=== PATIENT | male | born 1945 | race Caucasian/White ===

== ENCOUNTER 2016-12-30 19:11 | Emergency (ER) | payer MEDICARE, OTHER ==
[~2016-12-30] VITALS: Ht 175.3 cm; Wt 99.8 kg
[~2016-12-30 19:11] MED LIST: ACIT25CA2 PO; ALFU10TA10 PO; ATOR20TA PO; BUPR-96 PO; ENOX80DI SQ; ESOM40CA PO; LEVO100T PO; RANI150T12 PO; WARF5TAB77 PO
--- NOTE | 2016-12-30 19:20 | NUR ---
PATIENT TO ED DT LEFT SIDE OF BODY PAIN- PRESSURE LIKE, "FEELS LIKE THE PE I HAD BEFORE" PT IS AAO4. APPEARS IN NO APPARENT DISTRESS. RESPIRATION EVEN AND UNLABORED. SKIN IS WARM TO TOUCH AND NON DIAPHORETIC. VSS. GOWNED AND CONNECTED PT TO TELE MONITOR
[2016-12-30 19:43] LABS: BASOPHILS % (AUTO) 0.7 % (0.0-2.0); EOSINOPHILS # (AUTO) 0.1 /CMM (0.0-0.7); EOSINOPHILS % (AUTO) 1.2 % (0.0-6.0); HEMATOCRIT 45 % (39-51); HEMOGLOBIN 15.1 g/dL (13.5-17.5); LYMPHOCYTES # (AUTO) 1.2 /CMM (0.8-4.8); LYMPHOCYTES % (AUTO) 18.6 % (20.0-44.0); MEAN CORPUSCULAR HEMOGLOBIN 31 PG (26.0-33.0); MEAN CORPUSCULAR HGB CONC 34 g/dl (31.0-36.0); MEAN CORPUSCULAR VOLUME 91 fL (80-96); MONOCYTES # (AUTO) 0.4 /CMM (0.1-1.30); MONOCYTES % (AUTO) 6.4 % (2.0-12.0); NEUTROPHILS # (AUTO) 4.7 /CMM (1.8-8.9); NEUTROPHILS % (AUTO) 73.1 % (43.0-81.0); PLATELET COUNT (AUTO) 147 /CMM (150-450); RED BLOOD CELL COUNT(AUTO) 4.94 MIL/uL (4.5-6.0); WHITE BLOOD COUNT (AUTO) 6.4 K/uL (4.3-11.0)
[2016-12-30 19:55] LABS: CALCIUM, SERUM 8.2 mg/dL (8.5-10.1); POTASSIUM 3.9 mmol/L (3.5-5.1)
[2016-12-30 20:02] LABS: TROPONIN I 0.026 ng/mL (0.00-0.056)
[2016-12-30 20:50] LABS: D-DIMER 0.74 mg/L(FEU (0.17-0.50); INR 0.93 (0.87-1.13); PROTHROMBIN TIME 9.7 SECS (9.5-12.7)
[2016-12-30] MEDS ORDERED: IV NS 0.9% 250 ML IV ONE ×2 (21:00→21:04)
[2016-12-30] MEDS ORDERED: IOHEXOL-350 100 ML VIAL IV ONE (21:03)
[2016-12-30] MEDS ORDERED: CT SWABBABLE VALVE TRANS SET 1 EA INFUS.SET MC ONE (21:03)
--- NOTE | 2016-12-30 21:05 | NUR ---
PT WAS TAKE TO CT ANGIO
--- NOTE | 2016-12-30 21:55 | NUR ---
CALLED [facility] EXPEDITE CTPA READ.
[2016-12-30 22:21] VITALS: BP 130/80
== END 2016-12-30 22:22 | disposition home or self-care (01) ==
LOC: ER 19:14
DX: R07.89 Other chest pain (principal); E07.9 Disorder of thyroid, unspecified; E78.00 Pure hypercholesterolemia, unspecified; I51.7 Cardiomegaly; R06.02 Shortness of breath; R79.1 Abnormal coagulation profile; Z88.2 Allergy status to sulfonamides; Z79.01 Long term (current) use of anticoagulants; Z86.711 Personal history of pulmonary embolism; Z87.891 Personal history of nicotine dependence
CPT/HCPCS: 36415; 71010-TC; 80048-TC; 83880; 84484-TC; 85025-TC; 85378-TC; 85730-TC; A4606; J7050; Q9967; Z7610

== ENCOUNTER 2019-06-28 02:51 | Inpatient (IN) | payer MEDICARE, OTHER ==
[2019-06-28] VITALS (34 sets, daily range): BP systolic 81–217; BP diastolic 33–157
[~2019-06-28] VITALS: Ht 175.3 cm; Wt 85.3 kg
[~2019-06-28 02:51] MED LIST changes: +RANI-655 PO; -RANI150T12 PO; +WARF5TAB PO; -WARF5TAB77 PO
--- NOTE | 2019-06-28 02:55 | NUR ---
PT BIBRA C/O SOB X 1 DAY. SATTING 80-85% ON RA. SHALLOW RESPIRATIONS NOTED. RT AT BEDSIDE. PALCED ON 4 L O2 VIA N/C. PT AAOX3, CONNECTED TO THE PACKAGING INSPECTOR AND POX.
--- NOTE | 2019-06-28 02:58 | NUR ---
BLOOD COLLECTED AND SENT TO LAB
--- NOTE | 2019-06-28 03:10 | NUR ---
RT AT BEDSIDE
--- NOTE | 2019-06-28 03:10 | NUR ---
RT NOTE Late Entry: Pt rec'd on nasal cannula @ 4lpm. Pt showed tachypnea and accessory muscle usage. Pt placed on bipap per MD orders. Abg to be taken in 30 minutes. Alarms are set audible. Ambu bag bedside. Bipap plugged into red outlet. will continue to monitor. Addendum: 06/28/19 at 0559 by HILARIO GUTIERREZ RT Amended: Links added.
[2019-06-28 03:27] LABS: BASOPHILS % (AUTO) 0.6 % (0.0-2.0); EOSINOPHILS % (AUTO) 0.3 % (0.0-6.0); HEMATOCRIT 43 % (39-51); HEMOGLOBIN 14.2 g/dL (13.5-17.5); LYMPHOCYTES # (AUTO) 0.3 /CMM (0.8-4.8); LYMPHOCYTES % (AUTO) 6.3 % (20.0-44.0); MEAN CORPUSCULAR HGB CONC 33 g/dl (31.0-36.0); MEAN CORPUSCULAR VOLUME 93 fL (80-96); MONOCYTES # (AUTO) 0.3 /CMM (0.1-1.30); MONOCYTES % (AUTO) 4.8 % (2.0-12.0); NEUTROPHILS # (AUTO) 4.7 /CMM (1.8-8.9); PLATELET COUNT (AUTO) 187 /CMM (150-450); RED BLOOD CELL COUNT(AUTO) 4.56 MIL/uL (4.5-6.0); WHITE BLOOD COUNT (AUTO) 5.4 K/uL (4.3-11.0)
--- NOTE | 2019-06-28 03:31 | NUR ---
AVILA SWAB SENT
--- NOTE | 2019-06-28 03:31 | NUR ---
RSV SWAB SENT
[2019-06-28 03:37] LABS: CALCIUM, SERUM 8.3 mg/dL (8.5-10.1); CARBON DIOXIDE 27 mmol/L (21-32); CHLORIDE 97 mmol/L (98-107); CREATININE 1.5 mg/dL (0.6-1.3); GLUCOSE 110 mg/dL (74-106); POTASSIUM 3.8 mmol/L (3.5-5.1); SODIUM SERUM 136 mmol/L (136-145); UREA NITROGEN, BLOOD 19 mg/dL (7-18)
--- NOTE | 2019-06-28 03:44 | NUR ---
RT AT BEDSIDE FOR ABG
[2019-06-28 03:49] LABS: ABG BASE EXCESS -0.5 mmol/L; ABG OXYGEN SATURATION 98.9 % (92.0-98.5); ABG PCO2 28.1 mmHg (35.0-45.0); ABG PH 7.499 (7.350-7.450); AaDO2 424.9 mmHg; COHb 0.4 % (0.5-1.5); MetHb 0.3 % (0.0-1.5); O2Hb 98.2 % (94.0-97.0)
[2019-06-28 03:51] LABS: ALANINE AMINOTRANSFERASE 59 U/L (12-78); ALBUMIN 2.5 g/dL (3.4-5.0); ALKALINE PHOSPHATASE 61 U/L (46-116); ASPARTATE AMINOTRANSFERASE 128 U/L (15-37); B-TYPE NATRIURETIC PEPTIDE 387 PG/ML (0-125); BILIRUBIN,DIRECT 0.1 mg/dL (0.0-0.2); BILIRUBIN,TOTAL 0.5 mg/dL (0.2-1.0); TOTAL PROTEIN, SERUM 6.7 g/dL (6.4-8.2)
--- NOTE | 2019-06-28 03:52 | NUR ---
RT NOTE Late Entry: Abg taken and results given to MD. Bipap changes per MD orders. Addendum: 06/28/19 at 0600 by HILARIO GUTIERREZ RT Amended: Links added.
--- NOTE | 2019-06-28 04:29 | NUR ---
Pt resting comfortably. Given call light. AAOX4. Asked the patient for the meds he takes at home. PT could not recall.
--- NOTE | 2019-06-28 05:18 | NUR ---
DR. ARTIS ON THE PHONE WITH LAUREN JONES NP
--- NOTE | 2019-06-28 05:22 | NUR ---
PER NURSING SUP, NO BED AVAILABLE UNTIL AFTER SHIFT CHANGE
[2019-06-28] MEDS ORDERED: VANCOMYCIN 1 GM in IV D5W 250 ML IV ONE (05:30)
[2019-06-28] MEDS ORDERED: IV NS 0.9% 1,000 ML BAG IV ONE (05:30)
[2019-06-28] MEDS ORDERED: PIPERACILLIN /TAZOBACTAM 3.375 G in IV D5W 50 ML IV ONE (05:30)
[2019-06-28] MEDS ORDERED: PIPERACILLIN /TAZOBACTAM 3.375 G VIAL IV ONE (05:36)
--- NOTE | 2019-06-28 05:40 | NUR ---
PT RESTING. FLUIDS INITIATED AND STARTED ON ZOSYN.
[2019-06-28] MEDS ORDERED: ONDANSETRON HCL/PF 4 MG/2 ML VIAL IVP PRN (06:00)
[2019-06-28] MEDS ORDERED: MAG HYDROX/AL HYDROX/SIMETH 30 ML UDC PO PRN (06:00)
[2019-06-28] MEDS ORDERED: HYDROCODONE/APAP 5/325MG 1 EACH TABLET PO PRN (06:00)
[2019-06-28] MEDS ORDERED: MAGNESIUM HYDROXIDE 30 ML UDC PO PRN (06:00)
[2019-06-28] MEDS ORDERED: ACETAMINOPHEN 325 MG TABLET PO PRN (06:00)
[2019-06-28] MEDS ORDERED: VANCOMYCIN 1 GM VIAL ONE (06:04)
--- NOTE | 2019-06-28 07:16 | NUR ---
US AT BEDSIDE.
[2019-06-28] MEDS ORDERED: ACET-868 PO (08:03)
[2019-06-28] MEDS ORDERED: FAMO10TA41 PO (08:03)
[2019-06-28] MEDS ORDERED: BENZ200C53 PO (08:03)
[2019-06-28] MEDS ORDERED: LEVO100T PO (08:03)
[2019-06-28] MEDS ORDERED: LEVO750T46 PO (08:03)
--- NOTE | 2019-06-28 08:07 | NUR ---
report given to sweta landon at icu. awaiting transfer.
[2019-06-28 08:31] LABS: C-REACTIVE PROTEIN 24.4 mg/dL (0.0-0.9)
--- NOTE | 2019-06-28 09:24 | NUR ---
received pt from ER, s/p acute respiratory failure, r/o covid 19, a/o x4, follows commands, SR, on 10L simple mask, sat well, NPO, urinates in urinal, v/s stable, no pain, seen by Dr Noe.
[2019-06-28 10:23] LABS: ABG BASE EXCESS -4.5 mmol/L; ABG OXYGEN SATURATION 92.9 % (92.0-98.5); ABG PCO2 28.3 mmHg (35.0-45.0); ABG PH 7.431 (7.350-7.450); ABG PO2 63.9 mmHg (75.0-100.0); AaDO2 332.8 mmHg; COHb 0.5 % (0.5-1.5); MetHb 0.1 % (0.0-1.5); O2Hb 92.3 % (94.0-97.0); SITE, ABG Left Radial; VENT MODE, BG S/M 11 LPM
[2019-06-28] MEDS ORDERED: FEE PK DOSING 1 MIN EA MC ONE (10:52)
[2019-06-28] MEDS: ENOXAPARIN SODIUM 40 MG/0.4 ML DISP.SYRIN SQ SCH (11:00)
[2019-06-28] MEDS: IV NS 0.9% 1,000 ML IV PRN (11:01)
--- NOTE | 2019-06-28 12:15 | NUR ---
pt is successfully intubated for controlled intubation per Dr Noe.
[2019-06-28] MEDS ORDERED: PROPOFOL 10MG/ML 50ML 50 ML IV PRN ×2 (12:30→13:00)
[2019-06-28] MEDS: PIPERACILLIN /TAZOBACTAM 3.375 G in IV D5W 50 ML IV SCH ×2 (12:46→17:12)
[2019-06-28] MEDS: HYDROXYCHLOROQUINE 200 MG TABLET PO SCH ×2 (12:49→17:12)
[2019-06-28] MEDS ORDERED: IV NS 0.9% 500 ML IV ONE (13:00)
[2019-06-28] MEDS ORDERED: PROPOFOL 100 ML IV PRN ×2 (13:30→14:00)
[2019-06-28] MEDS: PROPOFOL 100 ML IV PRN ×4 (14:07→23:36)
[2019-06-28 15:39] LABS: ABG BASE EXCESS -2.4 mmol/L; ABG OXYGEN SATURATION 96.7 % (92.0-98.5); ABG PCO2 37.7 mmHg (35.0-45.0); ABG PH 7.387 (7.350-7.450); ABG PO2 95.1 mmHg (75.0-100.0); AaDO2 580.2 mmHg; COHb 0.2 % (0.5-1.5); MetHb 0.4 % (0.0-1.5); O2Hb 96.1 % (94.0-97.0); PEEP,BG 0 cm H2O; SITE, ABG Right Radial; VT, ABG 550 mL
[2019-06-28 15:46] LABS: APPEARANCE,URINE HAZY (CLEAR); COLOR,URINE YELLOW (YELLOW); PROTEIN,URINE 30 mg/dl (NEGATIVE)
[2019-06-28 15:47] LABS: BILIRUBIN,URINE NEGATIVE (NEGATIVE); BLOOD, URINE LARGE Ery/uL (NEGATIVE); KETONES,URINE NEGATIVE (NEGATIVE); LEUKOCYTE ESTERASE ,URINE NEGATIVE (NEGATIVE); NITRITE, URINE NEGATIVE (NEGATIVE); UGLUCOSE NEGATIVE (NEGATIVE); UROBILINOGEN,URINE 0.2 EU/dL (0.2)
[2019-06-28 15:50] LABS: BACTERIA,URINE Few /HPF (None Seen); MUCUS,URINE Rare /LPF (None Seen); RBC,URINE 51-80 /HPF (0-2); SQUAMOUS EPITHELIAL CELL,UR Few /HPF (None Seen); WBC,URINE 0-2 /HPF (0-3)
--- NOTE | 2019-06-28 16:41 | NUR ---
pt is resting in the bed, sedated on Diprivan at 45mcg, SB, intubated, lungs congested, no edema, NPO, OG clamped, f/c good output, v/s stable, no pain, pt cleaned, changed and repositioned q2hrs, still awaiting for PICC line nurse.
[2019-06-28] MEDS ORDERED: NOREPINEPHRINE 32 MG in IV NS 0.9% 218 ML IV PRN (18:00)
[2019-06-28] MEDS ORDERED: PROPOFOL 200 MG/20 ML VIAL IV ONE (18:09)
[2019-06-28] MEDS ORDERED: SUCCINYLCHOLINE CHLORIDE 20 MG/ML VIAL IV ONE (18:09)
--- NOTE | 2019-06-28 19:00 | NUR ---
RECEIVED PATIENT ORALLY INTUBATED TO THE VENTILATOR ON AC MODE, ON 100 % FIO2, SATURATING 92-94 %.SEDATED ON PROPOFOL DRIP @ 45 MCG/KG/MIN. ON CONTACT /DROPLET ISOLATION r/o COVID-19(result pending).BREATHING NON LABORED AT THIS TIME.
--- NOTE | 2019-06-28 20:35 | NUR ---
NOTED TO BE SUDDENLY TACHYPNEIC RR=36-38 AND LABORED BREATHING,SATURATING 90-91 % ONLY ON FIO2 OF 100 %. PROPOFOL DRIP INCREASED.
--- NOTE | 2019-06-28 21:30 | NUR ---
BREATHING LESS LABORED,RR=24, PROPOFOL DRIP @ 60 MCG/KG/MIN.WILL CLOSELY MONITOR BP.WILL TITRATE DOWN IF BREATHING REMAINS NON LABORED.
[2019-06-29] VITALS (85 sets, daily range): BP systolic 45–208; BP diastolic 22–121
--- NOTE | 2019-06-29 | NUR ---
CALM,BREATHING NON LABORED ,SATURATING 95-98%,.WILL KEEP PROPOFOL DRIP @ 55 MCG/KG/MIN. BP STABLE.
[2019-06-29] MEDS: PIPERACILLIN /TAZOBACTAM 3.375 G in IV D5W 50 ML IV SCH ×5 (00:08→23:20)
[2019-06-29] MEDS: VANCOMYCIN 1 GM in IV D5W 250ml IV SCH ×2 (00:44→18:21)
[2019-06-29] MEDS: IV NS 0.9% 1,000 ML IV PRN ×2 (02:18→17:58)
[2019-06-29] MEDS: PROPOFOL 100 ML IV PRN ×10 (02:30→23:47)
--- NOTE | 2019-06-29 04:00 | NUR ---
STABLE,NOT IN ANY RESPIRATORY DISTRESS,BREATHING ,REGULAR AND NON LABORED WITH PROPOFOL DRIP STILL @ 55 MCG/KG/MIN. AM BATH DONE.
[2019-06-29 04:55] LABS: BASOPHILS % (AUTO) 0.2 % (0.0-2.0); HEMATOCRIT 35 % (39-51); HEMOGLOBIN 11.3 g/dL (13.5-17.5); LYMPHOCYTES # (AUTO) 0.2 /CMM (0.8-4.8); MEAN CORPUSCULAR HGB CONC 32 g/dl (31.0-36.0); MEAN CORPUSCULAR VOLUME 89 fL (80-96); MONOCYTES # (AUTO) 0.9 /CMM (0.1-1.30); NEUTROPHILS # (AUTO) 17.6 /CMM (1.8-8.9); NEUTROPHILS % (AUTO) 93.8 % (43.0-81.0); PLATELET COUNT (AUTO) 121 /CMM (150-450); RED BLOOD CELL COUNT(AUTO) 3.94 MIL/uL (4.5-6.0); WHITE BLOOD COUNT (AUTO) 18.8 K/uL (4.3-11.0)
[2019-06-29 05:09] LABS: ALANINE AMINOTRANSFERASE 23 U/L (12-78); ALKALINE PHOSPHATASE 84 U/L (46-116); ASPARTATE AMINOTRANSFERASE 61 U/L (15-37); CARBON DIOXIDE 23 mmol/L (21-32); CHLORIDE 108 mmol/L (98-107); CREATININE 3.6 mg/dL (0.6-1.3); GLUCOSE 76 mg/dL (74-106); MAGNESIUM 2.2 mg/dL (1.8-2.4); PHOSPHORUS 5.6 mg/dL (2.5-4.9); POTASSIUM 4.2 mmol/L (3.5-5.1); SODIUM SERUM 141 mmol/L (136-145); TOTAL PROTEIN, SERUM 5.4 g/dL (6.4-8.2); UREA NITROGEN, BLOOD 53 mg/dL (7-18)
[2019-06-29 05:13] LABS: CALCIUM, SERUM 7.8 mg/dL (8.5-10.1)
[2019-06-29 05:20] LABS: CHOLESTEROL 55 mg/dL (<200); HDL CHOLESTEROL 10 mg/dL (40-60); LDL 19 mg/dL (0-99); TRIGLYCERIDES 139 mg/dL (30-150)
[2019-06-29 05:24] LABS: ALBUMIN 1.1 g/dL (3.4-5.0)
--- NOTE | 2019-06-29 07:00 | NUR ---
REMAINS STABLE.REPORT GIVEN TO SUAD HOWELL
--- NOTE | 2019-06-29 08:00 | NUR ---
RT PATIENT REC'D ORALLY INTUBATED ON [facility] VENT WITH ORDERED SETTINGS. VENT ALARMS CHECKED + AUDIBLE. ETT SECURE AND PATENT. AMBU BAG AT [facility]. PATIENT SEDATED AND APPEARS IN NO DISTRESS AT THIS TIME. CONT CURRENT PLAN OF RESP CARE. Addendum: 06/29/19 at 1449 by MYRNA WREN RT Amended: Links added.
[2019-06-29] MEDS: HYDROXYCHLOROQUINE 200 MG TABLET PO SCH ×2 (08:05→17:34)
[2019-06-29] MEDS: ENOXAPARIN SODIUM 40 MG/0.4 ML DISP.SYRIN SQ SCH (08:07)
--- NOTE | 2019-06-29 08:57 | NUR ---
received pt from nightman, sedated on Diprivan at 50mcg, SB, on the vent, high peep, BL PNA, some non pitting edema BLLE, NPO, f/c good output, started on levo at 0.1 mcg, restraints on, v/s stable, no pain, pt turned and repositioned.
[2019-06-29 10:17] LABS: ABG BASE EXCESS -4.6 mmol/L; ABG PCO2 29.6 mmHg (35.0-45.0); ABG PH 7.417 (7.350-7.450); ABG PO2 66.9 mmHg (75.0-100.0); AaDO2 472.4 mmHg; COHb 0.4 % (0.5-1.5); MetHb 0.4 % (0.0-1.5); O2Hb 92.3 % (94.0-97.0); SITE, ABG Left Brachial
--- NOTE | 2019-06-29 11:30 | NUR ---
RT PEEP INCREASED TO 12 AND FIO2 TITRATED TO 80% Addendum: 06/29/19 at 1449 by MYRNA WREN RT Amended: Links added.
[2019-06-29] MEDS: AZITHROMYCIN 500 MG in IV D5W 250 ML IV SCH (12:27)
[2019-06-29] MEDS: ACETAMINOPHEN 650 MG/20.3 ML UDC NG PRN (13:12)
[2019-06-29 13:57] LABS: ABG BASE EXCESS -6.1 mmol/L; ABG OXYGEN SATURATION 98.5 % (92.0-98.5); ABG PH 7.371 (7.350-7.450); ABG PO2 188.9 mmHg (75.0-100.0); AaDO2 347.9 mmHg; COHb 0.2 % (0.5-1.5); MetHb 0.6 % (0.0-1.5); O2Hb 97.7 % (94.0-97.0); SITE, ABG Right Radial
--- NOTE | 2019-06-29 16:54 | NUR ---
pt is resting in the bed, sedated on Diprivan at 75mcg, SR, SB, intubated high peep, sat 100%, receiving levo at 0.04 mcg, f/c good output, v/s stable, no pain, pt cleaned, changed and repositioned q2hrs.
--- NOTE | 2019-06-29 19:45 | NUR ---
FAMILY CALLED LEONARDO SKELTON [phone], GAVE UPDATE ON THIS PT.
--- NOTE | 2019-06-29 20:10 | NUR ---
ICU/DYNAMITE RECLAIMER REPORT RECEIVED FROM THE TO DAY NURSE. SEE FLOWSHEET FOR ASSESSMENT, NO SKIN ISSUES TO BE ADDRESSED. PT IS ON SEDATION AT THIS TIME DUE TO INTUBATION. PT IS ORALLY INTUBATED WITH SATURATION AT 89-90%. WILL MONITOR THIS PT. PT TURNED AND REPOSITIONED FOR COMFORT AND CARE. PT IS ON LEVO FOR LOW BP.
[2019-06-29] MEDS: LORAZEPAM INJ 2 MG/ML VIAL IVP PRN (20:16)
[2019-06-29 20:52] LABS: ABG BASE EXCESS -4.1 mmol/L; ABG OXYGEN SATURATION 81.3 % (92.0-98.5); ABG PCO2 40.4 mmHg (35.0-45.0); ABG PH 7.341 (7.350-7.450); ABG PO2 48.5 mmHg (75.0-100.0); AaDO2 479.5 mmHg; COHb 0.5 % (0.5-1.5); MetHb 0.2 % (0.0-1.5); O2Hb 80.7 % (94.0-97.0); SITE, ABG Left Radial
[2019-06-29] MEDS ORDERED: VECURONIUM 50 MG in IV NS 0.9% 50 ML IV PRN (21:30)
--- NOTE | 2019-06-29 21:30 | NUR ---
ICU/FISH NET STRINGER PT'S SATURATION IS 70'S, RT AT BEDSIDE. ABG WAS DONE. DR PALACIOS CALLED OBTAINED ORDERS. RT GOT ORDERS INCREASED SETTINGS TO A/C 28, TV550, FIO2 100, PEEP 14 ORDERS OBTAINED IF STILL BREATHING OVER VENT GIVE ATIVAN 1MG PRN, IF STILL BREATHING OVER VENT START ON PARALYTIC CHARGE NURSE TOOK THIS ORDER. .
--- NOTE | 2019-06-29 22:30 | NUR ---
ICU/FAMILY PROGRAM SPECIALIST PT IS TOLERATING CURRENT VENT SETTINGS AT THIS TIME, FAMILY IS AWARE.
[2019-06-30] VITALS (95 sets, daily range): BP systolic 57–212; BP diastolic 32–130
[2019-06-30] MEDS: PROPOFOL 100 ML IV PRN ×13 (01:30→22:36)
[2019-06-30] MEDS: PIPERACILLIN /TAZOBACTAM 3.375 G in IV D5W 50 ML IV SCH ×4 (05:16→23:28)
[2019-06-30 06:02] LABS: BASOPHILS % (AUTO) 0.2 % (0.0-2.0); HEMATOCRIT 38 % (39-51); HEMOGLOBIN 13.1 g/dL (13.5-17.5); LYMPHOCYTES # (AUTO) 0.3 /CMM (0.8-4.8); LYMPHOCYTES % (AUTO) 3.1 % (20.0-44.0); MEAN CORPUSCULAR HGB CONC 35 g/dl (31.0-36.0); MEAN CORPUSCULAR VOLUME 94 fL (80-96); MONOCYTES # (AUTO) 0.3 /CMM (0.1-1.30); NEUTROPHILS # (AUTO) 10.3 /CMM (1.8-8.9); NEUTROPHILS % (AUTO) 92.7 % (43.0-81.0); PLATELET COUNT (AUTO) 184 /CMM (150-450); RED BLOOD CELL COUNT(AUTO) 3.99 MIL/uL (4.5-6.0); WHITE BLOOD COUNT (AUTO) 11.1 K/uL (4.3-11.0)
[2019-06-30 06:10] LABS: CALCIUM, SERUM 7.8 mg/dL (8.5-10.1); MAGNESIUM 2.2 mg/dL (1.8-2.4); PHOSPHORUS 2.2 mg/dL (2.5-4.9); POTASSIUM 3.1 mmol/L (3.5-5.1)
--- NOTE | 2019-06-30 07:14 | NUR ---
CORRECTIONAL CAPTAIN NOTES RECEIVED PATIENT SEDATED , NOT IN ACUTE DISTRESS , RESPIRATIONS DEEP UNLABORED WITH SPO2 OF 100% VIA MECHANICAL VENT SETTINGS ORDERED , ETT 11/[address] , SR 75 ON BEDSIDE MONITOR , FC DRAINING VIA GRAVITY , OGT IN PLACE CLAMPED , IV OF R AC 20 AND R HAND # 22 PATENT AND INTACT SL , R UA PICC LINE WITH NS @ 75ML/HR INFUSING WELL , ALL NEEDS ATTENDED , ISOLATION PRECAUTION OBSERVED , WILL CONTINUE TO MONITOR
[2019-06-30 07:28] LABS: ABG BASE EXCESS -6.5 mmol/L; ABG OXYGEN SATURATION 98.5 % (92.0-98.5); ABG PCO2 20.2 mmHg (35.0-45.0); ABG PH 7.484 (7.350-7.450); ABG PO2 210.8 mmHg (75.0-100.0); COHb 0.3 % (0.5-1.5); MetHb 0.2 % (0.0-1.5); SITE, ABG Right Brachial
[2019-06-30] MEDS: LORAZEPAM INJ 2 MG/ML VIAL IVP PRN (08:13)
[2019-06-30] MEDS: HYDROXYCHLOROQUINE 200 MG TABLET PO SCH ×2 (08:13→17:16)
[2019-06-30] MEDS: ENOXAPARIN SODIUM 40 MG/0.4 ML DISP.SYRIN SQ SCH (08:13)
--- NOTE | 2019-06-30 08:35 | NUR ---
GLASS CUTTER HELPER NOTES VENT CHANGED BY PARKER MONROE , ORDERS CARRIED OUT , ABG IN 2 HOURS ,
[2019-06-30] MEDS: IV NS 0.9% 1,000 ML IV PRN (09:00)
[2019-06-30] MEDS ORDERED: POTASSIUM CHLORIDE 20 MEQ POWDER PACKET GT SCH (09:00)
--- NOTE | 2019-06-30 09:00 | NUR ---
MECHANICAL SERVICE SPECIALIST NOTES UNABLE TO DO SEDATION VACATION DUE TO VENT SETTINGS , DR PALACIOS AWARE .
[2019-06-30] MEDS: AZITHROMYCIN 500 MG in IV D5W 250 ML IV SCH (10:15)
[2019-06-30 10:45] LABS: ABG BASE EXCESS -4.9 mmol/L; ABG OXYGEN SATURATION 98.8 % (92.0-98.5); ABG PCO2 30.1 mmHg (35.0-45.0); ABG PH 7.407 (7.350-7.450); AaDO2 198.7 mmHg; COHb 0.1 % (0.5-1.5); MetHb 0.4 % (0.0-1.5); O2Hb 98.3 % (94.0-97.0); PEEP,BG 14 cm H2O; SITE, ABG Left Radial; VT, ABG 500 mL
--- NOTE | 2019-06-30 10:49 | NUR ---
VACUUM BOTTLE ASSEMBLER NOTES VENT CHANGES CARRIED OUT , AC 28 , TV 500 FIO2 50% AND PEEP OF 10 , WILL CONTINUE TO MONITOR .
[2019-06-30 12:10] LABS: CALCIUM, SERUM 7.9 mg/dL (8.5-10.1); POTASSIUM 4.7 mmol/L (3.5-5.1)
[2019-06-30] MEDS: VANCOMYCIN 1 GM in IV D5W 250ml IV SCH (12:51)
[2019-06-30] MEDS ORDERED: methylPREDNISolone SOD SUCC 40 MG/ML VIAL IV ONE (13:00)
[2019-06-30] MEDS ORDERED: diphenhydrAMINE HCL 50 MG/ML VIAL IV ONE (13:00)
[2019-06-30] MEDS ORDERED: ACETAMINOPHEN 650 MG/20.3 ML UDC GT ONE (13:00)
[2019-06-30] MEDS ORDERED: TOCILIZUMAB 400 MG in IV NS 0.9% 80 ML IV ONE (14:00)
[2019-06-30 18:03] LABS: MAGNESIUM 2.1 mg/dL (1.8-2.4); PHOSPHORUS 2.3 mg/dL (2.5-4.9)
[2019-06-30] MEDS ORDERED: NOREPINEPHRINE 8 MG in IV D5W 500 ML IV PRN (18:30)
--- NOTE | 2019-06-30 19:30 | NUR ---
BUNCHER OPERATOR NOTES PATIENT STABLE SEDATED , NOT IN ACUTE DISTRESS , RESPIRATIONS DEEP UNLABORED WITH SPO2 OF 100% VIA MECHANICAL VENT SETTINGS ORDERED , ETT 11/[address] , SR 70 ON BEDSIDE MONITOR , FC DRAINING VIA GRAVITY , OGT IN PLACE CLAMPED , IV OF R AC 20 AND R HAND # 22 PATENT AND INTACT SL , R UA PICC LINE WITH NS @ 75ML/HR INFUSING WELL , LEVOPHED ORDERED , ALL NEEDS ATTENDED , ISOLATION PRECAUTION OBSERVED , REPORT GIVEN TO BUCK FOR CONTINUITY OF CARE
[2019-06-30] MEDS: NOREPINEPHRINE 8 MG in IV NS 0.9% 242 ML IV PRN (19:34)
--- NOTE | 2019-06-30 19:45 | NUR ---
ICU/PLATFORM MATERIAL HANDLER MANAGER REPORT RECEIVED FROM THE TO DAY NURSE. SEE FLOWSHEET FOR ASSESSMENT, SKIN ISSUES WAS ADDRESSED. PT IS ON SEDATION AT THIS TIME DUE TO INTUBATION. PT IS ORALLY INTUBATED WITH SATURATION AT 99%. WILL MONITOR THIS PT. PT TURNED AND REPOSITIONED FOR COMFORT AND CARE. PT IS ON LEVO FOR LOW BP.
--- NOTE | 2019-06-30 20:20 | NUR ---
RT NOTE PT RECEIVED TRACHED ON MECHANICAL VENTILATION INTUBATED WITH 8.0 ET TUBE @ 25 CM MID LIP LINE. SX DONE, SMALL THICK CLEAR SECRETIONS NOTED. ALARMS ON AND AUDIBLE. VENT PLUGGED TO RED OUTLET. NO DISTRESS NOTED AT THIS TIME. WILL MONITOR T/O SHIFT. Addendum: 06/30/19 at 2020 by ALTHEA REYNA RT Amended: Links added.
[2019-07-01] VITALS (95 sets, daily range): BP systolic 65–189; BP diastolic 36–114
[2019-07-01] MEDS: PROPOFOL 100 ML IV PRN ×8 (00:16→23:18)
[2019-07-01 05:01] LABS: BASOPHILS % (AUTO) 0.2 % (0.0-2.0); HEMATOCRIT 39 % (39-51); LYMPHOCYTES # (AUTO) 0.3 /CMM (0.8-4.8); MEAN CORPUSCULAR HGB CONC 34 g/dl (31.0-36.0); MEAN CORPUSCULAR VOLUME 92 fL (80-96); MONOCYTES # (AUTO) 0.2 /CMM (0.1-1.30); NEUTROPHILS # (AUTO) 8.3 /CMM (1.8-8.9); NEUTROPHILS % (AUTO) 94.8 % (43.0-81.0); PLATELET COUNT (AUTO) 140 /CMM (150-450); WHITE BLOOD COUNT (AUTO) 8.8 K/uL (4.3-11.0)
[2019-07-01] MEDS: VANCOMYCIN 1 GM in IV D5W 250ml IV SCH (05:14)
[2019-07-01 05:20] LABS: ALBUMIN 1.5 g/dL (3.4-5.0); BILIRUBIN,TOTAL 0.5 mg/dL (0.2-1.0); CALCIUM, SERUM 7.7 mg/dL (8.5-10.1); MAGNESIUM 2.3 mg/dL (1.8-2.4); PHOSPHORUS 2.9 mg/dL (2.5-4.9); POTASSIUM 3.3 mmol/L (3.5-5.1)
--- NOTE | 2019-07-01 06:00 | NUR ---
RT NOTE END OF SHIFT: SX DONE, ET TUBE SECURED AND PATENT. HME CHANGED. ET TUBE MOVED TO MID LIP LINE. NO DISTRESS NOTED. ALARMS ON AND AUDIBLE. Addendum: 07/01/19 at 0601 by ALTHEA REYNA RT Amended: Links added.
[2019-07-01] MEDS: IV NS 0.9% 1,000 ML IV PRN ×2 (06:03→19:10)
[2019-07-01] MEDS: PIPERACILLIN /TAZOBACTAM 3.375 G in IV D5W 50 ML IV SCH ×4 (06:19→23:26)
--- NOTE | 2019-07-01 06:30 | NUR ---
ICU/PROFESSIONAL POKER PLAYER LAB CALLED SAID PT IS COVID-19 POSITIVE
--- NOTE | 2019-07-01 06:45 | NUR ---
ICU/MACHINE HOSTLER FAMILY ASKED TO BE CALLED WHEN PT HAS A POSITIVE COVID-19 TEST. MANI WAS CALLED TO BE NOTIFIED.
--- NOTE | 2019-07-01 07:15 | NUR ---
SUCTION DRUM DRIER OPERATOR NOTES RECEIVED PATIENT SEDATED , NOT IN ACUTE DISTRESS , RESPIRATIONS DEEP UNLABORED WITH SPO2 OF 100% VIA MECHANICAL VENT SETTINGS ORDERED , ETT 11/[address] , SB 40 ON BEDSIDE MONITOR , FC DRAINING VIA GRAVITY , OGT IN PLACE CLAMPED , IV OF R AC 20 AND R HAND # 22 PATENT AND INTACT SL , R UA PICC LINE WITH NS @ 75ML/HR , LEVOPHED @ 0.02MCG/MIN , INFUSING WELL , ALL NEEDS ATTENDED , ISOLATION PRECAUTION OBSERVED , WILL CONTINUE TO MONITOR
[2019-07-01] MEDS: HYDROXYCHLOROQUINE 200 MG TABLET PO SCH (08:31)
[2019-07-01] MEDS: ENOXAPARIN SODIUM 40 MG/0.4 ML DISP.SYRIN SQ SCH (08:32)
--- NOTE | 2019-07-01 09:00 | NUR ---
SIGN HANGER NOTES SEEN AND EVALUATED BY DR PALACIOS , DISCUSSED PT IS OFF SEDATION , NOT WAKING UP AT THIS TIME , ON LEVOPHED @ 0.01MCK/KG/MIN , HYPOTHERMIC 95.5 , SLUGGISH PUPILS PERRLA 5MM . TOLERATING CURRENT VENT SETTINGS , PT IS POSITIVE FOR COVID 19
[2019-07-01] MEDS: POTASSIUM CL. PREMIX PERIPHER. 50 ML IV SCH ×3 (09:18→11:07)
--- NOTE | 2019-07-01 09:18 | NUR ---
INTERNAL SECURITY MANAGER NOTES NORA HELD FOR SEDATION VACATION , WILL CONTINUE TO MONITOR
--- NOTE | 2019-07-01 11:32 | NUR ---
FOREST NURSERY WORKER NOTES NOTIFIED DR LYNN REGARDING HR OF SB 35-40 ,S , OFF DIPRIVAN , LEVOPHED @0.01MCG/KG/MIN BP WNL , HYPOTHERMIC @95.5 , PUPILS 5MM SLUGGISH MD CRIS AWARE , PLAQUENIL AND NIYAH DC , PER MD ORDER T4 AND CORTISOL LEVEL ,
[2019-07-01 12:39] LABS: ABG BASE EXCESS -6.3 mmol/L; ABG OXYGEN SATURATION 97.4 % (92.0-98.5); ABG PCO2 25.6 mmHg (35.0-45.0); ABG PH 7.427 (7.350-7.450); ABG PO2 109.3 mmHg (75.0-100.0); AaDO2 218.4 mmHg; MetHb 0.3 % (0.0-1.5); O2Hb 97.1 % (94.0-97.0); PEEP,BG 10 cm H2O; SITE, ABG Left Brachial; VT, ABG 500 mL
--- NOTE | 2019-07-01 13:00 | NUR ---
ICE CREAM DISPENSER NOTES ABG RELAYED TO DR PALACIOS , ORDERED TO CHANGE VENT SETTINGS TO AC 28 , TV 550 FIO2 50% PEEP OF 5 , ORDER CARRIED OUT
--- NOTE | 2019-07-01 15:00 | NUR ---
UNIT COORDINATOR NOTES UPDATED DR PALACIOS REGARDING NEURO STATUS OF THE PT , STILL NOT WAKING UP , PUPILS SLUGGISH PERRLA 5MM , OFF SEDATION SINCE 917 , RESPONSIVE TO DEEP PAIN STIMULI NOTED WITH SQUIRMING , AWARE . MD UPDATED THE FAMILY , PER MD IF PT STILL NOT WAKING UP WILL DO CT OF THE HEAD BY TOMORROW .
[2019-07-01] MEDS: RITONAVIR 100 MG CAPSULE PO SCH (16:47)
[2019-07-01] MEDS: DARUNAVIR ETHANOLATE 800 MG TABLET PO SCH (16:47)
[2019-07-01] MEDS: DOXYCYCLINE 100 MG in IV D5W 100 ML IV SCH (17:43)
--- NOTE | 2019-07-01 18:36 | NUR ---
CHAR HOUSE SUPERVISOR NOTES PT STARTED TO WAKE UP , OPENS EYES , TRACKS , NOTED WITH MILD AGITATION , ABLE TO FOLLOW COMMANDS, WILL RE START DIPRIVAN ORDERED
--- NOTE | 2019-07-01 19:00 | NUR ---
PRODUCT INTRODUCTION MANAGER NOTE BP 84/59, LEVOPHED DRIP STARTED @ 0.1MCG/KG/MIN. WILL MONITOR CLOSELY
--- NOTE | 2019-07-01 19:30 | NUR ---
BRAND RECORDER INITIAL SHIFT NOTES RECEIVED PATIENT IN BED, SEDATED , NOT IN ACUTE DISTRESS, BREATHING EVEN AND NONLABORED WITH SPO2 OF 100% VIA MECHANICAL VENT SETTINGS ORDERED , ETT 8/25CM AT LIP LINE, IN PLACE , SB 44 ON BEDSIDE MONITOR , FC DRAINING VIA GRAVITY, OGT IN PLACE, PATENT AND INTACT, CLAMPED , IV OF R AC 20 AND R HAND # 22 PATENT AND INTACT SL , R UA PICC LINE WITH NS @ 75ML/HR , LEVOPHED DRIP @ 0.1MCG/MIN , INFUSING WELL , ALL NEEDS ATTENDED , ISOLATION PRECAUTION OBSERVED , WILL CONTINUE TO MONITOR
[2019-07-01] MEDS ORDERED: DOXYCYCLINE 100 MG in IV NS 0.9% 100 ML IV SCH (21:00)
--- NOTE | 2019-07-01 22:00 | NUR ---
SECRETARY BOOK KEEPER NOTES RECEIVED CALL FROM PATIENT'S FAMILY MEMBERS ( AND SON) , UPDATED REGARDING CURRENT CONDITION
[2019-07-01] MEDS: NOREPINEPHRINE 8 MG in IV NS 0.9% 242 ML IV PRN (23:40)
[2019-07-02] VITALS (80 sets, daily range): BP systolic 84–185; BP diastolic 54–111
[2019-07-02] MEDS: VANCOMYCIN 1 GM in IV D5W 250ml IV SCH ×2 (01:13→19:25)
--- NOTE | 2019-07-02 04:00 | NUR ---
MOTORCYCLE RACER NOTES FULL BED BATH RENDERED,TOLERATED WELL, WILL MONITOR CLOSELY
[2019-07-02 05:13] LABS: BASOPHILS % (AUTO) 0.2 % (0.0-2.0); EOSINOPHILS % (AUTO) 0.2 % (0.0-6.0); HEMATOCRIT 37 % (39-51); HEMOGLOBIN 12.3 g/dL (13.5-17.5); LYMPHOCYTES # (AUTO) 0.5 /CMM (0.8-4.8); LYMPHOCYTES % (AUTO) 3.6 % (20.0-44.0); MEAN CORPUSCULAR HGB CONC 34 g/dl (31.0-36.0); MEAN CORPUSCULAR VOLUME 92 fL (80-96); MONOCYTES # (AUTO) 0.4 /CMM (0.1-1.30); MONOCYTES % (AUTO) 3.1 % (2.0-12.0); NEUTROPHILS # (AUTO) 12.3 /CMM (1.8-8.9); NEUTROPHILS % (AUTO) 92.9 % (43.0-81.0); PLATELET COUNT (AUTO) 201 /CMM (150-450); WHITE BLOOD COUNT (AUTO) 13.2 K/uL (4.3-11.0)
[2019-07-02 05:31] LABS: CALCIUM, SERUM 7.7 mg/dL (8.5-10.1); CREATININE 1.1 mg/dL (0.6-1.3); POTASSIUM 3.9 mmol/L (3.5-5.1)
[2019-07-02] MEDS: PIPERACILLIN /TAZOBACTAM 3.375 G in IV D5W 50 ML IV SCH ×3 (05:40→17:56)
[2019-07-02] MEDS: PROPOFOL 100 ML IV PRN ×2 (05:41→23:27)
[2019-07-02] MEDS: DOXYCYCLINE 100 MG in IV D5W 100 ML IV SCH ×2 (06:26→18:16)
--- NOTE | 2019-07-02 07:30 | NUR ---
RN NOTES RECEIVED PATIENT SEDATED WITH DIPRIVAN AT 25MC. NOT ON RESPIRATORY DISTRESS. BREATHING UNLABORED. SATING 100%. SINUS ROEL ON THE MONITOR WITH HR ON THE 50S. NO INDICATION OF PAIN NOTED AT THIS TIME. OGT IN PLACE. CLAMPED. HOB ELEVVATED. MORAN CATHETER IN PLACE AND DRAINING WITH CLEAR YELLOW URINE. BILATERAL SOFT RESTRAINTS ON. WILL INITIATE SEDATION VACATION. CALL LIGHT NOTED TO BE WITHIN REACH. WILL CONTINUE TO MONITOR PATIENT ACCORDINGLY
[2019-07-02] MEDS: RITONAVIR 100 MG CAPSULE PO SCH (08:39)
[2019-07-02] MEDS: DARUNAVIR ETHANOLATE 800 MG TABLET PO SCH (08:39)
--- NOTE | 2019-07-02 09:00 | NUR ---
RN NOTES PATIENT OFF SEDATION. DUE MEDS GIVEN. PATIENT ASSESS AT BEDSIDE. AWAKE ALERT AND ORIENTEDX1-2. ABLE TO ANSWER SIMPLE QUESTION. ABLE TO FOLLOW COMMANDS AT THIS POINT.
--- NOTE | 2019-07-02 09:09 | NUR ---
WOUND CARE CONSULT: RECEIVED CONSULT FOR SACRAL REDNESS. REVIEWED PHOTO AND NURSING DOCUMENTATION. PHOTO SHOWS RED AREAS ON BUTTOCK. PT ON FIRST STEP LOW AIRLOSS MATTRESS. DISCUSSED SKIN PROTECTION WITH NURSING STAFF. WILL SEE PRN. NAVARRO IN AGREEMENT WITH PLAN OF CARE.
--- NOTE | 2019-07-02 09:21 | NUR ---
RT NOTE PT RECEIVED ON MECHANICAL VENTILATION INTUBATED WITH ET TUBE. ALARMS ON AND AUDIBLE. VENT PLUGGED TO RED OUTLET. NO DISTRESS NOTED AT THIS TIME. WILL MONITOR T/O SHIFT. Addendum: 07/02/19 at 0922 by BEVERLEY GABRIEL RT Amended: Links added.
[2019-07-02 10:54] LABS: ABG OXYGEN SATURATION 96.1 % (92.0-98.5); ABG PCO2 28.4 mmHg (35.0-45.0); ABG PH 7.458 (7.350-7.450); ABG PO2 84.7 mmHg (75.0-100.0); AaDO2 239.9 mmHg; COHb 0.3 % (0.5-1.5); MetHb 0.3 % (0.0-1.5); O2Hb 95.5 % (94.0-97.0); SITE, ABG Right Radial
[2019-07-02] MEDS: methylPREDNISolone SOD SUCC 40 MG/ML VIAL IV SCH (11:30)
[2019-07-02] MEDS: IV NS 0.9% 1,000 ML IV PRN (12:35)
--- NOTE | 2019-07-02 19:00 | NUR ---
RN NOTES ENDORSED PATIENT FOR CONTINUITY OD CARE. NOT ON ANY FORM OF DISTRESS. TOLERATING CURRENT VENT SETTINGS. SATING FINE. NO INDICATION OF PAIN. PATIENT WITH ONGOING IVF OF NS AT 100CC//HR. HOB ELEVATED. SAFETY MEASURES IN PLACE. CALL LIGHT WITHIN REACH
--- NOTE | 2019-07-02 21:45 | NUR ---
ANTI TANK MISSILEMAN NOTES SPOKE TO PATIENT'S MANI FOR UPDATE REGARDING CURRENT PLAN OF CARE. FAMILY MEMBERS APPRECIATIVE FOR CARE PROVIDED. PER 'S REQUEST, GIVE ATIVAN PATIENT HAS A "HISTORY OF BEING A VERY ANXIOUS PERSON." PATIENT ASSESSED, NOTED WITH SLIGHT AGITATION, BUT ALERT AND ORIENTED, SLIGHTLY TACHYPNEIC. ATIVAN 1MG VIA IV ADMINISTERED ORDERED
[2019-07-02] MEDS: LORAZEPAM INJ 2 MG/ML VIAL IVP PRN (21:55)
--- NOTE | 2019-07-02 23:00 | NUR ---
COMMERCIAL LINES ACCOUNT EXECUTIVE NOTES DESPITE ADMINISTRATION OF ATIVAN AND STARTING DIPRIVAN DRIP, PATIENT REMAINS AGITATED, BECOMING TACHYPNEIC, NOT GETTING HIS VOLUMES ON SIMV MODE. MOON RT AT BEDSIDE TO EVALUATE AND PLACE PATIENT BACK ON AC MODE, RATE 28, TV 500, FIO2 50%, PEEP +5. CHARGE NURSE MARK NOTIFIED
--- NOTE | 2019-07-02 23:24 | NUR ---
PT IN NOTABLE RESP DISTRESS, APPEARS TO NOT TOLERATE WEANING SETTINGS AND FURTHER. RN AWARE, PT RE-SEDATED. PLACED PT ON PREVIOUS SETTINGS. DISTRESS NO LONGER NOTED, PT TOLERATING WELL. WILL CONTINUE TO MONITOR. Addendum: 07/02/19 at 0009 by MOON STALEY RT Amended: Links added.
[2019-07-03] VITALS (51 sets, daily range): BP systolic 99–162; BP diastolic 70–97
[2019-07-03] MEDS: PIPERACILLIN /TAZOBACTAM 3.375 G in IV D5W 50 ML IV SCH ×5 (00:19→23:40)
--- NOTE | 2019-07-03 04:00 | NUR ---
GRAIN MILL WORKER NOTES BED BATH RENDERED, TOLERATED WELL. WILL MONITOR CLOSELY
[2019-07-03 04:28] LABS: BASOPHILS # (AUTO) 0.1 /CMM (0.0-0.2); BASOPHILS % (AUTO) 0.7 % (0.0-2.0); HEMATOCRIT 36 % (39-51); HEMOGLOBIN 12.1 g/dL (13.5-17.5); LYMPHOCYTES # (AUTO) 0.3 /CMM (0.8-4.8); LYMPHOCYTES % (AUTO) 2.9 % (20.0-44.0); MEAN CORPUSCULAR HGB CONC 34 g/dl (31.0-36.0); MEAN CORPUSCULAR VOLUME 94 fL (80-96); MONOCYTES # (AUTO) 0.2 /CMM (0.1-1.30); NEUTROPHILS # (AUTO) 8.1 /CMM (1.8-8.9); NEUTROPHILS % (AUTO) 94.4 % (43.0-81.0); PLATELET COUNT (AUTO) 136 /CMM (150-450); RED BLOOD CELL COUNT(AUTO) 3.83 MIL/uL (4.5-6.0); WHITE BLOOD COUNT (AUTO) 8.6 K/uL (4.3-11.0)
[2019-07-03 04:46] LABS: CALCIUM, SERUM 7.6 mg/dL (8.5-10.1); CREATININE 1.1 mg/dL (0.6-1.3); POTASSIUM 4.1 mmol/L (3.5-5.1)
[2019-07-03] MEDS: IV NS 0.9% 1,000 ML IV PRN (05:21)
[2019-07-03] MEDS: DOXYCYCLINE 100 MG in IV D5W 100 ML IV SCH ×2 (06:22→18:43)
--- NOTE | 2019-07-03 06:30 | NUR ---
MANAGER FORMS CLOSING NOTES PATIENT RESTING IN BED, APPEARS COMFORTABLE, NO ACUTE DISTRESS NOTED AT THIS TIME, REMAINS ORALLY INTUBATED ON MECHANICAL VENTILATION, SEDATED ON DIPRIVAN DRIP @ 10MCG/KG/MIN. WILL ENDORSE THE PATIENT TO THE AM SHIFT NURSE FOR CONTINUITY OF CARE
--- NOTE | 2019-07-03 08:00 | NUR ---
ICU/RN INITIAL NOTES,AM RECEIVED BEDSIDE REPORT FROM NIGHT NURSE. PT INTUBATED AND SEDATED ETT 8.0, 25 CM AT THE LIP. STILL ABLE TO OPEN EYES AND FOLLOW SIMPLE COMMANDS. PT ON VENT SETTINGS ORDERED BY MD, NO ACUTE DISTRESS NOTED. PT SINUS ROEL ON TELE. MORAN CATH IN PLACE DRAINING URINE, HEMATURIA NOTED. RIGHT UPPER ARM PICC LINE PATENT AND INTACT, NO S/S OF INFILTRATION NOTED. IVF INFUSING ORDERED. ALL NEEDS WILL BE ATTENDED TO, SAFETY MEASURES TAKEN, BED IN LOW POSITION, SIDE RAILS UP, CALL LIGHT WITHIN REACH. POSITIVE COVID, ISOLATION PRECAUTIONS TAKEN.
[2019-07-03 08:37] LABS: ABG OXYGEN SATURATION 97.6 % (92.0-98.5); ABG PCO2 30.4 mmHg (35.0-45.0); ABG PO2 107.3 mmHg (75.0-100.0); COHb 0.5 % (0.5-1.5); MetHb 0.3 % (0.0-1.5); O2Hb 96.8 % (94.0-97.0); SITE, ABG Right Radial; VENT MODE, BG AC 28 500 50% +5
[2019-07-03] MEDS: methylPREDNISolone SOD SUCC 40 MG/ML VIAL IV SCH (08:50)
[2019-07-03] MEDS: DARUNAVIR ETHANOLATE 800 MG TABLET PO SCH (08:50)
[2019-07-03] MEDS: RITONAVIR 100 MG CAPSULE PO SCH (08:50)
--- NOTE | 2019-07-03 09:00 | NUR ---
ICU/RN: SEDATION VACATION PT ON 10MCG/KG/MIN. ABLE TO OPEN EYES AND FOLLOW COMMANDS WITH NO TITRATION. PT CALM//COOPERATIVE. WILL CONTINUE SEDATION AT SAME RATE OF 10MCG/KG/MIN
[2019-07-03] MEDS: PROPOFOL 100 ML IV PRN ×2 (09:06→18:43)
[2019-07-03] MEDS: IV D5/0.45 NACL 1,000 ML IV PRN (09:45)
[2019-07-03] MEDS: VANCOMYCIN 1 GM in IV D5W 250ml IV SCH ×2 (11:41→16:42)
--- NOTE | 2019-07-03 19:06 | NUR ---
ICU/RN: ENDING NOTES,AM REPORT WILL BE ENDORSED TO NIGHT NURSE FOR MEG. PT ON VENT SETTINGS ORDERED, NO DISTRESS. DIP INFUSING ORDERED. ALL NEEDS ATTENDED TO, SAFETY MEASURES TAKEN, BED IN LOW POSITION, SIDE RAILS UP, CALL LIGHT WITHIN REACH. BILATERAL SOFT WRIST RESTRAINTS IN PLACE, ASSESSED PER PROTOCOL.
--- NOTE | 2019-07-03 19:30 | NUR ---
GARDEN CONSULTANT INITIAL SHIFT NOTES RECEIVED PATIENT IN BED, EYES CLOSED, SEDATED ON DIPRIVAN DRIP. PT ORALLY INTUBATED ON MECHANICAL VENTILATION, SETTINGS PRESCRIBED, TOLERATING WELL. NO RESPIRATORY DISTRESS. BEDSIDE TELEMETRY MONITORING SHOWS SINUS BRADYCARDIA WITH OCCASIONAL PVCs, HR 45BPM AT THIS TIME. STEFFANY PICC PATENT AND INTACT, RUNNING D5 1/2 NS @ 50ML/HR. MORAN CATHETER PATENT AND INTACT, DRAINING TEA COLORED/GREENISH/PINK TINGED URINE WITH SEDIMENTS VIA GRAVITY. BILATERAL SOFT WRIST RESTRAINTS IN PLACE DUE TO PATIENT BEING A HIGH RISK FOR SELF EXTUBATION. ISOLATION PRECAUTIONS OBSERVED, WILL CONTINUE TO CLOSELY MONITOR
--- NOTE | 2019-07-03 22:00 | NUR ---
SUPPLY AND DISTRIBUTION MANAGER NOTES RECEIVED CALL FROM PATIENT'S FAMILY MEMBERS, UPDATED REGARDING CURRENT CONDITION
[2019-07-04] VITALS (44 sets, daily range): BP systolic 97–156; BP diastolic 56–93
[2019-07-04] MEDS: PROPOFOL 100 ML IV PRN (03:02)
--- NOTE | 2019-07-04 04:00 | NUR ---
SENIOR CONTROLS ANALYST NOTES BED BATH RENDERED, TOLERATED WELL, NO BM. WILL MONITOR CLOSELY
[2019-07-04] MEDS: VANCOMYCIN 1 GM in IV D5W 250ml IV SCH ×2 (04:28→18:00)
[2019-07-04 04:49] LABS: BASOPHILS % (AUTO) 0.1 % (0.0-2.0); HEMATOCRIT 37 % (39-51); HEMOGLOBIN 12.5 g/dL (13.5-17.5); LYMPHOCYTES # (AUTO) 0.4 /CMM (0.8-4.8); LYMPHOCYTES % (AUTO) 4.1 % (20.0-44.0); MEAN CORPUSCULAR HGB CONC 34 g/dl (31.0-36.0); MEAN CORPUSCULAR VOLUME 94 fL (80-96); MONOCYTES # (AUTO) 0.3 /CMM (0.1-1.30); MONOCYTES % (AUTO) 3.4 % (2.0-12.0); NEUTROPHILS % (AUTO) 92.4 % (43.0-81.0); PLATELET COUNT (AUTO) 116 /CMM (150-450); RED BLOOD CELL COUNT(AUTO) 3.93 MIL/uL (4.5-6.0); WHITE BLOOD COUNT (AUTO) 9.8 K/uL (4.3-11.0)
[2019-07-04 05:15] LABS: CREATININE 1.1 mg/dL (0.6-1.3); POTASSIUM 4.1 mmol/L (3.5-5.1)
[2019-07-04 05:19] LABS: CALCIUM, SERUM 7.8 mg/dL (8.5-10.1)
[2019-07-04] MEDS: PIPERACILLIN /TAZOBACTAM 3.375 G in IV D5W 50 ML IV SCH ×3 (06:26→17:20)
--- NOTE | 2019-07-04 06:49 | NUR ---
RT PT RECEIVED INTUBATED ON [facility] VENT WITH NOTED SETTING. ETT PATENT AND SECURE. PT TOLERATING SETTING WELL. NO SOB OR DISTRESS NOTED ON SHIFT. VENT TO RED OUTLET. ALARMS SET AND AUDIBLE. CONTINUE CURRENT CARE PLAN AND MONITOR FOR ANY CHANGES. Addendum: 07/04/19 at 0650 by WILLAM ESPINOSA RT Amended: Links added.
[2019-07-04] MEDS: DOXYCYCLINE 100 MG in IV D5W 100 ML IV SCH ×2 (07:00→19:26)
[2019-07-04] MEDS: DARUNAVIR ETHANOLATE 800 MG TABLET PO SCH (08:34)
[2019-07-04] MEDS: RITONAVIR 100 MG CAPSULE PO SCH (08:35)
--- NOTE | 2019-07-04 09:00 | NUR ---
OG TUBE OCCLUDED, UNABLE TO GIVEN AM MEDS. DR. PALACIOS NOTIFIED. PER DR. PALACIOS PATIENT MIGHT BE EXTUBATED, IF PATIENT DOES NOT GET EXTUBATED PUT A NEW OG TUBE DOWN, IF PT DOES GET EXTUBATED CHECK BEDSIDE SWALLOW EVAL TO SEE IF PT CAN TAKE THE MEDS ORALLY.
--- NOTE | 2019-07-04 09:40 | NUR ---
VENT CHANGES BELOW MADE FOR WEANING TRIAL PER DR. PALACIOS: SIMV 4 PS 15 FIO2 50% PEEP +5 Addendum: 07/04/19 at 0942 by SINA TRINH RT Amended: Links added.
--- NOTE | 2019-07-04 10:24 | NUR ---
PROPOFOL STOPPED AT 0837 FOR WEANING TRIAL. WEANING TRIAL STARTED AT 0940. PT FOLLOWING COMMANDS, RESTRAINTS LEFT ON DURING WEANING TRIAL
[2019-07-04 11:30] LABS: ABG BASE EXCESS -2.5 mmol/L; ABG PCO2 30.9 mmHg (35.0-45.0); ABG PH 7.442 (7.350-7.450); ABG PO2 75.8 mmHg (75.0-100.0); AaDO2 245.9 mmHg; COHb 0.3 % (0.5-1.5); MetHb 0.4 % (0.0-1.5); O2Hb 93.3 % (94.0-97.0); PEEP,BG 5 cm H2O; SITE, ABG Right Radial; VT, ABG 500 mL
--- NOTE | 2019-07-04 11:49 | NUR ---
EXTUBATED ORDER AND PLACED INTO NASAL CANNULA @ 3 LPM O2 FLOW. SPO2 99% HR 54 - 56 BPM RR 20 - 25 BPM Addendum: 07/04/19 at 1207 by SINA TRINH RT Amended: Links added.
[2019-07-04] MEDS: IV D5/0.45 NACL 1,000 ML IV PRN (16:13)
--- NOTE | 2019-07-04 17:31 | NUR ---
VANCO TROUGH RESULTS = 12. PER PHARMACY OK TO GIVE 1700 DOSE.
--- NOTE | 2019-07-04 18:52 | NUR ---
END OF SHIFT NOTE: PT GOT EXTUBATED TODAY AT 1149, OG TUBE CAME OUT. PT PLACED ON 3LNC. PT IS ALERT OX4, VERY COOPERATIVE AND GRATEFUL FOR BEING ABLE TO GET OFF THE VENT. VOICE IS STRONG WITH OCCASIONAL WET COUGH. PT WAS ABLE TO TALK TO HIS , SON AND DAUGHTER ON THE PHONE BRIEFLY WITHOUT DIFFICULTY. SWALLOW EVAL ORDERED THROUGH SPEECH THERAPY. PER LAB TB QUANT TEST WAS SENT YESTERDAY TO SEND OUT LAB, PENDING RESULTS. RESTRAINTS AND PROPOFOL WERE DC'D.
--- NOTE | 2019-07-04 19:45 | NUR ---
ICU/FURNACE UTILITY OPERATOR REPORT RECEIVED FROM THE TO DAY NURSE. SEE FLOWSHEET FOR ASSESSMENT, SKIN ISSUES ARE ADDRESSED ALONG WITH INTERVENTIONS. PT IS ALERT. PT IS ON 3 LITERS N/C WITH SATURATION AT 89-90% WITH NON PRODUCTIVE COUGH. PT TURNED AND REPOSITIONED FOR COMFORT AND CARE. .
--- NOTE | 2019-07-04 22:15 | NUR ---
ICU/TAPPER SUPERVISOR PT'S MANI CALLED, GAVE UPDATE ON THIS PT.
--- NOTE | 2019-07-04 23:20 | NUR ---
ICU/MACHINERY MOVER OXYGENATION IS 88% WITH N/C AT 3 LITERS NOW PT IS CURRENTLY ON 6 LITERS VIA N/C. WILL MONITOR FOR ANY DESATURATION.
[2019-07-05] VITALS (25 sets, daily range): BP systolic 99–157; BP diastolic 51–87
[2019-07-05] MEDS: PIPERACILLIN /TAZOBACTAM 3.375 G in IV D5W 50 ML IV SCH ×5 (00:47→23:28)
--- NOTE | 2019-07-05 02:08 | NUR ---
ICU/SINKER PULLER PT'S A MOUTH BREATHER WITH A LARGE DISTENDED ABDOMEN, SATS WERE 89-90. PT STARTED TO FALL ASLEEP, SAT'S FELL INTO THE 82%. RT PLACED A SIMPLE MASK TO ALLOW PT TO SLEEP AND ALSO GET OXYGENATION. PT HAS A PRODUCTIVE COUGH, AFTER COUGH SAT'S COME UP TO 93-94%.WILL MONITOR THIS PT AND HIS SATURATION.
--- NOTE | 2019-07-05 02:30 | NUR ---
RT NOTE PLACED PT ON SIMPLE MASK 6LPM DUE TO DESATURATION. PT SPO2 @ 94%. NO DISTRESS NOTED. WILL MONITOR.
[2019-07-05] MEDS: VANCOMYCIN 1 GM in IV D5W 250ml IV SCH ×2 (04:17→17:22)
[2019-07-05 04:38] LABS: CALCIUM, SERUM 7.5 mg/dL (8.5-10.1); CREATININE 1.2 mg/dL (0.6-1.3); POTASSIUM 3.8 mmol/L (3.5-5.1)
[2019-07-05] MEDS: DOXYCYCLINE 100 MG in IV D5W 100 ML IV SCH ×2 (05:25→19:15)
[2019-07-05] MEDS ORDERED: LIDOCAINE 1%-EPI 1:100,000 20 ML VIAL TP ONE (07:00)
[2019-07-05] MEDS: RITONAVIR 100 MG CAPSULE PO SCH (08:18)
[2019-07-05] MEDS: DARUNAVIR ETHANOLATE 800 MG TABLET PO SCH (08:18)
[2019-07-05 08:57] LABS: ABG BASE EXCESS -2.6 mmol/L; ABG OXYGEN SATURATION 79.1 % (92.0-98.5); ABG PCO2 34.6 mmHg (35.0-45.0); ABG PH 7.409 (7.350-7.450); ABG PO2 45.1 mmHg (75.0-100.0); AaDO2 236.4 mmHg; COHb 0.6 % (0.5-1.5); MetHb 0.3 % (0.0-1.5); O2Hb 78.4 % (94.0-97.0); VENT MODE, BG simple mask
--- NOTE | 2019-07-05 09:06 | NUR ---
placed into NonRebreather due to 79% SpO2 Addendum: 07/05/19 at 0906 by SINA TRINH RT Amended: Links added.
[2019-07-05] MEDS: IV D5/0.45 NACL 1,000 ML IV PRN (17:33)
--- NOTE | 2019-07-05 19:30 | NUR ---
END OF SHIFT NOTE: PT PUT ON NRB MASK THIS AM FOR LOW SATS. PT TOLERATED NRB THE REST OF THE SHIFT WITHOUT DIFFICULTY. PT HAD 2 LARGE SOFT BMS THIS SHIFT. PT PASSED BEDSIDE SWALLOW EVAL WITHOUT DIFFICULTY. PILLS WERE CRUSHED AND GIVEN WITH APPLESAUCE. PT STATES HE HAS TROUBLE SWALLOW LARGE PILLS. SPEECH THERAPY DID NOT ASSESS PATIENT BECAUSE PT IS ON NRB. PT CHECKED ON HOURLY AND PRN BY NURSING STAFF.
--- NOTE | 2019-07-05 19:45 | NUR ---
ICU/FEATHER BONER REPORT RECEIVED FROM THE TO DAY NURSE. SEE FLOWSHEET FOR ASSESSMENT, SKIN ISSUES ARE ADDRESSED ALONG WITH INTERVENTIONS. PT IS ALERT WITH PERIODS OF FORGETFULNESS. PT IS ON 15 LITERS NONREBREATHER MASK WITH SATURATION AT MID 90'S AND A ROBUST NON PRODUCTIVE COUGH. PT TURNED AND REPOSITIONED FOR COMFORT AND CARE. .
--- NOTE | 2019-07-05 22:30 | NUR ---
MANI [phone] CALLED SPENT ABOUT 20-25 MINUTES GOING OVER IN DEPTH PT'S PROGRESS. ALSO AFTER CONVERSATION TRANSFERRED CALL INTO ROOM WHERE PT'S AND SON BOTH WERE ABLE TO TALK TO THE PT FOR ABOUT 5-7 MINUTES.
[2019-07-06] VITALS (27 sets, daily range): BP systolic 59–193; BP diastolic 30–157
[2019-07-06] MEDS: VANCOMYCIN 1 GM in IV D5W 250ml IV SCH (04:26)
[2019-07-06 04:35] LABS: BASOPHILS % (AUTO) 0.2 % (0.0-2.0); EOSINOPHILS % (AUTO) 0.6 % (0.0-6.0); HEMATOCRIT 41 % (39-51); HEMOGLOBIN 13.6 g/dL (13.5-17.5); LYMPHOCYTES # (AUTO) 0.5 /CMM (0.8-4.8); LYMPHOCYTES % (AUTO) 4.2 % (20.0-44.0); MEAN CORPUSCULAR HGB CONC 33 g/dl (31.0-36.0); MEAN CORPUSCULAR VOLUME 94 fL (80-96); MONOCYTES # (AUTO) 0.3 /CMM (0.1-1.30); MONOCYTES % (AUTO) 2.9 % (2.0-12.0); NEUTROPHILS % (AUTO) 92.1 % (43.0-81.0); PLATELET COUNT (AUTO) 88 /CMM (150-450); RED BLOOD CELL COUNT(AUTO) 4.38 MIL/uL (4.5-6.0); WHITE BLOOD COUNT (AUTO) 11.9 K/uL (4.3-11.0)
[2019-07-06 04:39] LABS: CALCIUM, SERUM 7.8 mg/dL (8.5-10.1); CREATININE 1.1 mg/dL (0.6-1.3); POTASSIUM 3.8 mmol/L (3.5-5.1)
[2019-07-06 05:07] LABS: LYMPHOCYTES % (MANUAL) 2 % (16-48); MONOCYTES % (MANUAL) 3 % (0-11.0); NEUTROPHILS % (MANUAL) 95 (42-76)
[2019-07-06] MEDS: DOXYCYCLINE 100 MG in IV D5W 100 ML IV SCH ×2 (05:40→17:00)
[2019-07-06] MEDS: PIPERACILLIN /TAZOBACTAM 3.375 G in IV D5W 50 ML IV SCH ×4 (06:15→23:51)
[2019-07-06] MEDS: RITONAVIR 100 MG CAPSULE PO SCH (08:45)
[2019-07-06] MEDS: DARUNAVIR ETHANOLATE 800 MG TABLET PO SCH (08:45)
--- NOTE | 2019-07-06 09:00 | NUR ---
RN NOTES NURSING SWALLOW TREAT INITIATED, PATIENT ABLE TO SWALLOW EFFECTIVELY BUT TURNS CYANOTIC AND WITH PERIODS OF DESATURATION WHEN MASK IS PULLED OUT ON A PERIOD OF TIME.
[2019-07-06 09:44] LABS: ABG BASE EXCESS -0.3 mmol/L; ABG OXYGEN SATURATION 92.8 % (92.0-98.5); ABG PCO2 32.8 mmHg (35.0-45.0); ABG PH 7.459 (7.350-7.450); AaDO2 612.2 mmHg; COHb 0.3 % (0.5-1.5); MetHb 0.3 % (0.0-1.5); O2Hb 92.2 % (94.0-97.0); SITE, ABG Left Radial; VENT MODE, BG nrb
[2019-07-06] MEDS: ENOXAPARIN SODIUM 40 MG/0.4 ML DISP.SYRIN SQ SCH (10:05)
--- NOTE | 2019-07-06 16:00 | NUR ---
RN NOTES PATIENT SEEN SITTING ON THE SIDE OF THE BED. ASSISTED TO GO BACK TO A SAFER POSITION. MORAN DRAINAGE NOTED TO BE BLOODY, PATENT UPON FLUSHING. PATIENT REORIENTED, CLEANED AND MADE COMFORTABLE AND WARMTH, BED ALARM ON. WILL CONTINUE TO MONITOR PATIENT ACCORDINGLY
[2019-07-06] MEDS: LORAZEPAM INJ 2 MG/ML VIAL IVP PRN ×2 (17:28→22:30)
--- NOTE | 2019-07-06 19:00 | NUR ---
RN NOTES RN NOTES PATIENT NOTED WITH DESATURATION. 88 % AT THIS TIME. ADDITIONAL OXYGEN VIA [employer] CANNULA PLACED IN. DR. PALACIOS INFORMED WITH ORDER FOR ABG IF PATIENT STILL CONTINUES TO DESATURATE, OKAY WITH THE INTERVENTION AT THIS TIME-WILL ENDORSE TO INCOMING SHIFT. NO INDICATION OF PAIN AT THIS TIME. WITH RR ON THE 30S. PATIENT ON HIGH FOWLERS POSITION. SAFETY MEASURES IN PLACE. CALL LIGHT WITHIN REACH
--- NOTE | 2019-07-06 19:40 | NUR ---
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 SEE FLOWSHEET FOR ASSESSMENT, SKIN ISSUES ARE ADDRESSED ALONG WITH INTERVENTIONS. PT IS ALERT WITH FORGETFULNESS AND LETHARGIC. PT IS ON 15 LITERS NONREBREATHER MASK WITH SATURATION AT LOW 90'S AND A ROBUST NON PRODUCTIVE COUGH. PT TURNED AND REPOSITIONED FOR COMFORT AND CARE. .
--- NOTE | 2019-07-06 22:00 | NUR ---
icu/credit controller PT AGITATED NOTIFIED CHARGE WHO GAVE ATIVAN PRN, WILL MONITOR THIS PT.
[2019-07-06 23:14] LABS: ABG BASE EXCESS 0.8 mmol/L; ABG OXYGEN SATURATION 81.2 % (92.0-98.5); ABG PCO2 34.1 mmHg (35.0-45.0); ABG PH 7.466 (7.350-7.450); ABG PO2 44.8 mmHg (75.0-100.0); AaDO2 634.1 mmHg; COHb 0.7 % (0.5-1.5); MetHb 0.2 % (0.0-1.5); O2Hb 80.5 % (94.0-97.0); SITE, ABG Right Radial; VENT MODE, BG NRB 100%
--- NOTE | 2019-07-06 23:30 | NUR ---
ICU/COUNTERPERSON PT'S SAT'S CAME DOWN ABG ORDERED AND CHARGE NURSE AWARE OF VALUES, CALL PLACED TO CHRISTELLE GARCIA.
[2019-07-07] VITALS (43 sets, daily range): BP systolic 62–199; BP diastolic 33–130
--- NOTE | 2019-07-07 00:20 | NUR ---
ICU/NUMERICAL ANALYSIS GROUP MANAGER LESLEE GARCIA SAID TO MONITOR PT IF HE NEEDS HIGH FLOW THEN [PLACE PT ON THIS. PT IS NOT IN DISTRESS ST THIS TIME.WILL MONITOR THIS PT.
[2019-07-07] MEDS: IV D5/0.45 NACL 1,000 ML IV PRN ×2 (00:31→23:23)
--- NOTE | 2019-07-07 02:45 | NUR ---
ICU/TOWER OPERATOR ABG DONE ON PT, PT LOOKED UNCOMFORTABLE, CHARGE NURSE AWARE.
--- NOTE | 2019-07-07 03:15 | NUR ---
ICU/MEMORIAL ADVISER ABG DONE LOOKS BETTER THAN BEFORE, GAVE RESULTS TO JOSE. NO NEW ORDERS. PT APPEARS TO BE IMPROVED. WILL MONITOR THIS PT.
[2019-07-07 03:35] LABS: ABG BASE EXCESS -0.2 mmol/L; ABG OXYGEN SATURATION 91.5 % (92.0-98.5); ABG PCO2 31.6 mmHg (35.0-45.0); ABG PH 7.474 (7.350-7.450); ABG PO2 62.1 mmHg (75.0-100.0); AaDO2 619.3 mmHg; COHb 0.4 % (0.5-1.5); MetHb 0.3 % (0.0-1.5); O2Hb 90.9 % (94.0-97.0); SITE, ABG Right Radial; VENT MODE, BG NRB 100%
[2019-07-07] MEDS ORDERED: IV NS 0.9% 500 ML IV ONE (04:00)
--- NOTE | 2019-07-07 04:30 | NUR ---
ICU/HEAVY MOBILE EQUIPMENT OPERATOR UNABLE TO GET AM LABS, WILL COME BACK LATER FOR AM LABS
--- NOTE | 2019-07-07 04:43 | NUR ---
RT NOTE. STAT ABG TAKEN AND ANALYZED @2245 DUE TO DESATURATION, NO DISTRESS. SHOWN TO RN, MAINTAIN CURRENT ORDER PER MD. WILL MONITOR CLOSELY. STAT ABG TAKEN AND ANALYZED @0318 DUE TO DESATURATION, NO DISTRESS. SHOWN TO RN. NO CHANGE IN CURRENT ORDER PER MD.
[2019-07-07] MEDS: DOXYCYCLINE 100 MG in IV D5W 100 ML IV SCH (05:12)
[2019-07-07] MEDS: PIPERACILLIN /TAZOBACTAM 3.375 G in IV D5W 50 ML IV SCH ×4 (05:59→23:22)
--- NOTE | 2019-07-07 06:50 | NUR ---
ICU/BODY MAN SPOKE TO MANI ABOUT PT'S CONDITION, SHE WOULD LIKE TO TALK WITH DR PALACIOS. WILL PASS THIS ALONG TO DAY SHIFT NURSE.
--- NOTE | 2019-07-07 07:30 | NUR ---
RN NOTES RECEIVED PATIENT, PATIENT APPEARS TO BE SLEEPING AT THIS TIME, TACHYPNEIC WITH RR ON THE 30S-40S. STILL ON NONREBREATHER WITH ADDITIONAL OXYGEN VIA NASAL CANNULA. SATURATION ON THE MONITOR ON THE HIGH 80S. SINUS RHYTHM ON THE MONITOR WITH HR ON THE 80. PATIENT UNABLE TO BE AROUSE WITH NOISE, PATIENT APPEARS TO BE MORE REACTIVE YESTERDAY COMPARED TODAY. WILL CONTINUE TO MONITOR PATIENT .
[2019-07-07] MEDS: DARUNAVIR ETHANOLATE 800 MG TABLET PO SCH (08:41)
[2019-07-07] MEDS: RITONAVIR 100 MG CAPSULE PO SCH (08:41)
[2019-07-07] MEDS: ENOXAPARIN SODIUM 40 MG/0.4 ML DISP.SYRIN SQ SCH (08:42)
--- NOTE | 2019-07-07 08:45 | NUR ---
RN NOTES PATIENT RESPONSIVE TO VOICE, ABLE TO FOLLOW COMMAND. WITH CONFUSION. WITH NONPRODUCTIVE COUGH. TEMPERATURE AT 99.6 AT THIS TIME. PATIENT WAS ABLE TO SWALLOW PILL EFFECTIVELY. CHANGE SITE FOR PULSE OXIMETER. SAFETY MEASURES ENSURED INN PLACE. WILL CONTINUE TO MONITOR PATIENT ACCORDINGLY. ADDENDUM: Felicitas JONES NP AT THE UNIT. UPDATED AND FILLED IN WITH REGARDS TO THE PATIENT. WITH INSTRUCTION TO UPDATE HIM IF RESULTS FOR LABORATORY RESULTS COMES IN
--- NOTE | 2019-07-07 09:28 | NUR ---
RN NOTES SPOKE TO LYNDA ARAUZ (CHARGE NURSE) WHO SPOKE AND UPDATED DR. PALACIOS ABOUT PATIENT BEING TACHYPNEIC AND WITH SATURATION ON THE MID 80'S. PER DR. PHILIP ARAUZ'S INSTRUCTION WERE: NO NEED TO DO ABG AT THIS TIME AND TO INTUBATE THE PATIENT IF SATURATION GOES LOW 80. WILL CONITUNE TO MONITOR PATIENT ACCORDINGLY
[2019-07-07 10:52] LABS: CALCIUM, SERUM 8.2 mg/dL (8.5-10.1); CREATININE 1.2 mg/dL (0.6-1.3); POTASSIUM 3.9 mmol/L (3.5-5.1)
[2019-07-07 11:20] LABS: BASOPHILS % (AUTO) 0.1 % (0.0-2.0); EOSINOPHILS % (AUTO) 0.7 % (0.0-6.0); HEMATOCRIT 41 % (39-51); HEMOGLOBIN 13.7 g/dL (13.5-17.5); LYMPHOCYTES # (AUTO) 0.6 /CMM (0.8-4.8); LYMPHOCYTES % (AUTO) 4.2 % (20.0-44.0); MEAN CORPUSCULAR HGB CONC 34 g/dl (31.0-36.0); MEAN CORPUSCULAR VOLUME 95 fL (80-96); MONOCYTES # (AUTO) 0.4 /CMM (0.1-1.30); MONOCYTES % (AUTO) 2.8 % (2.0-12.0); NEUTROPHILS # (AUTO) 12.4 /CMM (1.8-8.9); NEUTROPHILS % (AUTO) 92.2 % (43.0-81.0); PLATELET COUNT (AUTO) 66 /CMM (150-450); RED BLOOD CELL COUNT(AUTO) 4.31 MIL/uL (4.5-6.0); WHITE BLOOD COUNT (AUTO) 13.5 K/uL (4.3-11.0)
[2019-07-07 12:09] LABS: LYMPHOCYTES % (MANUAL) 2 % (16-48); MONOCYTES % (MANUAL) 3 % (0-11.0); NEUTROPHILS % (MANUAL) 95 (42-76)
--- NOTE | 2019-07-07 12:30 | NUR ---
RN NOTES CALLED AND SPOKE TO Felicitas JONES NP. INFORMED ABOUT DR. PALACIOS INSTRUCTION REGARDING ABG AND THE RESULTS OF MORNING LABS. NO NEW ORDERS AT THIS TIME. ALSO MENTION ABOUT DESIRES OF TALKING TO HIM. PHONE DETAILS RELAYED
[2019-07-07 13:35] LABS: ABG BASE EXCESS -1.2 mmol/L; ABG OXYGEN SATURATION 88.2 % (92.0-98.5); ABG PCO2 31.5 mmHg (35.0-45.0); ABG PH 7.457 (7.350-7.450); ABG PO2 54.6 mmHg (75.0-100.0); AaDO2 626.9 mmHg; COHb 0.7 % (0.5-1.5); MetHb 0.2 % (0.0-1.5); O2Hb 87.4 % (94.0-97.0); SITE, ABG Right Radial; VENT MODE, BG NB 100%
--- NOTE | 2019-07-07 14:00 | NUR ---
RN NOTES 1315: DR. BOO AT THE UNIT FOR ROUNDS. UPDATE AND MADE AWARE OF THE PATIENT'S CONDITION NO NEW ORDER OBTAIN. ALSO WITH INSTRUCTIONS TO INTUBATE THE PATIENT IF SATURATION GOES LOW 80 DESPITE HIM BEING AWARE THAT THE PATIENT HAS BEEN TACHYPNEIC (RR GOES 40 TO 50S.) THEN WITH ORDERS FOR STAT ABG TO DECIDE IF THE PATIENT WILL NEE REINTUBATION OF NOT 1329: ABG DONE. DR BOO WITH ORDER FOR INTUBATION. THEODORE (ACTUARIAL ASSISTANT WAS INFORMED BY THE CHARGED NURSE. Felicitas JONES WAS ALSO INFORMED BY ME.
--- NOTE | 2019-07-07 15:00 | NUR ---
RN NOTES PATIENT INTUBATED BY DR. MATTHEWS WITH 8.O ETTAT 25CM ON THE LIP. PROPOFOL STARTED. WILL CONTINUE TO MONITOR PATIENT ACCORDINGLY
[2019-07-07] MEDS: PROPOFOL 100 ML IV PRN ×3 (15:51→23:25)
[2019-07-07 16:54] LABS: PLATELET COUNT (AUTO) 69 /CMM (150-450)
[2019-07-07] MEDS: NOREPINEPHRINE 8 MG in IV NS 0.9% 242 ML IV PRN (17:05)
[2019-07-07 17:38] LABS: D-DIMER > 35.20 mg/L(FEU (0.17-0.50)
[2019-07-07 17:38] LABS: ABG BASE EXCESS -4.7 mmol/L; ABG OXYGEN SATURATION 96.5 % (92.0-98.5); ABG PCO2 46.4 mmHg (35.0-45.0); ABG PH 7.292 (7.350-7.450); ABG PO2 104.9 mmHg (75.0-100.0); AaDO2 561.7 mmHg; COHb 0.4 % (0.5-1.5); MetHb 0.3 % (0.0-1.5); O2Hb 95.8 % (94.0-97.0); SITE, ABG Right Radial; VENT MODE, BG AC 24 500 100% +10
[2019-07-07] MEDS ORDERED: ETOMIDATE 2 MG/ML VIAL IV ONE (17:45)
[2019-07-07] MEDS ORDERED: SUCCINYLCHOLINE CHLORIDE 20 MG/ML VIAL IV ONE (17:45)
--- NOTE | 2019-07-07 18:00 | NUR ---
RN NOTES RELAYED ABG RESULT TO DR. BOO WITH ORDERS FOR TO INCREASE TO 26, FI02 TO 90% FROM 100, INCREASE PEEP TO 12 FROM 10. CHEST XRAY IN 2 HOURS AND ABG IN AM. ORDERS READ JUN. NOTED AND CARRIED OUT
--- NOTE | 2019-07-07 19:15 | NUR ---
RN NOTES ENDORSED FOR CONINUITY OF CARE. PATIENT ORALLY INTUBATED, ON VENT. TOLERATING WELL. WITH ONGOING DIPRIVAN AT 40MCG AND LEVEPHED AT 0.1. ALL SAFETY MEASURES IN PLACE. CALL LIGHT WITHIN REACH
--- NOTE | 2019-07-07 19:48 | NUR ---
APPLE PICKING SUPERVISOR. INITIAL ASSESSMENT. RECEIVED THE PT REST ON THE BED, ORALLY INTUBATED. SEDATED WITH DIPRIVAN. ETT #8.LIP 25,AC 24,TV 500,FIO2 90%PEEP 12.SAT 98%.HUNTER GUIDE SHOWING NSR. IV RT UPPERARM PICC LINE IVF D51/2NS 50ML/H,LEVOPHED 0.2 MCG/KG/MIN,DIPRIVAN 40MCG/KG/MIN. HOB ELEVATED. OGT LOW INTERMITTENT SUCTION. HOB ELEVATED. WILL CONTINUE TO MONITOR VITALS.
[2019-07-08] VITALS (86 sets, daily range): BP systolic 62–204; BP diastolic 35–121
--- NOTE | 2019-07-08 00:38 | NUR ---
travel registered nurse icu. urine out put hematuria.
--- NOTE | 2019-07-08 00:40 | NUR ---
high school agriculture teacher. pt was agitated. jerry soft wrist restraint initiated
[2019-07-08] MEDS: NOREPINEPHRINE 8 MG in IV NS 0.9% 242 ML IV PRN ×3 (01:33→19:14)
--- NOTE | 2019-07-08 04:16 | NUR ---
RESERVATIONS MANAGER. AM CARE, ORAL CARE,,BED BATH GIVEN. REMAINING SAME VENT SETTING ON. SAT 99%. TIRE RETREADER SHOWING NSR. IV RT UPPER ARM PICC LINE IVF D5 1/2NS 50ML/H,LEVOPHED 0.1MCG/KG/MIN,DIPRIVAN 35MCG/KG/MIN, FC PATENT. HEMATURIA PRESENT. OGT LOW INTERMITTENT SUCTION. HOB ELEVATED. RAIMUNDO SOFT WRIST RESTRAINT CHECKED AND RELEASED. NO INJURY OR REDNESS NOTED. WILL CONTINUE TO MONITOR VITALS.
[2019-07-08 04:34] LABS: BASOPHILS # (AUTO) 0.1 /CMM (0.0-0.2); BASOPHILS % (AUTO) 0.3 % (0.0-2.0); EOSINOPHILS % (AUTO) 1.2 % (0.0-6.0); HEMATOCRIT 41 % (39-51); HEMOGLOBIN 13.3 g/dL (13.5-17.5); LYMPHOCYTES # (AUTO) 0.9 /CMM (0.8-4.8); LYMPHOCYTES % (AUTO) 5.2 % (20.0-44.0); MEAN CORPUSCULAR HGB CONC 32 g/dl (31.0-36.0); MEAN CORPUSCULAR VOLUME 94 fL (80-96); MONOCYTES # (AUTO) 0.4 /CMM (0.1-1.30); MONOCYTES % (AUTO) 2.3 % (2.0-12.0); NEUTROPHILS # (AUTO) 16.6 /CMM (1.8-8.9); PLATELET COUNT (AUTO) 86 /CMM (150-450); RED BLOOD CELL COUNT(AUTO) 4.41 MIL/uL (4.5-6.0); WHITE BLOOD COUNT (AUTO) 18.2 K/uL (4.3-11.0)
[2019-07-08 04:48] LABS: CARBON DIOXIDE 26 mmol/L (21-32); CHLORIDE 107 mmol/L (98-107); CREATININE 1.8 mg/dL (0.6-1.3); GLUCOSE 145 mg/dL (74-106); POTASSIUM 3.7 mmol/L (3.5-5.1); SODIUM SERUM 142 mmol/L (136-145); UREA NITROGEN, BLOOD 28 mg/dL (7-18)
[2019-07-08] MEDS ORDERED: NOREPINEPHRINE 4 MG/4 ML AMPUL IV ONE (05:59)
[2019-07-08] MEDS: PIPERACILLIN /TAZOBACTAM 3.375 G in IV D5W 50 ML IV SCH (06:34)
[2019-07-08] MEDS: PROPOFOL 100 ML IV PRN ×4 (08:37→19:17)
[2019-07-08 08:41] LABS: ABG BASE EXCESS -3.2 mmol/L; ABG OXYGEN SATURATION 98.8 % (92.0-98.5); ABG PCO2 39.1 mmHg (35.0-45.0); ABG PH 7.364 (7.350-7.450); ABG PO2 252.3 mmHg (75.0-100.0); AaDO2 349.3 mmHg; COHb 0.3 % (0.5-1.5); MetHb 0.4 % (0.0-1.5); O2Hb 98.1 % (94.0-97.0); SITE, ABG Right Radial; VENT MODE, BG AC26 500 +12 90%
[2019-07-08] MEDS: DARUNAVIR ETHANOLATE 800 MG TABLET PO SCH (08:53)
[2019-07-08] MEDS: RITONAVIR 100 MG CAPSULE PO SCH (08:53)
[2019-07-08] MEDS: ENOXAPARIN SODIUM 40 MG/0.4 ML DISP.SYRIN SQ SCH (08:55)
[2019-07-08 13:09] LABS: BILIRUBIN,URINE MODERATE (NEGATIVE); BLOOD, URINE LARGE Ery/uL (NEGATIVE); KETONES,URINE NEGATIVE (NEGATIVE); LEUKOCYTE ESTERASE ,URINE NEGATIVE (NEGATIVE); NITRITE, URINE POSITIVE (NEGATIVE); PROTEIN,URINE 100 mg/dl (NEGATIVE); UGLUCOSE NEGATIVE (NEGATIVE); UROBILINOGEN,URINE 0.2 EU/dL (0.2)
[2019-07-08 13:13] LABS: APPEARANCE,URINE CLOUDY (CLEAR)
[2019-07-08] MEDS: MEROPENEM 1 G in IV NS 0.9% 100 ML IV SCH (13:15)
[2019-07-08 13:18] LABS: COLOR,URINE RED (YELLOW)
[2019-07-08 13:20] LABS: BACTERIA,URINE Few /HPF (None Seen); MUCUS,URINE Few /LPF (None Seen); RBC,URINE TOO NUMEROUS TO COUN /HPF (0-2); SQUAMOUS EPITHELIAL CELL,UR 0-2 /HPF (None Seen); URINE AMORPHOUS URATE Moderate /HPF (None Seen); WBC,URINE 0-2 /HPF (0-3)
--- NOTE | 2019-07-08 19:30 | NUR ---
BILLIARD PLAYER RCD PT W/DX SEPSIS, RESP FAIL;. SB/NSR ON MONITOR. TITRATED LEVOPHED OFF AT THIS TIME. PT IS INTUBATED 8 @ 25 W/VENT SETTINGS AC 26 500 60% +12; PT REQUIRED EXTENSIVE ORAL CARE; NOTED WITH LARGE AMOUNT OF SPUTUM IN MOUTH; RENDERED ORAL CARE; PT WITH BLOODY SECRETIONS AND LARGE AMOUNTS OF BLOOD IN URINE. PER REPORT PT SHOULD BE ON OG LIS.
--- NOTE | 2019-07-08 19:33 | NUR ---
END OF SHIFT NOTE: PT HAD AN UNEVENTFUL SHIFT. BLOOD CULTURE AND URINE CULTURES SENT TO LAB PER MD ORDERS. CURRENT VENT SETTINGS ARE AC26, TV500, P12 60%. UOP FOR SHIFT IS 825ML. LEVOPHED INFUSING AT 0.08 MCG/KG/MIN, PROPOFOL INFUSING AT 40MCG/KG/MIN, IV FLUIDS D5 1/2 NS INFUSING PER MD ORDERS AT 50ML/HR. OG TUBE TO LIS, NO OUTPUT THIS SHIFT. NO BM THIS SHIFT. PT CHECKED ON HOURLY AND PRN BY NURSING STAFF.
[2019-07-08] MEDS: IV D5/0.45 NACL 1,000 ML IV PRN (21:55)
[2019-07-09] VITALS (92 sets, daily range): BP systolic 70–181; BP diastolic 41–108
--- NOTE | 2019-07-09 | NUR ---
BUTTER LIQUEFIER PT REMAINS W/BL SOFT WRIST RESTRAINTS DESPITE BEING SEDATED ON PROPFOL AT 40 MCG/KG/MIN PT HAS INTERMITTENT EPISODES OF WAKING UP. CONTINUE TO MONITOR.
[2019-07-09] MEDS: MEROPENEM 1 G in IV NS 0.9% 100 ML IV SCH ×2 (00:30→13:05)
[2019-07-09] MEDS: PROPOFOL 100 ML IV PRN ×6 (00:30→22:44)
[2019-07-09 05:11] LABS: CALCIUM, SERUM 7.8 mg/dL (8.5-10.1); POTASSIUM 3.6 mmol/L (3.5-5.1)
[2019-07-09 05:25] LABS: T4 (THYROXINE) 4.1 ug/dL (4.7-13.3); THYROID STIMULATING HORMONE 10.967 uIU/mL (0.358-3.74)
--- NOTE | 2019-07-09 06:43 | NUR ---
BAR STEWARD PT W/LABILE BP READINGS UNABLE TO TITRATE LEVOPHED OFF. REMAINS AT 0.09 MCG/KG/MIN.
[2019-07-09 08:29] LABS: BASOPHILS # (AUTO) 0.1 /CMM (0.0-0.2); BASOPHILS % (AUTO) 0.4 % (0.0-2.0); EOSINOPHILS % (AUTO) 2.1 % (0.0-6.0); HEMATOCRIT 37 % (39-51); HEMOGLOBIN 11.9 g/dL (13.5-17.5); LYMPHOCYTES # (AUTO) 0.5 /CMM (0.8-4.8); LYMPHOCYTES % (AUTO) 4.2 % (20.0-44.0); MEAN CORPUSCULAR HGB CONC 33 g/dl (31.0-36.0); MEAN CORPUSCULAR VOLUME 93 fL (80-96); MONOCYTES # (AUTO) 0.3 /CMM (0.1-1.30); MONOCYTES % (AUTO) 2.8 % (2.0-12.0); NEUTROPHILS # (AUTO) 10.6 /CMM (1.8-8.9); NEUTROPHILS % (AUTO) 90.5 % (43.0-81.0); PLATELET COUNT (AUTO) 71 /CMM (150-450); RED BLOOD CELL COUNT(AUTO) 3.93 MIL/uL (4.5-6.0); WHITE BLOOD COUNT (AUTO) 11.7 K/uL (4.3-11.0)
[2019-07-09] MEDS: ENOXAPARIN SODIUM 40 MG/0.4 ML DISP.SYRIN SQ SCH (08:30)
[2019-07-09] MEDS: RITONAVIR 100 MG CAPSULE PO SCH (08:55)
[2019-07-09] MEDS: DARUNAVIR ETHANOLATE 800 MG TABLET PO SCH (08:56)
[2019-07-09] MEDS: NOREPINEPHRINE 8 MG in IV NS 0.9% 242 ML IV PRN (09:21)
--- NOTE | 2019-07-09 12:30 | NUR ---
Sedation Vacation Notes Patient awakens, makes eye contact, tracks and follows command.
[2019-07-09 16:15] LABS: ABG BASE EXCESS 1.1 mmol/L; ABG PCO2 38.9 mmHg (35.0-45.0); ABG PH 7.432 (7.350-7.450); ABG PO2 133.9 mmHg (75.0-100.0); AaDO2 251.1 mmHg; O2Hb 97.5 % (94.0-97.0); SITE, ABG Right Radial
[2019-07-09 16:16] LABS: COHb 0.2 % (0.5-1.5); MetHb 0.3 % (0.0-1.5); PEEP,BG 12 cm H2O; VENT MODE, BG AC 60%; VT, ABG 500 mL
[2019-07-09] MEDS: IV D5/0.45 NACL 1,000 ML IV PRN (18:48)
--- NOTE | 2019-07-09 19:25 | NUR ---
BLACK TOP SPREADER MACHINE OPERATOR Closing Patient remains sedated, see sedation vacation notes. Attached to tech vent via ETT, redish/pinkish drainage noted (250mL) , FiO2 @50%, PEEP 10, SPO >94%, no distress noted. Tele monitor attached. OGT connected to LIS (50mL this shift), red/bloody drainage, cont per Rob Mahmood. Stopped after social media campaign manager this am to allow for absorption. FC draining dark urine to gravity. Restrained. NPO maintained. STEFFANY PICC d51/2 NS @50mL/hr, levo 0.06mcg/kg/min, dip@40mcg/kg/min. Held Lovenox this am per Ela PROPELLER INSPECTOR order. H&H redraw pending. Dr. Noe spoke to Bebe.
[2019-07-09 21:33] LABS: HEMOGLOBIN 11.1 g/dL (13.5-17.5)
[2019-07-10] VITALS (85 sets, daily range): BP systolic 75–157; BP diastolic 40–100
[2019-07-10] MEDS: MEROPENEM 1 G in IV NS 0.9% 100 ML IV SCH ×2 (01:02→12:05)
[2019-07-10] MEDS: PROPOFOL 100 ML IV PRN ×5 (01:25→22:04)
[2019-07-10 04:19] LABS: BASOPHILS % (AUTO) 0.6 % (0.0-2.0); HEMATOCRIT 33 % (39-51); HEMOGLOBIN 11.1 g/dL (13.5-17.5); LYMPHOCYTES # (AUTO) 0.5 /CMM (0.8-4.8); LYMPHOCYTES % (AUTO) 6.7 % (20.0-44.0); MEAN CORPUSCULAR HGB CONC 33 g/dl (31.0-36.0); MEAN CORPUSCULAR VOLUME 93 fL (80-96); MONOCYTES # (AUTO) 0.3 /CMM (0.1-1.30); MONOCYTES % (AUTO) 3.4 % (2.0-12.0); NEUTROPHILS # (AUTO) 6.7 /CMM (1.8-8.9); NEUTROPHILS % (AUTO) 86.3 % (43.0-81.0); PLATELET COUNT (AUTO) 70 /CMM (150-450); RED BLOOD CELL COUNT(AUTO) 3.56 MIL/uL (4.5-6.0); WHITE BLOOD COUNT (AUTO) 7.8 K/uL (4.3-11.0)
[2019-07-10 04:34] LABS: CALCIUM, SERUM 7.7 mg/dL (8.5-10.1); CREATININE 0.9 mg/dL (0.6-1.3); POTASSIUM 3.5 mmol/L (3.5-5.1)
[2019-07-10] MEDS: NOREPINEPHRINE 8 MG in IV NS 0.9% 242 ML IV PRN (06:15)
[2019-07-10 07:33] LABS: BAND % (MANUAL) 1 % (0.0-5.0); EOSINOPHILS % (MANUAL) 2 % (0-4); LYMPHOCYTES % (MANUAL) 2 % (16-48); MONOCYTES % (MANUAL) 5 % (0-11.0); NEUTROPHILS % (MANUAL) 90 (42-76)
[2019-07-10] MEDS: DARUNAVIR ETHANOLATE 800 MG TABLET PO SCH (07:52)
[2019-07-10] MEDS: RITONAVIR 100 MG CAPSULE PO SCH (07:52)
--- NOTE | 2019-07-10 08:00 | NUR ---
floriculturist received pt in bed sedated on propofol on vent settings noticed lines secured iv access geno patent rosario draining blood tinged w/ cloths urine, ng tube dc on low in suction as pt has no output from ng tube, provided sedation vacation pt woke up followed commands started to have difficulty breathing w/ vent rr increased to 30s tidal volume dropped sat low 90s resumed propofol as ordered, safety measures taken will continue to monitor.
[2019-07-10] MEDS ORDERED: POTASSIUM CHLORIDE 20 MEQ POWDER PACKET NG SCH (09:30)
[2019-07-10 09:46] LABS: ABG OXYGEN SATURATION 96.9 % (92.0-98.5); ABG PCO2 41.2 mmHg (35.0-45.0); ABG PH 7.412 (7.350-7.450); ABG PO2 100.9 mmHg (75.0-100.0); AaDO2 209.3 mmHg; COHb 0.3 % (0.5-1.5); MetHb 0.2 % (0.0-1.5); O2Hb 96.4 % (94.0-97.0); SITE, ABG Right Radial; VENT MODE, BG ac 26 500 +10 50%
[2019-07-10] MEDS ORDERED: POTASSIUM CHLORIDE 20 MEQ POWDER PACKET ONE (12:03)
[2019-07-10] MEDS: HYDROCORTISONE SOD SUCCINATE 100 MG/2 ML VIAL IV SCH ×3 (12:05→16:03)
[2019-07-10] MEDS: ACETAMINOPHEN 650 MG/20.3 ML UDC NG PRN (16:03)
[2019-07-10] MEDS: IV D5/0.45 NACL 1,000 ML IV PRN (17:35)
--- NOTE | 2019-07-10 18:44 | NUR ---
curriculum advisory teacher pt remain sedated no change in pt condition provided bed bath pt developed low grade fever provided cool bath and tylenol as ordered, all pt needs meet vs stable most of the shift pt on pressor for sbp maintenance, safety measures taken, report given to pm nurse for continuity of care.
--- NOTE | 2019-07-10 19:45 | NUR ---
ICU/PETROLEUM BLENDING PLANT OPERATOR REPORT RECEIVED FROM THE TO DAY NURSE. SEE FLOWSHEET FOR ASSESSMENT, SKIN ISSUES WAS ADDRESSED. PT IS ON SEDATION AT THIS TIME DUE TO INTUBATION. PT IS ORALLY INTUBATED WITH SATURATION AT 97%. WILL MONITOR THIS PT AND HIS SATURATION. PT TURNED AND REPOSITIONED FOR COMFORT AND CARE. PT IS ON LEVO FOR LOW BP, WILL CONTINUE TO MONITOR THIS PT ALONG WITH BP.
--- NOTE | 2019-07-10 21:30 | NUR ---
ICU/FORGING ROLL OPERATOR-FAMILY CALLED; MANI [phone], GAVE UPDATE ON THIS PT.
--- NOTE | 2019-07-10 23:30 | NUR ---
ICU/APPOINTMENT COORDINATOR PT WAS GIVEN PM CARE, ALONG WITH ORAL CARE. PT TOLERATED THIS WELL, HOWEVER SATURATION IS 89-90'S. PT WAS TURNED AND REPOSTIONED FOR COMFORT AND CARE. WILL CONTINUE TO MONITOR THIS PT.
[2019-07-11] VITALS (94 sets, daily range): BP systolic 86–154; BP diastolic 39–113
[2019-07-11] MEDS: MEROPENEM 1 G in IV NS 0.9% 100 ML IV SCH ×2 (01:01→13:16)
--- NOTE | 2019-07-11 01:40 | NUR ---
ICU/KNOT PICKER CLOTH PT'S PULSE OX WAS REPLACED, DUE TO IT BEING LOSE ON FINGER. SATURATION IS NOW 98%. NO ACUTE DISTRESS SEEN AT THIS TIME. CALL LIGHT WITHIN REACH. WILL CONTINUE TO MONITOR THIS PT.
[2019-07-11] MEDS: PROPOFOL 100 ML IV PRN ×5 (02:47→23:00)
--- NOTE | 2019-07-11 03:45 | NUR ---
ICU/LANGUAGE INSTRUCTOR PT WAS GIVEN AM CARE, ALONG WITH ORAL CARE. PT TOLERATED THIS WELL, HOWEVER SATURATION IS 89-90'S. PT WAS TURNED AND REPOSITIONED FOR COMFORT AND CARE. WILL CONTINUE TO MONITOR THIS PT.
[2019-07-11 04:45] LABS: BASOPHILS % (AUTO) 0.3 % (0.0-2.0); EOSINOPHILS % (AUTO) 0.2 % (0.0-6.0); HEMATOCRIT 33 % (39-51); HEMOGLOBIN 11.1 g/dL (13.5-17.5); LYMPHOCYTES # (AUTO) 0.3 /CMM (0.8-4.8); LYMPHOCYTES % (AUTO) 2.7 % (20.0-44.0); MEAN CORPUSCULAR HGB CONC 33 g/dl (31.0-36.0); MEAN CORPUSCULAR VOLUME 93 fL (80-96); MONOCYTES # (AUTO) 0.3 /CMM (0.1-1.30); MONOCYTES % (AUTO) 2.3 % (2.0-12.0); NEUTROPHILS # (AUTO) 10.4 /CMM (1.8-8.9); NEUTROPHILS % (AUTO) 94.5 % (43.0-81.0); PLATELET COUNT (AUTO) 76 /CMM (150-450); RED BLOOD CELL COUNT(AUTO) 3.58 MIL/uL (4.5-6.0)
[2019-07-11 05:00] LABS: CALCIUM, SERUM 7.9 mg/dL (8.5-10.1); CREATININE 0.8 mg/dL (0.6-1.3); POTASSIUM 3.9 mmol/L (3.5-5.1)
[2019-07-11 05:27] LABS: LYMPHOCYTES % (MANUAL) 1 % (16-48); MONOCYTES % (MANUAL) 1 % (0-11.0); NEUTROPHILS % (MANUAL) 98 (42-76)
--- NOTE | 2019-07-11 05:30 | NUR ---
ICU/TEACHER VOCAL AM LABS WERE DRAWN, AWAIT FOR ANY ABNORMAL RESULTS
[2019-07-11 06:34] LABS: C-REACTIVE PROTEIN 3.1 mg/dL (0.0-0.9)
[2019-07-11] MEDS: DARUNAVIR ETHANOLATE 800 MG TABLET PO SCH (08:09)
[2019-07-11] MEDS: RITONAVIR 100 MG CAPSULE PO SCH (08:09)
[2019-07-11] MEDS: HYDROCORTISONE SOD SUCCINATE 100 MG/2 ML VIAL IV SCH ×3 (08:09→18:27)
[2019-07-11 09:44] LABS: ABG BASE EXCESS 1.4 mmol/L; ABG OXYGEN SATURATION 92.5 % (92.0-98.5); ABG PCO2 36.3 mmHg (35.0-45.0); ABG PH 7.458 (7.350-7.450); ABG PO2 65.3 mmHg (75.0-100.0); AaDO2 214.3 mmHg; COHb 0.4 % (0.5-1.5); MetHb 0.3 % (0.0-1.5); O2Hb 91.9 % (94.0-97.0); PEEP,BG 8 cm H2O; SITE, ABG Left Brachial; VT, ABG 500 mL
--- NOTE | 2019-07-11 11:43 | NUR ---
Sedation Vacation Notes Diprovan 30mcg/kg/min infusion titrated per protocol for daily sedation vacation. Patient awakens, opens eyes, moves extremities, follows command to squeeze fingers and makes eye contact. Nods head yes and no appropriately to questions.
[2019-07-11] MEDS: IV D5/0.45 NACL 1,000 ML IV PRN (13:17)
--- NOTE | 2019-07-11 14:14 | NUR ---
physician communication w/ Dr. Doan: - Aware Lovenox is DC'd - no dose to be given today - CXR to confirm placement of OGT after advancement rec in CXR this am - Received order for OK for feedings via NGT per RD rec after CXR result - Aware no BM in 4 days, no new orders
[2019-07-11] MEDS: OSMOLITE 1.2 CAL 1,000 ML LIQUID GT PRN (15:30)
--- NOTE | 2019-07-11 17:37 | NUR ---
LOAN SERVICING SPECIALIST - closing Patient is sedated at this time. See sedation vacation notes. Attached to [facility] vent via ETT, minimal bloody secretions (5mL). FiO2 increased to 50%, PEEP 10. Tele monitor attached, SB w/ BBB HR 50s. Rectal probe in place. OG tube in place verified by CXR, 55@lip, Osmolite @10mL/hr running, no s/s aspiration. Copeland catheter draining dark urine. STEFFANY PICC line c/d/i, infusing D5 1/2 NS @50mL/hr, Levo titrated as able (see flowsheet), Diprovan @30mcg/kg/min. Skin intact. DVT pumps on. See physician communication about Lovenox. Received call from pharmacy, endorse f/u w/ for home cholesterol med continuation.
[2019-07-11] MEDS: NOREPINEPHRINE 8 MG in IV NS 0.9% 242 ML IV PRN (23:59)
[2019-07-12] VITALS (78 sets, daily range): BP systolic 85–133; BP diastolic 44–95
[2019-07-12] MEDS: MEROPENEM 1 G in IV NS 0.9% 100 ML IV SCH ×2 (01:13→12:12)
[2019-07-12] MEDS: PROPOFOL 100 ML IV PRN ×5 (03:04→21:23)
[2019-07-12 04:15] LABS: BASOPHILS % (AUTO) 0.1 % (0.0-2.0); HEMATOCRIT 32 % (39-51); HEMOGLOBIN 10.7 g/dL (13.5-17.5); LYMPHOCYTES # (AUTO) 0.4 /CMM (0.8-4.8); LYMPHOCYTES % (AUTO) 3.7 % (20.0-44.0); MEAN CORPUSCULAR HGB CONC 33 g/dl (31.0-36.0); MEAN CORPUSCULAR VOLUME 94 fL (80-96); MONOCYTES # (AUTO) 0.4 /CMM (0.1-1.30); MONOCYTES % (AUTO) 3.4 % (2.0-12.0); NEUTROPHILS # (AUTO) 10.4 /CMM (1.8-8.9); NEUTROPHILS % (AUTO) 92.8 % (43.0-81.0); PLATELET COUNT (AUTO) 95 /CMM (150-450); RED BLOOD CELL COUNT(AUTO) 3.46 MIL/uL (4.5-6.0); WHITE BLOOD COUNT (AUTO) 11.2 K/uL (4.3-11.0)
[2019-07-12 04:42] LABS: CALCIUM, SERUM 7.8 mg/dL (8.5-10.1); CREATININE 0.9 mg/dL (0.6-1.3); POTASSIUM 4.2 mmol/L (3.5-5.1)
--- NOTE | 2019-07-12 04:59 | NUR ---
RT NOTE Pt rec'd orally intubated via ETT sz 8.0 ETT secured @ 27cm at the lipline. Pt on [facility] vent on AC mode settings as charted. Pt sx'd for thick mod amt of bloody secretions. Alarms are set and audible. Vent plugged into red outlet. Ambu bag bedside. Will continue to monitor closely. Addendum: 07/12/19 at 0519 by HILARIO GUTIERREZ RT Amended: Links added.
[2019-07-12 05:11] LABS: LYMPHOCYTES % (MANUAL) 3 % (16-48); MONOCYTES % (MANUAL) 2 % (0-11.0); NEUTROPHILS % (MANUAL) 95 (42-76)
[2019-07-12 06:36] LABS: ABG BASE EXCESS 5.6 mmol/L; ABG OXYGEN SATURATION 97.3 % (92.0-98.5); ABG PCO2 35.3 mmHg (35.0-45.0); ABG PH 7.525 (7.350-7.450); AaDO2 203.8 mmHg; COHb 0.3 % (0.5-1.5); MetHb 0.2 % (0.0-1.5); O2Hb 96.8 % (94.0-97.0); SITE, ABG Left Brachial
--- NOTE | 2019-07-12 07:01 | NUR ---
CU RN Closing Patient remains sedated. Attached to tech vent via ETT, redish/pinkish drainage noted (250mL) , FiO2 @50%, PEEP 10, SPO >94%, no distress noted. Tele monitor attached. OGT connected to feeding @ 10ml/hr tolerated well, . FC draining dark urine with blood clot sediment to gravity. Restrained. STEFFANY PICC d51/2 NS @50mL/hr, levo 0.01mcg/kg/min, dip@30mcg/kg/min. Droplet isolation maintained and observed d/t COVID 19 (+) safety measure maintained bed on lowest position and locked side rails up, all needs attended will endorse to AM shift RN
[2019-07-12] MEDS: HYDROCORTISONE SOD SUCCINATE 100 MG/2 ML VIAL IV SCH ×3 (08:47→17:04)
[2019-07-12] MEDS: IV D5/0.45 NACL 1,000 ML IV PRN (08:48)
[2019-07-12] MEDS ORDERED: ENOXAPARIN SODIUM 40 MG/0.4 ML DISP.SYRIN SQ SCH ×2 (09:00→16:00)
--- NOTE | 2019-07-12 14:20 | NUR ---
RN NOTE 0715: Received patient with ETT to vent, no respiratory distress noted at this time, FIO2 50%, PEEP +10. On sedation of Diprivan @ 30mcg. Covid isolation prec maintained and observed. OGT intact, feeding tolerated. Kept HOB elevated. SB 50's, lowest 48. Copeland cath intact, noted with dark katrina colored urine drained to BSD. STEFFANY PICC intact, Dip @ 30mcg, just rendered sedation vacation, able to wake up at 15, placed back to 30 to sedate for comfort, noted with mild agitation. Levo @ 0.01, will titrate as ordered. IVF infusing as ordered. 0900: S/E by Dr. Noe, aware that patient is able to follow simple commands when off sedation. verbalized he will order fo weaning tomorrow. 1100: Dr Noe, ordered to place patient on PEEP 8, espino RT aware. Spoke with via phone, updated re: patient's condition. 1420: No any significant changes noted at this time. Kept clean, warm and dry. Needs attended.
--- NOTE | 2019-07-12 15:53 | NUR ---
RT NOTE Pt rec'd orally intubated via ETT sz 8.0 ETT secured @ 27cm at the lipline. Pt on mech vent on AC mode settings as charted. Pt sx'd for thick mod amt of bloody secretions. Alarms are set and audible. Vent plugged into red outlet. Ambu bag bedside. Will continue to monitor closely.
[2019-07-13] VITALS (29 sets, daily range): BP systolic 87–160; BP diastolic 36–90
[2019-07-13] MEDS: PROPOFOL 100 ML IV PRN ×6 (01:14→22:10)
[2019-07-13] MEDS: MEROPENEM 1 G in IV NS 0.9% 100 ML IV SCH (01:56)
[2019-07-13 04:58] LABS: BASOPHILS % (AUTO) 0.2 % (0.0-2.0); EOSINOPHILS % (AUTO) 0.1 % (0.0-6.0); HEMATOCRIT 32 % (39-51); HEMOGLOBIN 10.4 g/dL (13.5-17.5); LYMPHOCYTES # (AUTO) 0.4 /CMM (0.8-4.8); LYMPHOCYTES % (AUTO) 4.5 % (20.0-44.0); MEAN CORPUSCULAR HGB CONC 33 g/dl (31.0-36.0); MEAN CORPUSCULAR VOLUME 94 fL (80-96); MONOCYTES # (AUTO) 0.4 /CMM (0.1-1.30); MONOCYTES % (AUTO) 4.9 % (2.0-12.0); NEUTROPHILS # (AUTO) 7.3 /CMM (1.8-8.9); NEUTROPHILS % (AUTO) 90.3 % (43.0-81.0); PLATELET COUNT (AUTO) 92 /CMM (150-450); RED BLOOD CELL COUNT(AUTO) 3.35 MIL/uL (4.5-6.0); WHITE BLOOD COUNT (AUTO) 8.1 K/uL (4.3-11.0)
[2019-07-13] MEDS: OSMOLITE 1.2 CAL 1,000 ML LIQUID GT PRN (05:00)
[2019-07-13 05:15] LABS: CALCIUM, SERUM 7.9 mg/dL (8.5-10.1); CREATININE 0.9 mg/dL (0.6-1.3)
[2019-07-13 05:26] LABS: LYMPHOCYTES % (MANUAL) 3 % (16-48); MONOCYTES % (MANUAL) 3 % (0-11.0); NEUTROPHILS % (MANUAL) 94 (42-76)
--- NOTE | 2019-07-13 06:28 | NUR ---
RT NOTE Pt rec'd orally intubated via ETT sz 8.0 ETT secured @ 25cm at the lipline. Pt on [facility] vent on AC mode settings as charted. Pt sx'd for thick mod amt of bloody secretions. Alarms are set and audible. Vent plugged into red outlet. Ambu bag bedside. Will continue to monitor closely. Addendum: 07/13/19 at 0628 by HILARIO GUTIERREZ RT Amended: Links added.
[2019-07-13] MEDS: IV D5/0.45 NACL 1,000 ML IV PRN (06:56)
[2019-07-13 08:12] LABS: ABG BASE EXCESS 2.9 mmol/L; ABG OXYGEN SATURATION 86.8 % (92.0-98.5); ABG PCO2 41.3 mmHg (35.0-45.0); ABG PH 7.439 (7.350-7.450); ABG PO2 53.6 mmHg (75.0-100.0); AaDO2 256.4 mmHg; COHb 0.5 % (0.5-1.5); MetHb 0.6 % (0.0-1.5); O2Hb 85.8 % (94.0-97.0); PEEP,BG 5 cm H2O; SITE, ABG Left Brachial; VENT MODE, BG SIMV PS 15
[2019-07-13] MEDS: HYDROCORTISONE SOD SUCCINATE 100 MG/2 ML VIAL IV SCH ×3 (08:17→17:05)
--- NOTE | 2019-07-13 08:30 | NUR ---
BRAKE TESTER NOTE PLACED PT ON SEDATION VACATION. PT AGITATED AND RESTLESS. PLACED BACK ON AC MODE PER DR PALACIOS. INITIATED SEDATION. ISOLATION PRECAUTIONS MAINTAINED. WILL MONITOR.
--- NOTE | 2019-07-13 19:45 | NUR ---
ICU/BOTANICAL TECHNICAL OFFICER REPORT RECEIVED FROM THE TO DAY NURSE. SEE FLOWSHEET FOR ASSESSMENT, SKIN ISSUES WAS ADDRESSED. PT IS ON SEDATION AT THIS TIME DUE TO INTUBATION. PT IS ORALLY INTUBATED WITH SATURATION AT 99-100%. WILL MONITOR THIS PT AND HIS SATURATION. PT TURNED AND REPOSITIONED FOR COMFORT AND CARE. NO ACUTE DISTRESS SEEN AT THIS TIME
--- NOTE | 2019-07-13 20:04 | NUR ---
RT NOTE PT RECEIVED INTUBATED WITH @ 8.0 ET TUBE WITH 25 CM. AMBU BAG @ HOB. SX DONE, ET TUBE SECURED AND PATENT. ALARMS ON AND AUDIBLE. VENT PLUGGED TO RED OUTLET. NO DISTRESS NOTED. WILL MONITOR T/O SHIFT. Addendum: 07/13/19 at 2005 by BESS GARZA RT Amended: Links added.
--- NOTE | 2019-07-13 21:20 | NUR ---
ICU/ROLLER-FAMILY CALLED; MANI [phone], GAVE UPDATE ON THIS PT ANSWERED QUESTIONS
--- NOTE | 2019-07-13 23:20 | NUR ---
ICU/GRADUATE INTERNSHIP PT WAS GIVEN PM CARE, ALONG WITH ORAL CARE. PT TOLERATED THIS WELL, WITH SATURATION IS 99-100. PT WAS TURNED AND REPOSITIONED FOR COMFORT AND CARE. WILL CONTINUE TO MONITOR THIS PT.
[2019-07-14] VITALS (53 sets, daily range): BP systolic 73–163; BP diastolic 30–90
--- NOTE | 2019-07-14 01:45 | NUR ---
ICU/CHILD LIFE THERAPIST NO ACUTE DISTRESS SEEN AT THIS TIME. PT APPEARS TO BE TOLERATING CURRENT VENT SETTINGS WITH SATURATION AT 100%WILL CONTINUE TO MONITOR THIS PT.
[2019-07-14] MEDS: IV D5/0.45 NACL 1,000 ML IV PRN ×2 (02:26→18:48)
[2019-07-14] MEDS: PROPOFOL 100 ML IV PRN ×4 (02:49→22:41)
--- NOTE | 2019-07-14 02:55 | NUR ---
ICU/HIGH SCHOOL MUSIC TEACHER PT WAS GIVEN AM CARE, ALONG WITH ORAL CARE. PT TOLERATED THIS WELL, WITH SATURATION IS 99-100. PT WAS TURNED AND REPOSITIONED FOR COMFORT AND CARE. WILL CONTINUE TO MONITOR THIS PT.
--- NOTE | 2019-07-14 05:20 | NUR ---
ICU/PREVENTIVE MAINTENANCE ENGINEER AM LABS WERE DONE
[2019-07-14 05:23] LABS: BASOPHILS % (AUTO) 0.3 % (0.0-2.0); EOSINOPHILS % (AUTO) 0.1 % (0.0-6.0); HEMATOCRIT 32 % (39-51); HEMOGLOBIN 10.6 g/dL (13.5-17.5); LYMPHOCYTES # (AUTO) 0.4 /CMM (0.8-4.8); LYMPHOCYTES % (AUTO) 5.5 % (20.0-44.0); MEAN CORPUSCULAR HGB CONC 34 g/dl (31.0-36.0); MEAN CORPUSCULAR VOLUME 94 fL (80-96); MONOCYTES # (AUTO) 0.4 /CMM (0.1-1.30); MONOCYTES % (AUTO) 5.6 % (2.0-12.0); NEUTROPHILS # (AUTO) 6.5 /CMM (1.8-8.9); NEUTROPHILS % (AUTO) 88.5 % (43.0-81.0); RED BLOOD CELL COUNT(AUTO) 3.37 MIL/uL (4.5-6.0); WHITE BLOOD COUNT (AUTO) 7.3 K/uL (4.3-11.0)
[2019-07-14 05:48] LABS: PLATELET COUNT (AUTO) 78 /CMM (150-450)
[2019-07-14 05:49] LABS: CREATININE 0.8 mg/dL (0.6-1.3)
--- NOTE | 2019-07-14 08:00 | NUR ---
agricultural education teacher received pt in bed intubated on propofol drip, pt has folly cath patent draining urine, iv access geno patent infusing fluids and meds, pt has og tube patent infusing feeding w/ 5cc residual, turned and reposition pt, provided sedation vacation pt woke up follows commands became restless breathing agains the vent and trying to escape from restrains reaching for tubes, resumed propofol as ordered, released restraints checked for circulation and skin breakdown non noted, provided PROM, all pt needs meet will continue to monitor. safety measures taken
[2019-07-14] MEDS: HYDROCORTISONE SOD SUCCINATE 100 MG/2 ML VIAL IV SCH ×3 (08:04→17:28)
[2019-07-14 08:36] LABS: ABG BASE EXCESS 1.3 mmol/L; ABG PCO2 37.8 mmHg (35.0-45.0); ABG PH 7.443 (7.350-7.450); ABG PO2 79.8 mmHg (75.0-100.0); AaDO2 234.2 mmHg; COHb 0.1 % (0.5-1.5); MetHb 0.3 % (0.0-1.5); O2Hb 94.6 % (94.0-97.0); PEEP,BG 8 cm H2O; SITE, ABG Right Brachial; VT, ABG 500 mL
[2019-07-14] MEDS ORDERED: ATROPINE SULFATE 1 MG/10 ML DISP.SYRIN IV ONE ×2 (14:00)
--- NOTE | 2019-07-14 15:08 | NUR ---
RT NOTE: PATIENT RECEIVED ORALLY INTUBATED WITH 8.0 ETT SECURED AT 25 CM MID LIP LINE ON MECHANICAL VENT. ALARMS VERIFIED AND AUDIBLE. VENT PLUGGED INTO RED OUTLET. AMBU BAG AT [facility].
--- NOTE | 2019-07-14 19:10 | NUR ---
RN NOTE Received patient with ETT to vent, no respiratory distress noted at this time, FIO2 50%, PEEP +10. On sedation of Diprivan @ 25mcg. Covid isolation prec maintained and observed. OGT intact, feeding tolerated. Kept HOB elevated. SB 60's. Copeland cath intact, noted with dark katrina colored urine drained to BSD. STEFFANY PICC intact,IVF infusing as ordered. Droplet Isolation for Covid 19 (+) maintained and observed safety measure observed bed on lowest position on bilateral wrist restraints hand circulation checked, will cont to monitor the patient
--- NOTE | 2019-07-14 22:17 | NUR ---
HAND ETCHER NOTES GIVE REPORT TO DELL HOWELL FOR MEG
--- NOTE | 2019-07-14 22:20 | NUR ---
Received patient orally intubated to the ventilator on AC mode,mildly sedated on Propofol drip,easily responsive/awakens spontaneously, grimacing ,restless,trying to get off restraints. Maintained on bilateral soft wrist restraints. Not in any distress, breathing non labored, saturating 95-97%.With on going tube feeding via OGT ,tolerating well,aspiration Precaution observed.
--- NOTE | 2019-07-14 23:00 | NUR ---
Noticed urine output to be dark reddish.
[2019-07-15] VITALS (78 sets, daily range): BP systolic 75–181; BP diastolic 44–109
--- NOTE | 2019-07-15 | NUR ---
Stable,noted heart rate go down in the 60's when quiet and calm. Still on mild sedation ,remains easily arousable, still with periods of restlessness.not in any distress.Nopted urine to be clearing back to tea colored.
[2019-07-15] MEDS: PROPOFOL 100 ML IV PRN ×4 (02:49→21:55)
[2019-07-15] MEDS: OSMOLITE 1.2 CAL 1,000 ML LIQUID GT PRN (03:38)
--- NOTE | 2019-07-15 04:00 | NUR ---
Am bath done,tolerated turning .no episode of respiratory distress.Now calmer with Propofol at 25 mcg/kg/min
[2019-07-15 05:07] LABS: BASOPHILS % (AUTO) 0.4 % (0.0-2.0); EOSINOPHILS % (AUTO) 0.6 % (0.0-6.0); HEMATOCRIT 32 % (39-51); HEMOGLOBIN 10.8 g/dL (13.5-17.5); LYMPHOCYTES # (AUTO) 0.5 /CMM (0.8-4.8); LYMPHOCYTES % (AUTO) 6.8 % (20.0-44.0); MEAN CORPUSCULAR HGB CONC 34 g/dl (31.0-36.0); MEAN CORPUSCULAR VOLUME 94 fL (80-96); MONOCYTES # (AUTO) 0.4 /CMM (0.1-1.30); MONOCYTES % (AUTO) 6.1 % (2.0-12.0); NEUTROPHILS % (AUTO) 86.1 % (43.0-81.0); PLATELET COUNT (AUTO) 95 /CMM (150-450); RED BLOOD CELL COUNT(AUTO) 3.44 MIL/uL (4.5-6.0)
[2019-07-15 05:08] LABS: CALCIUM, SERUM 7.9 mg/dL (8.5-10.1); CREATININE 0.7 mg/dL (0.6-1.3)
[2019-07-15 05:36] LABS: LYMPHOCYTES % (MANUAL) 3 % (16-48); MONOCYTES % (MANUAL) 8 % (0-11.0); NEUTROPHILS % (MANUAL) 89 (42-76)
--- NOTE | 2019-07-15 05:46 | NUR ---
PATIENT RECEIVED WITH ETT 8.0 @ 25 cm AT THE LIP WITH SETTINGS OF AC 20, 500 VT, 50%, +8. SUCTIONED WITH LAVAGE FOR MINIMAL, THICK, WHITE SECRETIONS. AMBU BAG AT BEDSIDE. VENT ALARM AUDIBLE AND VISIBLE. VENT PLUGGED INTO RED OUTLET. HME CHANGED. Addendum: 07/15/19 at 0547 by CLIFFORD FRAUSTO RT Amended: Links added.
--- NOTE | 2019-07-15 06:00 | NUR ---
Calm and quiet ,but still occasionally wakes up and gets agitated,fighting off the restraints bur otherwise stable all night ,no SOB.
[2019-07-15 09:05] LABS: ABG BASE EXCESS 2.6 mmol/L; ABG OXYGEN SATURATION 95.7 % (92.0-98.5); ABG PCO2 37.7 mmHg (35.0-45.0); ABG PH 7.462 (7.350-7.450); ABG PO2 84.2 mmHg (75.0-100.0); AaDO2 229.9 mmHg; COHb 0.3 % (0.5-1.5); MetHb 0.5 % (0.0-1.5); O2Hb 94.9 % (94.0-97.0); PEEP,BG 8 cm H2O; SITE, ABG Right Radial; VT, ABG 500 mL
[2019-07-15] MEDS: HYDROCORTISONE SOD SUCCINATE 100 MG/2 ML VIAL IV SCH ×3 (09:13→18:13)
--- NOTE | 2019-07-15 09:45 | NUR ---
Sedation Vacation Notes Diprovan 25mcg/kg/min titrated down per protocol. Patient awakens, makes eye contact, disoriented, agitated, kicking, does not squeeze fingers upon request.
[2019-07-15] MEDS: NOREPINEPHRINE 8 MG in IV NS 0.9% 242 ML IV PRN (12:53)
[2019-07-15] MEDS: IV D5/0.45 NACL 1,000 ML IV PRN (14:21)
--- NOTE | 2019-07-15 15:09 | NUR ---
RT NOTE: PATIENT RECEIVED ORALLY INTUBATED WITH 8.0 ETT SECURED AT 25 CM MID LIP LINE ON MECHANICAL VENT. ALARMS VERIFIED AND AUDIBLE. VENT PLUGGED INTO RED OUTLET. AMBU BAG AT [facility].
--- NOTE | 2019-07-15 17:40 | NUR ---
LICENSED OCCUPATIONAL THERAPY ASSISTANT - closing Patient is sedated at this time. See sedation vacation notes. Attached to [facility] vent via ETT, SPO2 >94%. Tele monitor attached, SB w/ BBB HR 50s. Rectal probe in place. OG tube 55@lip, Osmolite @25mL/hr running, no s/s aspiration. Copeland catheter draining dark urine. STEFFANY PICC line c/d/i, infusing D5 1/2 NS @50mL/hr, Levo started again today, Diprovan @25mcg/kg/min. Restraints on for safety. Skin intact. DVT pumps on. No Lovenox for today d/t low platelet. Updated Bebe.
[2019-07-16] VITALS (91 sets, daily range): BP systolic 82–205; BP diastolic 49–145
[2019-07-16] MEDS: PROPOFOL 100 ML IV PRN ×4 (01:20→14:09)
[2019-07-16 04:42] LABS: BASOPHILS % (AUTO) 0.2 % (0.0-2.0); EOSINOPHILS % (AUTO) 0.5 % (0.0-6.0); HEMATOCRIT 34 % (39-51); HEMOGLOBIN 11.5 g/dL (13.5-17.5); LYMPHOCYTES # (AUTO) 0.5 /CMM (0.8-4.8); LYMPHOCYTES % (AUTO) 5.2 % (20.0-44.0); MEAN CORPUSCULAR HGB CONC 34 g/dl (31.0-36.0); MEAN CORPUSCULAR VOLUME 94 fL (80-96); MONOCYTES # (AUTO) 0.4 /CMM (0.1-1.30); MONOCYTES % (AUTO) 4.2 % (2.0-12.0); NEUTROPHILS # (AUTO) 8.5 /CMM (1.8-8.9); NEUTROPHILS % (AUTO) 89.9 % (43.0-81.0); PLATELET COUNT (AUTO) 111 /CMM (150-450); RED BLOOD CELL COUNT(AUTO) 3.62 MIL/uL (4.5-6.0); WHITE BLOOD COUNT (AUTO) 9.4 K/uL (4.3-11.0)
[2019-07-16 04:47] LABS: CREATININE 0.8 mg/dL (0.6-1.3); POTASSIUM 3.9 mmol/L (3.5-5.1)
--- NOTE | 2019-07-16 04:52 | NUR ---
TRUCK ASSEMBLER PT ON PROPOFOL WITH INTERMITTENT EPISODES OF WAKING UP PULLING HANDS UP DESPITE BEING RESTRAINED. PT ATTEMPTED TO KICK NURSING STAFF. PROPOFOL TITRATED PER PROTOCOL HOWEVER PT TENDS TO BECOME BRADYCARDIAC WITH INCREASE IN PROPOFOL. PT VERY RESISTANT TO ORAL CARE AND TURNING. PT PULLING ON MORAN CATHETER. CONTINUE TO MONITOR. PT WITH LABILE BP MULTIPLE ATTEMPTS TO WEAN LEVOPHED UNSUCCESSFUL CONTINUE LEVOHED AT 0.02 MCG.KG/MIN. CONTINUE TO MONITOR.
[2019-07-16 05:07] LABS: THYROID STIMULATING HORMONE 8.572 uIU/mL (0.358-3.74)
--- NOTE | 2019-07-16 05:54 | NUR ---
RT NOTE Patient received orally intubated on mechanical ventilation on noted vent settings. Alarms are set and audible.ETT tube patent and secured.No distress noted throughout the shift. Ambubag at [facility] , vent plugged into red outlet. Will continue to monitor patient. Addendum: 07/16/19 at 0555 by DIRK NJ RT Amended: Links added.
--- NOTE | 2019-07-16 08:00 | NUR ---
ICU/RN PT IS INTUBATE ON THE VENT AC MODE..SEDATED WITH DIPRIVAN.ON SMALL DOSE OF LEVOPHED.RIGHT UPPER ARM PICC LINE.OG TUBE INFUSING WITH FEEDING.NO RESIDUAL.F/C IN PLACE DRAINING WITH AMADA COLOR URINE.GENERELISED EDEMA PRESENT .AFEBRILE ,NO PAIN REPORTED AT THIS TIME.
--- NOTE | 2019-07-16 08:30 | NUR ---
ICU/RN SEDATION VACATION PROVIDED.PT IS AWAKE,ALERT,VERY AGGRESSIVE AND COMBATIVE.CONTINUE MONITORING.
[2019-07-16] MEDS: HYDROCORTISONE SOD SUCCINATE 100 MG/2 ML VIAL IV SCH ×3 (08:33→16:52)
[2019-07-16 08:36] LABS: ABG OXYGEN SATURATION 96.6 % (92.0-98.5); ABG PCO2 39.7 mmHg (35.0-45.0); ABG PH 7.452 (7.350-7.450); ABG PO2 95.1 mmHg (75.0-100.0); AaDO2 216.7 mmHg; COHb 0.3 % (0.5-1.5); MetHb 0.5 % (0.0-1.5); O2Hb 95.8 % (94.0-97.0); SITE, ABG Right Radial; VENT MODE, BG AC 20 500 50% +8
[2019-07-16] MEDS: PROSOURCE / PROSTAT (PYXIS) 30 ML UDC GT SCH ×3 (14:09→21:00)
[2019-07-16] MEDS: OSMOLITE 1.2 CAL 1,000 ML LIQUID GT PRN (14:09)
[2019-07-16] MEDS: NOREPINEPHRINE 8 MG in IV NS 0.9% 242 ML IV PRN (14:11)
[2019-07-16] MEDS: IV D5/0.45 NACL 1,000 ML IV PRN (14:24)
--- NOTE | 2019-07-16 15:25 | NUR ---
RT PT SELF EXTUBATEDPLACED ON NBR SP02 100%
--- NOTE | 2019-07-16 15:45 | NUR ---
ICU/RN PT SELF EXTUBATED.AWAKE ,ALERT.PLACED ON NRB 15 L,SAT O2-100%.DIPRIVAN OFF.BP STABLE.LEVOPHED OFF.PM CARE PROVIDED.PT IS AGITATED AND COMBATIVE.BILATERAL SOFT WRIST RESTRAINS IS ON.F/C IN PLACE WITH TEA COLOR URINE .GENERALIZED EDEMA PRESENT.PT HAS COUGH.REPOSITION FOR COMFORT.
--- NOTE | 2019-07-16 18:07 | NUR ---
ICU/RN PT IS AWAKE,ALERT.ON HIGH FLOW O2. AT 60L,FIO2-100%.SAT O2-100%.V/S STABLE,AFEBRILE.LEVOPHED OFF.NO PAIN REPORTED AT THIS TIME.NPO. CONTINUE MONITORING.
--- NOTE | 2019-07-16 19:00 | NUR ---
REcieved patient awake,alert,restless,uncooperative.On High Flow O2 100 % O2, breathing regular ,non labored, not in any acute respiratory distress. + cough. PICC line via STEFFANY to CVP monitory.Comfort care done,will closely monitor respiratory status.
--- NOTE | 2019-07-16 21:30 | NUR ---
called to check on patient and update on patient's condition. Updated on his present status( still restless,awake,alert, and breathing ok so far). was upset (did not know that the patient self extubated in the afternoon),worried if the patient will be ok. Wants to speak to MD.Contacted [employer] aviation safety technician, Polly Rogel AUDIT DIRECTOR aviation safety technician ,made her aware of the situation, gave gher the number of patient's so she can call .
--- NOTE | 2019-07-16 22:00 | NUR ---
Polly Rogel RN came to see and check on the patient.
[2019-07-17] VITALS (57 sets, daily range): BP systolic 64–150; BP diastolic 30–108
--- NOTE | 2019-07-17 | NUR ---
Stable, awakens on and off and gets restless.Seems more appropriate conversing ,still with slight confusion.Tolerating Hi Flow O2 but easily desaturates when O2 is off .
--- NOTE | 2019-07-17 04:00 | NUR ---
AM bath done,tolerated turning well ,breathing regular and non labored. Looks comfortable, tolerating Hi Flow.
[2019-07-17 04:38] LABS: BASOPHILS % (AUTO) 0.5 % (0.0-2.0); HEMATOCRIT 33 % (39-51); HEMOGLOBIN 11.4 g/dL (13.5-17.5); LYMPHOCYTES # (AUTO) 0.6 /CMM (0.8-4.8); LYMPHOCYTES % (AUTO) 6.9 % (20.0-44.0); MEAN CORPUSCULAR HGB CONC 34 g/dl (31.0-36.0); MEAN CORPUSCULAR VOLUME 95 fL (80-96); MONOCYTES # (AUTO) 0.3 /CMM (0.1-1.30); MONOCYTES % (AUTO) 3.6 % (2.0-12.0); NEUTROPHILS # (AUTO) 7.1 /CMM (1.8-8.9); PLATELET COUNT (AUTO) 84 /CMM (150-450); RED BLOOD CELL COUNT(AUTO) 3.49 MIL/uL (4.5-6.0); WHITE BLOOD COUNT (AUTO) 8.2 K/uL (4.3-11.0)
[2019-07-17 04:45] LABS: CALCIUM, SERUM 7.8 mg/dL (8.5-10.1); CREATININE 0.8 mg/dL (0.6-1.3); POTASSIUM 3.6 mmol/L (3.5-5.1)
--- NOTE | 2019-07-17 06:00 | NUR ---
O2 down to 45 LITERS,same FIO2 100 %.
[2019-07-17 06:37] LABS: EOSINOPHILS % (MANUAL) 2 % (0-4); LYMPHOCYTES % (MANUAL) 5 % (16-48); MONOCYTES % (MANUAL) 3 % (0-11.0); NEUTROPHILS % (MANUAL) 90 (42-76)
[2019-07-17] MEDS: IV D5/0.45 NACL 1,000 ML IV PRN (06:39)
--- NOTE | 2019-07-17 07:00 | NUR ---
Remains stable,not in any distress.Report given to Pedro HOWELL.
--- NOTE | 2019-07-17 08:00 | NUR ---
NAVAL INSPECTOR Notes Received patient from night filler. On assessment patient appears to have some SOB. Brown sediment possible blood in Copealnd catheter. Patient is alert to self, not to event, nor place, not time. Patient is on high flow oxygen 100% with 02 sat of 93%. Sinus rhythm 90s to sinus tach 100s with BBB, per night filler 700 out from Copeland. Patient has CVP monitoring in place, reading was 8. MD to be notified on rounding. Patient has upper and lower extremity edema 4+. Bed in lowest position, patient oriented to how to use call light, call switch within reach, all client needs tended to. Toileting offered. Will continue to monitor.
[2019-07-17] MEDS: HYDROCORTISONE SOD SUCCINATE 100 MG/2 ML VIAL IV SCH ×3 (08:35→17:00)
[2019-07-17] MEDS: PROSOURCE / PROSTAT (PYXIS) 30 ML UDC GT SCH ×4 (08:35→21:03)
[2019-07-17 09:31] LABS: ABG BASE EXCESS 2.3 mmol/L; ABG OXYGEN SATURATION 98.6 % (92.0-98.5); ABG PCO2 27.6 mmHg (35.0-45.0); ABG PH 7.556 (7.350-7.450); ABG PO2 189.6 mmHg (75.0-100.0); AaDO2 495.8 mmHg; COHb 0.4 % (0.5-1.5); MetHb 0.3 % (0.0-1.5); O2Hb 97.9 % (94.0-97.0); SITE, ABG Right Radial
--- NOTE | 2019-07-17 18:54 | NUR ---
IT INTERN Notes Provider Kael Almeida notified of blood tinged urine. Patient pulling on F/C. At this time no new interventions received. Will endorse to ebd teacher. .
--- NOTE | 2019-07-17 19:00 | NUR ---
GOLF CLUB REPAIRER Notes Patient is in bed, no new updates on care. Stable with O2 sat of 93 on 90% high flow nasal canula. No signs of acute distress. Will endorse care to mammographer.
--- NOTE | 2019-07-17 19:30 | NUR ---
MARTIAL ARTS INSTRUCTOR NOTES RECEIVED PATIENT IN BED AWAKE IN STABLE CONDITION. BERTHING NORMAL NO SOB NOTED CONTINUES ON HIGH FLOW O2 SATURATING 96%. NO S/S OF DISTRESS NOTED. STEFFANY PICC LINE PATENT INTACT FLUSHING WELL. MORAN CATH INTACT NAHID COLOR URINE RUNNING WITH GRAVITY. ABD SOFT AND NON DISTENDED. SAFETY MEASURES IN PLACE, BED IN LOW AND LOCKED POSITION. CALL LIGHT WITHIN REACH. WILL CONT TO MONITOR. Addendum: 07/18/19 at 0100 by HANSA CATHERINE RN DIGITAL WATCH ASSEMBLER NOTES
[2019-07-17] MEDS: OSMOLITE 1.2 CAL 1,000 ML LIQUID GT PRN ×2 (21:17→22:28)
--- NOTE | 2019-07-17 22:28 | NUR ---
LABORATORY EQUIPMENT INSTALLER NOTE NO NG/OG TUBE FEEDING. PATIENT PULLED HIS NG/OG TUBE OUT. WILL FOLLOW UP WITH MD IN THE MORNING
[2019-07-18] VITALS (40 sets, daily range): BP systolic 70–163; BP diastolic 39–108
[2019-07-18] MEDS: IV D5/0.45 NACL 1,000 ML IV PRN (00:49)
--- NOTE | 2019-07-18 03:00 | NUR ---
PATIENT DESATURATING RT AT BED SITE. WILL CONT TO MONITOR.
--- NOTE | 2019-07-18 04:20 | NUR ---
PATIENT IS DESATURATING CALLED RT/MELINA. WILL CONT TO MONITOR.
[2019-07-18 05:00] LABS: BASOPHILS % (AUTO) 0.1 % (0.0-2.0); EOSINOPHILS % (AUTO) 0.1 % (0.0-6.0); HEMATOCRIT 32 % (39-51); HEMOGLOBIN 10.8 g/dL (13.5-17.5); LYMPHOCYTES # (AUTO) 0.4 /CMM (0.8-4.8); LYMPHOCYTES % (AUTO) 4.4 % (20.0-44.0); MEAN CORPUSCULAR HGB CONC 34 g/dl (31.0-36.0); MEAN CORPUSCULAR VOLUME 95 fL (80-96); MONOCYTES # (AUTO) 0.5 /CMM (0.1-1.30); MONOCYTES % (AUTO) 4.8 % (2.0-12.0); NEUTROPHILS # (AUTO) 9.1 /CMM (1.8-8.9); NEUTROPHILS % (AUTO) 90.6 % (43.0-81.0); PLATELET COUNT (AUTO) 97 /CMM (150-450); RED BLOOD CELL COUNT(AUTO) 3.35 MIL/uL (4.5-6.0)
[2019-07-18 05:06] LABS: CALCIUM, SERUM 7.9 mg/dL (8.5-10.1); CREATININE 0.9 mg/dL (0.6-1.3); PHOSPHORUS 2.7 mg/dL (2.5-4.9); POTASSIUM 3.9 mmol/L (3.5-5.1)
--- NOTE | 2019-07-18 05:23 | NUR ---
PATIENT IS DESATURATING STAT ABG'S ORDERED. WILL CONT TO MONITOR. Addendum: 07/18/19 at 0702 by HANSA CATHERINE RN RT TRYING TO DRAW ABG PATIENT IS AGITATED. RESTLESS UNABLE TO DRAW. WILL CONT TO MONITOR.
[2019-07-18 05:55] LABS: BAND % (MANUAL) 2 % (0.0-5.0); LYMPHOCYTES % (MANUAL) 3 % (16-48); MONOCYTES % (MANUAL) 1 % (0-11.0); NEUTROPHILS % (MANUAL) 94 (42-76)
[2019-07-18] MEDS: LORAZEPAM INJ 2 MG/ML VIAL IVP PRN (06:37)
--- NOTE | 2019-07-18 07:18 | NUR ---
ACCOUNT MANAGER EDUCATION NOTE PATIENT RESTED WELL DURING NIGHT. BREATHING NORMAL NO SOB NOTED. NO S/S OF DISTRESS NOTED. KEPT CLEAN DRY AND COMFORTABLE. STEFFANY PICC LINE INTACT FLUIDS RUNNING WELL. ALL NEEDS ATTENDED. SAFETY MEASURES IN PLACE, CALL LIGHT WITHIN REACH. PATIENT ENDORSE TO AM NURSE.
--- NOTE | 2019-07-18 07:30 | NUR ---
RN OPENING NOTES RECEIVED PATIENT RESTING IN BED COMFORTABLY, NO SIGNS OF DISTRESS AT THIS TIME. PT IS ON HIGHFLOW OXYGEN VIA NC, SATING AROUND 78%, RT NOTIFIED, ABG PENDING. TELE MONITOR SHOWING SR [facility] CATH IS PATENT AND INTACT, HEMATURIA IS PRESENT, MD ARE AWARE. EDEMA PRESENT ON BUE AND BLE. PICC ON STEFFANY INTACT, INFUSING D5 1/2 NS AT 50 ML/HR. BILATERAL SOFT WRIST RESTRAINTS ARE INTACT. SAFETY MEASURES HAVE BEEN IMPLEMENTED, CALL LIGHT IS WITHIN REACH, BED IS IN LOWEST AND LOCKED POSITION, SIDE RAILS UP X2, WILL CONTINUE TO MONITOR FOR ANY CHANGES.
[2019-07-18] MEDS: HYDROCORTISONE SOD SUCCINATE 100 MG/2 ML VIAL IV SCH ×3 (08:30→17:10)
[2019-07-18] MEDS: PROSOURCE / PROSTAT (PYXIS) 30 ML UDC GT SCH ×3 (08:30→17:10)
--- NOTE | 2019-07-18 10:00 | NUR ---
RN NOTES PATIENT CONTINUES TO DESAT REGARDLESS OF OXYGEN THERAPY. PT HAS BEEN REINTUBATED, TOLERATED PROCEDURE WELL. PT IS NOW ON DIPRIVAN DRIP FOR SEDATION, RUNNING AT 25 MCG/MIN, WILL CONTINUE TO MONITOR FOR ANY CHANGES
[2019-07-18] MEDS: PROPOFOL 10MG/ML 50ML 50 ML IV PRN ×4 (10:27→18:53)
[2019-07-18 11:12] LABS: ABG BASE EXCESS 4.2 mmol/L; ABG OXYGEN SATURATION 80.9 % (92.0-98.5); ABG PCO2 38.2 mmHg (35.0-45.0); ABG PH 7.481 (7.350-7.450); ABG PO2 43.1 mmHg (75.0-100.0); AaDO2 631.7 mmHg; COHb 0.7 % (0.5-1.5); MetHb 0.3 % (0.0-1.5); O2Hb 80.1 % (94.0-97.0); SITE, ABG Left Brachial
[2019-07-18 11:40] LABS: ABG BASE EXCESS 2.3 mmol/L; ABG OXYGEN SATURATION 94.1 % (92.0-98.5); ABG PCO2 45.1 mmHg (35.0-45.0); ABG PH 7.402 (7.350-7.450); ABG PO2 76.5 mmHg (75.0-100.0); AaDO2 591.4 mmHg; COHb 0.3 % (0.5-1.5); MetHb 0.3 % (0.0-1.5); O2Hb 93.5 % (94.0-97.0); PEEP,BG 12 cm H2O; SITE, ABG Left Brachial; VT, ABG 500 mL
[2019-07-18] MEDS: ACETAMINOPHEN 650 MG/20.3 ML UDC NG PRN (12:36)
[2019-07-18] MEDS ORDERED: ROCURONIUM BROMIDE 50 MG/5 ML IV ONE (12:56)
--- NOTE | 2019-07-18 14:45 | NUR ---
RN NOTES PATIENT IS TOLERATING PRONE POSITION WELL. HE IS SATING AT 99% ON 8L VIA SIMPLE FACE MASK. VITAL SIGNS ARE STABLE, WILL CONTINUE TO MONITOR FOR ANY CHANGES.
[2019-07-18] MEDS ORDERED: PROPOFOL 200 MG/20 ML VIAL IV ONE (15:15)
[2019-07-18] MEDS ORDERED: EPHEDRINE SULFATE IV 50MG VIAL IV ONE (15:15)
[2019-07-18] MEDS ORDERED: LIDOCAINE 100MG/5ML DISP SYR IV ONE (15:15)
[2019-07-18] MEDS ORDERED: FEE PK DOSING 1 MIN EA MC ONE (16:41)
[2019-07-18] MEDS: VANCOMYCIN 1 GM in IV D5W 250 ML IV SCH (17:10)
[2019-07-18] MEDS: MEROPENEM 1 G in IV NS 0.9% 100 ML IV SCH ×2 (18:29→21:20)
--- NOTE | 2019-07-18 19:05 | NUR ---
DIRECTOR DIGITAL NOTE RECEIVED PATIENT IN BED, RESTING, SEDATED. ON VENT. BREATHING EVEN AND NON LABORED. ON DIPRIVAN @ 10 MCG/KG/MIN. ON NGT FEEDING RUNNING AT 25 MLS/HR. ON MORAN CATH, URINE IS NAHID AND RED IN COLOR. PICC LINE ON STEFFANY, PATENT. IN NO APPARENT DISTRESS AT THIS TIME. WILL CONTINUE TO MONITOR.
--- NOTE | 2019-07-18 19:17 | NUR ---
RN CLOSING NOTES PATIENT IS RESTING IN BED COMFORTABLY AT THIS TIME. HE IS ON 8L VIA SIMPLE FACE MASK, TOLERATING WELL. PT DENIES ANY PAIN OR SOB AT THIS TIME. CONTACT AND DROPLET ISO IMPLEMENTED AND ENFORCED. SAFETY MEASURES HAVE BEEN IMPLEMENTED, CALL LIGHT IS WITHIN REACH, BED IS IN LOWEST AND LOCKED POSITION, SIDE RAILS UP X2, PT HAS BEEN ENDORSED TO NIGHTSHIFT RN FOR MEG.
--- NOTE | 2019-07-18 19:25 | NUR ---
RN NOTES ENDORSED TO NIGHT RN ABOUT FLUCTUATING BP
[2019-07-18] MEDS: NOREPINEPHRINE 8 MG in IV NS 0.9% 242 ML IV PRN (19:42)
[2019-07-19] VITALS (49 sets, daily range): BP systolic 80–169; BP diastolic 43–105
[2019-07-19] MEDS: PROPOFOL 10MG/ML 50ML 50 ML IV PRN ×7 (00:48→21:47)
--- NOTE | 2019-07-19 01:33 | NUR ---
RT NOTE Pt rec'd orally intubated via ETT sz 8.0 secured @ 23cm at the lipline. Pt on [facility] vent on AC mode on noted settings as charted. Sx'd for thick mod amt of bloody secretions. Alarms are set and audible. Vent plugged into red outlet. Will Continue to monitor closely. Addendum: 07/19/19 at 0138 by HILARIO GUTIERREZ RT Amended: Links added.
--- NOTE | 2019-07-19 02:00 | NUR ---
HOOK TENDER NOTES PATIENT TOLERATED BED BATH WELL. NO BM NOTED AT THIS TIME. IN NO APPARENT DISTRESS. WILL CONTINUE TO MONITOR.
--- NOTE | 2019-07-19 04:00 | NUR ---
MEDICARE INTERVIEWER NOTE URINE SAMPLE COLLECTED AND SENT TO LAB. WILL CONTINUE TO MONITOR.
[2019-07-19] MEDS: MEROPENEM 1 G in IV NS 0.9% 100 ML IV SCH ×3 (04:25→21:06)
[2019-07-19] MEDS ORDERED: NOREPINEPHRINE 4 MG/4 ML AMPUL IV ONE (05:00)
[2019-07-19 05:27] LABS: BASOPHILS % (AUTO) 0.2 % (0.0-2.0); HEMATOCRIT 31 % (39-51); HEMOGLOBIN 10.3 g/dL (13.5-17.5); LYMPHOCYTES # (AUTO) 0.6 /CMM (0.8-4.8); LYMPHOCYTES % (AUTO) 4.1 % (20.0-44.0); MEAN CORPUSCULAR HGB CONC 33 g/dl (31.0-36.0); MEAN CORPUSCULAR VOLUME 95 fL (80-96); MONOCYTES # (AUTO) 0.7 /CMM (0.1-1.30); MONOCYTES % (AUTO) 4.7 % (2.0-12.0); NEUTROPHILS # (AUTO) 14.2 /CMM (1.8-8.9); PLATELET COUNT (AUTO) 120 /CMM (150-450); RED BLOOD CELL COUNT(AUTO) 3.29 MIL/uL (4.5-6.0); WHITE BLOOD COUNT (AUTO) 15.6 K/uL (4.3-11.0)
[2019-07-19 05:34] LABS: APPEARANCE,URINE CLOUDY (CLEAR); BILIRUBIN,URINE SMALL (NEGATIVE); BLOOD, URINE LARGE Ery/uL (NEGATIVE); COLOR,URINE DARK YELLO (YELLOW); KETONES,URINE NEGATIVE (NEGATIVE); LEUKOCYTE ESTERASE ,URINE NEGATIVE (NEGATIVE); NITRITE, URINE NEGATIVE (NEGATIVE); PROTEIN,URINE 100 mg/dl (NEGATIVE); UGLUCOSE NEGATIVE (NEGATIVE)
[2019-07-19 05:37] LABS: CALCIUM, SERUM 8.2 mg/dL (8.5-10.1); CREATININE 0.9 mg/dL (0.6-1.3); POTASSIUM 3.8 mmol/L (3.5-5.1)
[2019-07-19 05:47] LABS: BACTERIA,URINE Few /HPF (None Seen); RBC,URINE TOO NUMEROUS TO COUN /HPF (0-2); SQUAMOUS EPITHELIAL CELL,UR Rare /HPF (None Seen)
[2019-07-19] MEDS: VANCOMYCIN 1 GM in IV D5W 250 ML IV SCH ×2 (05:47→17:36)
[2019-07-19 05:50] LABS: MAGNESIUM 2.3 mg/dL (1.8-2.4)
[2019-07-19] MEDS: NOREPINEPHRINE 8 MG in IV NS 0.9% 242 ML IV PRN (05:57)
[2019-07-19 06:12] LABS: C-REACTIVE PROTEIN 28.1 mg/dL (0.0-0.9)
--- NOTE | 2019-07-19 07:11 | NUR ---
BUS TRANSPORTATION MANAGER CLOSING NOTE PATIENT REMAINED STABLE THROUGHOUT THE NIGHT. REMAINED SEDATED. LEVOPHED AND PROPOFOL DRIPS ADJUSTED PER PROTOCOL. ALL DUE MEDS GIVEN AND TOLERATED WELL. PATIENT KEPT CLEAN, DRY, AND COMFORTABLE. WILL ENDORSE TO AM SHIFT RN FOR CONTINUATION OF CARE.
--- NOTE | 2019-07-19 07:15 | NUR ---
RN OPENING NOTE: PATIENT RECEIVED IN BED AND ASLEEP. ON MECHANICAL VENTILATION AND TOLERATING SETTINGS WELL. WITH NGT IN PLACE. ISOLATION PRECAUTIONS IN PLACE FOR COVID. NO SOB AND NOT IN RESPIRATORY DISTRESS. TELE MONITORING SHOWING SINUS RHYTHM. IV SITES CLEAN, DRY, PATENT AND INTACT. INFUSION OF PROPOFOL, LEVOPHED AND IV HYDRATION BEING TOLERATED WELL AT CURRENT PRESCRIBED SETTINGS. NO PAIN NOTED ON PATIENT. MORAN CATHETER DRAINING TEA COLORED URINE. CALL LIGHT IN REACH. BED LOCKED, LOW AND AT SEMI-BRYAN'S POSITION. SAFETY ENSURED AND OBSERVED. SIDE RAILS UP X3. WILL CONTINUE TO MONITOR.
[2019-07-19 08:12] LABS: ABG BASE EXCESS 3.3 mmol/L; ABG OXYGEN SATURATION 99.4 % (92.0-98.5); ABG PCO2 48.6 mmHg (35.0-45.0); ABG PH 7.392 (7.350-7.450); ABG PO2 314.4 mmHg (75.0-100.0); COHb 0.3 % (0.5-1.5); MetHb 0.1 % (0.0-1.5); PEEP,BG 12 cm H2O; SITE, ABG Right Radial; VT, ABG 500 mL
[2019-07-19] MEDS ORDERED: BUMETANIDE INJ 8 MG in IV NS 0.9% 48 ML IV ONE (08:30)
[2019-07-19] MEDS ORDERED: POTASSIUM CHLORIDE 20 MEQ POWDER PACKET GT SCH (08:30)
--- NOTE | 2019-07-19 08:47 | NUR ---
VENT CHANGES BELOW MADE PER DR. PALACIOS: FIO2 60% PEEP +10 Addendum: 07/19/19 at 0848 by SINA TRINH RT Amended: Links added.
[2019-07-19] MEDS ORDERED: methylPREDNISolone SOD SUCC 40 MG/ML VIAL IV SCH (09:00)
[2019-07-19] MEDS: HYDROCORTISONE SOD SUCCINATE 100 MG/2 ML VIAL IV SCH ×3 (09:31→17:36)
[2019-07-19] MEDS: PROSOURCE / PROSTAT (PYXIS) 30 ML UDC GT SCH ×4 (09:31→21:52)
--- NOTE | 2019-07-19 19:05 | NUR ---
NEUROPSYCHOLOGY SERVICE DIRECTOR NOTE RECEIVED PATIENT IN BED, RESTING, SEDATED. ON VENT. BREATHING EVEN AND NON LABORED. ON DIPRIVAN @ 20 MCG/KG/MIN. ON NGT FEEDING RUNNING AT 25 MLS/HR. ON MORAN CATH, URINE IS NAHID AND RED IN COLOR. PICC LINE ON STEFFANY, PATENT. IN NO APPARENT DISTRESS AT THIS TIME. WILL CONTINUE TO MONITOR.
--- NOTE | 2019-07-19 21:31 | NUR ---
RN CLOSING NOTE: PATIENT STILL SEDATED AND IN BED. VERIFIED WITH DR. PALACIOS EARLIER ON SHIFT TO [place]EGO SEDATION VACATION TODAY PATIENT HAD MULTIPLE EPISODES OF PULLING OF LINES FROM PREVIOUS SHIFTS. ACKNOWLEDGED AND OK TO SKIP SEDATION VACATION. ON MECHANICAL VENTILATION AND TOLERATING SETTINGS WELL. WITH NGT IN PLACE. ISOLATION PRECAUTIONS IN PLACE FOR COVID. NO SOB AND NOT IN RESPIRATORY DISTRESS. TELE MONITORING SHOWING SINUS RHYTHM. IV SITES CLEAN, DRY, PATENT AND INTACT. INFUSION OF PROPOFOL, LEVOPHED AND IV HYDRATION BEING TOLERATED WELL AT CURRENT PRESCRIBED SETTINGS. NO PAIN NOTED ON PATIENT. MORAN CATHETER DRAINING TEA COLORED URINE. UPDATED PATIENT'S ON CONDITION AND FOLLOWED UP WITH DR. KISER WITH THEIR REQUEST TO START PATIENT WITH REMDAZIVIR. ACKNOWLEDGED INFORMATION AND INFORMED THAT MEDICATION IS NOT CURRENLTY AVAILABLE IN THE [place] ARE[place] BUT THEY ARE ACTIVELY LOOKING FOR SUPPLIES. WILL ENDORSE TO NIGHT NURSE TO INFORM FAMILY TO WHEN THEY CALL BACK. CALL LIGHT IN REACH. BED LOCKED, LOW AND AT SEMI-BRYAN'S POSITION. SAFETY ENSURED AND OBSERVED. SIDE RAILS UP X3. ENDORSED TO ONCOMING SHIFT FOR MEG.
[2019-07-20] VITALS (58 sets, daily range): BP systolic 73–149; BP diastolic 43–96
[2019-07-20] MEDS: PROPOFOL 10MG/ML 50ML 50 ML IV PRN ×9 (01:23→23:41)
[2019-07-20] MEDS: NOREPINEPHRINE 8 MG in IV NS 0.9% 242 ML IV PRN (02:05)
--- NOTE | 2019-07-20 04:00 | NUR ---
INDUSTRIAL SAFETY ENGINEER NOTE PATIENT TOLERATED BED BATH WELL. NO BM NOTED AT THIS TIME. WILL CONTINUE TO MONITOR.
[2019-07-20] MEDS: MEROPENEM 1 G in IV NS 0.9% 100 ML IV SCH ×3 (04:17→22:20)
[2019-07-20 05:06] LABS: BASOPHILS % (AUTO) 0.4 % (0.0-2.0); EOSINOPHILS % (AUTO) 0.2 % (0.0-6.0); HEMATOCRIT 29 % (39-51); HEMOGLOBIN 9.8 g/dL (13.5-17.5); LYMPHOCYTES # (AUTO) 0.4 /CMM (0.8-4.8); MEAN CORPUSCULAR HGB CONC 34 g/dl (31.0-36.0); MEAN CORPUSCULAR VOLUME 95 fL (80-96); MONOCYTES # (AUTO) 0.5 /CMM (0.1-1.30); MONOCYTES % (AUTO) 4.3 % (2.0-12.0); NEUTROPHILS # (AUTO) 9.9 /CMM (1.8-8.9); NEUTROPHILS % (AUTO) 91.1 % (43.0-81.0); PLATELET COUNT (AUTO) 106 /CMM (150-450); RED BLOOD CELL COUNT(AUTO) 2.99 MIL/uL (4.5-6.0); WHITE BLOOD COUNT (AUTO) 10.9 K/uL (4.3-11.0)
[2019-07-20] MEDS: VANCOMYCIN 1 GM in IV D5W 250 ML IV SCH ×2 (05:16→17:38)
[2019-07-20 05:36] LABS: CALCIUM, SERUM 7.4 mg/dL (8.5-10.1); CREATININE 0.8 mg/dL (0.6-1.3); PHOSPHORUS 2.5 mg/dL (2.5-4.9); POTASSIUM 4.1 mmol/L (3.5-5.1)
--- NOTE | 2019-07-20 07:36 | NUR ---
RN OPENING NOTES RECEIVED PATIENT RESTING IN BED COMFORTABLY, NO S/SX OF DISTRESS AT THIS TIME. HE IS SEDATED ON 20 MCG/MIN OF DIPRIVAN, ON MECH VENT, TOLERATING SETTINGS WELL. NO RESP DISTRESS PRESENT. PT IS ON LEVO DRIP AT 0.05 MCG/MIN, BP WNL. TELE MONITOR SHOWING SR WITH BBB. MORAN CATH IS PATENT AND INTACT, STEFFANY PICC IS PATENT AND INTACT. SAFETY MEASURES HAVE BEEN IMPLEMENTED, BED IS IN LOWEST AND LOCKED POSITION, SIDE RIALS UP X2, CALL LIGHT IS WITHIN REACH, WILL CONTINUE TO MONITOR FOR ANY CHANGES.
--- NOTE | 2019-07-20 07:45 | NUR ---
APPRENTICE PAINTER NECKTIES CLOSING NOTE PATIENT REMAINED STABLE THROUGHOUT THE NIGHT. REMAINED SEDATED. LEVOPHED AND PROPOFOL DRIPS ADJUSTED PER PROTOCOL. ALL DUE MEDS GIVEN AND TOLERATED WELL. PATIENT KEPT CLEAN, DRY, AND COMFORTABLE. ENDORSED TO AM SHIFT RN FOR CONTINUATION OF CARE.
[2019-07-20] MEDS: PROSOURCE / PROSTAT (PYXIS) 30 ML UDC GT SCH ×4 (08:12→22:20)
[2019-07-20] MEDS: HYDROCORTISONE SOD SUCCINATE 100 MG/2 ML VIAL IV SCH ×2 (08:14→17:38)
[2019-07-20 08:42] LABS: ABG OXYGEN SATURATION 96.5 % (92.0-98.5); ABG PH 7.472 (7.350-7.450); ABG PO2 93.3 mmHg (75.0-100.0); AaDO2 291.6 mmHg; COHb 0.3 % (0.5-1.5); MetHb 0.3 % (0.0-1.5); O2Hb 95.9 % (94.0-97.0); SITE, ABG Right Radial; VENT MODE, BG AC 20 500 +10 60%
--- NOTE | 2019-07-20 10:00 | NUR ---
RN NOTES SPOKE WITH PT (MANI) REGARDING POSSIBLE COVID TREATMENT. SHE WANTS HIM TO BE ON REMDESIVIR. SHE ALSO STATES THAT SHE HAS ACCESS TO THE MEDICATION IF NEEDED. RELAYED INFO TO BRITNEY VIDES ID, SHE IS TO CALL FAMILY WHEN SPOKEN WITH DR. NIKO KISER, WILL CONTINUE TO MONITOR
[2019-07-20 14:05] LABS: ALBUMIN 1.8 g/dL (3.4-5.0); BILIRUBIN,DIRECT 0.4 mg/dL (0.0-0.2); BILIRUBIN,TOTAL 0.8 mg/dL (0.2-1.0)
[2019-07-20] MEDS ORDERED: diphenhydrAMINE HCL ELIX 25 MG/10 ML UDC PO ONE (15:00)
[2019-07-20] MEDS ORDERED: ACETAMINOPHEN 650 MG/20.3 ML UDC PO ONE (15:00)
[2019-07-20] MEDS ORDERED: TOCILIZUMAB 400 MG in IV NS 0.9% 80 ML IV ONE (16:00)
--- NOTE | 2019-07-20 17:33 | NUR ---
PT PLACED BACK ON PEEP [address] PALACIOS NOTIFIED STAFF OF INCORRECT ORDER. Addendum: 07/20/19 at 1736 by EMORY PAT RT Amended: Links added.
--- NOTE | 2019-07-20 17:39 | NUR ---
RN NOTES ADMINISTERED MORNING DOSE OF VANCO PRIOR TO TROUGH DRAW. PER PHARMACY, OK TO ADMIN AFTERNOON AND EVENING DOSE OF VANCOMYCIN IV, WILL CONTINUE TO MONITOR FOR ANY CHANGES.
--- NOTE | 2019-07-20 19:23 | NUR ---
RN CLOSING NOTES PATIENT IS RESTING IN BED COMFORTABLY, ON MECH VENT, TOLERATING WELL. ON DIPRIVAN DRIP AT 40 MCG/MIN, TOLERATING WELL. HORACIO AT 0.05 MCG/MIN. PT NEEDS HAVE BEEN MET, NO ACUTE CHANGES OCCURRED. SAFETY MEASURES HAVE BEEN IMPLEMENTED, CALL LIGHT IS WITHIN REACH, BED IS IN LOWEST AND LOCKED POSITION, SIDE RAILS UP X3, PT HAS BEEN ENDORSED FOR MEG
[2019-07-21] VITALS (89 sets, daily range): BP systolic 59–239; BP diastolic 27–163
[2019-07-21] MEDS: PROPOFOL 10MG/ML 50ML 50 ML IV PRN ×4 (01:17→06:30)
[2019-07-21] MEDS: NOREPINEPHRINE 8 MG in IV NS 0.9% 242 ML IV PRN ×3 (01:20→09:33)
[2019-07-21] MEDS: OSMOLITE 1.2 CAL 1,000 ML LIQUID GT PRN (04:30)
[2019-07-21] MEDS ORDERED: NOREPINEPHRINE 8MG/250ML RTU 250 ML IV ONE (05:13)
[2019-07-21] MEDS: MEROPENEM 1 G in IV NS 0.9% 100 ML IV SCH ×3 (05:28→21:00)
[2019-07-21 06:34] LABS: CALCIUM, SERUM 7.9 mg/dL (8.5-10.1); CREATININE 0.9 mg/dL (0.6-1.3); POTASSIUM 3.6 mmol/L (3.5-5.1)
[2019-07-21] MEDS: VANCOMYCIN 1 GM in IV D5W 250 ML IV SCH ×2 (06:45→17:57)
--- NOTE | 2019-07-21 07:51 | NUR ---
ICU/RN INITIAL NOTES,AM RECEIVED REPORT FROM NIGHT NURSE. PT INTUBATED ETT8.0/23CM AT THE LIP, ON VENT SETTINGS ORDERED BY MD, NO ACUTE DISTRESS NOTED. PT SEDATED WITH DIPRIVAN, WILL DO SEDATION VACATION. SINUS ON TELE. MORAN CATH IN PLACE. LEFT NGT IN PLACE, TUBE FEEDING INFUSING, TOLERATING WELL, WILL CONTINUE TO MONITOR. RIGHT UPPER ARM PICC LINE PATENT AND INTACT, LOW DOSE LEVO FOR BP SUPPORT. ALL NEEDS WILL BE ATTENDED TO, SAFETY MEASURES TAKEN, BED IN LOW POSITION, SIDE RAILS UP, CALL LIGHT WITHIN REACH. BILATERAL SOFT WRIST RESTRAINTS, ASSESSED PER PROTOCOL.
[2019-07-21] MEDS: HYDROCORTISONE SOD SUCCINATE 100 MG/2 ML VIAL IV SCH ×2 (08:21→17:55)
[2019-07-21] MEDS: PROSOURCE / PROSTAT (PYXIS) 30 ML UDC GT SCH ×4 (08:21→20:43)
[2019-07-21] MEDS: ENOXAPARIN SODIUM 40 MG/0.4 ML DISP.SYRIN SQ SCH (08:22)
[2019-07-21 09:05] LABS: ABG BASE EXCESS 3.5 mmol/L; ABG OXYGEN SATURATION 98.2 % (92.0-98.5); ABG PCO2 43.3 mmHg (35.0-45.0); ABG PH 7.431 (7.350-7.450); ABG PO2 116.8 mmHg (75.0-100.0); AaDO2 263.4 mmHg; COHb 0.3 % (0.5-1.5); MetHb 0.3 % (0.0-1.5); O2Hb 97.6 % (94.0-97.0); PEEP,BG 10 cm H2O; SITE, ABG Left Brachial
[2019-07-21] MEDS: PROPOFOL 100 ML IV PRN ×3 (09:30→18:53)
--- NOTE | 2019-07-21 09:50 | NUR ---
ICU/RN: SEDATION VACATION DONE. PT OPENS EYES, FOLLOWS COMMANDS. SOME AGITATION NOTED, WILL TITRATE DIPRIVAN PER PROTOCOL.
--- NOTE | 2019-07-21 16:00 | NUR ---
ICU/RN: DISCUSSED WITH ID REGARDING FAMILY'S CONCERNS REGARDING CONVALESCENT PLASMA AND REMDESIVER TX. INFORMATION FOR PLASMA FAXED TO BLOOD BANK. WAITING ON MD'S OK FOR REMDESIVER TX. WILL FOLLOW UP. FAMILY NOTIFIED.
--- NOTE | 2019-07-21 19:30 | NUR ---
ICU/RN ENDING NOTES,AM REPORT ENDORSED TO NIGHT NURSE FOR MEG. PT INTUBATED AND SEDATED. ON VENT SETTINGS ORDERED BY MD, NO ACUTE DISTRESS NOTED. SINUS ON TELE. STEFFANY PICC PATENT AND INTACT, LOW DOSE LEVO FOR BP SUPPORT AND DIP FOR SEDATION. ALL NEEDS ATTENDED TO, SAFETY MEASURES TAKEN, BED IN LOW POSITION, SIDE RAILS UP, CALL LIGHT WITHIN REACH. BILATERAL SOFT WRIST RESTRAINTS ASSESSED PER PROTOCOL.
--- NOTE | 2019-07-21 20:00 | NUR ---
Received patient sedated on Diprivan gtt at 35 mcg and patient on full vent support.Vent settings well tolerated.No acute distress noted.Dx:SEPSIS,PNA,COVID 19 +VE.Afebrile.SR per monitor.With Levophed gtt infusing to STEFFANY PICC Line and will titrate accordingly to keep SBP >90.Tube feeding infusing via L NGT.Placement verified,patent and with small residual.FC to gravity drainage with hematuria.Patient turned and repositioned.Droplet/contact isolation precaution maintained.Safety measures observed with bed low,locked,side rails up and call light within easy reach.Continue monitoring.
--- NOTE | 2019-07-21 21:00 | NUR ---
BRUCE from [facility] called,She said she already forwarded request for Convalescent Plasma to [facility].And needs type and screen order for AM labs.Orders carried out.
[2019-07-22] VITALS (95 sets, daily range): BP systolic 82–131; BP diastolic 53–88
[2019-07-22] MEDS: PROPOFOL 100 ML IV PRN ×6 (01:14→20:36)
[2019-07-22] MEDS ORDERED: NOREPINEPHRINE 8MG/250ML RTU 250 ML IV ONE (03:55)
[2019-07-22] MEDS: MEROPENEM 1 G in IV NS 0.9% 100 ML IV SCH ×3 (04:01→20:06)
[2019-07-22] MEDS: NOREPINEPHRINE 8 MG in IV NS 0.9% 242 ML IV PRN (04:02)
[2019-07-22] MEDS: VANCOMYCIN 1 GM in IV D5W 250 ML IV SCH (05:01)
[2019-07-22 05:17] LABS: CALCIUM, SERUM 6.6 mg/dL (8.5-10.1); CREATININE 0.6 mg/dL (0.6-1.3); POTASSIUM 3.5 mmol/L (3.5-5.1)
--- NOTE | 2019-07-22 06:40 | NUR ---
Patient remains sedated.VSS.No acute distress noted.Tolerating NGT feeding well. No significant changes noted during the shift.Safety measures maintained.Turned and repositioned.Diprivan gtt and low dose of Levophed gtt infusing well.Site intact. Will endorse to day shift for continuity of care.
--- NOTE | 2019-07-22 07:10 | NUR ---
MOLD REPAIRER NOTES RECEIVED PATIENT SEDATED , RESPONSIVE TO PAIN STIMULI , NOT IN ACUTE DISTRESS , RESPIRATIONS EVEN AND UNLABORED , INTUBATED 11/[address] VIA MECHANICAL VENT SETTINGS ORDERED WITH SPO2 OF 99% , SR61 ON BEDSIDE MONITOR , RIGHT NARE NGT WITH OSMOLITE @25ML/HR TOLERATING WELL WITH NO RESIDUALS NOTED , FC DRAINING VIA GRAVITY , STEFFANY PICC LINE PATENT AND INTACT WITH NS @ TKO , LEVOPHED @ 0.02MCG/KG/MIN , DIPRIVAN @ 35MCG/KG/MIN INFUSING WELL , ALL NEEDS ATTENDED , ISOLATION PRECAUTION OBSERVED , WILL CONTINUE TO MONITOR
--- NOTE | 2019-07-22 08:02 | NUR ---
RT PATIENT REC'D ORALLY INTUBATED ON [facility] VENT WITH ORFERED SETTINGS. VENT ALARMS CHECKED + AUDIBLE. CUFF PRESSURE CHECKED MILITARY TECHNICIAN. ETT SECURE AND IN PROPER POSITION. AMBU BAG AT [facility]. Addendum: 07/22/19 at 1556 by MYRNA WREN RT Amended: Links added.
[2019-07-22] MEDS: PROSOURCE / PROSTAT (PYXIS) 30 ML UDC GT SCH ×4 (08:24→20:06)
[2019-07-22] MEDS: HYDROCORTISONE SOD SUCCINATE 100 MG/2 ML VIAL IV SCH ×2 (08:24→16:14)
--- NOTE | 2019-07-22 08:30 | NUR ---
PER MD CHAPA CANCELLED
--- NOTE | 2019-07-22 08:30 | NUR ---
PARTS SALES ADVISOR NOTES NORA HELD FOR SEDATION VACATION , WILL CONTINUE TO MONITOR
[2019-07-22] MEDS: ENOXAPARIN SODIUM 40 MG/0.4 ML DISP.SYRIN SQ SCH (08:53)
--- NOTE | 2019-07-22 09:00 | NUR ---
PATIENT PORTAL REPRESENTATIVE NOTES PT ABLE TO FOLLOW SIMPLE COMMANDS OFF SEDATION , OPENS EYES TRACTS , DIPRIVAN RESTARTED @ 5MCG/KG/MIN NOTED WITH MODERATE AGITATION , MILD DISTRESS RR OF 30-35CPM , BITTING ETT TUBE , STABLE AT THIS TIME , WILL CONTINUE TO MONITOR
--- NOTE | 2019-07-22 12:26 | NUR ---
RECEIVABLE CLERK NOTES SPOKE WITH PT SON AND , UPDATED REGARDING PT STATUS AND PLAN OF CARE ,
--- NOTE | 2019-07-22 18:59 | NUR ---
ESCALATION ENGINEER NOTES PATIENT STABLE , SEDATED , RESPONSIVE TO PAIN STIMULI , NOT IN ACUTE DISTRESS , RESPIRATIONS EVEN AND UNLABORED , INTUBATED 11/[address] VIA MECHANICAL VENT SETTINGS ORDERED WITH SPO2 OF 100% , SR WITH BBB 69 ON BEDSIDE MONITOR , RIGHT NARE NGT WITH OSMOLITE @25ML/HR TOLERATING WELL WITH NO RESIDUALS NOTED , FC DRAINING VIA GRAVITY , STEFFANY PICC LINE PATENT AND INTACT WITH NS @ TKO , LEVOPHED @ 0.02MCG/KG/MIN , DIPRIVAN @ 30MCG/KG/MIN INFUSING WELL , ALL NEEDS ATTENDED , ISOLATION PRECAUTION OBSERVED , REPORT GIVEN TO CARLY FOR CONTINUITY OF CARE
--- NOTE | 2019-07-22 19:30 | NUR ---
HYDRODYNAMICS TEACHER NOTES RECEIVED PATIENT IN BED, SEDATED ON DIPRIVAN, ORALLY INTUBATED ON MECHANICAL VENTILATION. BEDSIDE TELE MONITORING SHOWS SINUS RHYTHM. STEFFANY PICC PATENT AND INTACT, RUNNING LEVOPHED DRIP @ 0.02MCG/KG/MIN, AND PROPOFOL DRIP @ 30MCG/KG/MIN. LEFT NARE NGT PATENT AND INTACT, TOLERATING TUBE FEEDS WELL, MINIMAL GASTRIC RESIDUALS. ISOLATION PRECAUTIONS OBSERVED. MORAN PATENT AND INTACT, DRAINING TEA COLORED-PINK TINGED URINE VIA GRAVITY
[2019-07-23] VITALS (60 sets, daily range): BP systolic 79–158; BP diastolic 46–102
[2019-07-23] MEDS: PROPOFOL 100 ML IV PRN ×3 (01:09→22:40)
--- NOTE | 2019-07-23 04:00 | NUR ---
PROSPECT MANAGER NOTES BED BATH RENDERED, SACRAL RASH PHOTOGRAPHED AND DOCUMENTED PER PROTOCOL. WILL CONTINUE TO MONITOR
[2019-07-23 04:50] LABS: BASOPHILS % (AUTO) 0.5 % (0.0-2.0); EOSINOPHILS % (AUTO) 1.7 % (0.0-6.0); HEMATOCRIT 30 % (39-51); LYMPHOCYTES # (AUTO) 0.8 /CMM (0.8-4.8); LYMPHOCYTES % (AUTO) 13.9 % (20.0-44.0); MEAN CORPUSCULAR HGB CONC 34 g/dl (31.0-36.0); MEAN CORPUSCULAR VOLUME 95 fL (80-96); MONOCYTES # (AUTO) 0.3 /CMM (0.1-1.30); NEUTROPHILS # (AUTO) 4.3 /CMM (1.8-8.9); NEUTROPHILS % (AUTO) 77.9 % (43.0-81.0); PLATELET COUNT (AUTO) 124 /CMM (150-450); RED BLOOD CELL COUNT(AUTO) 3.17 MIL/uL (4.5-6.0); WHITE BLOOD COUNT (AUTO) 5.5 K/uL (4.3-11.0)
--- NOTE | 2019-07-23 04:58 | NUR ---
RT NOTES PT RECEIVED ORALLY INTUBATED ON [facility] VENT ON CHARTED SETTINGS. NO SIGNS OF RESP DISTRESS NOTED THROUGHOUT SHIFT. AIRWAY PATENT AND SECURED. DIRECTOR DIGITAL ADVERTISING DONE. PT SUCTIONED. HME CHANGED. ALARMS SET AND AUDIBLE. VENT PLUGGED INTO TO RED OUTLET. WILL CONT TO MONITOR. Addendum: 07/23/19 at 0530 by DAISY TEAGUE RT Amended: Links added.
[2019-07-23 05:06] LABS: CALCIUM, SERUM 7.9 mg/dL (8.5-10.1); CREATININE 0.6 mg/dL (0.6-1.3); POTASSIUM 3.9 mmol/L (3.5-5.1)
[2019-07-23] MEDS: MEROPENEM 1 G in IV NS 0.9% 100 ML IV SCH ×3 (05:31→20:36)
[2019-07-23 05:49] LABS: T4 (THYROXINE) 2.7 ug/dL (4.7-13.3); THYROID STIMULATING HORMONE 10.616 uIU/mL (0.358-3.74)
[2019-07-23 05:52] LABS: C-REACTIVE PROTEIN 2.2 mg/dL (0.0-0.9)
--- NOTE | 2019-07-23 07:00 | NUR ---
DISTRICT ADMINISTRATIVE ASSISTANT NOTES PATIENT RESTING IN BED, APPEARS COMFORTABLE, NO S/S OF DISTRESS NOTED. CONTINUES ON LEVOPHED DRIP @ 0.02MCG/KG/MIN, AND PROPOFOL DRIP @ 30MCG/KG/MIN. WILL ENDORSE THE PATIENT TO THE AM SHIFT NURSE FOR CONTINUITY OF CARE
--- NOTE | 2019-07-23 07:00 | NUR ---
KEEPER HELPER - OPENING PATIETN SEDATED AT THIS TIME, WITH DIPRIVAN 30MCG/KG/MIN. PATIENT ON BEDSITE MONITOR WITH VITALS STABLE AT THIS TIME , WITH CVP MONITORING PATIENT ON VENT SETTING WITH AC 20/ TV 500/ FI02 60 PEEP 10. NGT L PATENT AND INTACT , MORAN PATENT INTACT. STEFFANY PICC WITH LEVO @ 0.02 MCG/KG/MIN AND DRIPRIVAN @ 30/ MCG/KG/MIN SKIN IS INTACT. BED LOCKED LOWEST POSITION CALL LIGHT WITH IN REACH ALL SAFETY MEASURE IMPLEMENTED PER HOSPITAL POLICY.
--- NOTE | 2019-07-23 08:20 | NUR ---
RT PER DR PALACIOS NO ABG REQUIRED TODAY. ABG CANCELLED
[2019-07-23] MEDS: HYDROCORTISONE SOD SUCCINATE 100 MG/2 ML VIAL IV SCH ×2 (09:31→17:53)
[2019-07-23] MEDS: PROSOURCE / PROSTAT (PYXIS) 30 ML UDC GT SCH ×4 (09:31→20:36)
[2019-07-23] MEDS: ENOXAPARIN SODIUM 40 MG/0.4 ML DISP.SYRIN SQ SCH (09:33)
--- NOTE | 2019-07-23 15:00 | NUR ---
OCEAN FREIGHT FORWARDER -INSULIN PATIENT INSULIN AFTERNOON WAS NOT GIVEN PATIENT AT THIS TIME WAS BEING INTUBATED. AND BEFORE THEN WAS TRANSFER FROM [facility] [place] WAS NOT GIVEN
--- NOTE | 2019-07-23 16:00 | NUR ---
METAL EXPEDITER - OG PLACEMENT OG PLACED XRAY ORDERED .
--- NOTE | 2019-07-23 19:00 | NUR ---
MARKETING COMMUNICATIONS LEADER NOTES PATIENT ON LEVOPHED DRIP, RECEIVED AT 0.03MCG/KG/MIN, DESPITE PREVIOUS CHARTING OF 0.3MCG/KG/MIN
--- NOTE | 2019-07-23 19:30 | NUR ---
DRAFTER AUTOMOTIVE DESIGN LAYOUT NOTES RECEIVED PATIENT IN BED, SEDATED ON DIPRIVAN, ORALLY INTUBATED ON MECHANICAL VENTILATION. BEDSIDE TELE MONITORING SHOWS SINUS RHYTHM. STEFFANY PICC PATENT AND INTACT, RUNNING LEVOPHED DRIP @ 0.03MCG/KG/MIN, AND PROPOFOL DRIP @ 40MCG/KG/MIN. LEFT NARE NGT PATENT AND INTACT, TOLERATING TUBE FEEDS WELL, MINIMAL GASTRIC RESIDUALS. ISOLATION PRECAUTIONS OBSERVED. MORAN PATENT AND INTACT, DRAINING TEA COLORED-PINK TINGED URINE VIA GRAVITY
--- NOTE | 2019-07-23 19:33 | NUR ---
LOOP PULLER PATIENT STABLE AT THIS TIME. CHANGES TO VENT SETTINGS AC 20 / TV 500/ FI02 60/ PEEP OF 5. LEVO CHANGE TO 0.03 PROFO 40 MCG/ KG/ MIN . BED LOCKED LOWEST POSITION CALL LIGHTWITH IN REACH ALL SAFETY MEASURE IMPLEMENTED PER HOSPITAL POLICY.
[2019-07-24] VITALS (70 sets, daily range): BP systolic 74–144; BP diastolic 52–95
[2019-07-24] MEDS: PROPOFOL 100 ML IV PRN ×6 (02:15→19:39)
[2019-07-24] MEDS: NOREPINEPHRINE 8 MG in IV NS 0.9% 242 ML IV PRN (03:42)
--- NOTE | 2019-07-24 04:00 | NUR ---
LOCATION ANALYST NOTES BED BAT H RENDERED, TOLERATED WELL, WILL CONTINUE CLOSE MONITORING
[2019-07-24 05:05] LABS: BASOPHILS % (AUTO) 0.4 % (0.0-2.0); EOSINOPHILS % (AUTO) 2.3 % (0.0-6.0); HEMATOCRIT 32 % (39-51); HEMOGLOBIN 10.6 g/dL (13.5-17.5); LYMPHOCYTES # (AUTO) 0.7 /CMM (0.8-4.8); LYMPHOCYTES % (AUTO) 11.9 % (20.0-44.0); MEAN CORPUSCULAR HGB CONC 33 g/dl (31.0-36.0); MEAN CORPUSCULAR VOLUME 97 fL (80-96); MONOCYTES # (AUTO) 0.3 /CMM (0.1-1.30); MONOCYTES % (AUTO) 5.1 % (2.0-12.0); NEUTROPHILS # (AUTO) 4.5 /CMM (1.8-8.9); NEUTROPHILS % (AUTO) 80.3 % (43.0-81.0); PLATELET COUNT (AUTO) 147 /CMM (150-450); RED BLOOD CELL COUNT(AUTO) 3.29 MIL/uL (4.5-6.0); WHITE BLOOD COUNT (AUTO) 5.6 K/uL (4.3-11.0)
[2019-07-24 05:22] LABS: CALCIUM, SERUM 7.9 mg/dL (8.5-10.1); CREATININE 0.6 mg/dL (0.6-1.3); PHOSPHORUS 3.2 mg/dL (2.5-4.9); POTASSIUM 3.8 mmol/L (3.5-5.1)
[2019-07-24] MEDS: MEROPENEM 1 G in IV NS 0.9% 100 ML IV SCH (05:36)
--- NOTE | 2019-07-24 07:00 | NUR ---
DISTRICT MANAGER PRIMARY CARE SALES NOTES PATIENT RESTING IN BED, APPEARS COMFORTABLE, NO ACUTE CHANGES THROUGHOUT THE SHIFT. LEVOPHED DRIP @ 0.02 MCG/KG/MIN, DIPRIVAN @ 35MCG/KG/MIN
[2019-07-24] MEDS: PROSOURCE / PROSTAT (PYXIS) 30 ML UDC GT SCH ×4 (10:27→20:49)
[2019-07-24] MEDS: HYDROCORTISONE SOD SUCCINATE 100 MG/2 ML VIAL IV SCH ×2 (10:33→17:29)
[2019-07-24] MEDS: ENOXAPARIN SODIUM 40 MG/0.4 ML DISP.SYRIN SQ SCH (10:35)
--- NOTE | 2019-07-24 15:42 | NUR ---
RT NOTE: PATIENT RECEIVED ORALLY INTUBATED WITH 8.0 ETT SECURED AT 23 CM MID LIP LINE ON MECHANICAL VENT. ALARMS VERIFIED AND AUDIBLE. VENT PLUGGED INTO RED OUTLET. AMBU BAG AT [facility].
--- NOTE | 2019-07-24 15:57 | NUR ---
rn notes received patient in stable condition. breathing even and unlabored. vent setting well tolerated. on diprivan at 30mcg and levo at 0.02, tolerating well. vital signs wnl. no physical manifestation of pain or discomfort. kept clean and dry.
[2019-07-25] VITALS (68 sets, daily range): BP systolic 65–158; BP diastolic 38–107
[2019-07-25] MEDS: PROPOFOL 100 ML IV PRN ×6 (00:07→22:56)
[2019-07-25 04:45] LABS: BASOPHILS % (AUTO) 0.3 % (0.0-2.0); EOSINOPHILS % (AUTO) 1.9 % (0.0-6.0); HEMATOCRIT 30 % (39-51); HEMOGLOBIN 10.1 g/dL (13.5-17.5); LYMPHOCYTES # (AUTO) 0.8 /CMM (0.8-4.8); MEAN CORPUSCULAR HGB CONC 33 g/dl (31.0-36.0); MEAN CORPUSCULAR VOLUME 95 fL (80-96); MONOCYTES # (AUTO) 0.2 /CMM (0.1-1.30); MONOCYTES % (AUTO) 4.9 % (2.0-12.0); NEUTROPHILS # (AUTO) 3.7 /CMM (1.8-8.9); NEUTROPHILS % (AUTO) 76.9 % (43.0-81.0); PLATELET COUNT (AUTO) 128 /CMM (150-450); RED BLOOD CELL COUNT(AUTO) 3.16 MIL/uL (4.5-6.0); WHITE BLOOD COUNT (AUTO) 4.8 K/uL (4.3-11.0)
[2019-07-25 05:08] LABS: CALCIUM, SERUM 7.9 mg/dL (8.5-10.1); CARBON DIOXIDE 35 mmol/L (21-32); CHLORIDE 109 mmol/L (98-107); CREATININE 0.5 mg/dL (0.6-1.3); GLUCOSE 93 mg/dL (74-106); PHOSPHORUS 3.1 mg/dL (2.5-4.9); POTASSIUM 3.6 mmol/L (3.5-5.1); SODIUM SERUM 145 mmol/L (136-145); UREA NITROGEN, BLOOD 24 mg/dL (7-18)
--- NOTE | 2019-07-25 05:54 | NUR ---
RT NOTES PT ORALLY INTUBATED WITH 8.0 ETT PROPERLY SECURED AT 23 CM LIP JAMEL. VENT ALARMS ON AND WELL AUDIBLE AND PLUGGED INTO RED OUTLET. NO SOB OR DISTRESS NOTED. SX PRN LARGE THICK PALE YELLOW SECRETIONS.
--- NOTE | 2019-07-25 08:00 | NUR ---
ICU/RN INITIAL NOTES,AM RECEIVED REPORT FROM NIGHT NURSE. PT INTUBATED ETT8.0/23CM AT THE LIP, ON VENT SETTINGS ORDERED BY MD, NO ACUTE DISTRESS NOTED. PT SEDATED WITH DIPRIVAN, WILL DO SEDATION VACATION. SINUS ON TELE. MORAN CATH IN PLACE. LEFT NGT IN PLACE, TUBE FEEDING INFUSING, TOLERATING WELL, WILL CONTINUE TO MONITOR. RIGHT UPPER ARM PICC LINE PATENT AND INTACT ALL NEEDS WILL BE ATTENDED TO, SAFETY MEASURES TAKEN, BED IN LOW POSITION, SIDE RAILS UP, CALL LIGHT WITHIN REACH. BILATERAL SOFT WRIST RESTRAINTS, ASSESSED PER PROTOCOL.
[2019-07-25] MEDS: HYDROCORTISONE SOD SUCCINATE 100 MG/2 ML VIAL IV SCH ×2 (08:39→14:30)
[2019-07-25] MEDS: PROSOURCE / PROSTAT (PYXIS) 30 ML UDC GT SCH ×4 (08:40→21:37)
[2019-07-25] MEDS: LEVOTHYROXINE SODIUM 100 MCG TABLET PO SCH (08:40)
[2019-07-25] MEDS: ENOXAPARIN SODIUM 40 MG/0.4 ML DISP.SYRIN SQ SCH (08:41)
--- NOTE | 2019-07-25 10:30 | NUR ---
ICU/RN: PRIMARY NOTIFIED REGARDING CYANOTIC TOES WITH WEAK PULSES. RECEIVED ORDERS TO INFORM . CALLED AND UPDATED HIM REGARDING PT CONDITION. RECEIVED TLO ORDERS FOR ARTERIAL DOPPLER AND LOVENOX DOSE INCREASE. WILL FOLLOW THROUGH.
[2019-07-25] MEDS: NOREPINEPHRINE 8 MG in IV NS 0.9% 242 ML IV PRN ×2 (11:06→18:57)
[2019-07-25] MEDS ORDERED: ENOXAPARIN SODIUM 80 MG/0.8 ML DISP.SYRIN SQ ONE (13:00)
[2019-07-25] MEDS: OSMOLITE 1.2 CAL 1,000 ML LIQUID GT PRN (18:48)
--- NOTE | 2019-07-25 19:10 | NUR ---
ICU/RN: RECEIVED CALL FROM LAB FOR COVID NEGATIVE SWAB. FAMILY CALLED AND INFORMED. UPDATES GIVEN TO FAMILY.
--- NOTE | 2019-07-25 19:30 | NUR ---
RT NOTE PT RECEIVED ORALLY INTUBATED WITH ET TUBE 8.0 @ 23 LIP LINE. AMBU BAG/BACK UP TRACH @ BEDSIDE. SX DONE, ET TUBE SECURED AND PATENT. ALARMS ON AND AUDIBLE. VENT PLUGGED TO RED OUTLET. NO DISTRESS NOTED. WILL CONTINUE TO MONITOR T/O SHIFT. Addendum: 07/26/19 at 0333 by ALTHEA REYNA RT Amended: Links added.
--- NOTE | 2019-07-25 19:33 | NUR ---
ICU/RN ENDING NOTES,AM REPORT ENDORSED TO NIGHT NURSE FOR MEG. PT INTUBATED AND SEDATED ON VENT SETTINGS ORDERED BY MD, NO ACUTE DISTRESS NOTED. SINUS ON TELE. ALL NEEDS ATTENDED TO, SAFETY MEASURES TAKEN, BED IN LOW POSITION, SIDE RAILS UP, CALL LIGHT WITHIN REACH. BILATERAL SOFT RESTRAINTS IN PLACE, ASSESSED PER PROTOCOL.
[2019-07-25] MEDS ORDERED: ENOXAPARIN SODIUM 40 MG/0.4 ML DISP.SYRIN SQ SCH (21:00)
[2019-07-26] VITALS (96 sets, daily range): BP systolic 77–131; BP diastolic 54–89
[2019-07-26] MEDS: PROPOFOL 100 ML IV PRN ×7 (02:04→22:50)
[2019-07-26 04:31] LABS: BASOPHILS # (AUTO) 0.1 /CMM (0.0-0.2); BASOPHILS % (AUTO) 1.3 % (0.0-2.0); EOSINOPHILS % (AUTO) 3.2 % (0.0-6.0); HEMATOCRIT 33 % (39-51); HEMOGLOBIN 11.1 g/dL (13.5-17.5); LYMPHOCYTES # (AUTO) 1.3 /CMM (0.8-4.8); LYMPHOCYTES % (AUTO) 18.6 % (20.0-44.0); MEAN CORPUSCULAR HGB CONC 34 g/dl (31.0-36.0); MEAN CORPUSCULAR VOLUME 95 fL (80-96); MONOCYTES # (AUTO) 0.3 /CMM (0.1-1.30); MONOCYTES % (AUTO) 4.7 % (2.0-12.0); NEUTROPHILS # (AUTO) 5.2 /CMM (1.8-8.9); NEUTROPHILS % (AUTO) 72.2 % (43.0-81.0); PLATELET COUNT (AUTO) 187 /CMM (150-450); RED BLOOD CELL COUNT(AUTO) 3.49 MIL/uL (4.5-6.0); WHITE BLOOD COUNT (AUTO) 7.2 K/uL (4.3-11.0)
[2019-07-26 04:46] LABS: CREATININE 0.6 mg/dL (0.6-1.3); MAGNESIUM 2.1 mg/dL (1.8-2.4); PHOSPHORUS 3.7 mg/dL (2.5-4.9); POTASSIUM 3.6 mmol/L (3.5-5.1)
--- NOTE | 2019-07-26 08:00 | NUR ---
ICU/RN INITIAL NOTES,AM RECEIVED REPORT FROM NIGHT NURSE. PT INTUBATED ETT8.0/23CM AT THE LIP, ON VENT SETTINGS ORDERED BY MD, NO ACUTE DISTRESS NOTED. PT SEDATED WITH DIPRIVAN, WILL DO SEDATION VACATION. SINUS ON TELE. MOARN CATH IN PLACE, PINK TINGED URINE NOTED. RIGHT NGT IN PLACE, TUBE FEEDING INFUSING, TOLERATING WELL, WILL CONTINUE TO MONITOR. RIGHT UPPER ARM PICC LINE PATENT AND INTACT ALL NEEDS WILL BE ATTENDED TO, SAFETY MEASURES TAKEN, BED IN LOW POSITION, SIDE RAILS UP, CALL LIGHT WITHIN REACH. BILATERAL SOFT WRIST RESTRAINTS, ASSESSED PER PROTOCOL. AT BEDSIDE. ASSESSED CYANOTIC TOES. OK TO HOLD OFF ON DOPPLER NOW. WILL CONTINUE WITH FULL LOVENOX DOSE UNLESS OTHERWISE ORDERED OR CONTRAINDICATED.
[2019-07-26] MEDS: PROSOURCE / PROSTAT (PYXIS) 30 ML UDC GT SCH ×4 (08:44→21:40)
[2019-07-26] MEDS: HYDROCORTISONE SOD SUCCINATE 100 MG/2 ML VIAL IV SCH (08:44)
[2019-07-26] MEDS: LEVOTHYROXINE SODIUM 100 MCG TABLET PO SCH (08:44)
[2019-07-26 08:51] LABS: ABG BASE EXCESS 2.4 mmol/L; ABG OXYGEN SATURATION 99.3 % (92.0-98.5); ABG PCO2 30.5 mmHg (35.0-45.0); ABG PH 7.528 (7.350-7.450); ABG PO2 153.1 mmHg (75.0-100.0); COHb 0.2 % (0.5-1.5); MetHb 0.2 % (0.0-1.5); O2Hb 98.9 % (94.0-97.0); PEEP,BG 8 cm H2O; SITE, ABG Right Radial; VT, ABG 500 mL
[2019-07-26] MEDS: ENOXAPARIN SODIUM 120 MG/0.8 ML DISP.SYRIN SQ SCH ×2 (09:00→09:04)
--- NOTE | 2019-07-26 09:45 | NUR ---
ICU/RN: SEDATION VACATION DONE. PT OPENS EYES, FOLLOWS COMMANDS ON 35MCG/KG/MIN OF DIPRIVAN. RESUMED PER PROTOCOL. PT AGITATED, FIGHTING VENT.
--- NOTE | 2019-07-26 10:45 | NUR ---
ICU/RN: NOTIFIED OF HEMATURIA, HELD LOVENOX. WILL MONITOR.
[2019-07-26 13:33] LABS: APPEARANCE,URINE CLOUDY (CLEAR); BILIRUBIN,URINE NEGATIVE (NEGATIVE); BLOOD, URINE LARGE Ery/uL (NEGATIVE); COLOR,URINE RED (YELLOW); KETONES,URINE NEGATIVE (NEGATIVE); LEUKOCYTE ESTERASE ,URINE TRACE (NEGATIVE); NITRITE, URINE POSITIVE (NEGATIVE); PH,URINE 6.5 (5.0-8.0); PROTEIN,URINE >=300 mg/dl (NEGATIVE); UGLUCOSE NEGATIVE (NEGATIVE)
[2019-07-26 13:45] LABS: RBC,URINE TOO NUMEROUS TO COUN /HPF (0-2); SQUAMOUS EPITHELIAL CELL,UR Few /HPF (None Seen)
[2019-07-26 13:46] LABS: BACTERIA,URINE Few /HPF (None Seen)
[2019-07-26 16:22] LABS: WHITE BLOOD COUNT (AUTO) 5.4 K/uL (4.3-11.0)
[2019-07-26 16:27] LABS: HEMATOCRIT 31 % (39-51); MONOCYTES # (AUTO) 0.2 /CMM (0.1-1.30)
[2019-07-26 16:30] LABS: EOSINOPHILS % (AUTO) 1.7 % (0.0-6.0); HEMOGLOBIN 10.6 g/dL (13.5-17.5); LYMPHOCYTES # (AUTO) 0.5 /CMM (0.8-4.8); LYMPHOCYTES % (AUTO) 10.1 % (20.0-44.0); MEAN CORPUSCULAR HGB CONC 34 g/dl (31.0-36.0); MEAN CORPUSCULAR VOLUME 94 fL (80-96); MONOCYTES % (AUTO) 3.1 % (2.0-12.0); NEUTROPHILS # (AUTO) 4.6 /CMM (1.8-8.9); NEUTROPHILS % (AUTO) 85.1 % (43.0-81.0); PLATELET COUNT (AUTO) 151 /CMM (150-450); RED BLOOD CELL COUNT(AUTO) 3.28 MIL/uL (4.5-6.0)
[2019-07-26] MEDS: NOREPINEPHRINE 8 MG in IV NS 0.9% 242 ML IV PRN (16:30)
[2019-07-27] VITALS (89 sets, daily range): BP systolic 86–151; BP diastolic 25–90
[2019-07-27] MEDS: PROPOFOL 100 ML IV PRN ×6 (03:07→22:46)
[2019-07-27 04:24] LABS: BASOPHILS % (AUTO) 0.7 % (0.0-2.0); EOSINOPHILS % (AUTO) 3.2 % (0.0-6.0); HEMATOCRIT 33 % (39-51); HEMOGLOBIN 10.7 g/dL (13.5-17.5); LYMPHOCYTES # (AUTO) 1.2 /CMM (0.8-4.8); LYMPHOCYTES % (AUTO) 22.5 % (20.0-44.0); MEAN CORPUSCULAR HGB CONC 33 g/dl (31.0-36.0); MEAN CORPUSCULAR VOLUME 95 fL (80-96); MONOCYTES # (AUTO) 0.3 /CMM (0.1-1.30); MONOCYTES % (AUTO) 4.9 % (2.0-12.0); NEUTROPHILS # (AUTO) 3.8 /CMM (1.8-8.9); NEUTROPHILS % (AUTO) 68.7 % (43.0-81.0); PLATELET COUNT (AUTO) 176 /CMM (150-450); RED BLOOD CELL COUNT(AUTO) 3.43 MIL/uL (4.5-6.0); WHITE BLOOD COUNT (AUTO) 5.5 K/uL (4.3-11.0)
[2019-07-27 04:47] LABS: CALCIUM, SERUM 8.1 mg/dL (8.5-10.1); CREATININE 0.6 mg/dL (0.6-1.3); MAGNESIUM 2.1 mg/dL (1.8-2.4); PHOSPHORUS 3.4 mg/dL (2.5-4.9); POTASSIUM 3.5 mmol/L (3.5-5.1)
--- NOTE | 2019-07-27 07:44 | NUR ---
ICU/RN INITIAL NOTES,AM RECEIVED REPORT FROM NIGHT NURSE. PT INTUBATED ETT8.0/23CM AT THE LIP, ON VENT SETTINGS ORDERED BY MD, NO ACUTE DISTRESS NOTED. PT SEDATED WITH DIPRIVAN, WILL DO SEDATION VACATION. SINUS ON TELE, HR 62. MORAN CATH IN PLACE, PINK TINGED URINE NOTED. RIGHT NGT IN PLACE, TUBE FEEDING INFUSING, TOLERATING WELL, WILL CONTINUE TO MONITOR. RIGHT UPPER ARM PICC LINE PATENT AND INTACT ALL NEEDS WILL BE ATTENDED TO, SAFETY MEASURES TAKEN, BED IN LOW POSITION, SIDE RAILS UP, CALL LIGHT WITHIN REACH. BILATERAL SOFT WRIST RESTRAINTS, ASSESSED PER PROTOCOL. POSSIBLE TRACH PLACEMENT TUESDAY, WILL CONFIRM WITH PRIMARY MD.
[2019-07-27 08:04] LABS: ABG BASE EXCESS 7.7 mmol/L; ABG OXYGEN SATURATION 94.9 % (92.0-98.5); ABG PCO2 41.7 mmHg (35.0-45.0); ABG PH 7.498 (7.350-7.450); ABG PO2 76.7 mmHg (75.0-100.0); AaDO2 160.5 mmHg; COHb 0.1 % (0.5-1.5); O2Hb 94.8 % (94.0-97.0); PEEP,BG 8 cm H2O; SITE, ABG Left Radial; VT, ABG 500 mL
[2019-07-27] MEDS: PROSOURCE / PROSTAT (PYXIS) 30 ML UDC GT SCH ×4 (08:53→21:20)
[2019-07-27] MEDS: LEVOTHYROXINE SODIUM 100 MCG TABLET PO SCH (08:53)
[2019-07-27] MEDS: HYDROCORTISONE SOD SUCCINATE 100 MG/2 ML VIAL IV SCH (08:53)
--- NOTE | 2019-07-27 09:45 | NUR ---
SEDATION VACATION: Sedation vacation done. pt opens eyes, follows commands. will titrate per protocol for comfort
--- NOTE | 2019-07-27 12:20 | NUR ---
ICU/RN: CALLED MANI, PTS . UPDATES GIVEN. OBTAINED CONSENT FOR TRACH. TRACH WILL BE PLACED TUESDAY.
[2019-07-27] MEDS: OSMOLITE 1.2 CAL 1,000 ML LIQUID GT PRN (17:12)
[2019-07-27] MEDS: NOREPINEPHRINE 8 MG in IV NS 0.9% 242 ML IV PRN (18:38)
--- NOTE | 2019-07-27 18:46 | NUR ---
ICU/RN ENDING NOTES,AM REPORT WILL BE ENDORSED TO NIGHT NURSE FOR MEG. PT INTUBATED AND SEDATED ON VENT SETTINGS ORDERED BY MD, NO ACUTE DISTRESS NOTED. SINUS ON TELE. ALL NEEDS ATTENDED TO, SAFETY MEASURES TAKEN, BED IN LOW POSITION, SIDE RAILS UP, CALL LIGHT WITHIN REACH. PT ON LOW DOSE LEVOPHED FOR BP SUPPORT. BILATERAL SOFT RESTRAINTS IN PLACE, ASSESSED PER PROTOCOL. PLAN IS TO TRACH AND PEG PT TUESDAY, FAMILY AWARE
--- NOTE | 2019-07-27 20:00 | NUR ---
Received patient sedated on Diprivan gtt at 40 mcg and on full vent support.Vent settings well tolerated.SPO2 98%.SR per monitor.Levophed gtt infusing at low dose for BP support and will titrate accordingly.Both iv's infusing via STEFFANY PICC Line.Site intact.Tube feeding via R NGT infusing.Tube placement verified.Patent and no residual noted.HOB elevated.FC to gravity.Turned and repositioned to comfort.No distress noted.Continue monitoring.
[2019-07-27] MEDS ORDERED: IV NS 0.9% 500 ML BAG IV ONE (22:00)
[2019-07-28] VITALS (92 sets, daily range): BP systolic 71–139; BP diastolic 23–86
--- NOTE | 2019-07-28 | NUR ---
Patient remains sedated.AM hygienic measures done.Complete linens changed.Turned and repositioned.
[2019-07-28] MEDS: PROPOFOL 100 ML IV PRN ×6 (01:30→23:19)
--- NOTE | 2019-07-28 02:00 | NUR ---
CVP tubing changed and PICC LINE dressing changed under aseptic technique.Site without signs of infection noted.
[2019-07-28 04:13] LABS: EOSINOPHILS % (AUTO) 2.4 % (0.0-6.0); HEMATOCRIT 30 % (39-51); HEMOGLOBIN 10.1 g/dL (13.5-17.5); LYMPHOCYTES # (AUTO) 0.9 /CMM (0.8-4.8); LYMPHOCYTES % (AUTO) 27.2 % (20.0-44.0); MEAN CORPUSCULAR HGB CONC 33 g/dl (31.0-36.0); MEAN CORPUSCULAR VOLUME 95 fL (80-96); MONOCYTES # (AUTO) 0.2 /CMM (0.1-1.30); MONOCYTES % (AUTO) 5.2 % (2.0-12.0); NEUTROPHILS # (AUTO) 2.2 /CMM (1.8-8.9); NEUTROPHILS % (AUTO) 64.2 % (43.0-81.0); PLATELET COUNT (AUTO) 111 /CMM (150-450); RED BLOOD CELL COUNT(AUTO) 3.21 MIL/uL (4.5-6.0); WHITE BLOOD COUNT (AUTO) 3.4 K/uL (4.3-11.0)
--- NOTE | 2019-07-28 04:56 | NUR ---
RT NOTE Pt rec'd orally intubated via ETT sz #8.0 secured at 23cm at the lipline. Pt shows no signs of resp distress or sob. Pt sx'd for thick mod amt of bloody secretions. Alarms are set and audible. Vent plugged into red outlet. Ambu bag bedside. Will continue to monitor. Addendum: 07/28/19 at 0457 by HILARIO GUTIERREZ RT Amended: Links added.
--- NOTE | 2019-07-28 05:00 | NUR ---
Patient BP labile Levophed gtt titrated accordingly to keep SBP > 90.No acute distress noted.
[2019-07-28 05:01] LABS: CALCIUM, SERUM 7.9 mg/dL (8.5-10.1); CREATININE 0.7 mg/dL (0.6-1.3); MAGNESIUM 2.1 mg/dL (1.8-2.4); PHOSPHORUS 3.5 mg/dL (2.5-4.9); POTASSIUM 3.3 mmol/L (3.5-5.1)
[2019-07-28 05:40] LABS: C-REACTIVE PROTEIN 0.4 mg/dL (0.0-0.9)
--- NOTE | 2019-07-28 07:20 | NUR ---
Patient resting.VS stable.No significant changes noted during the shift.Endorsed to day shift for MEG.
--- NOTE | 2019-07-28 08:00 | NUR ---
ICU/RN INITIAL NOTES,AM RECEIVED REPORT FROM NIGHT NURSE. PT INTUBATED ETT8.0/23CM AT THE LIP, ON VENT SETTINGS ORDERED BY MD, NO ACUTE DISTRESS NOTED. PT SEDATED WITH DIPRIVAN. SINUS ON TELE, HR 68. MORAN CATH IN PLACE, HEMATURIA RESOLVED, YELLOW URINE NOTED. RIGHT NGT IN PLACE, TUBE FEEDING INFUSING, TOLERATING WELL, WILL CONTINUE TO MONITOR. RIGHT UPPER ARM PICC LINE PATENT AND INTACT, DIP AND LEVO INFUSING FOR BP SUPPORT. ALL NEEDS WILL BE ATTENDED TO, SAFETY MEASURES TAKEN, BED IN LOW POSITION, SIDE RAILS UP, CALL LIGHT WITHIN REACH. BILATERAL SOFT WRIST RESTRAINTS, ASSESSED PER PROTOCOL.
[2019-07-28 08:32] LABS: ABG BASE EXCESS 6.9 mmol/L; ABG OXYGEN SATURATION 97.4 % (92.0-98.5); ABG PCO2 37.7 mmHg (35.0-45.0); ABG PH 7.521 (7.350-7.450); ABG PO2 117.3 mmHg (75.0-100.0); AaDO2 124.5 mmHg; COHb 0.2 % (0.5-1.5); MetHb 0.4 % (0.0-1.5); O2Hb 96.8 % (94.0-97.0); PEEP,BG 8 cm H2O; SITE, ABG Right Radial; VT, ABG 500 mL
[2019-07-28 09:24] LABS: ABG BASE EXCESS 7.2 mmol/L; ABG OXYGEN SATURATION 95.9 % (92.0-98.5); ABG PH 7.459 (7.350-7.450); ABG PO2 85.7 mmHg (75.0-100.0); AaDO2 146.6 mmHg; COHb 0.3 % (0.5-1.5); MetHb 0.3 % (0.0-1.5); O2Hb 95.3 % (94.0-97.0); PEEP,BG 8 cm H2O; SITE, ABG Right Radial; VT, ABG 500 mL
[2019-07-28] MEDS ORDERED: POTASSIUM CHLORIDE 20 MEQ POWDER PACKET GT SCH (09:30)
--- NOTE | 2019-07-28 09:30 | NUR ---
SEDATION VACATION: PT OPENS EYES/TRACKS, REACTS TO PAIN, FOLLOWS SIMPLE COMMANDS. WILL RESUME SEDATION NEEDED PER PROTOCOL
[2019-07-28] MEDS: LEVOTHYROXINE SODIUM 100 MCG TABLET PO SCH (10:51)
[2019-07-28] MEDS: PROSOURCE / PROSTAT (PYXIS) 30 ML UDC GT SCH ×4 (10:51→20:44)
[2019-07-28] MEDS: HYDROCORTISONE SOD SUCCINATE 100 MG/2 ML VIAL IV SCH (10:52)
[2019-07-28] MEDS: ENOXAPARIN SODIUM 40 MG/0.4 ML DISP.SYRIN SQ SCH (11:23)
--- NOTE | 2019-07-28 11:40 | NUR ---
ICU/RN: RECEIVED CALL FROM LAB. SECOND NEGATIVE COVID RESULT REPORTED.
[2019-07-28] MEDS ORDERED: ENOXAPARIN SODIUM 40 MG/0.4 ML DISP.SYRIN SQ SCH (12:00)
[2019-07-28] MEDS: OSMOLITE 1.2 CAL 1,000 ML LIQUID GT PRN (18:10)
[2019-07-28] MEDS: NOREPINEPHRINE 8 MG in IV NS 0.9% 242 ML IV PRN (18:12)
--- NOTE | 2019-07-28 18:58 | NUR ---
ICU/RN ENDING NOTES,AM REPORT WILL BE ENDORSED TO NIGHT NURSE FOR MEG. ALL NEEDS ATTENDED TO. FAMILY ZOOMED, ALLOWED TO TALK TO PT. REPORTED TO FAMILY SECOND NEGATIVE COVID TEST. CONSENT FOR TRACH AND PEG IN CHART. SCHEDULED FOR TRACH AND PEG TUESDAY. PT ON VENT SETTINGS, NO DISTRESS, TOLERATING WELL. RESTARTED LEVO AT 1730, BP NOW STABLE. SAFETY MEASURES TAKEN, BED IN LOW POSITION, SIDE RAILS UP, CALL LIGHT WITHIN REACH. BILATERAL SOFT WRIST RESTRAINTS IN PLACE AND ASSESSED PER PROTOCOL.
--- NOTE | 2019-07-28 20:00 | NUR ---
Received patient sedated on Diprivan gtt.Orally intubated to mechanical vent.Tolerating vent settings well.No respiratory distress noted.SB 50 's and on low dose of Levophed gtt ,will titrate accordingly. Tube feeding in progress with HOB elevated.NGT placement verified patent and no residual noted. FC to gravity.Patient negative COVID 19 X2 off Droplet/Contact Isolation per protocol.[place] precaution implemented.Turned and repositioned offloading pressure points.Continue monitoring.
[2019-07-29] VITALS (93 sets, daily range): BP systolic 81–141; BP diastolic 37–90
--- NOTE | 2019-07-29 | NUR ---
Patient resting.VSS.Tolerating tube feeding well.AM care done.Turned and repositioned.
[2019-07-29] MEDS: PROPOFOL 100 ML IV PRN ×6 (03:16→21:29)
[2019-07-29 04:17] LABS: BASOPHILS # (AUTO) 0.1 /CMM (0.0-0.2); BASOPHILS % (AUTO) 1.1 % (0.0-2.0); EOSINOPHILS % (AUTO) 3.9 % (0.0-6.0); HEMATOCRIT 31 % (39-51); HEMOGLOBIN 10.2 g/dL (13.5-17.5); LYMPHOCYTES # (AUTO) 1.1 /CMM (0.8-4.8); LYMPHOCYTES % (AUTO) 24.6 % (20.0-44.0); MEAN CORPUSCULAR HGB CONC 33 g/dl (31.0-36.0); MEAN CORPUSCULAR VOLUME 95 fL (80-96); MONOCYTES # (AUTO) 0.2 /CMM (0.1-1.30); MONOCYTES % (AUTO) 4.6 % (2.0-12.0); NEUTROPHILS % (AUTO) 65.8 % (43.0-81.0); PLATELET COUNT (AUTO) 113 /CMM (150-450); RED BLOOD CELL COUNT(AUTO) 3.23 MIL/uL (4.5-6.0); WHITE BLOOD COUNT (AUTO) 4.5 K/uL (4.3-11.0)
[2019-07-29 04:58] LABS: CALCIUM, SERUM 7.8 mg/dL (8.5-10.1); CARBON DIOXIDE 34 mmol/L (21-32); CHLORIDE 107 mmol/L (98-107); CREATININE 0.7 mg/dL (0.6-1.3); GLUCOSE 110 mg/dL (74-106); MAGNESIUM 2.1 mg/dL (1.8-2.4); PHOSPHORUS 3.7 mg/dL (2.5-4.9); POTASSIUM 3.6 mmol/L (3.5-5.1); SODIUM SERUM 144 mmol/L (136-145); UREA NITROGEN, BLOOD 18 mg/dL (7-18)
--- NOTE | 2019-07-29 07:00 | NUR ---
No significant change noted during the shift.All needs met.Safety measures maintained. CHASE,from [facility] said there is one unit Convalescent Plasma available in [facility] for this patient.Will endorse to day shift to ask MD if this patient still needs it.
[2019-07-29] MEDS ORDERED: IV NS 0.9% 1,000 ML IV PRN (09:07)
--- NOTE | 2019-07-29 10:30 | NUR ---
PER DR. PALACIOS OK TO GIVE LOVENOX DOSE TODAY, HOLD DOSE TOMORROW FOR TRACH AND PEG PROCEDURES. CHANGE START OF IVF TO NS 50ML/HR STARTING AT MIDNIGHT TONIGHT. HOLD TF AT MIDNIGHT FOR PROCEDURES TOMORROW. PT'S MANI SPOKE TO AND AWARE.
[2019-07-29] MEDS: PROSOURCE / PROSTAT (PYXIS) 30 ML UDC GT SCH ×4 (10:33→20:17)
[2019-07-29] MEDS: HYDROCORTISONE SOD SUCCINATE 100 MG/2 ML VIAL IV SCH (10:34)
[2019-07-29] MEDS: LEVOTHYROXINE SODIUM 100 MCG TABLET PO SCH (10:34)
[2019-07-29] MEDS: ENOXAPARIN SODIUM 40 MG/0.4 ML DISP.SYRIN SQ SCH (10:35)
[2019-07-29 12:47] LABS: ABG BASE EXCESS 8.1 mmol/L; ABG OXYGEN SATURATION 92.8 % (92.0-98.5); ABG PO2 65.8 mmHg (75.0-100.0); AaDO2 171.1 mmHg; COHb 0.3 % (0.5-1.5); MetHb 0.1 % (0.0-1.5); O2Hb 92.4 % (94.0-97.0); SITE, ABG Right Radial; VENT MODE, BG AC 20 500 40% +5
--- NOTE | 2019-07-29 19:19 | NUR ---
END OF SHIFT NOTE: PT HAD AN UNEVENTFUL SHIFT. PT TO HAVE TRACH AND PEG PLACEMENT TOMORROW. CONSENTS ARE ON THE CHART. PT TO BE NPO AFTER MIDNIGHT AND IVF NS AT 50MLS/HR TO START AT MIDNIGHT. SEDATION VACATION DONE TODAY, PT WOKE UP AND GOT AGITATED, SEDATION RESUMED. PT CHECKED ON HOURLY AND PRN BY NURSING STAFF.
--- NOTE | 2019-07-29 19:30 | NUR ---
TELETYPE CLERK NOTES RECEIVED PATIENT FROM AM NURSE, RECEIVED PATIENT SEDATED ON DIPRIVAN. INTUBATED ON MECHANICAL VENT.VENT SETTING TOLERATING WELL ORDERED. TELE MONITOR READING SR. NO S/S OF RESPIRATORY DISTRESS NOTED. NGT FEEDING TOLERATING WELL NO RESIDUAL NOTED PLACEMENT VERIFIED. F/C INTACT DARNING WELL. SAFETY MEASURES IN PLACE, BED IN LOW AND LOCKED POSITION. CALL LIGHT WITHIN REACH. WILL CONT TO MONITOR.
[2019-07-30] VITALS (55 sets, daily range): BP systolic 79–154; BP diastolic 28–96
[2019-07-30] MEDS: IV NS 0.9% 1,000 ML IV PRN ×2 (00:13→15:14)
[2019-07-30] MEDS: PROPOFOL 100 ML IV PRN ×6 (01:13→22:01)
[2019-07-30 04:57] LABS: EOSINOPHILS % (AUTO) 4.1 % (0.0-6.0); HEMATOCRIT 26 % (39-51); HEMOGLOBIN 9.7 g/dL (13.5-17.5); LYMPHOCYTES # (AUTO) 0.9 /CMM (0.8-4.8); LYMPHOCYTES % (AUTO) 21.3 % (20.0-44.0); MEAN CORPUSCULAR HGB CONC 37 g/dl (31.0-36.0); MEAN CORPUSCULAR VOLUME 96 fL (80-96); MONOCYTES # (AUTO) 0.2 /CMM (0.1-1.30); MONOCYTES % (AUTO) 4.6 % (2.0-12.0); PLATELET COUNT (AUTO) 87 /CMM (150-450); RED BLOOD CELL COUNT(AUTO) 2.73 MIL/uL (4.5-6.0); WHITE BLOOD COUNT (AUTO) 4.3 K/uL (4.3-11.0)
[2019-07-30 05:22] LABS: CHOLESTEROL 260 mg/dL (<200); HDL CHOLESTEROL 33 mg/dL (40-60); LDL 194 mg/dL (0-99); T4 (THYROXINE) 4.9 ug/dL (4.7-13.3); TRIGLYCERIDES 2208 mg/dL (30-150)
[2019-07-30 05:54] LABS: ALANINE AMINOTRANSFERASE 34 U/L (12-78); ALBUMIN 1.9 g/dL (3.4-5.0); ALKALINE PHOSPHATASE 47 U/L (46-116); ASPARTATE AMINOTRANSFERASE 43 U/L (15-37); BILIRUBIN,TOTAL 0.6 mg/dL (0.2-1.0); CALCIUM, SERUM 7.2 mg/dL (8.5-10.1); CARBON DIOXIDE 33 mmol/L (21-32); CHLORIDE 100 mmol/L (98-107); CREATININE 0.6 mg/dL (0.6-1.3); GLUCOSE 150 mg/dL (74-106); MAGNESIUM 1.9 mg/dL (1.8-2.4); PHOSPHORUS 3.2 mg/dL (2.5-4.9); POTASSIUM 3.4 mmol/L (3.5-5.1); SODIUM SERUM 135 mmol/L (136-145); TOTAL PROTEIN, SERUM 4.3 g/dL (6.4-8.2); UREA NITROGEN, BLOOD 17 mg/dL (7-18)
[2019-07-30 06:04] LABS: NEUTROPHILS % (MANUAL) 72 (42-76)
[2019-07-30 06:05] LABS: LYMPHOCYTES % (MANUAL) 25 % (16-48); MONOCYTES % (MANUAL) 3 % (0-11.0)
[2019-07-30 06:07] LABS: THYROID STIMULATING HORMONE 28.548 uIU/mL (0.358-3.74)
--- NOTE | 2019-07-30 06:12 | NUR ---
RT NOTES END OF SHIFT> PT REMAINS STABLE WITH ETT PROPERLY SECURED ON VENT. VENT/ ALARMS WELL FUNCTIONING WITH VENT TO RED OUTLET. PRN SX FOR MOD PALE THICK SECRETIONS. NO CHANGES NOTED IN PT. STATUS. NO RESP DISTRESS NOTED ALL SHIFT>
[2019-07-30] MEDS: NOREPINEPHRINE 8 MG in IV NS 0.9% 242 ML IV PRN (06:48)
--- NOTE | 2019-07-30 07:00 | NUR ---
TECHNICAL BUYER PATIENT [facility] WITH PRESCRIBED SETTINGS. SATURATING AT >95 PERCENT. NO SIGNS OF ACUTE RESPIRATORY DISTRESS. PATIENT SEDATED WITH DIPRIVAN 45MCG/KG/MIN. ON BEDSIDE MONITOR 60'S SR. PSRASIS BUE/BLE , GENERALIZED EDEMA. PATIENT NPO AT THIS TIME DUE TO PLANNED SURGERY. STEFFANY MIDLINE WITH DRIPRIVAN , LEVO 0.03 MCG/HR NS @ 50 ML/HR. PATIENT HAS BILATERAL ARM RESTRAINTS NO SIGNS OF SKIN BREAKDOWN. MORAN WITH YELLOW/ CLEAR DRAINAGE. . BED LOCKED LOWEST POSITIO CALL LIGHT WITH IN REACH ALL SAFETY MEASURES IMPLEMENTED PER HOSPITAL POLICY
[2019-07-30] MEDS ORDERED: LIDOCAINE HCL/MPF 1% 30 ML VIAL IJ ONE (07:07)
[2019-07-30] MEDS ORDERED: ANESTHESIA TRAY IN PYXIS 1 EA TRAY MC ONE (07:07)
[2019-07-30] MEDS ORDERED: ROCURONIUM BROMIDE 50 MG/5 ML ONE (07:30)
[2019-07-30] MEDS ORDERED: FAMOTIDINE/PF INJ 20 MG/2 ML VIAL IV ONE (07:30)
[2019-07-30] MEDS ORDERED: POTASSIUM CHLORIDE 20 MEQ POWDER PACKET GT ONE (07:30)
--- NOTE | 2019-07-30 07:52 | NUR ---
ACADEMIC AFFAIRS VICE PRESIDENT NOTES PATIENT REMAINED STABLE THROUGH OUT THE SHIFT, NO S/S OF DISTRESS NOTED. REMAINED SEDATED, INTUBATED. NGT FEEDING WAS OFF AFTER MIDNIGHT ORDERED. STEFFANY MIDLINE INTACT PATENT FLUSHING WELL. F/C INTACT DARNING WELL. KEPT CLEAN AND COMFORTABLE. SAFETY MEASURES IN PLACE, CALL LIGHT WITHIN REACH. BED IN LOW AND LOCKED POSITION. ENDORSE PATIENT TO AM NURSE FOR MEG.
[2019-07-30] MEDS ORDERED: CELLULOSE,OXIDIZED 1 EA PACK MC ONE (08:26)
[2019-07-30] MEDS: PROSOURCE / PROSTAT (PYXIS) 30 ML UDC GT SCH ×4 (09:00→20:09)
--- NOTE | 2019-07-30 09:30 | NUR ---
SLIP COVER ESTIMATOR - [facility] PATIENT BACK FROM [facility] SURGERY - PATIENT STABLE AT THIS TIME.
[2019-07-30] MEDS: HYDROCORTISONE SOD SUCCINATE 100 MG/2 ML VIAL IV SCH (10:01)
[2019-07-30] MEDS: LEVOTHYROXINE SODIUM 112 MCG TABLET PO SCH (10:43)
[2019-07-30] MEDS ORDERED: CEFAZOLIN 1 GM ONE (13:12)
--- NOTE | 2019-07-30 15:02 | NUR ---
COMPOUNDING ASSISTANT - PEG PEG PLACEMENT- PATIENT STABLE AT THIS TIME. PER DR. EWING. NO MEDCATION/ WATER FOR 4 HRS. DO NOT CONTINUE FEEDING THEM THE AM 07/31/2019
--- NOTE | 2019-07-30 16:00 | NUR ---
INSURANCE CASE MANAGER - TRIGLYCERIDES - 238 PATIENT TRIGLYCERIDES OVER 1999, PULLED FROM IV MID LINE. LABORATORY NOTIFIED TO RE-DRAW TRIGLYCERIDES VIA PERIPHERAL . WILL FOLLOW 238 NEW PULL
--- NOTE | 2019-07-30 18:28 | NUR ---
CHEMOTHERAPIST - CLOSING NOTES PATIENT REMAINS STABLE AT THIS TIME. PLACED PEG FOR PATIENT AND TRACH IN THE AM. PATIENT SHOWS NO SINS OF BLEEDING AT BOTH SITES. STEFFANY DIPRIVAN @ 40 MCG/KG , LEVO 0.02 MCG/KG BED LOCKED LOWEST POSITION CALL LIGHT WITH IN REACH ALL SAFETY MEASURE IMPLEMENTED PER HOSPITAL POLICY . PATIENT TURN Q2H PER HOSPITAL POLICY.
--- NOTE | 2019-07-30 19:30 | NUR ---
CHAIN BUILDER NOTES RECEIVED PATIENT IN BED SEDATED ON DIPRIVAN. ON MECHANICAL VENT WITH PRESCRIBED VENT SETTING TOLERATING WELL. BED SIDE MONITOR READING SR IN 60'S -70'S. TRACH AND PEG PLACED THIS MORNING PATENT NO S/S OF BLEEDING NOTED. STEFFANY MIDLINE PATENT FLUSHED WELL. CONTINUES ON LEVO DRIP.F/C INTACT DRAINING WELL. SAFETY MEASURES IN PLACE, CALL LIGHT WITHIN REACH. WILL CONT TO MONITOR FOR MEG.
[2019-07-31] VITALS (70 sets, daily range): BP systolic 73–150; BP diastolic 26–97
[2019-07-31] MEDS: PROPOFOL 100 ML IV PRN ×4 (01:49→22:44)
[2019-07-31 04:47] LABS: BASOPHILS % (AUTO) 0.6 % (0.0-2.0); EOSINOPHILS % (AUTO) 3.8 % (0.0-6.0); HEMATOCRIT 29 % (39-51); HEMOGLOBIN 9.7 g/dL (13.5-17.5); LYMPHOCYTES % (AUTO) 12.7 % (20.0-44.0); MEAN CORPUSCULAR HGB CONC 33 g/dl (31.0-36.0); MEAN CORPUSCULAR VOLUME 96 fL (80-96); MONOCYTES # (AUTO) 0.2 /CMM (0.1-1.30); MONOCYTES % (AUTO) 3.2 % (2.0-12.0); NEUTROPHILS # (AUTO) 6.2 /CMM (1.8-8.9); NEUTROPHILS % (AUTO) 79.7 % (43.0-81.0); PLATELET COUNT (AUTO) 104 /CMM (150-450); RED BLOOD CELL COUNT(AUTO) 3.06 MIL/uL (4.5-6.0); WHITE BLOOD COUNT (AUTO) 7.7 K/uL (4.3-11.0)
[2019-07-31 04:58] LABS: CALCIUM, SERUM 7.5 mg/dL (8.5-10.1); CREATININE 0.6 mg/dL (0.6-1.3); MAGNESIUM 1.9 mg/dL (1.8-2.4); PHOSPHORUS 3.2 mg/dL (2.5-4.9); POTASSIUM 4.1 mmol/L (3.5-5.1)
--- NOTE | 2019-07-31 07:19 | NUR ---
ACOUSTIC WARFARE ANALYST NOTES PATIENT RESTED CONTINUES ON DIPRIVAN FOR SEDATION. NO S/S OF ACUTE DISTRESS NOTED. TRACH IN PLACE. GTF RESUMED ORDERED TOLERATING WELL. BED SIDE MONITOR READING SR IN 70'S. CONTINUES ON LEVO TOLERATING WELL NO CHANGES MADE DURING SHIFT. ALL DUE MEDICATIONS WERE GIVEN VIA GTF TOLERATED WELL. F/C INTACT DARNING WELL. STEFFANY MID LINE INTACT PATENT. KEPT CLEAN AND COMFORTABLE. ALL NEEDS ATTENDED. SAFETY MEASURES IN PLACE, BED IN LOW AND LOCKED POSITION. CALL LIGHT WITHIN REACH. ENDORSE PATIENT TO AM NURSE FOR MEG.
--- NOTE | 2019-07-31 07:53 | NUR ---
BIZTALK SOFTWARE DEVELOPER [facility] WITH PRESCRIBED SETTINGS. SATURATING AT >95 PERCENT.PATIENT IS TRACHED WITH SHILY 8 NO SIGNS OF ACUTE RESPIRATORY DISTRESS. PATIENT SEDATED WITH DIPRIVAN 40MCG/KG/MIN. ON BEDSIDE MONITOR 60'S SR. PSORIASIS BUE/BLE , GENERALIZED EDEMA. PATIENT FEEDING OSMOLITE 25 ML/HR WITH PEG MINIMAL RESIDUAL . STEFFANY MIDLINE WITH DIPRIVAN , LEVO 0.03 MCG/HR NS @ 50 ML/HR. CVP MONITOR ATTACHED. PATIENT HAS BILATERAL ARM RESTRAINTS NO SIGNS OF SKIN BREAKDOWN. MORAN WITH YELLOW/ CLEAR DRAINAGE. . BED LOCKED LOWEST POSITION CALL LIGHT WITH IN REACH ALL SAFETY MEASURES IMPLEMENTED PER HOSPITAL POLICY
[2019-07-31] MEDS: HYDROCORTISONE SOD SUCCINATE 100 MG/2 ML VIAL IV SCH (08:20)
[2019-07-31] MEDS: LEVOTHYROXINE SODIUM 112 MCG TABLET PO SCH (08:20)
[2019-07-31] MEDS: PROSOURCE / PROSTAT (PYXIS) 30 ML UDC GT SCH ×4 (08:20→21:45)
[2019-07-31] MEDS: IV NS 0.9% 1,000 ML IV PRN (08:27)
[2019-07-31] MEDS ORDERED: JEVITY 1.2 CAL 1,000 ML BOTTLE GT SCH (08:30)
[2019-07-31 08:33] LABS: ABG BASE EXCESS 4.2 mmol/L; ABG OXYGEN SATURATION 97.8 % (92.0-98.5); ABG PCO2 44.9 mmHg (35.0-45.0); ABG PH 7.429 (7.350-7.450); ABG PO2 141.6 mmHg (75.0-100.0); AaDO2 236.8 mmHg; COHb 0.3 % (0.5-1.5); MetHb 0.7 % (0.0-1.5); O2Hb 96.8 % (94.0-97.0); PEEP,BG 8 cm H2O; SITE, ABG Left Radial; VT, ABG 500 mL
[2019-07-31] MEDS ORDERED: ENOXAPARIN SODIUM 40 MG/0.4 ML DISP.SYRIN SQ SCH (09:00)
[2019-07-31 18:33] LABS: ABG BASE EXCESS 4.4 mmol/L; ABG OXYGEN SATURATION 89.5 % (92.0-98.5); ABG PCO2 48.1 mmHg (35.0-45.0); ABG PH 7.409 (7.350-7.450); ABG PO2 62.1 mmHg (75.0-100.0); AaDO2 602.8 mmHg; COHb 0.3 % (0.5-1.5); MetHb 0.7 % (0.0-1.5); O2Hb 88.6 % (94.0-97.0); SITE, ABG Right Brachial; VENT MODE, BG AC 20 500 100% +8
--- NOTE | 2019-07-31 19:15 | NUR ---
ICU OPENING RECEIVED PATIENT SEDATED ON VENT WITH TRACH WITH SHILEY #8. PATIENT BREATHING LABORED WITH RESPIRATIONS AT 38. PATIENT FIO2 IS AT 100% SATURATING AT 90%. SUCTIONED THE PATIENT, CHANGED SPO2 MONITOR. HR AT 99 SR WITH BBB AND PVC. PATIENT HAS STEFFANY PICC LINE WITH DIPRIVAN AT 20MCG/KG/MIN. AND NS AT 50CC/HR. FC IN PLACE AND DRAINING VIA GRAVITY WITH CLOUDY NAHID OUTPUT. WILL CONTINUE TO MONITOR PATIENT.
[2019-07-31] MEDS: LORAZEPAM INJ 2 MG/ML VIAL IV PRN (19:48)
--- NOTE | 2019-07-31 19:55 | NUR ---
RT INCREASE PEEP TO 10. WILL MONITOR.
--- NOTE | 2019-07-31 19:55 | NUR ---
RT NOTE Peep increased to 10 per md orders. will continue to monitor closely. Addendum: 07/31/19 at 2027 by HILARIO GUTIERREZ RT Amended: Links added.
--- NOTE | 2019-07-31 20:00 | NUR ---
PATIENT STARTED ON LEVO AT 0.1 PER PROTOCOL WILL INCREASE NEEDED TO KEEP WITHIN PARAMETERS. SBP CONTINUED TO DROP TO 80'S. INCREASED DIPRIVAN TO 30MCG PATIENT SEEMS RESTLESS SATURATING AT 88% WITH HEAVY LABORED BREATHING. RT SUCTIONED PATIENT. PATIENT CONTINUED TO SATURATED IN THE HIGH 80'S%
[2019-07-31] MEDS: NOREPINEPHRINE 8 MG in IV NS 0.9% 242 ML IV PRN (20:19)
--- NOTE | 2019-07-31 21:45 | NUR ---
PATIENT WAS REPOSITIONED TO OFF LOAD RIGHT SIDE. PATIENT SATURATION IMPROVING WILL CONTINUE TO MONITOR.
[2019-07-31] MEDS: MORPHINE SULFATE INJ 2 MG/ML DISP.SYRIN IM PRN (22:02)
[2019-07-31 22:06] LABS: ABG BASE EXCESS 4.6 mmol/L; ABG OXYGEN SATURATION 85.5 % (92.0-98.5); ABG PCO2 49.7 mmHg (35.0-45.0); ABG PH 7.402 (7.350-7.450); ABG PO2 54.5 mmHg (75.0-100.0); AaDO2 608.8 mmHg; COHb 0.3 % (0.5-1.5); MetHb 0.3 % (0.0-1.5); PEEP,BG 10 cm H2O; SITE, ABG Left Radial; VENT MODE, BG AC 20 500 100% +10
--- NOTE | 2019-07-31 22:08 | NUR ---
RT NOTE ABG taken and critical results given. RN aware. Will continue to monitor
--- NOTE | 2019-07-31 22:15 | NUR ---
ABG'S DONE AND MADE MD AWARE. PER CA RT RECOMMENDATIONS TO CHANGE VENT SETTINGS. PATIENT BEGAN SATURATING AT 96%. WILL HOLD OFF ON ANY VENT CHANGES PER RT. WILL CONTINUE TO MONITOR PATIENT.
[2019-08-01] VITALS (84 sets, daily range): BP systolic 17–202; BP diastolic 22–137
[2019-08-01] MEDS: PROPOFOL 100 ML IV PRN ×12 (00:43→23:14)
[2019-08-01 04:31] LABS: BASOPHILS # (AUTO) 0.1 /CMM (0.0-0.2); BASOPHILS % (AUTO) 0.4 % (0.0-2.0); HEMATOCRIT 29 % (39-51); HEMOGLOBIN 9.6 g/dL (13.5-17.5); LYMPHOCYTES # (AUTO) 0.9 /CMM (0.8-4.8); LYMPHOCYTES % (AUTO) 6.3 % (20.0-44.0); MEAN CORPUSCULAR HGB CONC 33 g/dl (31.0-36.0); MEAN CORPUSCULAR VOLUME 96 fL (80-96); MONOCYTES # (AUTO) 0.4 /CMM (0.1-1.30); MONOCYTES % (AUTO) 2.7 % (2.0-12.0); NEUTROPHILS # (AUTO) 12.6 /CMM (1.8-8.9); NEUTROPHILS % (AUTO) 87.6 % (43.0-81.0); PLATELET COUNT (AUTO) 107 /CMM (150-450); RED BLOOD CELL COUNT(AUTO) 3.01 MIL/uL (4.5-6.0); WHITE BLOOD COUNT (AUTO) 14.4 K/uL (4.3-11.0)
[2019-08-01 04:50] LABS: CALCIUM, SERUM 7.8 mg/dL (8.5-10.1); CREATININE 0.9 mg/dL (0.6-1.3); MAGNESIUM 1.8 mg/dL (1.8-2.4); PHOSPHORUS 3.2 mg/dL (2.5-4.9)
[2019-08-01] MEDS ORDERED: IV NS 0.9% 500 ML BAG IV ONE (05:00)
--- NOTE | 2019-08-01 05:22 | NUR ---
RT NOTE Pt rec'd trached on [facility] vent on AC mode settings as charted. Trach is patent and secured. Pt sx'd for thick mod amt of bloody secretions. Alarms are set and audible. Vent plugged into red outlet. Ambu bag bedside. Will continue to monitor. Addendum: 08/01/19 at 0635 by HILARIO GUTIERREZ RT Amended: Links added.
[2019-08-01] MEDS: NOREPINEPHRINE 8 MG in IV NS 0.9% 242 ML IV PRN ×3 (05:55→23:53)
[2019-08-01 06:09] LABS: ABG OXYGEN SATURATION 91.5 % (92.0-98.5); ABG PCO2 51.1 mmHg (35.0-45.0); ABG PH 7.371 (7.350-7.450); ABG PO2 66.9 mmHg (75.0-100.0); MetHb 0.2 % (0.0-1.5); O2Hb 91.3 % (94.0-97.0); PEEP,BG 10 cm H2O; SITE, ABG Left Radial; VENT MODE, BG AC 20 500 100% +10
--- NOTE | 2019-08-01 06:20 | NUR ---
RT NOTE ABG taken and results given to RN. Peep increased to 12 per md orders. Will continue to monitor. Addendum: 08/01/19 at 0637 by HILARIO GUTIERREZ RT Amended: Links added.
--- NOTE | 2019-08-01 06:31 | NUR ---
contacted vocational education professional Raymond VIDES and notified about mornings ABG's. RT's recommendation to increase Peep to 12. Jaime gave orders to change settings. Will monitor patient after vent settings. Addendum: 08/01/19 at 0635 by ARTURO ENGLAND RN time contacted [phone]
--- NOTE | 2019-08-01 07:10 | NUR ---
ICU CLOSING PATIENT IN BED CONTINUOS WITH LABORED BREATHING WITH RESPIRATIONS AT 38. BP IS MAINTAINED, SATURATION IS AT 93%. HR 79 AT BEDSIDE MONITOR SR. FC DRAINING VIA GRAVITY WITH DARK GREENISH CLOUDY OUTPUT. PATIENT ON LEVOPHED AT 0.08MCG/KG/MIN GTUBE FEEDING RUNNING AT 25CC.HR AND PROPOFOL AT 50MCG. ENDORSED PATIENT TO MORNING SHIFT NURSE.
--- NOTE | 2019-08-01 07:20 | NUR ---
RN INITIAL NOTES RECEIVED PT ON VENT, TRACH IN PLACE. HOB ELEVATED. STEFFANY PICC IN PLACE. ON DIPRIVAN AT 50MCG/KG/MIN AND LEVO AT 0.08MCG/KG/MIN. WILL TITRATE ACCORDINGLY. IVF INFUSING. FC IN PLACE. BLE ELEVATED. WILL CLOSELY MONITOR
[2019-08-01] MEDS: HYDROCORTISONE SOD SUCCINATE 100 MG/2 ML VIAL IV SCH ×4 (08:23→16:08)
[2019-08-01] MEDS: LEVOTHYROXINE SODIUM 112 MCG TABLET PO SCH (08:23)
[2019-08-01] MEDS: PROSOURCE / PROSTAT (PYXIS) 30 ML UDC GT SCH ×4 (08:23→22:03)
--- NOTE | 2019-08-01 10:30 | NUR ---
RN NOTES 0830 SEEN AND EXAMINED BY DR PALACIOS. AWARE OF LAB VALUES AND CXR RESULT. LABORED BREATHING NOTED, USING ABDOMINAL MUSCLE. MD ORDERED TO INCREASE DIPRIVAN AT 100MCG/KG/MIN. WILL CLOSELY MONITOR 1015 PT NOTED TACHYCARDIC, 140S. USES ABDOMINAL MUSCLE. DIPRIVAN TITRATED TO 100MCG/KG/MIN. VENT SETTINGS ADJUSTED. ABG IN 30MINS WILL CLOSELY MONITOR.
[2019-08-01 11:29] LABS: ABG BASE EXCESS 1.2 mmol/L; ABG OXYGEN SATURATION 98.2 % (92.0-98.5); ABG PCO2 57.9 mmHg (35.0-45.0); ABG PH 7.308 (7.350-7.450); ABG PO2 144.6 mmHg (75.0-100.0); AaDO2 510.5 mmHg; COHb 0.3 % (0.5-1.5); MetHb 0.5 % (0.0-1.5); O2Hb 97.4 % (94.0-97.0); PEEP,BG 12 cm H2O; SITE, ABG Right Radial; VT, ABG 500 mL
[2019-08-01] MEDS: ENOXAPARIN SODIUM 40 MG/0.4 ML DISP.SYRIN SQ SCH (11:39)
[2019-08-01] MEDS: JEVITY 1.2 CAL 1,000 ML BOTTLE GT SCH (13:59)
--- NOTE | 2019-08-01 18:23 | NUR ---
RN CLOSING NOTES PT KEPT COMFORTABLE. TRACH IN PLACE, ON VENT. HOB ELEVATED. RR 28, FI02 100%. PT SEDATED, DIPRIVAN AT 100MCG/KG/MIN. ON LEVO, TITRATED ACCORDINGLY. TOLERATING GTF WELL. NO RESIDUAL NOTED. FC IN PLACE. KEPT CLEAN AND DRY. REPOSITIONED Q2. WILL ENDORSE FOR CONTINUITY OF CARE.
--- NOTE | 2019-08-01 19:45 | NUR ---
ICU/COUNTER HELPER REPORT RECEIVED FROM THE TO DAY NURSE. SEE FLOWSHEET FOR ASSESSMENT, SKIN ISSUES ARE ADDRESSED ON FLOWSHEET ALONG WITH INTERVENTION TO EACH. PT IS ON SEDATION AT THIS TIME DUE TO AGITATION. PT IS WITH NEWER TRACH WITH SATURATION AT 99-100%. WILL MONITOR THIS PT AND HIS SATURATION. PT WAS TURNED AND REPOSITIONED FOR COMFORT AND CARE. NO ACUTE DISTRESS SEEN AT THIS TIME. PT IS CURRENTLY ON LEVO FOR BP, WILL MONITOR THIS.
--- NOTE | 2019-08-01 20:10 | NUR ---
ICU/GO CART MECHANIC PT'S BLOOD PRESSURE IS STABLE AND HIGH AT 139/94, WHILE ON LEVO. CHARGE NURSE MADE AWARE OF THIS AND WAS DECREASED ACCORDINGLY. WILL CONTINUE TO MONITOR THIS OT AND HIS BLOOD PRESSURE. LEVO NOW AT 0.08 FROM 0.1MCG
--- NOTE | 2019-08-01 21:10 | NUR ---
ICU/6TH GRADE TEACHER PT'S BLOOD PRESSURE IS STABLE AND HIGH AT 181/114, WHILE ON LEVO. CHARGE NURSE MADE AWARE OF THIS AND WAS DECREASED ACCORDINGLY. WILL CONTINUE TO MONITOR THIS PT AND HIS BLOOD PRESSURE. LEVO NOW AT 0.06 FROM 0.08MCG
--- NOTE | 2019-08-01 22:35 | NUR ---
ICU/LEADING FIREFIGHTER SEDATION DECREASED DOWN TO 95MCG FROM 100, PT IS CALM WITH STABLE VITAL SIGNS. WILL CONTINUE TO MONITOR THIS PT.
--- NOTE | 2019-08-01 22:50 | NUR ---
ICU/SUCTION WORKER PT WAS GIVEN PM CARE, ALONG WITH ORAL CARE. PT TOLERATED THIS WELL, REMAINS ON CURRENT VENT SETTING WITH SATURATION AT 100%. PT WAS TURNED AND REPOSITIONED FOR COMFORT AND CARE. WILL CONTINUE TO MONITOR THIS PT, NO ACUTE DISTRESS SEEN AT THIS TIME.
--- NOTE | 2019-08-01 23:15 | NUR ---
ICU/SMALL KICK PRESS OPERATOR SEDATION DECREASED DOWN TO 90MCG FROM 95MCG BY CHARGE NURSE, PT IS CALM WITH STABLE VITAL SIGNS. WILL CONTINUE TO MONITOR THIS PT.
[2019-08-02] VITALS (74 sets, daily range): BP systolic 77–189; BP diastolic 40–119
--- NOTE | 2019-08-02 00:20 | NUR ---
ICU/PLASTER MACHINE OPERATOR PT'S BLOOD PRESSURE IS UNSTABLE AND LOW AT 58/36, WHILE ON LEVO. CHARGE NURSE MADE AWARE OF THIS AND WAS INCREASED ACCORDINGLY. WILL CONTINUE TO MONITOR THIS PT AND HIS BLOOD PRESSURE. LEVO NOW AT 0.1 FROM 0.08MCG
[2019-08-02] MEDS: PROPOFOL 100 ML IV PRN ×14 (01:06→23:08)
--- NOTE | 2019-08-02 02:00 | NUR ---
ICU/PSYCHIATRIC AIDE PT'S BLOOD PRESSURE IS STABLE AND HIGH AT 130/88, WHILE ON LEVO. CHARGE NURSE MADE AWARE OF THIS AND WAS DECREASED ACCORDINGLY. WILL CONTINUE TO MONITOR THIS PT AND HIS BLOOD PRESSURE. LEVO NOW AT 0.08 FROM 0.1MCG
--- NOTE | 2019-08-02 03:35 | NUR ---
ICU/LOOM BLOWER PT WAS GIVEN AM CARE, ALONG WITH ORAL CARE. PT TOLERATED THIS WELL, REMAINS ON CURRENT VENT SETTING WITH SATURATION AT 100%. PT WAS TURNED AND REPOSITIONED FOR COMFORT AND CARE. WILL CONTINUE TO MONITOR THIS PT, NO ACUTE DISTRESS SEEN AT THIS TIME.
[2019-08-02 04:17] LABS: BASOPHILS % (AUTO) 0.3 % (0.0-2.0); EOSINOPHILS % (AUTO) 0.6 % (0.0-6.0); HEMATOCRIT 30 % (39-51); HEMOGLOBIN 9.9 g/dL (13.5-17.5); LYMPHOCYTES # (AUTO) 0.6 /CMM (0.8-4.8); LYMPHOCYTES % (AUTO) 5.2 % (20.0-44.0); MEAN CORPUSCULAR HGB CONC 33 g/dl (31.0-36.0); MEAN CORPUSCULAR VOLUME 96 fL (80-96); MONOCYTES # (AUTO) 0.3 /CMM (0.1-1.30); MONOCYTES % (AUTO) 2.6 % (2.0-12.0); NEUTROPHILS # (AUTO) 10.9 /CMM (1.8-8.9); NEUTROPHILS % (AUTO) 91.3 % (43.0-81.0); PLATELET COUNT (AUTO) 114 /CMM (150-450); RED BLOOD CELL COUNT(AUTO) 3.09 MIL/uL (4.5-6.0)
[2019-08-02 04:33] LABS: CALCIUM, SERUM 8.3 mg/dL (8.5-10.1); CREATININE 0.9 mg/dL (0.6-1.3); MAGNESIUM 1.9 mg/dL (1.8-2.4); PHOSPHORUS 3.3 mg/dL (2.5-4.9); POTASSIUM 3.9 mmol/L (3.5-5.1)
--- NOTE | 2019-08-02 05:48 | NUR ---
PATIENT RECEIVED WITH SHILEY 8 TRACH TUBE AND VENT SETTINGS OF AC 28, 550 VT, 70%, +12. SUCTIONED WITH LAVAGE FOR MINIMAL, THIN, CLEAR SECRETIONS. AMBU BAG AT BEDSIDE. VENT ALARM AUDIBLE AND VISIBLE. VENT PLUGGED INTO RED OUTLET. Addendum: 08/02/19 at 0550 by CLIFFORD FRAUSTO RT Amended: Links added.
--- NOTE | 2019-08-02 07:10 | NUR ---
RN INITIAL NOTES RECEIVED PT ON VENT, TRACH IN PLACE. HOB ELEVATED. STEFFANY PICC IN PLACE. ON DIPRIVAN AT 85MCG/KG/MIN AND LEVO AT 0.08MCG/KG/MIN. WILL TITRATE ACCORDINGLY. G-TUBE IN PLACE. TOLERATING FEEDING WELL. FC IN PLACE. BLE ELEVATED. WILL CLOSELY MONITOR
[2019-08-02 08:08] LABS: ABG BASE EXCESS 3.9 mmol/L; ABG OXYGEN SATURATION 98.5 % (92.0-98.5); ABG PCO2 46.8 mmHg (35.0-45.0); ABG PH 7.411 (7.350-7.450); ABG PO2 145.1 mmHg (75.0-100.0); AaDO2 303.7 mmHg; COHb 0.3 % (0.5-1.5); MetHb 0.1 % (0.0-1.5); O2Hb 98.1 % (94.0-97.0); PEEP,BG 12 cm H2O; SITE, ABG Left Radial; VENT MODE, BG AC 70%; VT, ABG 550 mL
[2019-08-02] MEDS: HYDROCORTISONE SOD SUCCINATE 100 MG/2 ML VIAL IV SCH ×3 (08:27→16:09)
[2019-08-02] MEDS: ENOXAPARIN SODIUM 40 MG/0.4 ML DISP.SYRIN SQ SCH (08:28)
[2019-08-02] MEDS: PROSOURCE / PROSTAT (PYXIS) 30 ML UDC GT SCH ×4 (08:28→20:00)
[2019-08-02] MEDS: LEVOTHYROXINE SODIUM 112 MCG TABLET PO SCH (08:28)
--- NOTE | 2019-08-02 09:00 | NUR ---
RN NOTES SEEN AND EXAMINED BY DR PALACIOS. PT STILL ON SEDATION, DIP AT 85MCG/KG/MIN. FI02 70%, PEEP+12. ON LEVO, KEPT SBP >90MMHG. BREATHING IMPROVED. WILL TITRATE FI02. WILL CLOSELY MONITOR
[2019-08-02] MEDS: DABIGATRAN ETEXILATE MESYLATE 150 MG CAPSULE PO SCH ×2 (11:07→16:10)
[2019-08-02] MEDS: JEVITY 1.2 CAL 1,000 ML BOTTLE GT SCH (11:07)
[2019-08-02] MEDS: NOREPINEPHRINE 8 MG in IV NS 0.9% 242 ML IV PRN (12:26)
--- NOTE | 2019-08-02 18:38 | NUR ---
RN CLOSING NOTES PT KEPT COMFORTABLE. TRACH IN PLACE, ON VENT. HOB ELEVATED. RR 28, FI02 50%. PT SEDATED, DIPRIVAN AT 85MCG/KG/MIN. ON LEVO, TITRATED ACCORDINGLY. TOLERATING GTF WELL. NO RESIDUAL NOTED. FC IN PLACE. KEPT CLEAN AND DRY. REPOSITIONED Q2. WILL ENDORSE FOR CONTINUITY OF CARE.
--- NOTE | 2019-08-02 19:05 | NUR ---
NET SOFTWARE ENGINEER NOTE RECEIVED PATIENT IN BED RESTING, HOB ELEVATED. SEDATED, ON DIPRIVAN @ 85 MCG/KG/MIN. VENT DEPENDANT, BREATHING EVEN AND NON LABORED. IN NO APPARENT DISTRESS AT THIS TIME. ON LEVOPHED @ O.O4 MCG/KG/MIN. SBP IS 104 AT THIS TIME. STEFFANY MIDLINE CLEAN AND PATENT. ON JEVITY @ 25 ML/HR. ON MORAN CATH, URINE IS CLEAR AND YELLOW IN COLOR. PATIENT ON BEAR HUGGER, TEMP WNL. BED IS LOWERED AND LOCKED FOR SAFETY. WILL CONTINUE TO MONITOR.
--- NOTE | 2019-08-02 19:51 | NUR ---
RT NOTE Pt rec'd trached on [facility] vent on AC mode settings as charted. Trach is patent and secured. Pt sx'd for thick mod amt of secretions. Alarms are set and audible. Vent plugged into red outlet. Ambu bag bedside. Will continue to monitor. Addendum: 08/02/19 at 1951 by BESS GARZA RT Amended: Links added.
--- NOTE | 2019-08-02 23:54 | NUR ---
PERSONNEL REPRESENTATIVE NOTE PATIENT IS STABLE AT THIS TIME. REPOSITIONED Q2H. NO BM NOTED AT THIS TIME.
[2019-08-03] VITALS (59 sets, daily range): BP systolic 100–155; BP diastolic 40–97
[2019-08-03] MEDS: PROPOFOL 100 ML IV PRN ×10 (01:40→23:00)
--- NOTE | 2019-08-03 03:30 | NUR ---
OTR FLATBED DRIVER NOTE PATIENT TOLERATED BED BATH WELL. NO BM NOTED AT THIS TIME. WILL CONTINUE TO MONITOR.
[2019-08-03 04:52] LABS: BASOPHILS % (AUTO) 0.3 % (0.0-2.0); HEMATOCRIT 26 % (39-51); HEMOGLOBIN 8.6 g/dL (13.5-17.5); LYMPHOCYTES # (AUTO) 0.7 /CMM (0.8-4.8); LYMPHOCYTES % (AUTO) 9.1 % (20.0-44.0); MEAN CORPUSCULAR HGB CONC 33 g/dl (31.0-36.0); MEAN CORPUSCULAR VOLUME 96 fL (80-96); MONOCYTES # (AUTO) 0.3 /CMM (0.1-1.30); MONOCYTES % (AUTO) 4.2 % (2.0-12.0); NEUTROPHILS # (AUTO) 6.2 /CMM (1.8-8.9); NEUTROPHILS % (AUTO) 85.4 % (43.0-81.0); PLATELET COUNT (AUTO) 105 /CMM (150-450); RED BLOOD CELL COUNT(AUTO) 2.68 MIL/uL (4.5-6.0); WHITE BLOOD COUNT (AUTO) 7.2 K/uL (4.3-11.0)
[2019-08-03 05:03] LABS: CREATININE 0.8 mg/dL (0.6-1.3); MAGNESIUM 1.8 mg/dL (1.8-2.4); PHOSPHORUS 3.2 mg/dL (2.5-4.9); POTASSIUM 3.8 mmol/L (3.5-5.1)
--- NOTE | 2019-08-03 07:15 | NUR ---
SALES REPRESENTATIVE PRINTING PAPER NOTE PATIENT REMAINED STABLE THROUGHOUT THE NIGHT. NO SIGNIFICANT CHANGED NOTED. DUE MED GIVEN ORDERED. DIPRIVAN AND LEVOPHED MEDICATIONS TITRATED PER PROTOCOL. PATIENT KEPT CLEAN, DRY, AND COMFORTABLE. ENDORSED TO FARIHA HOWELL FOR CONTINUATION OF CARE.
--- NOTE | 2019-08-03 07:53 | NUR ---
CELLOPHANE TESTER NOTES OPENING PATIENT IN BED ON DIPRIVAN 65 MCG, HR 65 SINUS RHYTHM. NO DISCOMFORT NOTED AT THIS TIME. RESIDUAL 50 ML FROM GTUBE SIDE. IV SITE PATENT AND FLUSHED WITH NORMAL SALINE WELL. PATIENT HAS GENERAL EDEMA ALL OVER HIS BODY. BED AT THE LOWEST POSITION LOCKED, CALL LIGHT WITHIN REACH. WILL CONTINUE TO FOLLOW UP WITH HIS CONDITION.
[2019-08-03] MEDS: LEVOTHYROXINE SODIUM 112 MCG TABLET PO SCH (08:16)
[2019-08-03] MEDS: HYDROCORTISONE SOD SUCCINATE 100 MG/2 ML VIAL IV SCH ×3 (08:16→21:07)
[2019-08-03] MEDS: PROSOURCE / PROSTAT (PYXIS) 30 ML UDC GT SCH ×4 (08:19→21:00)
[2019-08-03] MEDS: DABIGATRAN ETEXILATE MESYLATE 150 MG CAPSULE PO SCH ×2 (08:19→16:14)
[2019-08-03 11:05] LABS: ABG BASE EXCESS 3.5 mmol/L; ABG OXYGEN SATURATION 97.7 % (92.0-98.5); ABG PCO2 40.8 mmHg (35.0-45.0); ABG PO2 107.1 mmHg (75.0-100.0); AaDO2 203.5 mmHg; COHb 0.3 % (0.5-1.5); MetHb 0.1 % (0.0-1.5); O2Hb 97.3 % (94.0-97.0); SITE, ABG Right Radial; VENT MODE, BG AC 28 550 50% +10
--- NOTE | 2019-08-03 13:00 | NUR ---
CULVERT INSTALLER NOTES NOTED 200 ML RESIDUAL FROM GTUBE SIDE. STOPPED THE FEEDING. WILL CONTINUE TO MONITOR.
[2019-08-03] MEDS: NOREPINEPHRINE 8 MG in IV NS 0.9% 242 ML IV PRN (13:57)
--- NOTE | 2019-08-03 15:20 | NUR ---
INSURANCE RISK SURVEYOR NOTES PATIENT STILL HAS RESIDUAL FROM GT SIDE, NO BOWEL MOVEMENT. CONTACTED DR GARCIA TO OBTAIN MEDICATIONS ORDER. PER DR GARCIA REGLAN 10 MG IV Q6 HR AND MIRALAX POWDER 17GR DAILY.
[2019-08-03] MEDS ORDERED: POLYETHYLENE GLYCOL 3350 17 GM POWD.PACK PO PRN (15:30)
[2019-08-03] MEDS: METOCLOPRAMIDE HCL 10 MG/2 ML VIAL IV SCH ×2 (16:11→21:06)
--- NOTE | 2019-08-03 16:11 | NUR ---
ADMINISTRATIVE SUPPORT ASSOCIATE NOTES PROSOURCE NOT GIVEN DUE TO RESIDUAL AT GT SIDE.
--- NOTE | 2019-08-03 19:05 | NUR ---
FINGER BUFFS ASSEMBLER NOTE RECEIVED PATIENT IN BED RESTING, HOB ELEVATED. SEDATED, ON DIPRIVAN @ 60 MCG/KG/MIN. VENT DEPENDANT, BREATHING EVEN AND NON LABORED. IN NO APPARENT DISTRESS AT THIS TIME. ON LEVOPHED @ O.O2 MCG/KG/MIN. SBP IS 124 AT THIS TIME. STEFFANY PICC CLEAN AND PATENT. ON MORAN CATH, URINE IS CLEAR AND YELLOW IN COLOR WITH MINIMAL SEDIMENTS. TEMP IS WNL. BED IS LOWERED AND LOCKED FOR SAFETY. WILL CONTINUE TO MONITOR
[2019-08-04] VITALS (52 sets, daily range): BP systolic 82–178; BP diastolic 48–114
--- NOTE | 2019-08-04 02:30 | NUR ---
ORDER FILLER NOTE PATIENT TOLERATED BED BATH WELL AT THIS TIME. NO BM NOTED AT THIS TIME. WILL CONTINUE TO MONITOR.
[2019-08-04] MEDS: PROPOFOL 100 ML IV PRN ×6 (03:04→21:23)
[2019-08-04] MEDS: METOCLOPRAMIDE HCL 10 MG/2 ML VIAL IV SCH ×4 (03:16→21:44)
[2019-08-04 04:43] LABS: BASOPHILS % (AUTO) 0.9 % (0.0-2.0); EOSINOPHILS % (AUTO) 0.5 % (0.0-6.0); HEMATOCRIT 28 % (39-51); HEMOGLOBIN 9.7 g/dL (13.5-17.5); LYMPHOCYTES # (AUTO) 0.6 /CMM (0.8-4.8); LYMPHOCYTES % (AUTO) 11.4 % (20.0-44.0); MEAN CORPUSCULAR HGB CONC 35 g/dl (31.0-36.0); MEAN CORPUSCULAR VOLUME 96 fL (80-96); MONOCYTES # (AUTO) 0.2 /CMM (0.1-1.30); MONOCYTES % (AUTO) 4.7 % (2.0-12.0); NEUTROPHILS # (AUTO) 4.1 /CMM (1.8-8.9); NEUTROPHILS % (AUTO) 82.5 % (43.0-81.0); PLATELET COUNT (AUTO) 87 /CMM (150-450); RED BLOOD CELL COUNT(AUTO) 2.89 MIL/uL (4.5-6.0)
[2019-08-04 05:00] LABS: CALCIUM, SERUM 7.3 mg/dL (8.5-10.1); CREATININE 0.7 mg/dL (0.6-1.3); MAGNESIUM 1.9 mg/dL (1.8-2.4); PHOSPHORUS 2.7 mg/dL (2.5-4.9); POTASSIUM 3.6 mmol/L (3.5-5.1)
[2019-08-04 05:42] LABS: LYMPHOCYTES % (MANUAL) 9 % (16-48); MONOCYTES % (MANUAL) 4 % (0-11.0); NEUTROPHILS % (MANUAL) 87 (42-76)
[2019-08-04 05:50] LABS: C-REACTIVE PROTEIN 1.3 mg/dL (0.0-0.9)
--- NOTE | 2019-08-04 07:17 | NUR ---
MANAGER FLIGHT OPERATIONS NOTE PATIENT REMAINED STABLE THROUGHOUT THE NIGHT. DIPRIVAN AND LEVOPHED TITRATED ORDERED AND TOLERATED WELL. CLAMPED PATIENT'S GTF DUE TO 250 ML RESIDUAL. PATIENT STILL NO BM AT THIS TIME. PATIENT KEPT CLEAN, DRY, AND COMFORTABLE. WILL ENDORSE TO AM SHIFT RN FARIHA FOR CONTINUATION OF CARE.
--- NOTE | 2019-08-04 07:59 | NUR ---
RT Pt received trached on mechanical ventilation with noted settings. Pt does not follow commands. Vent alarms are set and audible with BVM by bedside. SETUP TECHNICIAN cuff pressure noted. Vent is plugged into red outlet. No SOB or respiratory distress noted. Addendum: 08/04/19 at 0846 by PATTI GALICIA RT Amended: Links added.
--- NOTE | 2019-08-04 08:05 | NUR ---
ALLERGY SPECIALIST NOTES SEDATION VACATION PERFORMED AND PROPOFOL GRADUALLY DECREASED AND STOPPED. PATIENT WAS ABLE TO OPEN EYES BUT NOT ABLE TO FOLLOW THE COMMENDS. PROPOFOL GRADUALLY INCREASED TO 50 MCG.
[2019-08-04] MEDS: LEVOTHYROXINE SODIUM 112 MCG TABLET PO SCH (08:14)
[2019-08-04] MEDS: HYDROCORTISONE SOD SUCCINATE 100 MG/2 ML VIAL IV SCH ×2 (08:16→17:12)
[2019-08-04] MEDS: PROSOURCE / PROSTAT (PYXIS) 30 ML UDC GT SCH ×4 (08:16→21:44)
[2019-08-04] MEDS: DABIGATRAN ETEXILATE MESYLATE 150 MG CAPSULE PO SCH ×2 (08:16→17:16)
--- NOTE | 2019-08-04 08:31 | NUR ---
SHUTTLE FILLER NOTES OPENING PATIENT IN BED ON DIPRIVAN 65 MCG, HR 40 SINUS RHYTHM. NO DISCOMFORT NOTED AT THIS TIME. NO RESIDUAL FROM GTUBE SIDE. IV SITE PATENT AND FLUSHED WITH NORMAL SALINE WELL. PATIENT HAS GENERAL EDEMA ALL OVER HIS BODY. BED AT THE LOWEST POSITION LOCKED, CALL LIGHT WITHIN REACH. WILL CONTINUE TO FOLLOW UP WITH HIS CONDITION.
[2019-08-04] MEDS: JEVITY 1.2 CAL 1,000 ML BOTTLE GT SCH (09:27)
--- NOTE | 2019-08-04 19:39 | NUR ---
COMMERCIAL COORDINATOR NOTES PATIENT IN BED SEDATED. NO DISCOMFORT NOTED AT THIS TIME. REPORT GIVEN TO CREMATORY OPERATOR NURSE.
[2019-08-04] MEDS ORDERED: NOREPINEPHRINE 4 MG/4 ML AMPUL IV ONE (22:17)
[2019-08-04] MEDS: NOREPINEPHRINE 8 MG in IV NS 0.9% 242 ML IV PRN (23:57)
[2019-08-05] VITALS (87 sets, daily range): BP systolic 91–149; BP diastolic 43–91
[2019-08-05] MEDS: PROPOFOL 100 ML IV PRN ×4 (04:03→22:22)
[2019-08-05] MEDS: METOCLOPRAMIDE HCL 10 MG/2 ML VIAL IV SCH ×4 (04:05→22:39)
[2019-08-05 05:00] LABS: BASOPHILS % (AUTO) 0.8 % (0.0-2.0); EOSINOPHILS % (AUTO) 3.7 % (0.0-6.0); HEMATOCRIT 28 % (39-51); HEMOGLOBIN 9.1 g/dL (13.5-17.5); LYMPHOCYTES # (AUTO) 0.8 /CMM (0.8-4.8); LYMPHOCYTES % (AUTO) 18.7 % (20.0-44.0); MEAN CORPUSCULAR HGB CONC 33 g/dl (31.0-36.0); MEAN CORPUSCULAR VOLUME 96 fL (80-96); MONOCYTES # (AUTO) 0.3 /CMM (0.1-1.30); MONOCYTES % (AUTO) 7.3 % (2.0-12.0); NEUTROPHILS # (AUTO) 2.9 /CMM (1.8-8.9); NEUTROPHILS % (AUTO) 69.5 % (43.0-81.0); PLATELET COUNT (AUTO) 97 /CMM (150-450); RED BLOOD CELL COUNT(AUTO) 2.86 MIL/uL (4.5-6.0); WHITE BLOOD COUNT (AUTO) 4.1 K/uL (4.3-11.0)
[2019-08-05 05:17] LABS: CALCIUM, SERUM 7.8 mg/dL (8.5-10.1); CREATININE 0.8 mg/dL (0.6-1.3); PHOSPHORUS 3.1 mg/dL (2.5-4.9); POTASSIUM 3.2 mmol/L (3.5-5.1)
--- NOTE | 2019-08-05 07:05 | NUR ---
RN NOTES RECEIVED PT ON BED, TRACH AND VENT DEPENDENT, TOLERATING CURRENT VENT SETTING WELL, SEDATED AND ON DIPRIVAN AT 30 MCG/KG/MIN, PER MD ORDER, ON TELE SB, MORAN DRAINING TO GRAVITY, R UPPER ARM PICC LINE SITE CLEAN, DRY AND INTACT, TF AT 25 CC/HR RUNNING VIA GT , NO RESIDUAL NOTED, SR UP x3,CALL LIGHT WITHIN EASY REACH, BED LOCKED AND IN LOWEST POSITION, CONTINUE TO MONITOR .
--- NOTE | 2019-08-05 07:32 | NUR ---
RN NOTES NO SIGNIFICANT CHANGED OF CONDITION, DIPRIVAN FROM 75MCG TO 30MCG, SEDATION LEVEL STABLE. VITAL SIGNS WITHIN NORMAL LIMIT. KEPT CLEAN AND DRY. ENDORSED TO NEXT SHIFT FOR CONTINUITY OF CARE.
--- NOTE | 2019-08-05 08:00 | NUR ---
RT PATIENT REC'D TRACHED ON [facility] VENT GURPREET WELL. FIO2 AND PEEP TITRATED. PEEP OF 5. 40%. AIRWAY SECURE AND IN PROPER POSITION. AMBU BAG AT HOB. Addendum: 08/05/19 at 1628 by MYRNA WREN RT Amended: Links added.
[2019-08-05] MEDS: HYDROCORTISONE SOD SUCCINATE 100 MG/2 ML VIAL IV SCH ×2 (08:21→16:12)
[2019-08-05] MEDS: POTASSIUM CHLORIDE 20 MEQ POWDER PACKET GT SCH ×3 (08:21→10:42)
[2019-08-05] MEDS: PROSOURCE / PROSTAT (PYXIS) 30 ML UDC GT SCH ×4 (08:22→20:51)
[2019-08-05] MEDS: LEVOTHYROXINE SODIUM 112 MCG TABLET PO SCH (08:22)
[2019-08-05] MEDS: DABIGATRAN ETEXILATE MESYLATE 150 MG CAPSULE PO SCH ×2 (09:30→16:12)
--- NOTE | 2019-08-05 12:00 | NUR ---
RN NOTES VSS STABLE, TRACH CARE DONE, CONTINUE TO MONITOR .
[2019-08-05] MEDS: JEVITY 1.2 CAL 1,000 ML BOTTLE GT SCH (14:33)
--- NOTE | 2019-08-05 18:00 | NUR ---
RN NOTES NO SIGNIFICANT CHANGES NOTED ON THIS SHIFT , VSS STABLE, MORAN DRAINING TO GRAVITY, DIPRIVAN AT 20MCG/KG/MIN RUNNING , SR UP x3, CALL LIGHT WITHIN EASY REACH, BED LOCKED AND IN LOWEST POSITION, WILL ENDORSE TO CHIEF SCIENTIST NURSE FOR CONTINUITY OF CARE.
--- NOTE | 2019-08-05 19:30 | NUR ---
DOOR CORE ASSEMBLER OPENING NOTES, RECEIVED PATIENT IN BED, TRACH AND VENT DEPENDENT, TOLERATING CURRENT VENT SETTING WELL, NO ACUTE DISTRESS NOTED AT THIS TIME. SEDATED AND ON DIPRIVAN AT 35 MCG/KG/MIN, PER MD ORDER, SB ON TELE MONITORE, MORAN DRAINING TO GRAVITY YELLOW/CLEAR URINE, R UPPER ARM PICC LINE, SITE CLEAN, DRY AND INTACT, NO S/S OF INFILTRATION NOTED. NG TUBE FEEDING AT 25 CC/HR RUNNING VIA GT , NO RESIDUAL NOTED, SIDE RAILS UP x3,CALL LIGHT WITHIN EASY REACH, BED LOCKED AND IN LOWEST POSITION, WILL CONTINUE TO MONITOR . Addendum: 08/06/19 at 0400 by NAVI MILLAN RN DIPRIVAN RUNNING AT 20MCG/KG/MIN
[2019-08-06] VITALS (69 sets, daily range): BP systolic 87–138; BP diastolic 56–96
[2019-08-06] MEDS: PROPOFOL 100 ML IV PRN ×3 (02:31→22:42)
[2019-08-06] MEDS: METOCLOPRAMIDE HCL 10 MG/2 ML VIAL IV SCH ×4 (04:08→22:28)
[2019-08-06 04:16] LABS: BASOPHILS % (AUTO) 0.4 % (0.0-2.0); HEMATOCRIT 30 % (39-51); HEMOGLOBIN 9.9 g/dL (13.5-17.5); LYMPHOCYTES # (AUTO) 0.7 /CMM (0.8-4.8); LYMPHOCYTES % (AUTO) 11.1 % (20.0-44.0); MEAN CORPUSCULAR HGB CONC 34 g/dl (31.0-36.0); MEAN CORPUSCULAR VOLUME 97 fL (80-96); MONOCYTES # (AUTO) 0.4 /CMM (0.1-1.30); MONOCYTES % (AUTO) 5.3 % (2.0-12.0); NEUTROPHILS # (AUTO) 5.4 /CMM (1.8-8.9); NEUTROPHILS % (AUTO) 80.2 % (43.0-81.0); PLATELET COUNT (AUTO) 107 /CMM (150-450); RED BLOOD CELL COUNT(AUTO) 3.04 MIL/uL (4.5-6.0); WHITE BLOOD COUNT (AUTO) 6.7 K/uL (4.3-11.0)
[2019-08-06 04:29] LABS: CALCIUM, SERUM 8.1 mg/dL (8.5-10.1); CREATININE 0.8 mg/dL (0.6-1.3); PHOSPHORUS 3.5 mg/dL (2.5-4.9); POTASSIUM 3.7 mmol/L (3.5-5.1)
[2019-08-06 04:31] LABS: T4 (THYROXINE) 4.3 ug/dL (4.7-13.3); THYROID STIMULATING HORMONE 14.422 uIU/mL (0.358-3.74)
--- NOTE | 2019-08-06 07:01 | NUR ---
LEAD OPERATOR CLOSING NOTES, PATIENT IN BED, TRACH AND VENT DEPENDENT, TOLERATING CURRENT VENT SETTING WELL, NO ACUTE DISTRESS NOTED AT THIS TIME. SEDATED AND ON DIPRIVAN AT 20 MCG/KG/MIN, PER MD ORDER, SB ON TELE MONITOR, MORAN DRAINING TO GRAVITY ORANGE COLOR/CLOUDY URINE, R UPPER ARM PICC LINE, SITE CLEAN, DRY AND INTACT, NO S/S OF INFILTRATION NOTED. G-TUBE FEEDING AT 25 CC/HR RUNNING VIA GT , NO RESIDUAL NOTED, SIDE RAILS UP x3,CALL LIGHT WITHIN EASY REACH, BED LOCKED AND IN LOWEST POSITION, WILL ENDORSE THE PATIENT TO AM RN FOR MEG.
--- NOTE | 2019-08-06 07:58 | NUR ---
RT PATIENT REC'D TRACHED ON [facility] VENT GURPREET WELL. PATIENT APPEARS COMFORTABLE AND IN NO DISTRESS. VENT ALARMS CHECKED + AUDIBLE. LASHELLU BAG AT HOB. Addendum: 08/06/19 at 1009 by MYRNA WREN RT Amended: Links added.
[2019-08-06] MEDS: HYDROCORTISONE SOD SUCCINATE 100 MG/2 ML VIAL IV SCH ×2 (08:22→15:04)
[2019-08-06] MEDS: PROSOURCE / PROSTAT (PYXIS) 30 ML UDC GT SCH ×4 (08:23→20:26)
[2019-08-06] MEDS: LEVOTHYROXINE SODIUM 112 MCG TABLET PO SCH (08:23)
[2019-08-06] MEDS: DABIGATRAN ETEXILATE MESYLATE 150 MG CAPSULE PO SCH ×2 (08:38→17:30)
--- NOTE | 2019-08-06 09:36 | NUR ---
BUDGET EXAMINER RECEIVED PT IN BED ON VENT TRACH PEG IV AND MORAN PRESENT PATENT, MORAN CATH HAS SCANT BLOOD TINGED URINE, PT SEEMS COMFORTABLE ON PROPOFOL PROVIDED SEDATION VACATION PT BECAME RESTLESS REACHING FOR TRACH AND LINES RESUMED PROPFOL ORDER WILL CONTINUE TO MONITOR. RESTRAINS PRESENT PROVIDED ROM CHECKED FOR SKIN BREAKDOWN AND CIRCULATION, TURN AND REPOSITION IN BED WILL CONTINUE TO MONITOR.
[2019-08-06] MEDS ORDERED: OLANZAPINE 10 MG VIAL IM SCH (10:00)
[2019-08-06] MEDS: OLANZAPINE 10 MG VIAL IM SCH (11:09)
--- NOTE | 2019-08-06 19:40 | NUR ---
MACHINES TECHNICIAN OPENING NOTES, RECEIVED PATIENT IN BED ON VENT TRACH PEG IV AND MORAN PRESENT PATENT, MORAN CATH DRAINERS TO GRAVITY CLOUDY/ORANGE URINE, RU PICC LINE RUNNING PROPOFOL @ 15MCG/KG/MIN , TOLERATING WELL, IV SITE CLEAN, NO S/S OF INFILTRATION NOTED. SB ON TELE MONITOR. G TUBE FEEDING @25 ML/HR TOLERATING WELL, NO RESIDUAL NOTED. BILA WRIST RESTRAINERS NOTED. ALL SAFETY MEASURES IMPLANTED., BED IN LOW/LOCKED POITION, SIDE RAILS UPX3. WILL CONTINUE TO MONITOR THE PATIENT CLOSELY.
[2019-08-07] VITALS (40 sets, daily range): BP systolic 75–135; BP diastolic 23–86
[2019-08-07] MEDS: METOCLOPRAMIDE HCL 10 MG/2 ML VIAL IV SCH ×4 (04:07→22:05)
[2019-08-07] MEDS: PROPOFOL 100 ML IV PRN (04:13)
[2019-08-07 04:30] LABS: BASOPHILS % (AUTO) 0.5 % (0.0-2.0); EOSINOPHILS % (AUTO) 6.2 % (0.0-6.0); HEMATOCRIT 31 % (39-51); HEMOGLOBIN 10.6 g/dL (13.5-17.5); LYMPHOCYTES # (AUTO) 0.9 /CMM (0.8-4.8); LYMPHOCYTES % (AUTO) 13.7 % (20.0-44.0); MEAN CORPUSCULAR HGB CONC 34 g/dl (31.0-36.0); MEAN CORPUSCULAR VOLUME 97 fL (80-96); MONOCYTES # (AUTO) 0.3 /CMM (0.1-1.30); MONOCYTES % (AUTO) 5.4 % (2.0-12.0); NEUTROPHILS # (AUTO) 4.7 /CMM (1.8-8.9); NEUTROPHILS % (AUTO) 74.2 % (43.0-81.0); PLATELET COUNT (AUTO) 123 /CMM (150-450); RED BLOOD CELL COUNT(AUTO) 3.23 MIL/uL (4.5-6.0); WHITE BLOOD COUNT (AUTO) 6.3 K/uL (4.3-11.0)
[2019-08-07 04:45] LABS: CALCIUM, SERUM 8.1 mg/dL (8.5-10.1); CREATININE 0.8 mg/dL (0.6-1.3); PHOSPHORUS 3.8 mg/dL (2.5-4.9); POTASSIUM 3.6 mmol/L (3.5-5.1)
--- NOTE | 2019-08-07 05:06 | NUR ---
RT NOTE Pt rec'd trached on [facility] vent on AC mode settings as charted. Pt shows no signs of resp distress or sob. Pt sx'd for thick small amt of pale yellow secretions. Alarms are set and audible. Vent plugged into red outlet. Ambu bag bedside. Will continue to monitor closely. Addendum: 08/07/19 at 0507 by HILARIO GUTIERREZ RT Amended: Links added.
--- NOTE | 2019-08-07 05:20 | NUR ---
CRITICAL LAB VALUE RECEIVED FROM LAB, PLATELET COUNT OF 37. PREVIOUS PLATELET WAS 77. MAHOGANY BOWLING WAS NOTIFIED. NEW ORDER RECEIVED TO TRANSFER 1 UNIT OF FFP. VSS. WILL CONTINUE TO MONITOR.
--- NOTE | 2019-08-07 07:17 | NUR ---
SENIOR BIOINFORMATICS SPECIALIST CLOSING NOTES, PATIENT REMAINS SEDATED, TOLERATING VENT SATING WELL, NO SOB OR ACUTE DISTRESS NOTED AT THIS TIME. RUPICC LINE RUNNING PROPOFAL @15 MCG/KG/MIN. IV SITE CLEAR NO S/S OF INFILTRATION. G TUBE FEEDING AT 25ML HR. FC DRAINING TO THE GRAVITY. SOFT BILATERAL WRIST RESTRAINS. BED IN LOW LOCKED POSITION. ENDORSED THE PATIENT TO AM RN FOR MEG.
[2019-08-07] MEDS: LEVOTHYROXINE SODIUM 112 MCG TABLET PO SCH (07:52)
[2019-08-07] MEDS: HYDROCORTISONE SOD SUCCINATE 100 MG/2 ML VIAL IV SCH (07:52)
[2019-08-07] MEDS: DABIGATRAN ETEXILATE MESYLATE 150 MG CAPSULE PO SCH ×2 (07:53→16:21)
[2019-08-07] MEDS: PROSOURCE / PROSTAT (PYXIS) 30 ML UDC GT SCH ×4 (07:54→21:27)
[2019-08-07] MEDS: OLANZAPINE 10 MG VIAL IM SCH (07:56)
--- NOTE | 2019-08-07 08:00 | NUR ---
Sedation Vacation Notes After 30min off of 15mcg/kg/min propofol drip, patient opens eyes, sometimes makes eye contact, sometimes nods head to questions, does not consistently follow command, slightly agitated/moving extremities, coughing. Will continue to monitor and attempt to wean off sedation using the ordered ativan+zyprexa, reorientation
[2019-08-07] MEDS: LORAZEPAM INJ 2 MG/ML VIAL IV PRN (10:17)
[2019-08-07] MEDS: POTASSIUM CHLORIDE 20 MEQ POWDER PACKET GT SCH ×3 (10:17→13:54)
[2019-08-07] MEDS: LORAZEPAM 1 MG TABLET PO SCH (16:20)
[2019-08-07] MEDS ORDERED: JEVITY 1.2 CAL 1,000 ML BOTTLE GT SCH (18:30)
--- NOTE | 2019-08-07 19:27 | NUR ---
RT NOTES PT RECEIVED TRACHED SHILEY #8 ON CHARTED AV MODE VENT SETTINGS. NO SIGNS OF RESP DISTRESS/SOB NOTED AT THIS TIME. SACK MAKER DONE. PT SUCTIONED. ALARMS SET AND AUDIBLE. VENT PLUGGED INTO RED OUTLET. BRUCE AT [facility]. WILL CONT TO MONITOR. Addendum: 08/07/19 at 2335 by DAISY TEAGUE RT Amended: Links added.
--- NOTE | 2019-08-07 19:40 | NUR ---
BOTTOM MAN OPENING NOTES, RECEIVED PATIENT IN BED ON VENT TRACH PEG , TOLERATING VENT SETTING WELL. NO ACUTE DISTRESS NOTED AT THIS TIME. MORAN CATH DRAINERS TO GRAVITY CLOUDY/RE URINE, RU PICC LINE PATENT AND FLUSHING WELL. TOLERATING WELL, IV SITE CLEAN, NO S/S OF INFILTRATION NOTED. SB ON TELE MONITOR. G-TUBE FEEDING @40 ML/HR TOLERATING WELL, NO RESIDUAL NOTED. BILA WRIST RESTRAINERS NOTED. ALL SAFETY MEASURES IMPLANTED. BED IN LOW/LOCKED POSITION, SIDE RAILS UPX3. WILL CONTINUE TO MONITOR THE PATIENT CLOSELY.
[2019-08-07 23:07] LABS: OCCULT BLOOD STOOL POSITIVE (NEGATIVE)
[2019-08-08] VITALS (27 sets, daily range): BP systolic 73–159; BP diastolic 51–109
--- NOTE | 2019-08-08 | NUR ---
PATIENT TOLERATING FEEDING TUBE WELL, RAISED TO 50ML/HR PER MDS ORDER. WILL CONTINUE TO MONITOR.
[2019-08-08] MEDS: LORAZEPAM INJ 2 MG/ML VIAL IV PRN (01:22)
[2019-08-08] MEDS: METOCLOPRAMIDE HCL 10 MG/2 ML VIAL IV SCH ×4 (04:19→21:29)
[2019-08-08 04:30] LABS: BASOPHILS % (AUTO) 0.6 % (0.0-2.0); HEMATOCRIT 30 % (39-51); LYMPHOCYTES # (AUTO) 0.9 /CMM (0.8-4.8); LYMPHOCYTES % (AUTO) 16.4 % (20.0-44.0); MEAN CORPUSCULAR HGB CONC 33 g/dl (31.0-36.0); MEAN CORPUSCULAR VOLUME 98 fL (80-96); MONOCYTES # (AUTO) 0.3 /CMM (0.1-1.30); MONOCYTES % (AUTO) 5.7 % (2.0-12.0); NEUTROPHILS # (AUTO) 3.8 /CMM (1.8-8.9); NEUTROPHILS % (AUTO) 69.3 % (43.0-81.0); PLATELET COUNT (AUTO) 118 /CMM (150-450); RED BLOOD CELL COUNT(AUTO) 3.09 MIL/uL (4.5-6.0); WHITE BLOOD COUNT (AUTO) 5.5 K/uL (4.3-11.0)
[2019-08-08 04:37] LABS: CREATININE 0.7 mg/dL (0.6-1.3); PHOSPHORUS 3.4 mg/dL (2.5-4.9); POTASSIUM 3.7 mmol/L (3.5-5.1)
--- NOTE | 2019-08-08 07:06 | NUR ---
WASTE/MATERIALS EXCHANGE SPECIALIST CLOSING NOTES, PATIENT REMANS STABLE DURING HAND SLITTER. ON VENT TRACH. TOLERATING VENT SETTING WELL. MORAN CATH DRAINERS TO GRAVITY CLOUDY/ORANGE URINE, RU PICC LINE PATENT AND NO S/S OF INFILTRATION. SB ON TELE MONITOR. G TUBE FEEDING @50 ML/HR TOLERATING WELL, NO RESIDUAL NOTED. BILA WRIST RESTRAINERS NOTED. ALL SAFETY MEASURES IMPLANTED, BED IN LOW/LOCKED POSITION, SIDE RAILS UPX3. WILL ENDORSE THE PATIENT TO AM RN FOR MEG.
--- NOTE | 2019-08-08 07:30 | NUR ---
SKIN FORMER OPENING NOTES RECEIVED PATIENT RESTING IN BED, NO ACUTE DISTRESS NOTED. PATIENT IS SLEEPING AT THE MOMENT AND IS NOT ABLE TO FOLLOW COMMANDS. ON MECHANICAL VENTILATOR WITH SETTINGS ORDERED. TOLERATING WELL, NO RESPIRATORY DISTRESS NOTED. SATURATING AT 100%. SR ON THE MONITOR. PATIENT IS OFF PRESSORS TOLERATING WELL, MAP MAINTAINED ABOVE 65. JEVITY FEEDING RUNNING AT 50CC/HR, PATIENT TOLERATING WELL, NO RESIDUAL NOTED. PATIENT SAFETY IS MAINTAINED, CALL LIGHT WITHIN REACH, WILL CONTINUE TO MONITOR.
[2019-08-08] MEDS: LEVOTHYROXINE SODIUM 112 MCG TABLET PO SCH (08:21)
[2019-08-08] MEDS: LORAZEPAM 1 MG TABLET PO SCH ×2 (08:21→16:38)
[2019-08-08] MEDS: DABIGATRAN ETEXILATE MESYLATE 150 MG CAPSULE PO SCH ×2 (08:22→16:39)
[2019-08-08] MEDS: OLANZAPINE 10 MG VIAL IM SCH (08:23)
[2019-08-08] MEDS: HYDROCORTISONE SOD SUCCINATE 100 MG/2 ML VIAL IV SCH (08:24)
[2019-08-08] MEDS: PROSOURCE / PROSTAT (PYXIS) 30 ML UDC GT SCH ×4 (08:24→21:29)
[2019-08-08] MEDS ORDERED: POTASSIUM CHLORIDE 20 MEQ POWDER PACKET NG SCH (09:00)
[2019-08-08] MEDS: JEVITY 1.2 CAL 1,000 ML BOTTLE GT SCH (16:44)
--- NOTE | 2019-08-08 19:01 | NUR ---
RN CLOSING NOTES NO ACUTE CHANGES TO PATIENT CONDITION DURING MY SHIFT. ALL PATIENT NEEDS HAVE BEEN MET. ZOOM MEETING WAS ARRANGED FOR THE PATIENT TO SEE THE FAMILY. REMAINED ON VENTILATOR WITH NO CHANGES. PATIENT KEPT CLEAN AND DRY, SCHEDULED MEDICATIONS GIVEN ON TIME. PATIENT SAFETY MAINTAINED, CALL LIGHT WITHIN REACH, ENDORSED TO PM NURSE FOR CONTINUITY OF CARE.
--- NOTE | 2019-08-08 23:43 | NUR ---
RT NOTE Pt rec'd trached on [facility] vent on AC mode settings as charted. Pt shows no signs of resp distress or sob. Pt sx'd for thick small amt of pale yellow secretions. Alarms are set and audible. Vent plugged into red outlet. Ambu bag bedside. Will continue to monitor closely. Addendum: 08/08/19 at 2343 by HILARIO GUTIERREZ RT Amended: Links added.
[2019-08-09] VITALS (29 sets, daily range): BP systolic 88–162; BP diastolic 33–112
[2019-08-09 04:25] LABS: BASOPHILS % (AUTO) 0.3 % (0.0-2.0); EOSINOPHILS % (AUTO) 5.8 % (0.0-6.0); HEMATOCRIT 31 % (39-51); HEMOGLOBIN 10.2 g/dL (13.5-17.5); LYMPHOCYTES % (AUTO) 11.1 % (20.0-44.0); MEAN CORPUSCULAR HGB CONC 33 g/dl (31.0-36.0); MEAN CORPUSCULAR VOLUME 99 fL (80-96); MONOCYTES # (AUTO) 0.4 /CMM (0.1-1.30); MONOCYTES % (AUTO) 5.1 % (2.0-12.0); NEUTROPHILS # (AUTO) 6.7 /CMM (1.8-8.9); NEUTROPHILS % (AUTO) 77.7 % (43.0-81.0); PLATELET COUNT (AUTO) 163 /CMM (150-450); RED BLOOD CELL COUNT(AUTO) 3.16 MIL/uL (4.5-6.0); WHITE BLOOD COUNT (AUTO) 8.6 K/uL (4.3-11.0)
[2019-08-09] MEDS: METOCLOPRAMIDE HCL 10 MG/2 ML VIAL IV SCH ×4 (04:26→21:37)
[2019-08-09 04:42] LABS: CALCIUM, SERUM 8.2 mg/dL (8.5-10.1); CREATININE 0.8 mg/dL (0.6-1.3); MAGNESIUM 1.9 mg/dL (1.8-2.4); PHOSPHORUS 2.8 mg/dL (2.5-4.9); POTASSIUM 3.7 mmol/L (3.5-5.1)
[2019-08-09] MEDS: HYDROCORTISONE SOD SUCCINATE 100 MG/2 ML VIAL IV SCH (08:09)
[2019-08-09] MEDS: PROSOURCE / PROSTAT (PYXIS) 30 ML UDC GT SCH ×4 (08:10→21:37)
[2019-08-09] MEDS: LEVOTHYROXINE SODIUM 112 MCG TABLET PO SCH (08:11)
[2019-08-09] MEDS: LORAZEPAM 1 MG TABLET PO SCH ×2 (08:11→16:12)
[2019-08-09] MEDS: DABIGATRAN ETEXILATE MESYLATE 150 MG CAPSULE PO SCH ×2 (08:11→16:11)
--- NOTE | 2019-08-09 10:30 | NUR ---
RN NOTE 0715: Received patient awake, noted with increase WOB at times. With trache to vent, will monitor. With GT intact, feeding tolerated. Kept HOB elevated. Copeland cath intact, noted with katrina colored urine drained to BSD. RN GYNECOLOGY restraints on for safety. STEFFANY PICC intact, on TKO. 0830: On Ativan /GT BID, given as ordered with other am meds. 0900: S/E by Dr. Noe, noted with high RR, MD ordered to increase PEEP to +8, RT aware. 1030: No any significant changes. Calm at this time, RR 30-33. Will continue to monitor. Still noted with trying to touch trache, with episode before of self extubation, will continue to monitor need of restraints.
[2019-08-09] MEDS: LORAZEPAM INJ 2 MG/ML VIAL IV PRN ×2 (13:54→20:21)
[2019-08-09] MEDS: ACETAMINOPHEN 650 MG/20.3 ML UDC NG PRN ×2 (17:54→23:03)
[2019-08-09] MEDS: JEVITY 1.2 CAL 1,000 ML BOTTLE GT SCH (17:56)
--- NOTE | 2019-08-09 20:00 | NUR ---
PT RECEIVED TRACHED SHILEY 8 ON VENT WITH NOTED SETTINGS. NO SIGNS OF RESP DISTRESS/SOB NOTED AT THIS TIME. INDEXER DONE. PT SUCTIONED. ALARMS SET AND AUDIBLE. VENT PLUGGED INTO RED OUTLET. AMBUBAG AT [facility]. WILL CONT TO MONITOR PT T/O SHIFT
[2019-08-09] MEDS: MORPHINE SULFATE INJ 2 MG/ML DISP.SYRIN IM PRN (20:59)
[2019-08-10] VITALS (74 sets, daily range): BP systolic 59–159; BP diastolic 41–114
[2019-08-10] MEDS: LORAZEPAM INJ 2 MG/ML VIAL IV PRN ×3 (02:47→08:24)
[2019-08-10] MEDS: MORPHINE SULFATE INJ 2 MG/ML DISP.SYRIN IM PRN (04:35)
[2019-08-10] MEDS: METOCLOPRAMIDE HCL 10 MG/2 ML VIAL IV SCH ×4 (04:35→22:00)
--- NOTE | 2019-08-10 06:53 | NUR ---
rn notes resting comfortably in bed, noted facial grimmacing and restlessness with 02sat of 88-90%. suctioned moderate amount of yellowish thin secretion. noted to have difficulty breathing, accessory muscles used. gave ativan x2, not effective. gave morphine sulfate x 2, effective. temperature was 99.6. went up to 100.4, tylenol given with help. temp went down to 99.2. kept clean and dry. o2sat ranges from 96-100%, tmmp 99.6, will endorse to next shift for continuity of care
[2019-08-10] MEDS: LEVOTHYROXINE SODIUM 112 MCG TABLET PO SCH (07:46)
[2019-08-10] MEDS: LORAZEPAM 1 MG TABLET PO SCH ×2 (07:46→16:39)
[2019-08-10 08:15] LABS: ABG BASE EXCESS 1.8 mmol/L; ABG OXYGEN SATURATION 87.6 % (92.0-98.5); ABG PCO2 35.9 mmHg (35.0-45.0); ABG PH 7.468 (7.350-7.450); ABG PO2 52.8 mmHg (75.0-100.0); AaDO2 263.3 mmHg; COHb 0.5 % (0.5-1.5); MetHb 0.2 % (0.0-1.5); SITE, ABG Right Radial; VENT MODE, BG AC 28 550 50 +8
[2019-08-10] MEDS: PROSOURCE / PROSTAT (PYXIS) 30 ML UDC GT SCH ×4 (08:24→21:01)
[2019-08-10] MEDS: HYDROCORTISONE SOD SUCCINATE 100 MG/2 ML VIAL IV SCH (08:24)
[2019-08-10] MEDS: DABIGATRAN ETEXILATE MESYLATE 150 MG CAPSULE PO SCH ×2 (08:26→16:52)
--- NOTE | 2019-08-10 08:50 | NUR ---
RN NOTE 0715: Received patient lethargic. With trache to vent. AC 28 550 50 +8. With GT intact, feeding tolerated. No residuals. Able to respond to tactile and pain. SR 70's. Copeland cath intact, noted tea colored urine. STEFFANY PICC intact 0735: Noted with 160's HR, will give Ativan RTC earlier. 0800: Dr. Noe in the unit, made aware for patient's HR. 0820: Given Ativan PRN. EKG resulted, informed Dr. Martinez. 0845: Will start on Diprivan drip per Dr. Noe. 0855: Started back on Diprivan, noted with DSBP 70's, obtained order from Dr. Martinez for Jordan drip for BP support. 0920: Dr. Martinez called and ordered to have Cardioversion. 0940: Titrated Diprivan and patient is unable to arouse at this time. SBP 60's Dr. Joshi at bedside. Cardioverted patient by Dr. Martinez. Back to SR 80's on the monitor. SBP 80's, will titrate Diprivan and Jordan. 1015: Spoke with son, made aware re: patient's condition, verbalized understanding.
[2019-08-10] MEDS: PROPOFOL 100 ML IV PRN ×2 (08:55→14:56)
[2019-08-10 09:48] LABS: BASOPHILS % (AUTO) 0.7 % (0.0-2.0); HEMATOCRIT 29 % (39-51); HEMOGLOBIN 9.6 g/dL (13.5-17.5); LYMPHOCYTES # (AUTO) 0.9 /CMM (0.8-4.8); LYMPHOCYTES % (AUTO) 13.1 % (20.0-44.0); MEAN CORPUSCULAR HGB CONC 33 g/dl (31.0-36.0); MEAN CORPUSCULAR VOLUME 99 fL (80-96); MONOCYTES # (AUTO) 0.4 /CMM (0.1-1.30); MONOCYTES % (AUTO) 5.5 % (2.0-12.0); NEUTROPHILS # (AUTO) 5.3 /CMM (1.8-8.9); NEUTROPHILS % (AUTO) 73.7 % (43.0-81.0); PLATELET COUNT (AUTO) 144 /CMM (150-450); RED BLOOD CELL COUNT(AUTO) 2.96 MIL/uL (4.5-6.0); WHITE BLOOD COUNT (AUTO) 7.2 K/uL (4.3-11.0)
[2019-08-10] MEDS: PHENYLEPHRINE 50 MG in IV NS 0.9% 245 ML IV PRN ×2 (09:56→15:48)
[2019-08-10] MEDS ORDERED: MEROPENEM 1 G in IV NS 0.9% 100 ML IV SCH (13:00)
--- NOTE | 2019-08-10 13:34 | NUR ---
RN NOTE 1200: S/E by ID, with orders of markers. 1300: Dr. Noe ordered Codiv swab today. ID started ATB, awaiting dose from pharm. 1330: Sent Covid swab to lab, rendered oropharyngeal per lab.
--- NOTE | 2019-08-10 13:35 | NUR ---
RT NOTE PT RCVD LALITO'D ON MECHANICAL VENT WITH CHARTED SETTINGS. SX DONE. PT TRACH IS PATENT AND SECURE. VENT ALARMS ARE ON AND AUDIBLE. VENT PLUGGED INTO RED OUTLET. AMBU BAG AT BEDSIDE. Addendum: 08/10/19 at 1337 by DEMOND WONG RT Amended: Links added.
[2019-08-10] MEDS: MEROPENEM 1 G in IV NS 0.9% 100 ML IV SCH ×2 (13:50→21:00)
[2019-08-10 13:51] LABS: CALCIUM, SERUM 8.1 mg/dL (8.5-10.1); CREATININE 0.8 mg/dL (0.6-1.3); POTASSIUM 3.7 mmol/L (3.5-5.1)
[2019-08-10] MEDS ORDERED: FEE PK DOSING 1 MIN EA MC ONE (14:44)
[2019-08-10 16:38] LABS: BILIRUBIN,URINE SMALL (NEGATIVE); BLOOD, URINE LARGE Ery/uL (NEGATIVE); KETONES,URINE TRACE (NEGATIVE); LEUKOCYTE ESTERASE ,URINE SMALL (NEGATIVE); NITRITE, URINE POSITIVE (NEGATIVE); PH,URINE 5.5 (5.0-8.0); PROTEIN,URINE 100 mg/dl (NEGATIVE); UGLUCOSE NEGATIVE (NEGATIVE); UROBILINOGEN,URINE 0.2 EU/dL (0.2)
[2019-08-10 16:44] LABS: APPEARANCE,URINE CLOUDY (CLEAR); COLOR,URINE DARK YELLOW (YELLOW); RBC,URINE TOO NUMEROUS TO COUN /HPF (0-2)
[2019-08-10 16:46] LABS: BACTERIA,URINE Few /HPF (None Seen)
[2019-08-10 16:47] LABS: CALCIUM OXALATE CRYSTALS,UR Few /HPF (None Seen); SQUAMOUS EPITHELIAL CELL,UR Few /HPF (None Seen); YEAST,URINE Few /HPF (None Seen)
[2019-08-10] MEDS: VANCOMYCIN 1 GM in IV D5W 250 ML IV SCH (16:53)
--- NOTE | 2019-08-10 17:48 | NUR ---
RN NOTE 1798: Tried to call to update but no answer. Patient on 0.8mcg Jordan and 10mcg Diprivan. SB 50's. Kept clean, warm, dry and comfortable. Continued isolation prec for r/o covid. Restarted on ATB Merrem and Vanco, no adverse changes noted at this time.
--- NOTE | 2019-08-10 20:00 | NUR ---
Received patient with trach to mechanical vent.Tolerating prescribed vent settings well spo2 99%. Sedated with Diprivan gtt at 10 mcg.No distress noted.SR 60's-70's.Neosynephrine gtt 0.8 mcg infusing via STEFFANY PICC Line and will titrate accordingly to keep SBP>90.Patient with gt feeding in progress no residual noted.HOB elevated.FC to gravity drainage.Turned and repositioned to comfort. Continue monitoring.
--- NOTE | 2019-08-10 20:19 | NUR ---
RT NOTE PATIENT RECEIVED TRACHED ON MECHANICAL VENT. ALARMS VERIFIED AND AUDIBLE. VENT PLUGGED INTO RED OUTLET. LASHELLU BAG AT [facility]. WILL CONTINUE TO MONITOR T/O SHIFT Addendum: 08/10/19 at 2020 by BESS GARZA RT Amended: Links added.
[2019-08-10] MEDS: JEVITY 1.2 CAL 1,000 ML BOTTLE GT SCH (21:01)
[2019-08-11] VITALS (93 sets, daily range): BP systolic 83–139; BP diastolic 38–93
[2019-08-11] MEDS: PROPOFOL 100 ML IV PRN ×5 (00:17→21:50)
[2019-08-11] MEDS: PHENYLEPHRINE 50 MG in IV NS 0.9% 245 ML IV PRN ×2 (01:17→13:27)
[2019-08-11] MEDS: VANCOMYCIN 1 GM in IV D5W 250 ML IV SCH ×2 (02:44→15:05)
[2019-08-11] MEDS: METOCLOPRAMIDE HCL 10 MG/2 ML VIAL IV SCH ×4 (03:49→21:01)
[2019-08-11 04:42] LABS: BASOPHILS % (AUTO) 0.5 % (0.0-2.0); EOSINOPHILS % (AUTO) 6.7 % (0.0-6.0); HEMATOCRIT 27 % (39-51); HEMOGLOBIN 8.9 g/dL (13.5-17.5); LYMPHOCYTES # (AUTO) 0.9 /CMM (0.8-4.8); LYMPHOCYTES % (AUTO) 11.4 % (20.0-44.0); MEAN CORPUSCULAR HGB CONC 33 g/dl (31.0-36.0); MEAN CORPUSCULAR VOLUME 98 fL (80-96); MONOCYTES # (AUTO) 0.5 /CMM (0.1-1.30); MONOCYTES % (AUTO) 6.4 % (2.0-12.0); NEUTROPHILS # (AUTO) 5.7 /CMM (1.8-8.9); PLATELET COUNT (AUTO) 161 /CMM (150-450); RED BLOOD CELL COUNT(AUTO) 2.74 MIL/uL (4.5-6.0); WHITE BLOOD COUNT (AUTO) 7.6 K/uL (4.3-11.0)
[2019-08-11] MEDS: MEROPENEM 1 G in IV NS 0.9% 100 ML IV SCH ×3 (05:00→20:49)
[2019-08-11 05:11] LABS: ALBUMIN 2.2 g/dL (3.4-5.0); BILIRUBIN,TOTAL 0.4 mg/dL (0.2-1.0); CALCIUM, SERUM 7.9 mg/dL (8.5-10.1); CREATININE 0.6 mg/dL (0.6-1.3); MAGNESIUM 2.1 mg/dL (1.8-2.4); PHOSPHORUS 2.9 mg/dL (2.5-4.9); POTASSIUM 3.6 mmol/L (3.5-5.1)
--- NOTE | 2019-08-11 05:45 | NUR ---
AM labs resulted Troponin 1.012 and Blood Culture Gram positive cocci in chain. Called to with orders received and carried out.
--- NOTE | 2019-08-11 06:24 | NUR ---
Patient resting in no acute distress.VS stable.SR.Neosynephrine gtt titrated.Diprivan gtt titrated to sedation at 20 mcg.Tolerating GT feeding.Was turned and repositioned q 2 hrs offloading pressure points.AM care done.All due medications administered. Will endorse to day shift for yael.
--- NOTE | 2019-08-11 07:05 | NUR ---
RN NOTES RECEIVED PT ON BED, TRACH AND VENT DEPENDENT, TOLERATING CURRENT VENT SETTING WELL, PT FOLLOWS SIMPLE COMMAND, O2 SAT WNL, PT IS ON DIPRIVAN AT 20 MCG/KG/MIN AND HORACIO AT .7MCG/KG/MIN FOR BP SUPPORT, LUISA DRINING TO GRAVITY, R UPPER ARM PICC LINE SITE CLEAN,DRY AND INTACT, SR UPx3, CALL LIGHT WITHIN EASY REACH, BED LOCKED AND IN LOWEST POSITION, CONTINUE TO MONITOR .
[2019-08-11] MEDS: HYDROCORTISONE SOD SUCCINATE 100 MG/2 ML VIAL IV SCH (08:16)
[2019-08-11] MEDS: LEVOTHYROXINE SODIUM 112 MCG TABLET PO SCH (08:16)
[2019-08-11] MEDS: LORAZEPAM 1 MG TABLET PO SCH ×2 (08:16→16:07)
[2019-08-11] MEDS: PROSOURCE / PROSTAT (PYXIS) 30 ML UDC GT SCH ×4 (08:17→20:50)
[2019-08-11 08:24] LABS: ABG BASE EXCESS 3.3 mmol/L; ABG OXYGEN SATURATION 98.5 % (92.0-98.5); ABG PCO2 40.5 mmHg (35.0-45.0); ABG PO2 144.7 mmHg (75.0-100.0); AaDO2 238.6 mmHg; MetHb 0.1 % (0.0-1.5); O2Hb 98.4 % (94.0-97.0); SITE, ABG Right Radial; VENT MODE, BG AC 28 550 60% +10
[2019-08-11] MEDS: DABIGATRAN ETEXILATE MESYLATE 150 MG CAPSULE PO SCH ×2 (08:33→16:09)
--- NOTE | 2019-08-11 09:00 | NUR ---
RN NOTES DR LYNN NOTIFED REGARDING TROPONIN 1.012 AND BLOODY TINGED URINE, PT IS ON PRADAXA . CONTINUE TO MONITOR
--- NOTE | 2019-08-11 10:00 | NUR ---
RN NOTES DR GARCIA NOTIFED REGARDING BLOODY TINGED URINE, NO NEW ORDER GIVEN , CONTINUE TO MONITOR .
--- NOTE | 2019-08-11 13:00 | NUR ---
RN NOTES R UPPER ARM PICC LINE D/ELEAZAR AND NEW PICC LINE INSERTED ON LEFT UPPER ARM BY PICC LINE NURSE PER DR PALACIOS ORDER . TIP OF THE R UPPER ARM PICC LINE SENT FOR CULTURE PER DR PALACIOS ORDER .
[2019-08-11] MEDS: JEVITY 1.2 CAL 1,000 ML BOTTLE GT SCH (16:19)
--- NOTE | 2019-08-11 17:00 | NUR ---
RN NOTES TRACH CARE DONE, CONTINUE TO MONITOR
--- NOTE | 2019-08-11 22:00 | NUR ---
RN NOTES TRACH SUCTIONING DONE , CONTINUE TO MONITOR .
[2019-08-12] VITALS (91 sets, daily range): BP systolic 76–144; BP diastolic 15–99
--- NOTE | 2019-08-12 01:36 | NUR ---
RN NOTES PT ON ON DIPRIVAN AT 30 MCG/KG/MIN AND HORACIO AT .5MCG/KG/MIN RUNNING , NO DISTESS NOTED , WILL ENDOSE TO AM SHIFT NURSE FOR CONTINUITY OF CARE .
--- NOTE | 2019-08-12 02:00 | NUR ---
PRIMER INSERTING MACHINE OPERATOR CONTINUITY NOTES RECEIVED PT FROM MS JOSE HOWELL FOR MEG
[2019-08-12] MEDS: PROPOFOL 100 ML IV PRN ×4 (02:59→16:26)
[2019-08-12] MEDS: VANCOMYCIN 1 GM in IV D5W 250 ML IV SCH ×3 (03:29→22:56)
--- NOTE | 2019-08-12 04:00 | NUR ---
SUPERVISOR EPOXY FABRICATION NOTES VANCOMYCIN IV WAS NOT INFUSED DUE TO PATIENT PICC LINE IS VERY HARD TO FLUSHED TRY TO PUT PERIPHERAL LINE BUT UNSUCCESSFUL PT IS VERY HARD STICK CHARGE NURSE ALSO TRY BUT UNSUCCESSFUL WILL ENDORSE TO MORNING SHIFT TO PUT ANOTHER PICC LINE PT NEED IT DUE TO IV VASOPRESSOR AND DIPRIVAN AND ANTIBIOTIC
[2019-08-12] MEDS: MEROPENEM 1 G in IV NS 0.9% 100 ML IV SCH ×3 (05:00→20:20)
[2019-08-12] MEDS: METOCLOPRAMIDE HCL 10 MG/2 ML VIAL IV SCH ×4 (05:20→22:56)
--- NOTE | 2019-08-12 06:06 | NUR ---
CHIROPRACTIC ASSISTANT NOTES MERREM NOT ADMINISTERED DUE TO PICC LINE IS VERY HARD TO FLUSHED, TRY TO PUT PERIPHERAL LINE BUT UNSUCCESSFUL CHARGE NURSE AWARE, PICC LINE RE INSERTION WAS ORDERED WILL ENDORSED TO AM SHIFT NURSE
--- NOTE | 2019-08-12 06:43 | NUR ---
SALES SERVICE ASSISTANT NOTES PHARMACY MADE AWARE FOR THE MISSED DOSED OF VANCOMYCIN AND MERREM OF THE PT WITH INSTRUCTION TO CALL THEM ONCE THE PICC LINE WAS REINSERTED, WILL ENDORSED TO AM SHIFT NURSE
--- NOTE | 2019-08-12 06:59 | NUR ---
RN CLOSING NOTES PT ON BED SEDATED, ON TRACH/VENT SETTING ORDERED, NO SIGN AND SYMPTOMS OF RESPIRATORY DISTRESS SPO2 93%, WITH BRITTANY PICC LINE WHICH IS VERY HARD TO FLUSHED ORDERED NEW PICC LINE RE INSERTION, STILL ON GTUBE FEEDING JEVITY @ 50ML/HR, ON TELE MONITOR WITH READING SINUS ROEL 60'S-50'S, ALL NEEDS ATTENDED, SAFETY MEASURE MAINTAINED BED ON LOWEST POSITION AND LOCKED SIDE RAILS UP X3 WILL ENDORSED TO AM SHIFT NURSE
--- NOTE | 2019-08-12 07:15 | NUR ---
ENGLISH LANGUAGE LEARNER TEACHER NOTES RECEIVED PATIENT SEDATED , RESPONSIVE TO TACTILE STIMULI , NOT IN ACUTE DISTRESS , RESPIRATIONS EVEN AND UNLABORED WITH SPO2 OF 100% VIA MECHANICAL VENT SETTINGS ORDERED , TRACH OF SHILEY # [address] , SR 60 ON BEDSIDE MONITOR , FC DRAINING VIA GRAVITY , GT PATENT AND INTACT WITH JEVITY @50ML/HR TOLERATING WELL WITH NO RESIDUALS NOTED , BRITTANY PICC LINE UNABLE TO FLUSH X3 PORTS , WITH HORACIO @ 0.5MCG/KG/MIN TITRATED TO 0.3MG/KG/MIN , DIPRIVAN @ 30MCG/KG/MIN INFUSING , ALL NEEDS ATTENDED , WILL CONTINUE TO MONITOR
[2019-08-12] MEDS: LEVOTHYROXINE SODIUM 112 MCG TABLET PO SCH (07:56)
[2019-08-12] MEDS: PROSOURCE / PROSTAT (PYXIS) 30 ML UDC GT SCH ×4 (08:00→20:22)
[2019-08-12] MEDS: DABIGATRAN ETEXILATE MESYLATE 150 MG CAPSULE PO SCH ×2 (08:01→16:25)
[2019-08-12] MEDS: HYDROCORTISONE SOD SUCCINATE 100 MG/2 ML VIAL IV SCH (08:01)
[2019-08-12] MEDS: LORAZEPAM 1 MG TABLET PO SCH ×2 (08:01→16:15)
--- NOTE | 2019-08-12 09:50 | NUR ---
MULTIMEDIA TEACHER NOTES NOTIFIED HOME GARCIA THAT 3 PORTS OF PICC IS UNABLE TO FLUSH , NOTED WITH RESISTANCE , INSTRUCTED TO PULL 1CM OF THE PICC OUT , FLUSHED , PATENT AND INTACT X3 PORTS WITH GOOD BLOOD RETURN , DRESSING CHANGED , WILL CONTINUE TO MONITOR
[2019-08-12 10:27] LABS: CALCIUM, SERUM 7.9 mg/dL (8.5-10.1); CARBON DIOXIDE 30 mmol/L (21-32); CHLORIDE 107 mmol/L (98-107); CREATININE 0.5 mg/dL (0.6-1.3); GLUCOSE 123 mg/dL (74-106); POTASSIUM 3.8 mmol/L (3.5-5.1); SODIUM SERUM 143 mmol/L (136-145); UREA NITROGEN, BLOOD 25 mg/dL (7-18)
[2019-08-12 10:49] LABS: BASOPHILS % (AUTO) 0.6 % (0.0-2.0); EOSINOPHILS % (AUTO) 5.9 % (0.0-6.0); HEMATOCRIT 30 % (39-51); HEMOGLOBIN 9.5 g/dL (13.5-17.5); LYMPHOCYTES # (AUTO) 0.8 /CMM (0.8-4.8); LYMPHOCYTES % (AUTO) 12.3 % (20.0-44.0); MEAN CORPUSCULAR HGB CONC 32 g/dl (31.0-36.0); MEAN CORPUSCULAR VOLUME 101 fL (80-96); MONOCYTES # (AUTO) 0.4 /CMM (0.1-1.30); MONOCYTES % (AUTO) 6.4 % (2.0-12.0); NEUTROPHILS # (AUTO) 4.7 /CMM (1.8-8.9); NEUTROPHILS % (AUTO) 74.8 % (43.0-81.0); PLATELET COUNT (AUTO) 140 /CMM (150-450); RED BLOOD CELL COUNT(AUTO) 2.92 MIL/uL (4.5-6.0); WHITE BLOOD COUNT (AUTO) 6.3 K/uL (4.3-11.0)
--- NOTE | 2019-08-12 11:00 | NUR ---
CONCRETE PLANT LABORER NOTES PT ABLE TO FOLLOW COMMANDS OF SEDATION , MODERATE AGITATION , COMBATIVE , RR 30-35CPM WITH DISTRESS , SPO2 OF 85-89 % , DISCUSSED NEURO / RESPIRATORY STATUS TO DR PHILIP MD AWARE
[2019-08-12] MEDS: PHENYLEPHRINE 50 MG in IV NS 0.9% 245 ML IV PRN ×3 (13:00)
--- NOTE | 2019-08-12 13:30 | NUR ---
MILLINERY TEACHER NOTES LUANA PICC LINE NURSE SEEN THE PICC LINE , PER RN SHE WAS ABLE TO FLUSH IT , DISCUSSED THAT PICC LINE WAS PULLED OUR 1-2 CM , WITH GOOD BLOOD RETURN , PER PICC RN OK TO USE
[2019-08-12] MEDS: MORPHINE SULFATE INJ 2 MG/ML DISP.SYRIN IM PRN (20:20)
--- NOTE | 2019-08-12 20:29 | NUR ---
QA INTERN NOTES PATIENT NOTED TO BE TACHYPNEIC, RESPIRATORY RATE BETWEEN 35-38 BREATHS PER MIN, WITH NOTED FACIAL GRIMACE, SLIGHTLY LABORED BREATHING. MORPHINE 2MG IV PUSH ADMINISTERED ORDERED. WILL MONITOR PATIENT CLOSELY
[2019-08-13] VITALS (97 sets, daily range): BP systolic 75–151; BP diastolic 26–100
--- NOTE | 2019-08-13 | NUR ---
FLEET MAINTENANCE MANAGER NOTES BRITTANY PICC LINE DIFFICULT TO FLUSH. UPON ASSESSMENT, NOTED TO BE KINKED AT INSERTION SITE. PICC LINE DRESSING CHANGED USING ASEPTIC TECHNIQUE. AFTER DRESSING CHANGE, PICC LINE PATENT AND INTACT FLUSHING WITH EASE DEPENDING ON POSITION. NO BLOOD RETURN. WILL CONTINUE IV MEDICATION AND CONTINUE TO CLOSELY MONITOR THE PATIENT
[2019-08-13] MEDS: MORPHINE SULFATE INJ 2 MG/ML DISP.SYRIN IM PRN ×2 (01:25→08:57)
[2019-08-13] MEDS: PROPOFOL 100 ML IV PRN ×6 (02:37→23:35)
[2019-08-13] MEDS: PHENYLEPHRINE 50 MG in IV NS 0.9% 245 ML IV PRN ×2 (03:47→16:00)
[2019-08-13] MEDS: MEROPENEM 1 G in IV NS 0.9% 100 ML IV SCH ×3 (04:11→21:25)
[2019-08-13] MEDS: METOCLOPRAMIDE HCL 10 MG/2 ML VIAL IV SCH ×4 (04:11→21:25)
[2019-08-13 04:37] LABS: BASOPHILS # (AUTO) 0.1 /CMM (0.0-0.2); BASOPHILS % (AUTO) 0.9 % (0.0-2.0); HEMATOCRIT 28 % (39-51); HEMOGLOBIN 9.4 g/dL (13.5-17.5); LYMPHOCYTES # (AUTO) 0.8 /CMM (0.8-4.8); LYMPHOCYTES % (AUTO) 11.2 % (20.0-44.0); MEAN CORPUSCULAR HGB CONC 33 g/dl (31.0-36.0); MEAN CORPUSCULAR VOLUME 99 fL (80-96); MONOCYTES # (AUTO) 0.6 /CMM (0.1-1.30); MONOCYTES % (AUTO) 8.3 % (2.0-12.0); NEUTROPHILS # (AUTO) 5.4 /CMM (1.8-8.9); NEUTROPHILS % (AUTO) 73.6 % (43.0-81.0); PLATELET COUNT (AUTO) 162 /CMM (150-450); RED BLOOD CELL COUNT(AUTO) 2.85 MIL/uL (4.5-6.0); WHITE BLOOD COUNT (AUTO) 7.3 K/uL (4.3-11.0)
[2019-08-13 04:51] LABS: CALCIUM, SERUM 7.9 mg/dL (8.5-10.1); CREATININE 0.7 mg/dL (0.6-1.3); MAGNESIUM 1.9 mg/dL (1.8-2.4); PHOSPHORUS 3.7 mg/dL (2.5-4.9)
[2019-08-13 04:56] LABS: T4 (THYROXINE) 4.5 ug/dL (4.7-13.3); THYROID STIMULATING HORMONE 11.95 uIU/mL (0.358-3.74)
--- NOTE | 2019-08-13 07:15 | NUR ---
CLINICAL PHARMACY MANAGER NOTES RECEIVED PATIENT SEDATED , RESPONSIVE TO PAIN STIMULI STIMULI , NOT IN ACUTE DISTRESS , RESPIRATIONS EVEN AND UNLABORED WITH SPO2 OF 100% VIA MECHANICAL VENT SETTINGS ORDERED , TRACH OF JOSE ROBERTOLEY # [address] , SR 74 ON BEDSIDE MONITOR , FC DRAINING VIA GRAVITY , GT PATENT AND INTACT WITH JEVITY @50ML/HR TOLERATING WELL WITH NO RESIDUALS NOTED , BRITTANY PICC LINE WITH HORACIO @ 0.5MCG/KG/MIN , DIPRIVAN @ 35MCG/KG/MIN INFUSING , NS @ TKO , ALL NEEDS ATTENDED , WILL CONTINUE TO MONITOR
--- NOTE | 2019-08-13 08:15 | NUR ---
COPY LATHE OPERATOR NOTES DIPRIVAN @15MCG/KG/MIN FOR SEDATION VACATION , PT MODERATELY AGITATED ABLE TO FOLLOW SIMPLE COMMANDS , COMBATIVE , PT NOTED WITH DISTRESS , SPO2 OF 82-85% VIA MECHANICAL VENT , TACHYPENIC @ 38CPM , WILL INCREASE DIPRIVAN ORDERED
[2019-08-13] MEDS: LORAZEPAM 1 MG TABLET PO SCH ×2 (08:25→16:05)
[2019-08-13] MEDS: HYDROCORTISONE SOD SUCCINATE 100 MG/2 ML VIAL IV SCH (08:25)
[2019-08-13] MEDS: LEVOTHYROXINE SODIUM 112 MCG TABLET PO SCH (08:25)
[2019-08-13] MEDS: DABIGATRAN ETEXILATE MESYLATE 150 MG CAPSULE PO SCH ×2 (08:26→16:05)
[2019-08-13] MEDS: PROSOURCE / PROSTAT (PYXIS) 30 ML UDC GT SCH ×4 (08:26→21:25)
--- NOTE | 2019-08-13 09:15 | NUR ---
FURNITURE MOVER DRIVER NOTES SEEN AND EVALUATED DR PALACIOS , DISCUSSED LABS , ON NEOSYNEPRINE @ 0.5MCG/KG/MIN , SEDATION VACATION DONE AT 15MCG/KG/MIN DIPRIVAN @ 0815 , PT NOTED WITH MODERATE AGITATION , COMBATIVE WITH RESPIRATORY DISTRESS , SPO2 OF 82-85% VIA MECHANICAL VENT SETTINGS ORDERED , TACHYPNEIC @ 38CPM, MD AWARE , ORDERED ABG , ORDER CARRIED OUT
[2019-08-13 10:05] LABS: ABG BASE EXCESS 2.7 mmol/L; ABG OXYGEN SATURATION 92.1 % (92.0-98.5); ABG PCO2 39.1 mmHg (35.0-45.0); ABG PH 7.453 (7.350-7.450); ABG PO2 63.9 mmHg (75.0-100.0); AaDO2 320.9 mmHg; COHb 0.3 % (0.5-1.5); MetHb 0.4 % (0.0-1.5); O2Hb 91.5 % (94.0-97.0); SITE, ABG Right Radial
[2019-08-13] MEDS: VANCOMYCIN 1 GM in IV D5W 250 ML IV SCH ×2 (10:52→23:36)
--- NOTE | 2019-08-13 14:10 | NUR ---
ELECTRO MECHANIC NOTES SEEN AND EVALUATED BY BRITNEY SERGER , DISCUSSED PT LABS , CULTURE RESULTS , PT ON NEOSYNEPRINE @ 0.4MCG/KG/MIN , AFEBRILE , NO DIARRHEA , UNABLE TO WEAN OFF DIPRIVAN , SERGER AWARE .
[2019-08-13] MEDS: JEVITY 1.2 CAL 1,000 ML BOTTLE GT SCH (15:54)
--- NOTE | 2019-08-13 20:00 | NUR ---
ADMINISTRATIVE SERVICES COORDINATOR NOTES CORE TEMP 96.5. WARM BLANKETS INEFFECTIVE, DR MAYNARD NOTIFIED, WITH ORDER TO APPLY ASHLEY HUGGER BLANKET PRN. WILL CARRY OUT NEW ORDER
[2019-08-14] VITALS (53 sets, daily range): BP systolic 64–137; BP diastolic 16–105
--- NOTE | 2019-08-14 | NUR ---
COMMERCIAL REPORTER NOTES BP NOTED TO DROP AND PATIENT NOTED TO BE MORE AGITATED. UPON ASSESSMENT BRITTANY PICC DIFFICULT TO FLUSH. PATIENT REPOSITIONED AWAY FROM LEFT SIDE, WITH SIGNIFICANT IMPROVEMENT IN PATENCY OF LINE, NO FLUSHING WELL, NOTED WITH GOOD VENOUS BLOOD RETURN. AFTER RESUMPTION OF DRIPS, BP NOTED TO GO BACK UP TO NORMAL RANGE, AND PATIENT NOTED TO BE IN PROPER LEVEL OF SEDATION. WILL MONITOR CLOSELY
[2019-08-14] MEDS: PHENYLEPHRINE 50 MG in IV NS 0.9% 245 ML IV PRN ×2 (02:37→16:52)
[2019-08-14] MEDS: PROPOFOL 100 ML IV PRN ×4 (03:49→22:05)
[2019-08-14] MEDS: METOCLOPRAMIDE HCL 10 MG/2 ML VIAL IV SCH ×4 (04:11→21:20)
[2019-08-14] MEDS: MEROPENEM 1 G in IV NS 0.9% 100 ML IV SCH ×2 (04:11→12:23)
[2019-08-14 04:59] LABS: BASOPHILS # (AUTO) 0.1 /CMM (0.0-0.2); BASOPHILS % (AUTO) 0.6 % (0.0-2.0); EOSINOPHILS % (AUTO) 4.9 % (0.0-6.0); HEMATOCRIT 28 % (39-51); HEMOGLOBIN 9.5 g/dL (13.5-17.5); LYMPHOCYTES # (AUTO) 0.8 /CMM (0.8-4.8); MEAN CORPUSCULAR HGB CONC 34 g/dl (31.0-36.0); MEAN CORPUSCULAR VOLUME 99 fL (80-96); MONOCYTES # (AUTO) 0.7 /CMM (0.1-1.30); MONOCYTES % (AUTO) 8.5 % (2.0-12.0); NEUTROPHILS # (AUTO) 6.3 /CMM (1.8-8.9); PLATELET COUNT (AUTO) 173 /CMM (150-450); RED BLOOD CELL COUNT(AUTO) 2.88 MIL/uL (4.5-6.0); WHITE BLOOD COUNT (AUTO) 8.3 K/uL (4.3-11.0)
[2019-08-14 05:15] LABS: CALCIUM, SERUM 8.1 mg/dL (8.5-10.1); CREATININE 0.6 mg/dL (0.6-1.3); PHOSPHORUS 3.9 mg/dL (2.5-4.9)
--- NOTE | 2019-08-14 05:52 | NUR ---
RT NOTE PT RCVD TRACH'D ON MECHANICAL VENT WITH CHARTED SETTINGS. SX DONE. PT TRACH IS PATENT AND SECURE. VENT ALARMS ARE ON AND AUDIBLE. VENT PLUGGED INTO RED OUTLET. AMBU BAG AT BEDSIDE.
--- NOTE | 2019-08-14 07:00 | NUR ---
OUTREACH TEAM MEMBER CLOSING NOTES PATIENT RESTING IN BED, NOT IN ANY ACUTE DISTRESS AT THIS TIME, REMAINS SEDATED ON DIPRIVAN DRIP, CURRENTLY @ 35MCG/KG/MIN, NEOSYNEPHRINE DRIP @ 0.4MCG/KG/MIN. DAY SHIFT NURSE MADE AWARE REGARDING BRITTANY PICC SOMETIMES BECOMING KINKED WHEN PATIENT TURNED TO LEFT SIDE. PATIENT ENDORSED TO THE DAYSHIFT NURSE FOR CONTINUITY OF CARE
[2019-08-14] MEDS: DABIGATRAN ETEXILATE MESYLATE 150 MG CAPSULE PO SCH ×2 (08:11→16:41)
[2019-08-14] MEDS: LORAZEPAM 1 MG TABLET PO SCH ×2 (08:12→16:41)
[2019-08-14] MEDS: HYDROCORTISONE SOD SUCCINATE 100 MG/2 ML VIAL IV SCH ×3 (08:12→18:05)
[2019-08-14] MEDS: LEVOTHYROXINE SODIUM 112 MCG TABLET PO SCH (08:12)
[2019-08-14] MEDS: PROSOURCE / PROSTAT (PYXIS) 30 ML UDC GT SCH ×4 (08:12→20:53)
--- NOTE | 2019-08-14 13:17 | NUR ---
RN NOTE 0715: Received patient with trache to vent. On sedation. Still noted with 30's RR, will titrate Diprivan as ordered. With BRITTANY PICC intact, noted wtih hard to flush at time, positional. With Copeland cath intact, noted with clear katrina colored urine drained rto BSD.. With GT intact, TF tolerated. Kept HOB elevated. With 0920: S/E by Dr. Noe, noted with RR 35, will titrate higher again. 1000: Spoke with via phone and given update re: patient's condition, requesting to talk to Dr. Noe, made MD aware, he said he will call her in afternoon, called the and told her. 1315: No any significant chages noted at this time. Remained sedated on Dip 50. Kept clean, warm and dry. Needs attended.
[2019-08-14] MEDS: JEVITY 1.2 CAL 1,000 ML BOTTLE GT SCH (16:44)
--- NOTE | 2019-08-14 18:57 | NUR ---
RN NOTE PEr SW, no family. Will continue Full care. GI consulted by Bhavesh VIDES for GT placement. No significant changes noted. Kept clean, warm and dry. Addendum: 08/14/19 at 1859 by CALLY HOWARD RN Disregard, noted for another patient.
--- NOTE | 2019-08-14 18:59 | NUR ---
RN NOTE Dr. Noe spoke with today and discussed re: the POC. On Dip 50 and Jordan 0.3, VSS. Kept clean, warm and dry. No significant changes noted at this time.
--- NOTE | 2019-08-14 19:25 | NUR ---
STOCK DIGGER OPENING NOTES RECEIVED PATIENT SEDATED , RESPONSIVE TO PAIN STIMULI , NOT IN ACUTE DISTRESS , RESPIRATIONS EVEN AND UNLABORED WITH SPO2 OF 100% VIA MECHANICAL VENT SETTINGS ORDERED , TRACH OF SILVI[place]O # [address] , TELE MONITOR CURRENT READING SINUS ROEL 60'S , FC DRAINING VIA GRAVITY , GT PATENT AND INTACT WITH JEVITY @50ML/HR TOLERATING WELL RESIDUALS CHECKED, BRITTANY PICC LINE WITH HORACIO @ 0.3MCG/KG/MIN , DIPRIVAN @ 50 MCG/KG/MIN INFUSING , NS @ TKO SAFETY MEASURE MAINTAINED BED ON LOWEST POSITION AND LOCKED SIDE RAILS UP, WILL CONTINUE TO MONITOR
[2019-08-14] MEDS ORDERED: PIPERACILLIN /TAZOBACTAM 3.375 G in IV D5W 50 ML IV ONE (20:00)
[2019-08-15] VITALS (87 sets, daily range): BP systolic 80–166; BP diastolic 47–107
[2019-08-15] MEDS: PIPERACILLIN /TAZOBACTAM 3.375 G in IV D5W 100 ML IV SCH ×3 (00:30→16:37)
[2019-08-15] MEDS: PROPOFOL 100 ML IV PRN ×7 (01:02→23:30)
[2019-08-15] MEDS: METOCLOPRAMIDE HCL 10 MG/2 ML VIAL IV SCH ×4 (04:03→22:45)
[2019-08-15 04:51] LABS: BASOPHILS % (AUTO) 0.3 % (0.0-2.0); HEMATOCRIT 29 % (39-51); HEMOGLOBIN 9.5 g/dL (13.5-17.5); LYMPHOCYTES # (AUTO) 0.3 /CMM (0.8-4.8); LYMPHOCYTES % (AUTO) 3.4 % (20.0-44.0); MEAN CORPUSCULAR HGB CONC 33 g/dl (31.0-36.0); MEAN CORPUSCULAR VOLUME 100 fL (80-96); MONOCYTES # (AUTO) 0.2 /CMM (0.1-1.30); MONOCYTES % (AUTO) 2.1 % (2.0-12.0); NEUTROPHILS # (AUTO) 8.1 /CMM (1.8-8.9); NEUTROPHILS % (AUTO) 94.2 % (43.0-81.0); PLATELET COUNT (AUTO) 169 /CMM (150-450); RED BLOOD CELL COUNT(AUTO) 2.89 MIL/uL (4.5-6.0); WHITE BLOOD COUNT (AUTO) 8.6 K/uL (4.3-11.0)
[2019-08-15 04:52] LABS: CALCIUM, SERUM 8.3 mg/dL (8.5-10.1); CREATININE 0.7 mg/dL (0.6-1.3); PHOSPHORUS 3.8 mg/dL (2.5-4.9); POTASSIUM 4.4 mmol/L (3.5-5.1)
--- NOTE | 2019-08-15 06:43 | NUR ---
RN CLOSING NOTES PT ON BED SEDATED, ON TRACH/VENT SETTING ORDERED, NO SIGN AND SYMPTOMS OF RESPIRATORY DISTRESS SPO2 93%, STILL ON GTUBE FEEDING JEVITY @ 50ML/HR, ON TELE MONITOR WITH READING SINUS ROEL 60'S-50'S, ALL NEEDS ATTENDED, SAFETY MEASURE MAINTAINED BED ON LOWEST POSITION AND LOCKED SIDE RAILS UP X3 WILL ENDORSED TO AM SHIFT NURSE
--- NOTE | 2019-08-15 07:30 | NUR ---
RN OPENING NOTE RECEIVED PATIENT SEDATED ON PROPOFOL. PATIENT SEEMS COMFORTABLE AT THE MOMENT. SEDATED ON 45MCG OF PROPOFOL. PATIENT IS ON MECHANICAL VENTILATOR WITH SETTINGS ORDERED. TOLERATING WELL. SATURATION AT 100% NO RESPIRATORY DISTRESS NOTED. PATIENT TEMPERATURE IS 96.5, PLACED ON BEAR HUGGER. VITAL SIGNS ARE STABLE. PATIENT IS RUNNING ON HORACIO AT 0.2MCG, BP IS MAINTAINED ORDERED. PATIENT HAS A G TUBE IN PLACE, INTACT, PATENT AND FLUSHED WELL. NO RESIDUAL NOTED. FEEDING RUNNING ORDERED. PATIENT SAFETY IS MAINTAINED, CALL LIGHT WITHIN REACH, WILL CONTINUE TO MONITOR CLOSELY.
[2019-08-15] MEDS: LORAZEPAM 1 MG TABLET PO SCH ×2 (08:12→16:37)
[2019-08-15] MEDS: LEVOTHYROXINE SODIUM 112 MCG TABLET PO SCH (08:13)
[2019-08-15] MEDS: HYDROCORTISONE SOD SUCCINATE 100 MG/2 ML VIAL IV SCH ×3 (08:13→16:42)
[2019-08-15] MEDS: DABIGATRAN ETEXILATE MESYLATE 150 MG CAPSULE PO SCH ×2 (08:13→16:37)
[2019-08-15 08:19] LABS: ABG BASE EXCESS 6.4 mmol/L; ABG OXYGEN SATURATION 95.3 % (92.0-98.5); ABG PCO2 47.2 mmHg (35.0-45.0); ABG PO2 79.4 mmHg (75.0-100.0); COHb 0.6 % (0.5-1.5); O2Hb 94.7 % (94.0-97.0); PEEP,BG 8 cm H2O; SITE, ABG Left Radial; VT, ABG 550 mL
[2019-08-15] MEDS: PROSOURCE / PROSTAT (PYXIS) 30 ML UDC GT SCH ×4 (08:19→21:07)
[2019-08-15] MEDS ORDERED: JEVITY 1.2 CAL 1,000 ML BOTTLE GT SCH (12:30)
[2019-08-15] MEDS: PHENYLEPHRINE 50 MG in IV NS 0.9% 245 ML IV PRN (18:28)
--- NOTE | 2019-08-15 19:25 | NUR ---
RN CLOSING NOTES NO ACUTE CHANGES TO PATIENT CONDITION DURING MY SHIFT. ALL PATIENT NEEDS WERE MET, REMAINED SEDATED ON PROPOFOL CURRENTLY RUNNING AT 30MCG, AND HORACIO IS RUNNING AT 0.1MCG. G TUBE FEEDING RATE HAS BEEN CHANGED TO 25CC/HR PER MD ORDER. SAFETY MAINTAINED, CALL LIGHT WITHIN REACH, ENDORSED TO PM NURSE FOR CONTINUITY OF CARE.
[2019-08-16] VITALS (72 sets, daily range): BP systolic 91–150; BP diastolic 58–97
[2019-08-16] MEDS: PIPERACILLIN /TAZOBACTAM 3.375 G in IV D5W 100 ML IV SCH ×3 (00:30→17:24)
[2019-08-16 04:43] LABS: BASOPHILS % (AUTO) 0.6 % (0.0-2.0); HEMATOCRIT 27 % (39-51); HEMOGLOBIN 8.8 g/dL (13.5-17.5); LYMPHOCYTES # (AUTO) 0.5 /CMM (0.8-4.8); LYMPHOCYTES % (AUTO) 6.3 % (20.0-44.0); MEAN CORPUSCULAR HGB CONC 33 g/dl (31.0-36.0); MEAN CORPUSCULAR VOLUME 99 fL (80-96); MONOCYTES # (AUTO) 0.5 /CMM (0.1-1.30); MONOCYTES % (AUTO) 6.4 % (2.0-12.0); NEUTROPHILS # (AUTO) 6.8 /CMM (1.8-8.9); NEUTROPHILS % (AUTO) 86.7 % (43.0-81.0); PLATELET COUNT (AUTO) 156 /CMM (150-450); RED BLOOD CELL COUNT(AUTO) 2.72 MIL/uL (4.5-6.0); WHITE BLOOD COUNT (AUTO) 7.9 K/uL (4.3-11.0)
[2019-08-16] MEDS: PROPOFOL 100 ML IV PRN ×4 (04:48→18:32)
[2019-08-16] MEDS: METOCLOPRAMIDE HCL 10 MG/2 ML VIAL IV SCH ×4 (04:48→21:52)
[2019-08-16 05:02] LABS: CALCIUM, SERUM 8.3 mg/dL (8.5-10.1); CREATININE 0.7 mg/dL (0.6-1.3)
--- NOTE | 2019-08-16 07:30 | NUR ---
ENVIRONMENTAL MONITORING SPECIALIST OPENING NOTE Received patient sedated in bed no signs of distress. Has trach shiley size 8 and ventilator settings as follow: AC 28 TV 550 FIO2 50% and PEEP 8 tolerating well. No signs of pain or discomfort. Tele reading sinus bradycardia 45-50s. GT in place running Jevity 1.5 @ 25ml/hr. Checked placement, patent, flushed well. On rosario catheter draining tea color urine, sediments noted. Patient has BRITTANY PICC line running Jordan 0.1 mcg and Diprivan @ 30mcg. Safety measures reinforced. Call light within reach. Siderails up x2. Bed locked and on lowest position. Will cont to monitor.
--- NOTE | 2019-08-16 07:45 | NUR ---
RN CLOSING NOTES PT ON BED SEDATED, ON TRACH/VENT SETTING ORDERED, NO SIGN AND SYMPTOMS OF RESPIRATORY DISTRESS SPO2 93%, STILL ON GTUBE FEEDING JEVITY @ 25ML/HR, ON TELE MONITOR WITH READING SINUS ROEL 60'S-50'S, ALL NEEDS ATTENDED, SAFETY MEASURE MAINTAINED BED ON LOWEST POSITION AND LOCKED SIDE RAILS UP X3 WILL ENDORSED TO AM SHIFT NURSE
[2019-08-16] MEDS: LEVOTHYROXINE SODIUM 112 MCG TABLET PO SCH (08:37)
[2019-08-16] MEDS: LORAZEPAM 1 MG TABLET PO SCH ×2 (08:38→17:25)
[2019-08-16] MEDS: PROSOURCE / PROSTAT (PYXIS) 30 ML UDC GT SCH ×4 (08:38→21:52)
[2019-08-16] MEDS: HYDROCORTISONE SOD SUCCINATE 100 MG/2 ML VIAL IV SCH ×3 (08:38→17:24)
[2019-08-16] MEDS: DABIGATRAN ETEXILATE MESYLATE 150 MG CAPSULE PO SCH ×2 (08:39→17:25)
--- NOTE | 2019-08-16 09:45 | NUR ---
PULLMAN CAR CLERK NOTE Dr. Noe ordered to decrease Diprivan from 30mcg to 25mcg. Noted and carried out.
--- NOTE | 2019-08-16 19:15 | NUR ---
ICU CLOSING NOTE Patient in bed asleep sedated with Diprivan 25mcg tolerating well. No signs of distress. Appears calm and relaxed. Tele reading SB/SR 50-60s. Vent settings no changes. Copeland catheter still tea color with slight sedimentation emptied 700ml. Jevity 1.2 running @ 25ml/h tolerating well. BRITTANY PICC line running Dirprivan 25mcg and Zosyn to be finished on 2123 time. Jordan was held at 1700 tolerating well. Pe notes hold off on weaning until hemodynamics improved further and oxygenation improved. Safety measures reinforced. Call light within reach. Siderails up x2. Bed locked and on lowest position. Endorsed to hotel night auditor nurse for yael.
[2019-08-17] VITALS (32 sets, daily range): BP systolic 101–166; BP diastolic 36–113
[2019-08-17] MEDS: PROPOFOL 100 ML IV PRN ×3 (00:23→10:49)
[2019-08-17] MEDS: PIPERACILLIN /TAZOBACTAM 3.375 G in IV D5W 100 ML IV SCH ×3 (01:26→18:01)
[2019-08-17 04:35] LABS: BASOPHILS % (AUTO) 0.2 % (0.0-2.0); EOSINOPHILS % (AUTO) 0.1 % (0.0-6.0); HEMATOCRIT 26 % (39-51); HEMOGLOBIN 8.7 g/dL (13.5-17.5); LYMPHOCYTES # (AUTO) 0.5 /CMM (0.8-4.8); LYMPHOCYTES % (AUTO) 8.2 % (20.0-44.0); MEAN CORPUSCULAR HGB CONC 34 g/dl (31.0-36.0); MEAN CORPUSCULAR VOLUME 98 fL (80-96); MONOCYTES # (AUTO) 0.4 /CMM (0.1-1.30); MONOCYTES % (AUTO) 6.6 % (2.0-12.0); NEUTROPHILS # (AUTO) 5.3 /CMM (1.8-8.9); NEUTROPHILS % (AUTO) 84.9 % (43.0-81.0); PLATELET COUNT (AUTO) 151 /CMM (150-450); RED BLOOD CELL COUNT(AUTO) 2.64 MIL/uL (4.5-6.0); WHITE BLOOD COUNT (AUTO) 6.2 K/uL (4.3-11.0)
[2019-08-17] MEDS: METOCLOPRAMIDE HCL 10 MG/2 ML VIAL IV SCH ×4 (05:21→21:54)
[2019-08-17 05:33] LABS: CALCIUM, SERUM 7.9 mg/dL (8.5-10.1); CREATININE 0.6 mg/dL (0.6-1.3); MAGNESIUM 2.1 mg/dL (1.8-2.4); PHOSPHORUS 3.3 mg/dL (2.5-4.9); POTASSIUM 3.8 mmol/L (3.5-5.1)
--- NOTE | 2019-08-17 06:46 | NUR ---
Patient remains in no acute distress in bed. patient is tolerating vent setting well. patient continues to be sedated on Diprivan with weaning during day shift. bed in low lock position with rails up x 2. call light within reach and all safety measures ensured and carried out. will endorse care to am RN for continuity of care.
--- NOTE | 2019-08-17 07:48 | NUR ---
RN OPENING NOTES RECEIVED PATIENT RESTING IN BED COMFORTABLY, NO S/SX OF DISTRESS. PT IS SEDATED ON DIPRIVAN AT 25 MCG/MIN, TRACH, AND BEDBOUND. HE IS ON MECH VENT, SETTINGS AC 28, TV 550, FIO2 50%, AND PEEP 8, VIA SHILEY 8 TRACH. TELE MONITOR SHOWING SR SB. MORAN CATH IS INTACT, DRAINING CLEAR AND YELLOW URINE BY GRAVITY. SKIN IS INTACT. GTUBE IS INTACT, RECEIVING JEVITY AT 25 ML.HR, NO RESIDUAL. BRITTANY TLC PICC PATENT AND INTACT. SAFETY MEASURES HAVE BEEN IMPLEMENTED, CALL LIGHT IS WITHIN REACH, BED IS IN LOWEST AND LOCKED POSITION, SIDE RAILS UP X2, WILL CONTINUE TO MONITOR FOR ANY CHANGES.
[2019-08-17] MEDS: LEVOTHYROXINE SODIUM 112 MCG TABLET PO SCH (08:14)
[2019-08-17] MEDS: DABIGATRAN ETEXILATE MESYLATE 150 MG CAPSULE PO SCH ×2 (08:48→16:08)
[2019-08-17] MEDS: HYDROCORTISONE SOD SUCCINATE 100 MG/2 ML VIAL IV SCH ×3 (08:48→16:05)
[2019-08-17] MEDS: LORAZEPAM 1 MG TABLET PO SCH ×2 (08:48→16:08)
[2019-08-17] MEDS: PROSOURCE / PROSTAT (PYXIS) 30 ML UDC GT SCH ×4 (08:51→21:53)
--- NOTE | 2019-08-17 10:00 | NUR ---
RN NOTES PER DR. PALACIOS, PT DIPRIVAN TO BE TITRATED DOWN TO 0MCG/MIN PT TOLERATED. WILL CONTINUE TO MONITOR.
[2019-08-17 10:31] LABS: ABG BASE EXCESS 5.8 mmol/L; ABG OXYGEN SATURATION 96.6 % (92.0-98.5); ABG PCO2 37.2 mmHg (35.0-45.0); ABG PH 7.511 (7.350-7.450); ABG PO2 88.9 mmHg (75.0-100.0); AaDO2 225.8 mmHg; COHb 0.1 % (0.5-1.5); MetHb 0.2 % (0.0-1.5); O2Hb 96.3 % (94.0-97.0); PEEP,BG 5 cm H2O; SITE, ABG Left Radial; VT, ABG 550 mL
[2019-08-17] MEDS: JEVITY 1.2 CAL 1,000 ML BOTTLE GT PRN (11:55)
[2019-08-17] MEDS: LORAZEPAM INJ 2 MG/ML VIAL IV PRN (15:08)
--- NOTE | 2019-08-17 15:29 | NUR ---
RN NOTES PT IS NOW OFF DIPRIVAN DRIP, TOLERATED WELL. VITAL SIGNS ARE STABLE, PT IS NOT IN DISTRESS. DR. PALACIOS MADE AWARE OF PT CONDITION. NO NEW ORDERS AT THIS TIME. PRN ATIVAN GIVEN BECAUSE PT BEGAN TO REACH TOWARDS HIS TRACH
--- NOTE | 2019-08-17 17:44 | NUR ---
RN NOTES ENDORSED PT TO NAVEED HOWELL FOR MEG
--- NOTE | 2019-08-17 18:22 | NUR ---
ASSOCIATE EDITOR: pt/is awake, reactive by name, rest, eyes contact+, cooperative now, Diprivan gtt is off, no SOB/distress, O2sat. over 95% on AC mode, FiO2 50%, , suctioned well, getting Ativan prn, SR, SBP over 100, GTF residual WNL, leep HOB over 35, multiple diarrhea episodes/no rectal tube per , all PM/skin/wounds care done by report
--- NOTE | 2019-08-17 19:40 | NUR ---
ICU/PAVING STONE INSTALLER REPORT RECEIVED FROM THE TO DAY NURSE. SEE FLOWSHEET FOR ASSESSMENT, SKIN ISSUES ARE ADDRESSED ON FLOWSHEET ALONG WITH INTERVENTION TO EACH. PT AWAKE PRN ATIVAN FOR PERIODS OF AGITATION. PT IS WITH TRACH TOLERATED WELL WITH SATURATION AT 99-100%. WILL MONITOR THIS PT AND HIS SATURATION. PT WAS TURNED AND REPOSITIONED FOR COMFORT AND CARE. NO ACUTE DISTRESS SEEN AT THIS TIME.
[2019-08-18] VITALS (92 sets, daily range): BP systolic 73–164; BP diastolic 40–100
[2019-08-18] MEDS: PIPERACILLIN /TAZOBACTAM 3.375 G in IV D5W 100 ML IV SCH ×3 (00:08→16:53)
[2019-08-18] MEDS: LORAZEPAM INJ 2 MG/ML VIAL IV PRN (00:14)
--- NOTE | 2019-08-18 00:40 | NUR ---
ICU/BPM ARCHITECT PT APPEARS TO BE AGITATED, WITH INCREASED HEART RATE AND BLOOD PRESSURE AT 160'S TO 180'S. CHARGE NURSE MADE AWARE, PRN ATIVAN WAS GIVEN. WILL CONTINUE TO MONITOR TH9IS PT.
[2019-08-18] MEDS: MORPHINE SULFATE INJ 2 MG/ML DISP.SYRIN IM PRN (01:25)
--- NOTE | 2019-08-18 01:34 | NUR ---
ICU/PUG MACHINE OPERATOR PT APPEARED TO BE IN PAIN, USING FLACC SCALE WAS RATED 10/10 AFTER REPOSITIONING. NOTIFIED CHARGE NURSE WHO THEN GAVE MORPHINE PRN. WILL CONTINUE TO MONITOR THIS PT AND HIS PAIN LEVEL.
[2019-08-18] MEDS ORDERED: LORAZEPAM INJ 2 MG/ML VIAL IV PRN ×2 (03:00)
[2019-08-18] MEDS: METOCLOPRAMIDE HCL 10 MG/2 ML VIAL IV SCH ×4 (03:37→21:28)
[2019-08-18 05:06] LABS: BASOPHILS % (AUTO) 0.1 % (0.0-2.0); EOSINOPHILS % (AUTO) 0.4 % (0.0-6.0); HEMATOCRIT 32 % (39-51); HEMOGLOBIN 10.5 g/dL (13.5-17.5); LYMPHOCYTES # (AUTO) 0.7 /CMM (0.8-4.8); MEAN CORPUSCULAR HGB CONC 33 g/dl (31.0-36.0); MEAN CORPUSCULAR VOLUME 98 fL (80-96); MONOCYTES # (AUTO) 0.8 /CMM (0.1-1.30); MONOCYTES % (AUTO) 6.5 % (2.0-12.0); NEUTROPHILS # (AUTO) 11.5 /CMM (1.8-8.9); PLATELET COUNT (AUTO) 232 /CMM (150-450); RED BLOOD CELL COUNT(AUTO) 3.29 MIL/uL (4.5-6.0)
[2019-08-18 05:19] LABS: CALCIUM, SERUM 8.3 mg/dL (8.5-10.1); CREATININE 0.7 mg/dL (0.6-1.3); PHOSPHORUS 3.8 mg/dL (2.5-4.9); POTASSIUM 3.4 mmol/L (3.5-5.1)
[2019-08-18] MEDS: LEVOTHYROXINE SODIUM 112 MCG TABLET PO SCH (05:24)
[2019-08-18] MEDS: JEVITY 1.2 CAL 1,000 ML BOTTLE GT PRN (05:24)
--- NOTE | 2019-08-18 07:50 | NUR ---
SHOP SERVICE TECHNICIAN: pt.is obtunded, reactive by touch/pain, can open eyes for seconds, no eyes contact, no any tracking reaction, weak arms activity, no grimacing, unable to follow commands, got two Ativan 1 mg IV doses, one Morphine IV over night d/t restless, agitating, with tachycardia, high BP, tried to pull out f/c, now: RR 30-35 (on AC R28/550/Fio2 50%,peep5), slightly laboring, O2sat. 92-93%, suctioned with mild secretion amount, SR/ST 95-110, SBP over 100/below 160, GTF residual WNL, keep HOB over 40, light pinky/yellow urine, no diarrhea reported
--- NOTE | 2019-08-18 08:20 | NUR ---
COIL WINDER STRAP: updated with pt.current status, RR, O2sat., vent setting, neuro status, agitating episodes over night/Ativan&Morphine doses, VS, suction amount
--- NOTE | 2019-08-18 08:50 | NUR ---
ENVIRONMENTAL SCIENTIST: is in room, reevaluated pt., said: restart Diprivan gtt, better to keep rate around 25mcg/kg/m
[2019-08-18] MEDS: PROSOURCE / PROSTAT (PYXIS) 30 ML UDC GT SCH ×4 (08:56→21:26)
[2019-08-18] MEDS: LORAZEPAM 1 MG TABLET PO SCH ×2 (08:56→16:50)
[2019-08-18] MEDS: HYDROCORTISONE SOD SUCCINATE 100 MG/2 ML VIAL IV SCH (08:56)
[2019-08-18] MEDS: DABIGATRAN ETEXILATE MESYLATE 150 MG CAPSULE PO SCH ×2 (08:57→16:51)
[2019-08-18] MEDS: PROPOFOL 100 ML IV PRN ×4 (09:09→23:16)
[2019-08-18] MEDS ORDERED: POTASSIUM CHLORIDE 20 MEQ POWDER PACKET NG SCH (09:30)
--- NOTE | 2019-08-18 10:00 | NUR ---
RN INTERNAL MEDICINE: RR 27-29 with 25-30 mcg/kg/m Diprivan gtt, no laboring, SR, O2sat. over 97%
--- NOTE | 2019-08-18 10:43 | NUR ---
SMOKING TOBACCO CUTTER OPERATOR: SBP 76-87, SR, O2sat. 98-100%, RR 28-30, decreased Diprivan gtt to 25-20 mcg.kg.m, called pharmacy for Jordan gtt bag
[2019-08-18] MEDS: PHENYLEPHRINE 50 MG in IV NS 0.9% 245 ML IV PRN (11:14)
--- NOTE | 2019-08-18 13:45 | NUR ---
MEDICAL ADMINISTRATIVE SPECIALIST: Dr.Sam lewis in unit/updated by charge nurse
--- NOTE | 2019-08-18 13:57 | NUR ---
POLYTECHNIC TEACHER: pt is sedated well with 30mcg/kg/m Diprivan gtt, rest, no laboring breathing/no SON, no grimacing, RR 18-20, O2sat. over 96%, SR, SBP over 100/continue titrate down Jordan gt, pt. called/updated with pt.condition, VS, night events, sedation level, orders, POC
--- NOTE | 2019-08-18 17:32 | NUR ---
SUPERVISOR PIPELINE: pt. is sedated well with 25 mcg/kg/m Diprivan gtt, rest, no SOB/no chest motion laboring, reactive by pain stimuli, O2sat.over 98%, RR 27-29 on AC R28/550/FiO2 50%/peep5, suctioned well, SR/SB 58-68, SBP over 90, continue titrate Jordan gtt, GTF residual WNL, all PM/skin care/bedbath care done, no BM, cough reflex+, pupils 2mm/reactive well, trace arms activity+, no grimacing
--- NOTE | 2019-08-18 21:37 | NUR ---
RECEIVED PT TRACHED ON VENT. NO RESP DISTRESS NOTED. PT TOLERATING VENT SETTINGS. PT HAS A SHILEY 8 TRACH. CUFF DRAWER MAKER AND SECURE. VENT PLUGGED INTO RED OUTLET. SX'D FOR SML AMT OF THIN WHITE SECRETIONS. CONTINUE [facility] VENT SUPPORT. Addendum: 08/18/19 at 2139 by CONNOR PENALOZA RT Amended: Links added.
[2019-08-19] VITALS (73 sets, daily range): BP systolic 83–186; BP diastolic 51–125
[2019-08-19] MEDS: PIPERACILLIN /TAZOBACTAM 3.375 G in IV D5W 100 ML IV SCH ×3 (01:11→16:05)
[2019-08-19 04:32] LABS: BASOPHILS # (AUTO) 0.1 /CMM (0.0-0.2); BASOPHILS % (AUTO) 0.8 % (0.0-2.0); HEMATOCRIT 28 % (39-51); HEMOGLOBIN 9.5 g/dL (13.5-17.5); LYMPHOCYTES # (AUTO) 0.9 /CMM (0.8-4.8); LYMPHOCYTES % (AUTO) 10.7 % (20.0-44.0); MEAN CORPUSCULAR HGB CONC 34 g/dl (31.0-36.0); MEAN CORPUSCULAR VOLUME 99 fL (80-96); MONOCYTES # (AUTO) 0.5 /CMM (0.1-1.30); NEUTROPHILS # (AUTO) 6.3 /CMM (1.8-8.9); NEUTROPHILS % (AUTO) 77.5 % (43.0-81.0); PLATELET COUNT (AUTO) 199 /CMM (150-450); WHITE BLOOD COUNT (AUTO) 8.2 K/uL (4.3-11.0)
[2019-08-19 04:45] LABS: CALCIUM, SERUM 7.1 mg/dL (8.5-10.1); CREATININE 0.8 mg/dL (0.6-1.3); MAGNESIUM 1.9 mg/dL (1.8-2.4); PHOSPHORUS 3.5 mg/dL (2.5-4.9); POTASSIUM 3.6 mmol/L (3.5-5.1)
[2019-08-19] MEDS: PHENYLEPHRINE 50 MG in IV NS 0.9% 245 ML IV PRN (05:36)
[2019-08-19] MEDS: PROPOFOL 100 ML IV PRN ×2 (05:37→23:19)
[2019-08-19] MEDS: ACETAMINOPHEN 650 MG/20.3 ML UDC NG PRN ×3 (05:37→23:07)
[2019-08-19] MEDS: METOCLOPRAMIDE HCL 10 MG/2 ML VIAL IV SCH ×4 (05:38→22:44)
--- NOTE | 2019-08-19 07:30 | NUR ---
ICU/RN: Pt was received trached, on the vent on AC mode as ordered. Propofol at 15 mcg and and Jordan at 0.2 mcg. Sedated and appears comfortable. Jevity infusing through the Gtube. Copeland cath patent and intact with a diaper on. 0900 Sedation vacation started, bilateral wrist restraints on. Pt is getting tachypneic but O2 sat is WNL, pls see VS flowsheet for details. 1100 Ativan via Gtube given to help pt calm down. Jordan titrated down and is off now. BP/MAP is WNL, pls see VS flowsheet 1400 Appears to be tolerating off sedation, although still tachypneic at 28-33 breaths/min Will continue to monitor pt.
--- NOTE | 2019-08-19 07:34 | NUR ---
RN notes Resident in bed, sedated with no distress noted. Breathing even and unlabored. Vent setting well tolerated. No physical manifestation of pain or discomfort. On doprivan drip, received at 25mcg, titrated down to 15, no adverse effect noted. On Jordan at .3 mcg, titrated to .2 mcg, no ill effects noted. No significant change of condition. Noted urine with blood tinged. Kept clean and dry. Endorsed to am shift for continuity of care.
[2019-08-19] MEDS: LEVOTHYROXINE SODIUM 112 MCG TABLET PO SCH (08:21)
[2019-08-19] MEDS: LORAZEPAM 1 MG TABLET PO SCH (08:22)
[2019-08-19] MEDS ORDERED: HYDROCORTISONE SOD SUCCINATE 100 MG/2 ML VIAL IV SCH (09:00)
--- NOTE | 2019-08-19 09:15 | NUR ---
0915 Jordan off now, BP 134/90. Will continue t monitor.
[2019-08-19] MEDS: PROSOURCE / PROSTAT (PYXIS) 30 ML UDC GT SCH ×4 (09:19→21:31)
[2019-08-19] MEDS: DABIGATRAN ETEXILATE MESYLATE 150 MG CAPSULE PO SCH ×2 (09:20→16:09)
[2019-08-19] MEDS: LORAZEPAM 1 MG TABLET PO PRN (13:04)
--- NOTE | 2019-08-19 18:54 | NUR ---
ICU/RN Pt was able to tolerate off sedation and Jordan, VS WNL. Pt has been awake and alert after sedation vacation was started at 0930. Restless at times, follows commands on and off. Pt appears comfortable and stable at this time. Gave report to incoming material handler 1st shift RN.
--- NOTE | 2019-08-19 19:30 | NUR ---
WAREHOUSE DISTRIBUTION ASSOCIATE OPENING NOTES, RECEIVED PATIENT IN BED AWAKE. A/OX1. WITH TRACHEA, TOLERATING VENT SETTINGS WELL, NO SOB OR ACUTE DISTRESS NOTED AT THIS TIME. UNABLE TO FOLLOW COMMANDS. LUARM PICC LINE RUNNING ZOSYN AT 25ML/HR. PATENT AND FLUSHED WELL. NO S/S OF INFILTRATION NOTED. MORAN RUNNING TO THE GRAVITY YELLOW/CLOUDY URINE. G-TUBE NOTED RUNNING AT 50ML/HR. TOLERATING WELL, NO RESIDUAL. BED IN LOW LOCKED POSITION, CALL LIGHT WITHIN REACH. WILL CONTINUE TO MONITOR THE PATIENT CLOSELY.
[2019-08-19] MEDS: IV NS 0.9% 1,000 ML IV PRN (20:05)
--- NOTE | 2019-08-19 22:29 | NUR ---
RECEIVED PT TRACHED ON VENT. PT TOLERATING VENT SETTINGS. PT HAS A SHILEY 8 TRACH. CUFF BOAT TESTER AND SECURE. VENT PLUGGED INTO RED OUTLET. SX'D FOR SML AMT OF THIN WHITE SECRETIONS. CONTINUE [facility] VENT SUPPORT. Addendum: 08/19/19 at 2229 by CONNOR PENALOZA RT Amended: Links added.
--- NOTE | 2019-08-19 23:30 | NUR ---
PATIENT IS AGITATED. PROPOFOL WAS TITRATED DOWN DURING DAY SHIFT AND IT WAS DISCONTINUED AROUND 10AM. TYLENOL WAS GIVEN, IT WAS NOT AFFECTIVE. BP 186/121 AND 160/125. PATIENT IS DESATURATING, O2 OF 88. RR 44. CHARGE NURSE NOTIFIED AND PROPOFOL RESTARTED @5MCG/KG/MIN, WILL TITRATE UP IF NEEDED. ON DR. CHAVEZ WAS NOTIFIED. WILL CONTINUE TO MONITOR THE PATIENT CLOSELY . Addendum: 08/20/19 at 0054 by NAVI MILLAN RN PROPOFOL @30MCG/KG/MIN AT THIS TIME. PATIENTS BP 118/79. O2 98%, PATIENT IS CALM. WILL CONTINUE TO MONITOR. Addendum: 08/20/19 at 0618 by NAVI MILLAN RN PROPOFOL RUNNING AT 25MCG/KG/MIN. TOLERATING WELL. BP, RR AND HR ARE NORMAL. NO AGITATION.
[2019-08-20] VITALS (96 sets, daily range): BP systolic 49–165; BP diastolic 25–103
[2019-08-20] MEDS: PIPERACILLIN /TAZOBACTAM 3.375 G in IV D5W 100 ML IV SCH ×3 (00:38→16:58)
[2019-08-20] MEDS: IV NS 0.9% 1,000 ML IV PRN (01:03)
[2019-08-20] MEDS: PROPOFOL 100 ML IV PRN ×8 (03:32→21:51)
[2019-08-20 04:12] LABS: BASOPHILS % (AUTO) 0.2 % (0.0-2.0); EOSINOPHILS % (AUTO) 3.8 % (0.0-6.0); HEMATOCRIT 26 % (39-51); HEMOGLOBIN 8.6 g/dL (13.5-17.5); LYMPHOCYTES # (AUTO) 0.5 /CMM (0.8-4.8); LYMPHOCYTES % (AUTO) 4.8 % (20.0-44.0); MEAN CORPUSCULAR HGB CONC 33 g/dl (31.0-36.0); MEAN CORPUSCULAR VOLUME 100 fL (80-96); MONOCYTES # (AUTO) 0.4 /CMM (0.1-1.30); MONOCYTES % (AUTO) 4.5 % (2.0-12.0); NEUTROPHILS # (AUTO) 8.5 /CMM (1.8-8.9); NEUTROPHILS % (AUTO) 86.7 % (43.0-81.0); PLATELET COUNT (AUTO) 160 /CMM (150-450); RED BLOOD CELL COUNT(AUTO) 2.63 MIL/uL (4.5-6.0); WHITE BLOOD COUNT (AUTO) 9.8 K/uL (4.3-11.0)
[2019-08-20] MEDS: METOCLOPRAMIDE HCL 10 MG/2 ML VIAL IV SCH ×4 (04:15→21:51)
[2019-08-20] MEDS: JEVITY 1.2 CAL 1,000 ML BOTTLE GT PRN (04:18)
[2019-08-20 04:28] LABS: CALCIUM, SERUM 7.9 mg/dL (8.5-10.1); CREATININE 0.8 mg/dL (0.6-1.3); MAGNESIUM 1.8 mg/dL (1.8-2.4); PHOSPHORUS 3.5 mg/dL (2.5-4.9); POTASSIUM 3.4 mmol/L (3.5-5.1)
[2019-08-20 04:40] LABS: T4 (THYROXINE) 4.1 ug/dL (4.7-13.3); THYROID STIMULATING HORMONE 3.261 uIU/mL (0.358-3.74)
--- NOTE | 2019-08-20 07:10 | NUR ---
STUDENT RECRUITER CLOSING NOTES, PATIENT IN BED SEDATED. WITH TRACHEA, TOLERATING VENT SETTINGS WELL, NO SOB OR ACUTE DISTRESS NOTED AT THIS TIME. LUARM PICC LINE RUNNING PROPOFOL @25MCG/KG/MIN TOLERATING WELL. PATENT AND FLUSHED WELL. NO S/S OF INFILTRATION NOTED. MORAN RUNNING TO THE GRAVITY REDDISH/YELLOW/CLOUDY URINE. G-TUBE NOTED RUNNING AT 50ML/HR. TOLERATING WELL, NO RESIDUAL. BED IN LOW LOCKED POSITION, CALL LIGHT WITHIN REACH. ENDORSED THE PATIENT TO AM RN FOR MEG.
--- NOTE | 2019-08-20 07:45 | NUR ---
RT Pt received trached on mechanical ventilation with noted settings. Pt is awake and responds to stimuli. No SOB or respiratory distress noted. Addendum: 08/20/19 at 1605 by PATTI GALICIA RT Amended: Links added.
[2019-08-20] MEDS: LEVOTHYROXINE SODIUM 112 MCG TABLET PO SCH (07:46)
--- NOTE | 2019-08-20 07:52 | NUR ---
ICU/RN received patient sedated on Propofol at 25 mcg, trach to vent on AC as ordered. Jevity is infusing to Gtube. Will try sedation vacation again today as tolerated. late addendum from 08/19/19 Ativan documented "given" in eMAR at 0900 was NOT given, as witnessed by Christ HOWELL. Dr. Noe asked to hold the dose after the medication was pulled out of [employer] and was crushed already. Unable to "undo" in the [employer] and eMAR because the actual order was discontinued and was changed to PRN instead of BID.
[2019-08-20] MEDS ORDERED: POTASSIUM CHLORIDE 20 MEQ POWDER PACKET GT SCH (08:00)
[2019-08-20] MEDS: DABIGATRAN ETEXILATE MESYLATE 150 MG CAPSULE PO SCH ×2 (08:16→17:02)
[2019-08-20] MEDS: LORAZEPAM 1 MG TABLET PO PRN (08:17)
[2019-08-20 08:21] LABS: ABG BASE EXCESS 2.8 mmol/L; ABG PH 7.424 (7.350-7.450); ABG PO2 64.2 mmHg (75.0-100.0); AaDO2 316.3 mmHg; COHb 0.7 % (0.5-1.5); MetHb 0.1 % (0.0-1.5); O2Hb 90.3 % (94.0-97.0); PEEP,BG 5 cm H2O; SITE, ABG Right Radial; VT, ABG 550 mL
[2019-08-20] MEDS ORDERED: FUROSEMIDE 40 MG/4 ML VIAL IV ONE (08:30)
[2019-08-20] MEDS: HYDROCORTISONE SOD SUCCINATE 100 MG/2 ML VIAL IV SCH (09:03)
[2019-08-20] MEDS: PROSOURCE / PROSTAT (PYXIS) 30 ML UDC GT SCH ×4 (09:40→21:51)
[2019-08-20] MEDS: MORPHINE SULFATE INJ 2 MG/ML DISP.SYRIN IV PRN (11:19)
[2019-08-20] MEDS ORDERED: IV NS 0.9% 500 ML IV ONE (11:30)
[2019-08-20 11:52] LABS: C-REACTIVE PROTEIN 10.4 mg/dL (0.0-0.9)
[2019-08-20] MEDS: PHENYLEPHRINE 50 MG in IV NS 0.9% 245 ML IV PRN ×2 (12:04→19:21)
--- NOTE | 2019-08-20 12:50 | NUR ---
RN NOTES [address] SUMMERS. PT HR ON 150-160S. DIPRIVAN AT 30MCG/KG/MIN, TITRATING ACCORDINGLY. ATIVAN GIVEN ORDERED. ORDERED MORPHINE PRN. WILL CLOSELY MONITOR 1124 DR LYNN NOTIFIED OF PT'S HR AND BP. PER , GIVE NS 500ML BOLUS. NO OTHER INTERVENTION NEEDED. WILL CLOSELY MONITOR [address] PALACIOS REGARDING PT'S HR AND RR. PT STARTED ON HORACIO. ON DIPRIVAN DRIP. ORDERED TO INCREASE PEEP TO +8. STAT EKG DONE. WILL CLOSELY MONITOR 1243 PT'S HR WENT DOWN TO 60S, SINUS RHYTHM ON MONITOR. STILL ON HORACIO AND DIPRIVAN. WILL TITRATE ACCORDINGLY. WILL CLOSELY MONITOR. DR PALACIOS AND DR SUMMERS NOTIFIED.
[2019-08-20] MEDS ORDERED: NOREPINEPHRINE 8 MG in IV D5W 250 ML IV PRN (13:00)
[2019-08-20] MEDS ORDERED: ALTEPLASE CATHFLO 2 MG/VIAL XX ONE (18:00)
--- NOTE | 2019-08-20 19:14 | NUR ---
Pt appears stable now, VS WNL. Sedated on Propofol at 50 mcgs, turned off Jordan at 1730, SBP has been >110's. PICC's red port has a lot of resistance with flushing, PICC RN was here and recommended to use Alteplase for now. Given report to shift foreman RN.
[2019-08-20 19:51] LABS: APPEARANCE,URINE SL CLOUDY (CLEAR); BILIRUBIN,URINE NEGATIVE (NEGATIVE); BLOOD, URINE LARGE Ery/uL (NEGATIVE); COLOR,URINE YELLOW (YELLOW); KETONES,URINE NEGATIVE (NEGATIVE); LEUKOCYTE ESTERASE ,URINE MODERATE (NEGATIVE); NITRITE, URINE NEGATIVE (NEGATIVE); PROTEIN,URINE TRACE mg/dl (NEGATIVE); UGLUCOSE NEGATIVE (NEGATIVE); UROBILINOGEN,URINE 0.2 EU/dL (0.2)
[2019-08-20 19:54] LABS: BACTERIA,URINE 2+ /HPF (None Seen); RBC,URINE 81-100 /HPF (0-2); SQUAMOUS EPITHELIAL CELL,UR Few /HPF (None Seen); WBC,URINE 81-100 /HPF (0-3)
[2019-08-20 19:55] LABS: YEAST,URINE Moderate /HPF (None Seen)
[2019-08-21] VITALS (101 sets, daily range): BP systolic 78–150; BP diastolic 49–99
[2019-08-21] MEDS: PIPERACILLIN /TAZOBACTAM 3.375 G in IV D5W 100 ML IV SCH ×3 (00:09→16:29)
[2019-08-21] MEDS: PROPOFOL 100 ML IV PRN ×7 (00:50→21:00)
[2019-08-21 04:19] LABS: BASOPHILS # (AUTO) 0.1 /CMM (0.0-0.2); BASOPHILS % (AUTO) 0.5 % (0.0-2.0); HEMATOCRIT 27 % (39-51); HEMOGLOBIN 8.9 g/dL (13.5-17.5); LYMPHOCYTES # (AUTO) 1.1 /CMM (0.8-4.8); LYMPHOCYTES % (AUTO) 9.5 % (20.0-44.0); MEAN CORPUSCULAR HGB CONC 32 g/dl (31.0-36.0); MEAN CORPUSCULAR VOLUME 100 fL (80-96); MONOCYTES # (AUTO) 0.6 /CMM (0.1-1.30); MONOCYTES % (AUTO) 5.2 % (2.0-12.0); NEUTROPHILS # (AUTO) 8.8 /CMM (1.8-8.9); NEUTROPHILS % (AUTO) 76.8 % (43.0-81.0); PLATELET COUNT (AUTO) 223 /CMM (150-450); RED BLOOD CELL COUNT(AUTO) 2.73 MIL/uL (4.5-6.0); WHITE BLOOD COUNT (AUTO) 11.5 K/uL (4.3-11.0)
[2019-08-21 04:32] LABS: CALCIUM, SERUM 7.9 mg/dL (8.5-10.1); CREATININE 0.7 mg/dL (0.6-1.3); PHOSPHORUS 3.4 mg/dL (2.5-4.9); POTASSIUM 3.6 mmol/L (3.5-5.1)
[2019-08-21] MEDS: METOCLOPRAMIDE HCL 10 MG/2 ML VIAL IV SCH ×4 (04:50→21:31)
[2019-08-21 04:59] LABS: C-REACTIVE PROTEIN 12.7 mg/dL (0.0-0.9)
[2019-08-21] MEDS: PHENYLEPHRINE 50 MG in IV NS 0.9% 245 ML IV PRN ×2 (05:52→21:47)
--- NOTE | 2019-08-21 07:15 | NUR ---
RN INITIAL NOTES RECEIVED PT SEDATED. TRACH IN PLACE. NO RESPIRATORY DISTRESS NOTED. NO SOB NOTED. NO SIGNS OF PAIN NOTED. PICC LINE IN PLACE. ON DIPRIVAN AND HORACIO, WILL TITRATE ACCORDINGLY. TOLERATING TUBE FEEDING WELL. BLE ELEVATED. WILL CLOSELY MONITOR
[2019-08-21] MEDS: LEVOTHYROXINE SODIUM 112 MCG TABLET PO SCH (08:32)
[2019-08-21] MEDS: HYDROCORTISONE SOD SUCCINATE 100 MG/2 ML VIAL IV SCH (08:32)
[2019-08-21] MEDS: PROSOURCE / PROSTAT (PYXIS) 30 ML UDC GT SCH ×4 (08:32→21:31)
[2019-08-21] MEDS: DABIGATRAN ETEXILATE MESYLATE 150 MG CAPSULE PO SCH ×2 (08:34→16:30)
[2019-08-21] MEDS: ACETAMINOPHEN 650 MG/20.3 ML UDC NG PRN (11:59)
[2019-08-21] MEDS: LORAZEPAM 1 MG TABLET PO SCH ×2 (12:57→16:30)
[2019-08-21] MEDS: JEVITY 1.2 CAL 1,000 ML BOTTLE GT PRN (13:51)
--- NOTE | 2019-08-21 14:00 | NUR ---
RN NOTES 1300 SEEN AND EXAMINED BY SAMI RIOS NP. AWARE OF LAB VALUES AND CXR RESULT. PT REMAINS SEDATED. TOLERATING TUBE FEEDING WELL. AWARE OF HEMATURIA, WILL HOLD PRADAXA FOR 1700. WILL CLOSELY MONITOR. 1400 DR PALACIOS CALLED AND DISCUSSED PLAN OF CARE. PER MD, NO SEDATION VACATION FOR NOW. GIVE ALL MEDS ORDERED. WILL CONTINUE TO MONITOR.
--- NOTE | 2019-08-21 18:18 | NUR ---
RN CLOSING NOTES NO RESPIRATORY DISTRESS NOTED. NO SOB NOTED. NO SIGNS OF PAIN NOTED. PT KEPT SEDATED. HORACIO TITRATED FOR SBP >90MMHG. TOLERATING TUBE FEEDING WELL. KEPT CLEAN AND DRY. REPOSITIONING Q2. CONDOM CATH IN PLACE, HEMATURIA IMPROVING. BLE ELEVATED. KEPT COMFORTABLE. WILL ENDORSE FOR CONTINUITY OF CARE.
--- NOTE | 2019-08-21 19:10 | NUR ---
RISK OFFICER OPENING NOTES RECEIVED PATIENT SEDATED , RESPONSIVE TO PAIN STIMULI , NOT IN ACUTE DISTRESS , RESPIRATIONS EVEN AND UNLABORED WITH SPO2 OF 100% VIA MECHANICAL VENT SETTINGS ORDERED , TRACH OF SILVIANO # [address] , TELE MONITOR CURRENT READING SINUS ROEL 60'S , CONDOM CATH PN PLACE DRAINING VIA GRAVITY , GT PATENT AND INTACT WITH JEVITY @50ML/HR TOLERATING WELL RESIDUALS CHECKED, BRITTANY PICC LINE WITH HORACIO @ 0.2 MCG/KG/MIN , DIPRIVAN @ 30 MCG/KG/MIN INFUSING , NS @ TKO SAFETY MEASURE MAINTAINED BED ON LOWEST POSITION AND LOCKED SIDE RAILS UP, WILL CONTINUE TO MONITOR
[2019-08-22] VITALS (89 sets, daily range): BP systolic 74–191; BP diastolic 45–117
[2019-08-22] MEDS: PIPERACILLIN /TAZOBACTAM 3.375 G in IV D5W 100 ML IV SCH ×3 (00:30→17:15)
[2019-08-22] MEDS: PROPOFOL 100 ML IV PRN ×6 (01:00→21:23)
[2019-08-22] MEDS: JEVITY 1.2 CAL 1,000 ML BOTTLE GT PRN (02:31)
[2019-08-22] MEDS: METOCLOPRAMIDE HCL 10 MG/2 ML VIAL IV SCH ×4 (04:10→22:13)
[2019-08-22 04:55] LABS: BASOPHILS % (AUTO) 0.4 % (0.0-2.0); EOSINOPHILS % (AUTO) 5.1 % (0.0-6.0); HEMATOCRIT 26 % (39-51); HEMOGLOBIN 8.3 g/dL (13.5-17.5); LYMPHOCYTES # (AUTO) 0.9 /CMM (0.8-4.8); MEAN CORPUSCULAR HGB CONC 32 g/dl (31.0-36.0); MEAN CORPUSCULAR VOLUME 100 fL (80-96); MONOCYTES # (AUTO) 0.5 /CMM (0.1-1.30); MONOCYTES % (AUTO) 5.8 % (2.0-12.0); NEUTROPHILS # (AUTO) 6.1 /CMM (1.8-8.9); NEUTROPHILS % (AUTO) 77.7 % (43.0-81.0); PLATELET COUNT (AUTO) 192 /CMM (150-450); RED BLOOD CELL COUNT(AUTO) 2.58 MIL/uL (4.5-6.0); WHITE BLOOD COUNT (AUTO) 7.8 K/uL (4.3-11.0)
[2019-08-22 05:04] LABS: CALCIUM, SERUM 7.7 mg/dL (8.5-10.1); CREATININE 0.6 mg/dL (0.6-1.3); PHOSPHORUS 2.9 mg/dL (2.5-4.9); POTASSIUM 3.4 mmol/L (3.5-5.1)
[2019-08-22] MEDS: Z GUARD REMEDY 2 OZ OINT TP PRN (05:32)
--- NOTE | 2019-08-22 06:41 | NUR ---
RN CLOSING NOTES PT ON BED SEDATED, ON TRACH/VENT SETTING ORDERED, NO SIGN AND SYMPTOMS OF RESPIRATORY DISTRESS SPO2 98%, STILL ON GTUBE FEEDING JEVITY @ 50 ML/HR, ON TELE MONITOR WITH READING SINUS ROEL 60'S-50'S, ALL NEEDS ATTENDED, SAFETY MEASURE MAINTAINED BED ON LOWEST POSITION AND LOCKED SIDE RAILS UP X3 WILL ENDORSED TO AM SHIFT NURSE
--- NOTE | 2019-08-22 07:22 | NUR ---
ICU/RN INITIAL NOTES,AM RECEIVED REPORT FROM NIGHT NURSE. PT TRACH TO VENT WITH SETTINGS ORDERED BY MD, NO ACUTE DISTRESS NOTED. PT SEDATED WITH DIPRIVAN. SINUS ON TELE, HR 60. PEG TUBE FEEDING INFUSING, TOLERATING WELL, WILL CONTINUE TO MONITOR. LEFT UPPER ARM PICC LINE PATENT AND INTACT, DIP AND HORACIO INFUSING FOR BP SUPPORT. ALL NEEDS WILL BE ATTENDED TO, SAFETY MEASURES TAKEN, BED IN LOW POSITION, SIDE RAILS UP, CALL LIGHT WITHIN REACH. BILATERAL SOFT WRIST RESTRAINTS, ASSESSED PER PROTOCOL.
[2019-08-22] MEDS ORDERED: POTASSIUM CHLORIDE 20 MEQ POWDER PACKET NG SCH (07:30)
[2019-08-22 07:45] LABS: ABG BASE EXCESS 5.6 mmol/L; ABG OXYGEN SATURATION 97.1 % (92.0-98.5); ABG PCO2 42.8 mmHg (35.0-45.0); ABG PH 7.462 (7.350-7.450); ABG PO2 99.1 mmHg (75.0-100.0); AaDO2 209.3 mmHg; COHb 0.4 % (0.5-1.5); MetHb 0.5 % (0.0-1.5); O2Hb 96.2 % (94.0-97.0); PEEP,BG 5 cm H2O; SITE, ABG Left Radial; VT, ABG 550 mL
--- NOTE | 2019-08-22 08:00 | NUR ---
ICU/RN: PER DR. PALACIOS NO SEDATION VACATION TODAY
[2019-08-22] MEDS: PROSOURCE / PROSTAT (PYXIS) 30 ML UDC GT SCH ×4 (08:28→21:23)
[2019-08-22] MEDS: LEVOTHYROXINE SODIUM 112 MCG TABLET PO SCH (08:28)
[2019-08-22] MEDS: HYDROCORTISONE SOD SUCCINATE 100 MG/2 ML VIAL IV SCH (08:28)
[2019-08-22] MEDS: LORAZEPAM 1 MG TABLET PO SCH ×3 (08:28→17:06)
[2019-08-22] MEDS: DABIGATRAN ETEXILATE MESYLATE 150 MG CAPSULE PO SCH ×2 (08:30→17:06)
--- NOTE | 2019-08-22 08:43 | NUR ---
WOUND CARE CONSULT/FOLLOW UP: RECEIVED REQUEST FROM RN FOR SKIN ASSESSMENT OF PERINEAL AREA, GROIN FOLDS AND INNER THIGHS. PT NOTED TO HAVE RASH. RECOMMENDATIONS MADE FOR SKIN PROTECTION AND SKIN CARE. DISCUSSED WITH NURSING STAFF. PT IS ON FIRST STEP [facility] AIRLOSS BED. PT NOTED TO HAVE GENERALIZED EDEMA WITH SLIGHT DUSKY COLOR TO FEET AND HEELS. WILL SEE PRN. IN AGREEMENT WITH PLAN OF CARE.
[2019-08-22] MEDS: CLOTRIMAZOLE 1% 15 GM TUBE TP SCH ×2 (09:34→17:28)
--- NOTE | 2019-08-22 16:00 | NUR ---
ICU/RN: IN COLLABORATION WITH PRIMARY SAMI AND HOSPITAL ADMIN WE WILL BE ALLOWING OF PT TO VISIT FOR 10 MINUTES. SHE MUST FOLLOW HOSPITAL POLICY AND CDC GUIDELINES FOR SOCIAL DISTANCING. MANI CALLED AND INFORMED. SHE AGREES TO ALL THE RULES. WILL FOLLOW THROUGH. THE SEDATION WILL NOT BE TITRATED LOWER IN ORDER TO ENSURE PT COMFORT AND SAFETY.
--- NOTE | 2019-08-22 16:30 | NUR ---
ICU/RN: PER PRIMARY OK TO INSERT MORAN CATH.
--- NOTE | 2019-08-22 17:00 | NUR ---
ICU/RN: OF PT AT BEDSIDE WITH FACE MASK, TEMP ASSESSED AND ISOLATION GOWN GIVEN. PRIOR TO ENTERING MANI WARNED REGARDING BENEFITS AND RISKS OF VISITING. [facility] WILL NOT BE LIABLE IF OF PT CONTRACTS COVID OR EXHIBITS ANY SIGNS AND SYMPTOMS. MANI AGREES.
--- NOTE | 2019-08-22 19:00 | NUR ---
Received patient with tracheostomy on the ventilator on AC mode, sedated with Propofol drip, PIP=36 ,+ slight cough when suctioned ,but otherwise well sedated,does not move extremities.On Neosynephrine drip for BP support.Not in any respiratory distress,breathing non labored. G tube,intact with ongoing feeding,Aspiration Precaution observed.
[2019-08-22] MEDS: PHENYLEPHRINE 50 MG in IV NS 0.9% 245 ML IV PRN (19:11)
--- NOTE | 2019-08-22 19:19 | NUR ---
ICU/RN: ENDING NOTES,AM REPORT ENDORSED TO NIGHT NURSE. PT INTUBATED AND SEDATED, ON VENT SETTINGS ORDERED BY MD, NO ACUTE DISTRESS NOTED. ALL NEEDS ATTENDED TO, SAFETY MEASURE TAKEN. LOW DOSE HORACIO INFUSING FOR BP SUPPORT. BED BATH GIVEN, NEEDS ATTENDED TO, SAFETY MEASURES TAKEN, BED IN LOW POSITION.
--- NOTE | 2019-08-22 19:50 | NUR ---
RT NOTE PT RECEIVED TRACHED ON MECHANICAL VENTILATION. JOSE ROBERTOLEY [address] LASHELLU BAG @ HOB. SX DONE, TRACH SECURED AND PATENT. ALARMS ON AND AUDIBLE. NO DISTRESS NOTED AT THIS TIME. WILL CONTINUE TO MONITOR. Addendum: 08/22/19 at 1950 by ALTHEA REYNA RT Amended: Links added.
--- NOTE | 2019-08-22 20:00 | NUR ---
Hypothermic Temp=96.5 , Jimmy Hugger turned on.
[2019-08-23] VITALS (86 sets, daily range): BP systolic 79–151; BP diastolic 32–102
--- NOTE | 2019-08-23 | NUR ---
Status unchanged,remains sedated,now normothermic ,Temp- 97.5 with the Jimmy Hugger warmer. Occasionally bucks the ventilator.
[2019-08-23] MEDS: PIPERACILLIN /TAZOBACTAM 3.375 G in IV D5W 100 ML IV SCH ×3 (01:02→16:17)
[2019-08-23] MEDS: PROPOFOL 100 ML IV PRN ×7 (01:12→23:36)
[2019-08-23] MEDS: JEVITY 1.2 CAL 1,000 ML BOTTLE GT PRN (01:12)
--- NOTE | 2019-08-23 03:30 | NUR ---
Noted to be tachypneic with labored breathing , but maintaining PIP=36increase Propofol drip.
--- NOTE | 2019-08-23 04:00 | NUR ---
Still with deep ,labored breathing , PIP= 40, Propofol drip increased to 50 mcg/kg/min. Morphine 2 mg IVP given .
[2019-08-23 04:06] LABS: BASOPHILS # (AUTO) 0.1 /CMM (0.0-0.2); BASOPHILS % (AUTO) 0.7 % (0.0-2.0); EOSINOPHILS % (AUTO) 5.9 % (0.0-6.0); HEMATOCRIT 28 % (39-51); HEMOGLOBIN 9.1 g/dL (13.5-17.5); LYMPHOCYTES # (AUTO) 0.9 /CMM (0.8-4.8); LYMPHOCYTES % (AUTO) 9.8 % (20.0-44.0); MEAN CORPUSCULAR HGB CONC 33 g/dl (31.0-36.0); MEAN CORPUSCULAR VOLUME 99 fL (80-96); MONOCYTES # (AUTO) 0.5 /CMM (0.1-1.30); MONOCYTES % (AUTO) 5.9 % (2.0-12.0); NEUTROPHILS % (AUTO) 77.7 % (43.0-81.0); PLATELET COUNT (AUTO) 216 /CMM (150-450); RED BLOOD CELL COUNT(AUTO) 2.81 MIL/uL (4.5-6.0)
[2019-08-23 04:13] LABS: CALCIUM, SERUM 8.1 mg/dL (8.5-10.1); CREATININE 0.7 mg/dL (0.6-1.3); POTASSIUM 3.9 mmol/L (3.5-5.1)
[2019-08-23] MEDS: METOCLOPRAMIDE HCL 10 MG/2 ML VIAL IV SCH ×4 (04:25→22:34)
[2019-08-23] MEDS: MORPHINE SULFATE INJ 2 MG/ML DISP.SYRIN IV PRN ×2 (04:29→23:36)
--- NOTE | 2019-08-23 06:00 | NUR ---
BREATHING LESS LABORED .WILL MAINTAIN PROPOFOL @ 50 MCG/KG/MIN
--- NOTE | 2019-08-23 07:00 | NUR ---
CONTINUE PRESENT MEASURES,MAINTAIN SEDATION.REPORT GIVEN TO SUAD HOWELL
[2019-08-23] MEDS: PROSOURCE / PROSTAT (PYXIS) 30 ML UDC GT SCH ×4 (08:37→20:17)
[2019-08-23] MEDS: LEVOTHYROXINE SODIUM 112 MCG TABLET PO SCH (08:37)
[2019-08-23] MEDS: HYDROCORTISONE SOD SUCCINATE 100 MG/2 ML VIAL IV SCH (08:38)
[2019-08-23] MEDS: LORAZEPAM 1 MG TABLET PO SCH ×3 (08:39→16:14)
[2019-08-23] MEDS: DABIGATRAN ETEXILATE MESYLATE 150 MG CAPSULE PO SCH ×2 (08:39→16:16)
[2019-08-23] MEDS: CLOTRIMAZOLE 1% 15 GM TUBE TP SCH ×2 (08:40→16:16)
--- NOTE | 2019-08-23 09:17 | NUR ---
received pt from shift superintendent caustic cresylate, sedated on Diprivan at 50mcg, SR, SB, T/V sat well, pitting/non pitting edema all extremities, f/c good output, G tube to feeding some residual, CVP monitoring, v/s stable, no pain, pt turned and repositioned.
[2019-08-23] MEDS: PHENYLEPHRINE 50 MG in IV NS 0.9% 245 ML IV PRN (13:01)
--- NOTE | 2019-08-23 16:08 | NUR ---
pt is resting in the bed, sedated on Diprivan at 40mcg, SR, SB, on the vent, saturating well, f/c good output, GT to feeding tolerates well, receiving kadie at 0.4mcg, v/s stable, no pain, pt cleaned, changed and repositioned.
--- NOTE | 2019-08-23 20:00 | NUR ---
RN NOTES RECEIVED PATIENT SEDATED WITH DIPRIVAN. PATIENT HAS TRACH CONNECTED TO VENT SETTING AC 28 TV 550 AND PEEP 5. SR -SB ON TELE MONITOR. WITH GTF JEVITY 1.2 @ 50 ML/HR. HOB KEPT ELEVATED. IV SITE ON BRITTANY PICC LINE WITH CVP. PROPOFOL @ 35 MCG/KG/MIN AND HORACIO 0.4. TURN AND REPOSITION FOR SKINC ARE. KEPT PT CLEAN AD DRY. GENERALIZED EDEMA NOTED UPPER AND LOWER EXT KEPT ELEVATED. WILL CONT TO MONITOR.
--- NOTE | 2019-08-23 22:15 | NUR ---
RN NOTES NOTED PATIENT DECREASE SATURATION BARELY ON 90-91% TACHYPNEIC INFORMED RT AND TITRATE FIO2 TO 70%. SATURATION AT THIS TIME 95%. WILL CONTINUE TO MONITOR..
[2019-08-24] VITALS (99 sets, daily range): BP systolic 43–162; BP diastolic 23–104
[2019-08-24] MEDS: PIPERACILLIN /TAZOBACTAM 3.375 G in IV D5W 100 ML IV SCH ×3 (00:08→17:13)
--- NOTE | 2019-08-24 00:14 | NUR ---
RN NOTES PATIENT IS TACHYPNEIC SATURATION 100%. DIPRIVAN INCREASE TO 50 MCG/KG/MIN WILL CONTINUE TO MONITOR
[2019-08-24] MEDS: PROPOFOL 100 ML IV PRN ×6 (02:30→22:54)
[2019-08-24] MEDS: METOCLOPRAMIDE HCL 10 MG/2 ML VIAL IV SCH ×4 (03:44→21:15)
[2019-08-24] MEDS: LORAZEPAM 1 MG TABLET PO SCH ×3 (03:44→17:11)
--- NOTE | 2019-08-24 07:17 | NUR ---
RN NOTES ETT AND VENT SETTING TOLERATED WELL. SATURATION REMAINED >92% TMAX 99.6. REMAINED SEDATED WITH DIPRIVAN. TACHYPNEA PRESENT WITH EPISODE OF HR 30'S. IV SITE REMAINED INTACT AND PATENT WITH DIPRIVAN @ 50 MCG/KG/MIN , HORACIO @ 0.3 MCG/KG/MIN AND CVP TITRATED AND CALIBRATED. ALL DUE MEDICINE TOLERATED WELL. KEPT PT CLEAN AND DRY. ENDORSED CONTINUITY OF CARE TO AM NURSE.
[2019-08-24] MEDS: LEVOTHYROXINE SODIUM 112 MCG TABLET PO SCH (08:54)
[2019-08-24] MEDS: HYDROCORTISONE SOD SUCCINATE 100 MG/2 ML VIAL IV SCH (08:54)
[2019-08-24] MEDS: DABIGATRAN ETEXILATE MESYLATE 150 MG CAPSULE PO SCH ×2 (08:56→17:11)
[2019-08-24] MEDS: CLOTRIMAZOLE 1% 15 GM TUBE TP SCH ×2 (08:59→17:12)
[2019-08-24] MEDS: PROSOURCE / PROSTAT (PYXIS) 30 ML UDC GT SCH ×4 (08:59→21:10)
[2019-08-24 09:05] LABS: BASOPHILS # (AUTO) 0.1 /CMM (0.0-0.2); BASOPHILS % (AUTO) 0.7 % (0.0-2.0); EOSINOPHILS % (AUTO) 4.1 % (0.0-6.0); HEMATOCRIT 26 % (39-51); HEMOGLOBIN 8.4 g/dL (13.5-17.5); LYMPHOCYTES # (AUTO) 0.9 /CMM (0.8-4.8); LYMPHOCYTES % (AUTO) 9.6 % (20.0-44.0); MEAN CORPUSCULAR HGB CONC 33 g/dl (31.0-36.0); MEAN CORPUSCULAR VOLUME 98 fL (80-96); MONOCYTES # (AUTO) 0.7 /CMM (0.1-1.30); MONOCYTES % (AUTO) 7.5 % (2.0-12.0); NEUTROPHILS # (AUTO) 7.1 /CMM (1.8-8.9); NEUTROPHILS % (AUTO) 78.1 % (43.0-81.0); PLATELET COUNT (AUTO) 185 /CMM (150-450); RED BLOOD CELL COUNT(AUTO) 2.64 MIL/uL (4.5-6.0); WHITE BLOOD COUNT (AUTO) 9.1 K/uL (4.3-11.0)
[2019-08-24 09:06] LABS: CALCIUM, SERUM 7.7 mg/dL (8.5-10.1); CREATININE 0.7 mg/dL (0.6-1.3); MAGNESIUM 1.9 mg/dL (1.8-2.4); POTASSIUM 3.8 mmol/L (3.5-5.1)
[2019-08-24] MEDS: PHENYLEPHRINE 50 MG in IV NS 0.9% 245 ML IV PRN (11:07)
--- NOTE | 2019-08-24 18:45 | NUR ---
ICU/RN: Pt is sedated on Propofol at 40 mcg the whole shift, per DR. Noe, no sedation vacation today. Jordan drip is titrated down to 0.25 mcg with SBP 100-130's, HR 55-65. Spoke to son and pt's , updated and requested for a visit silas which was granted by DR. Noe, pls see order. TF Jevity is tolerated now, had residual of about 60 cc this am, slowly titrated TF from 35-50 cc/hr.
--- NOTE | 2019-08-24 20:00 | NUR ---
Received patient sedated on Diprivan gtt and with trach to vent with prescribed settings. Tolerating well.SR/SB 50's with Neosynephrine gtt infusing to keep SBP > 90 will titrate accordingly.GT feeding Nepro infusing with 10 ml residual.HOB elevated. No distress noted. With generalized edema .Both UE and LE elevated on pillows.Turned and repositioned. Moderate urine output per rosario cath.Continue monitoring.
[2019-08-25] VITALS (95 sets, daily range): BP systolic 68–144; BP diastolic 32–91
[2019-08-25] MEDS: PIPERACILLIN /TAZOBACTAM 3.375 G in IV D5W 100 ML IV SCH ×2 (01:01→08:11)
[2019-08-25] MEDS: PROPOFOL 100 ML IV PRN ×7 (01:55→22:41)
[2019-08-25] MEDS ORDERED: IV NS 0.9% 500 ML BAG IV ONE (02:00)
--- NOTE | 2019-08-25 02:25 | NUR ---
Patient feverish 100.6 Tylenol administered as PRN.Cooling measures done.
[2019-08-25] MEDS: ACETAMINOPHEN 650 MG/20.3 ML UDC NG PRN (02:27)
[2019-08-25] MEDS: JEVITY 1.2 CAL 1,000 ML BOTTLE GT PRN (03:02)
[2019-08-25] MEDS: METOCLOPRAMIDE HCL 10 MG/2 ML VIAL IV SCH ×4 (04:00→21:11)
[2019-08-25] MEDS: PHENYLEPHRINE 50 MG in IV NS 0.9% 245 ML IV PRN ×2 (05:01→19:01)
[2019-08-25 05:22] LABS: BASOPHILS # (AUTO) 0.1 /CMM (0.0-0.2); EOSINOPHILS % (AUTO) 3.1 % (0.0-6.0); HEMATOCRIT 27 % (39-51); HEMOGLOBIN 8.8 g/dL (13.5-17.5); LYMPHOCYTES # (AUTO) 0.7 /CMM (0.8-4.8); LYMPHOCYTES % (AUTO) 6.3 % (20.0-44.0); MEAN CORPUSCULAR HGB CONC 33 g/dl (31.0-36.0); MEAN CORPUSCULAR VOLUME 97 fL (80-96); MONOCYTES # (AUTO) 0.7 /CMM (0.1-1.30); MONOCYTES % (AUTO) 6.1 % (2.0-12.0); NEUTROPHILS % (AUTO) 83.5 % (43.0-81.0); PLATELET COUNT (AUTO) 208 /CMM (150-450); RED BLOOD CELL COUNT(AUTO) 2.72 MIL/uL (4.5-6.0); WHITE BLOOD COUNT (AUTO) 10.7 K/uL (4.3-11.0)
[2019-08-25 05:25] LABS: CREATININE 0.7 mg/dL (0.6-1.3); PHOSPHORUS 3.5 mg/dL (2.5-4.9); POTASSIUM 3.8 mmol/L (3.5-5.1)
--- NOTE | 2019-08-25 07:20 | NUR ---
RN INITIAL NOTES RECEIVED PT SEDATED, ON DIPIVAN. WILL TITRATE ACCORDINGLY. TRACH IN PLACE. AIRWAY PATENT. NO RESPIRATORY DISTRESS NOTED. HOB ELEVATED. BRITTANY PICC IN PLACE. HORACIO AT 0.25MCG/KG/MIN. WILL MONITOR BP. TOLERATING GTF WELL. MORAN IN PLACE. PT CLEAN AND DRY. REPOSITIONED. BLE ELEVATED. WILL CLOSELY MONITOR
--- NOTE | 2019-08-25 07:20 | NUR ---
No significant change on patient status.Diprivan gtt still at 40 mcg and Neosynephrine gtt at 0.25 mcg.All needs met.Will endorse to day shift for MEG.
[2019-08-25] MEDS: LEVOTHYROXINE SODIUM 112 MCG TABLET PO SCH (08:11)
[2019-08-25] MEDS: HYDROCORTISONE SOD SUCCINATE 100 MG/2 ML VIAL IV SCH ×4 (08:11→16:16)
[2019-08-25] MEDS: LORAZEPAM 1 MG TABLET PO SCH ×3 (08:11→16:16)
[2019-08-25] MEDS: DABIGATRAN ETEXILATE MESYLATE 150 MG CAPSULE PO SCH ×2 (08:12→16:18)
[2019-08-25] MEDS: PROSOURCE / PROSTAT (PYXIS) 30 ML UDC GT SCH ×4 (08:12→21:11)
[2019-08-25] MEDS: CLOTRIMAZOLE 1% 15 GM TUBE TP SCH ×2 (08:27→16:16)
--- NOTE | 2019-08-25 11:00 | NUR ---
RN NOTES 0900 SEEN AND EXAMINED BY DR PALACIOS. ORDERED TO DECREASE DIPRIVAN TO 35MCG/KG/MIN. NO RESPIRATORY DISTRESS NOTED. WILL CLOSELY MONITOR 1100 SEEN AND EXAMINED BY SAMI RIOS NP. AWARE OF CURRENT LAB VALUES AND CXR RESULT. WILL CLOSELY MONITOR
--- NOTE | 2019-08-25 18:42 | NUR ---
RN CLOSING NOTES NO SIGNIFICANT CHANGE NOTED. PT REMAINS ON VENT, TRACH IN PLACE. NO RESPIRATORY DISTRESS NOTED. REMAINS SEDATED.TOLERATING TUBE FEEDING WELL. KEPT CLEAN AND DRY. KEPT COMFORTABLE. REPOSITIONED Q2. WILL ENDORSE FOR CONTINUITY OF CARE
--- NOTE | 2019-08-25 20:00 | NUR ---
Received patient intubated to mechanical vent on same prescribed vent settings and tolerating well.Sedated on Diprivan gtt at 35 mcg.VSS.SR/SB 50's.On Neosynephrine at 0.25 mcg for BP support and will titrate accordingly.GT feeding infusing with HOB elevated.Residual 10 ml.Turned and repositioned.No acute distress noted.Continue monitoring.
[2019-08-26] VITALS (73 sets, daily range): BP systolic 83–162; BP diastolic 49–109
[2019-08-26] MEDS: PROPOFOL 100 ML IV PRN ×6 (01:46→20:55)
[2019-08-26] MEDS: JEVITY 1.2 CAL 1,000 ML BOTTLE GT PRN ×2 (01:56→16:20)
[2019-08-26] MEDS ORDERED: IV NS 0.9% 500 ML BAG IV ONE (02:30)
[2019-08-26] MEDS: METOCLOPRAMIDE HCL 10 MG/2 ML VIAL IV SCH ×4 (03:45→21:05)
--- NOTE | 2019-08-26 05:25 | NUR ---
Jose from LAB called Patient COVID 19 test resulted and its NEGATIVE. Addendum: 08/26/19 at 0638 by FARZAD FERNANDEZ RN Please disregard above notes.WRONG ENTRY.
--- NOTE | 2019-08-26 06:15 | NUR ---
Patient remains sedated and intubated.With copious secretion orally.Secretions suction PRN and oral care done.VS stable.Bathed and complete linens changed.Turned and repositioned Q 2 hrs. Diprivan gtt infusing still at 50 mcg and maintenance IVF.BM x1 moderate greenish pasty stool. All needs met.Still for ECHO.Will endorse to day shift for yael. Addendum: 08/26/19 at 0629 by FARZAD FERNANDEZ RN Please disregard above notes.Wrong entry.
--- NOTE | 2019-08-26 06:30 | NUR ---
No significant change noted.Remains intubated with same vent settings and sedated.SR/SB 50's. Neosynephrine gtt titrated but BP labile.Tolerating gt feeding.Bathed and complete linens changed. Turned and repositioned Q 2 hrs.No BM noted .All needs met.Will endorse to day shift for yael.
--- NOTE | 2019-08-26 07:20 | NUR ---
RN INITIAL NOTES RECEIVED PT SEDATED, ON DIPRIVAN. WILL TITRATE ACCORDINGLY. TRACH IN PLACE. AIRWAY PATENT. NO RESPIRATORY DISTRESS NOTED. HOB ELEVATED. BRITTANY PICC IN PLACE. HORACIO AT 0.20MCG/KG/MIN. WILL MONITOR BP. TOLERATING GTF WELL. MORAN IN PLACE. PT CLEAN AND DRY. REPOSITIONED. BLE ELEVATED. WILL CLOSELY MONITOR
[2019-08-26] MEDS: LEVOTHYROXINE SODIUM 112 MCG TABLET PO SCH (08:27)
[2019-08-26] MEDS: PROSOURCE / PROSTAT (PYXIS) 30 ML UDC GT SCH ×4 (08:27→21:05)
[2019-08-26] MEDS: LORAZEPAM 1 MG TABLET PO SCH ×3 (08:27→16:19)
[2019-08-26] MEDS: CLOTRIMAZOLE 1% 15 GM TUBE TP SCH ×2 (08:27→16:19)
[2019-08-26] MEDS: HYDROCORTISONE SOD SUCCINATE 100 MG/2 ML VIAL IV SCH ×3 (08:27→16:19)
[2019-08-26] MEDS: DABIGATRAN ETEXILATE MESYLATE 150 MG CAPSULE PO SCH ×2 (08:37→17:53)
--- NOTE | 2019-08-26 10:40 | NUR ---
RN NOTES SEEN AND EXAMINED BY DR PALACIOS. AWARE OF CURRENT LAB VALUES AND CXR REUSLT. PT REMAINS SEDATED, PER MD TITRATE DIPRIVAN TO 30MVG/KG/MIN. WILL CLOSELY MONITOR
--- NOTE | 2019-08-26 19:43 | NUR ---
RT NOTE PT RECEIVED TRACHED ON MECHANICAL VENTILATION. AMBU BAG @ HOB. SHILEY [address] IN [address] SX DONE, TRACH SECURED AND PATENT. ALARMS ON AND AUDIBLE. NO DISTRESS NOTED AT THIS TIME. LYNDA GARAY @ BEDSIDE. WILL CONTINUE TO MONITOR. VENT PLUGGED TO RED OUTLET. Addendum: 08/26/19 at 1945 by ALTHEA REYNA RT Amended: Links added.
[2019-08-27] VITALS (39 sets, daily range): BP systolic 85–126; BP diastolic 45–82
[2019-08-27] MEDS: PROPOFOL 100 ML IV PRN ×6 (00:48→23:00)
[2019-08-27] MEDS: METOCLOPRAMIDE HCL 10 MG/2 ML VIAL IV SCH ×4 (03:27→22:09)
[2019-08-27 04:23] LABS: CREATININE 0.6 mg/dL (0.6-1.3); MAGNESIUM 2.2 mg/dL (1.8-2.4); PHOSPHORUS 3.1 mg/dL (2.5-4.9); POTASSIUM 3.6 mmol/L (3.5-5.1)
[2019-08-27 04:25] LABS: BASOPHILS % (AUTO) 0.3 % (0.0-2.0); EOSINOPHILS % (AUTO) 0.2 % (0.0-6.0); HEMATOCRIT 25 % (39-51); HEMOGLOBIN 8.2 g/dL (13.5-17.5); LYMPHOCYTES # (AUTO) 0.6 /CMM (0.8-4.8); LYMPHOCYTES % (AUTO) 7.1 % (20.0-44.0); MEAN CORPUSCULAR HGB CONC 33 g/dl (31.0-36.0); MEAN CORPUSCULAR VOLUME 98 fL (80-96); MONOCYTES # (AUTO) 0.4 /CMM (0.1-1.30); NEUTROPHILS # (AUTO) 6.8 /CMM (1.8-8.9); NEUTROPHILS % (AUTO) 87.4 % (43.0-81.0); PLATELET COUNT (AUTO) 199 /CMM (150-450); RED BLOOD CELL COUNT(AUTO) 2.56 MIL/uL (4.5-6.0); WHITE BLOOD COUNT (AUTO) 7.8 K/uL (4.3-11.0)
[2019-08-27] MEDS: LORAZEPAM 1 MG TABLET PO SCH ×3 (08:33→17:05)
[2019-08-27] MEDS: LEVOTHYROXINE SODIUM 112 MCG TABLET PO SCH (08:33)
[2019-08-27] MEDS: DABIGATRAN ETEXILATE MESYLATE 150 MG CAPSULE PO SCH ×2 (08:34→17:05)
[2019-08-27] MEDS: PROSOURCE / PROSTAT (PYXIS) 30 ML UDC GT SCH ×4 (08:35→20:17)
[2019-08-27] MEDS: HYDROCORTISONE SOD SUCCINATE 100 MG/2 ML VIAL IV SCH ×3 (08:35→17:05)
[2019-08-27] MEDS: CLOTRIMAZOLE 1% 15 GM TUBE TP SCH ×2 (08:53→18:28)
--- NOTE | 2019-08-27 10:51 | NUR ---
ICU/RN: pt was received this am trach to the vent on AC mode, sedated on Propofol at 30 mcg/kg/min. Jevity TF infusing through the GT at 50 cc/hr. Copeland is patent and intact. [address] Noe today , no sedation vacation but decrease Propofol down to 25 mcg/kg/min, tolerating at this time. Pt remains sedated, VS WNL. Addendum: 08/27/19 at 1135 by ERINN MATHEWS RN RR 28 on 25mcg/kg/min. Vent settings = AC 28
--- NOTE | 2019-08-27 11:36 | NUR ---
Received call from son requesting to visit. States he "has been visiting him for the past three days because Dr. Noe and ENERGY CONSULTANT Cheikh said it was okay". See order on 08/23. Per nursing sup Marybeth + discussion w/ MARISSAO, no visitors are allowed per hospital policy unless a patient is actively passing away/comfort care/to say bye Addendum: 08/27/19 at 1145 by ERINN MATHEWS RN But "one visitor for 10 min today, is okay"
[2019-08-27] MEDS: JEVITY 1.2 CAL 1,000 ML BOTTLE GT PRN (18:29)
--- NOTE | 2019-08-27 18:40 | NUR ---
Pt remains sedated on 25mcg/kg/min of Propofol, appears comfortable and breathing comfortably on AC 28 on the vent. Jevity is tolerated at 35 cc/hr. Per Dr. Noe no sedation vacation today. visited today for few minutes as okayed by Dr. Noe and Cheikh WOLFF. Will give report to incoming shift supervisor rn.
--- NOTE | 2019-08-27 19:40 | NUR ---
FRAME WIRER OPENING NOTES, RECEIVED PATIENT IN BED SEDATED, TRACH IN PLACE. AIRWAY PATENT. NO RESPIRATORY DISTRESS NOTED. HOB ELEVATED. BRITTANY PICC IN PLACE PATENT AND FLUSHING WELL, RUNNING DIPRIVAN @25MCG/KG/MIN. TOLERATING GTF WELL RUNNING JEVITY@35 ML/HR. MORAN IN PLACE DRAINING CLOUDY/ORANGE COLOR URINE. BED IN LOW LOCKED POSITION, WILL CONTINUE TO MONITOR THE PATIENT CLOSELY.
[2019-08-28] VITALS (37 sets, daily range): BP systolic 101–169; BP diastolic 60–116
[2019-08-28] MEDS: PROPOFOL 100 ML IV PRN ×4 (03:38→23:58)
[2019-08-28 04:17] LABS: BASOPHILS % (AUTO) 0.1 % (0.0-2.0); HEMATOCRIT 26 % (39-51); HEMOGLOBIN 8.3 g/dL (13.5-17.5); LYMPHOCYTES # (AUTO) 0.6 /CMM (0.8-4.8); LYMPHOCYTES % (AUTO) 7.8 % (20.0-44.0); MEAN CORPUSCULAR HGB CONC 33 g/dl (31.0-36.0); MEAN CORPUSCULAR VOLUME 98 fL (80-96); MONOCYTES # (AUTO) 0.5 /CMM (0.1-1.30); MONOCYTES % (AUTO) 5.8 % (2.0-12.0); NEUTROPHILS # (AUTO) 6.7 /CMM (1.8-8.9); NEUTROPHILS % (AUTO) 86.3 % (43.0-81.0); PLATELET COUNT (AUTO) 207 /CMM (150-450); RED BLOOD CELL COUNT(AUTO) 2.61 MIL/uL (4.5-6.0); WHITE BLOOD COUNT (AUTO) 7.8 K/uL (4.3-11.0)
[2019-08-28 04:31] LABS: CALCIUM, SERUM 8.1 mg/dL (8.5-10.1); CREATININE 0.7 mg/dL (0.6-1.3); MAGNESIUM 2.2 mg/dL (1.8-2.4); PHOSPHORUS 3.2 mg/dL (2.5-4.9); POTASSIUM 3.8 mmol/L (3.5-5.1)
[2019-08-28] MEDS: METOCLOPRAMIDE HCL 10 MG/2 ML VIAL IV SCH ×4 (04:49→22:37)
--- NOTE | 2019-08-28 07:09 | NUR ---
ASSOCIATE PROFESSOR OF COMMUNICATION CLOSING NOTES, PATIENT IN BED SEDATED, TRACH IN PLACE. AIRWAY PATENT. NO RESPIRATORY DISTRESS NOTED. HOB ELEVATED. BRITTANY PICC IN PLACE PATENT AND FLUSHING WELL, RUNNING DIPRIVAN @25MCG/KG/MIN. TOLERATING GTF WELL RUNNING JEVITY@35 ML/HR. MORAN IN PLACE DRAINING CLOUDY/ORANGE COLOR URINE. PATIENT KEPT CLEAN AND DRY OVER FLOATING LABOR GANG SUPERVISOR. BED IN LOW LOCKED POSITION, WILL CONTINUE TO MONITOR THE PATIENT CLOSELY.
[2019-08-28] MEDS: LORAZEPAM 1 MG TABLET PO SCH ×3 (08:28→21:09)
[2019-08-28] MEDS: LEVOTHYROXINE SODIUM 112 MCG TABLET PO SCH (08:28)
[2019-08-28] MEDS: HYDROCORTISONE SOD SUCCINATE 100 MG/2 ML VIAL IV SCH ×3 (08:28→17:46)
[2019-08-28] MEDS: DABIGATRAN ETEXILATE MESYLATE 150 MG CAPSULE PO SCH ×2 (08:37→17:46)
[2019-08-28] MEDS: PROSOURCE / PROSTAT (PYXIS) 30 ML UDC GT SCH ×4 (08:38→21:09)
[2019-08-28] MEDS: CLOTRIMAZOLE 1% 15 GM TUBE TP SCH ×2 (08:38→17:00)
[2019-08-28] MEDS: JEVITY 1.2 CAL 1,000 ML BOTTLE GT PRN (17:46)
--- NOTE | 2019-08-28 18:44 | NUR ---
ICU Shift Summary Per Dr. Noe, titrate propofol down by 5mcg/kg/min to 20mcg/kg/min in am. Then, if tolerated, to 15mcg/kg/min @1300. Throughout shift, patient's respiratory rate remained 28-30 ([facility] vent set to AC 28). Throughout shift BP remained WNL & HR remained WNL. No restlessness noted. Sometimes, patient "coughs" / gags(?). Patient is sometimes able to open eyes and sometimes track. Psych consult per Scott CIRCULAR STUFFER. Per Chely from [facility], facesheet received. Spoke to Bebe today who requested to see patient. Referred to amy Rueda.
--- NOTE | 2019-08-28 19:30 | NUR ---
CONCRETE MIXER TRUCK DRIVER OPENING NOTES, RECEIVED PATIENT IN BED SEDATED, TRACH IN PLACE. AIRWAY PATENT. NO RESPIRATORY DISTRESS NOTED. SR ON BEDSIDE MONITOR IN HIGH 50S/LOW 60S. HOB ELEVATED. BRITTANY PICC IN PLACE PATENT AND FLUSHING WELL, RUNNING DIPRIVAN @15MCG/KG/MIN. TOLERATING GTF WELL RUNNING JEVITY@35 ML/HR. MORAN IN PLACE DRAINING CLOUDY/ORANGE COLOR URINE. BED IN LOW LOCKED POSITION, WILL CONTINUE TO MONITOR THE PATIENT CLOSELY.
[2019-08-29] VITALS (44 sets, daily range): BP systolic 101–177; BP diastolic 49–119
[2019-08-29] MEDS: METOCLOPRAMIDE HCL 10 MG/2 ML VIAL IV SCH ×4 (03:29→21:02)
[2019-08-29 04:30] LABS: HEMATOCRIT 29 % (39-51); HEMOGLOBIN 9.6 g/dL (13.5-17.5); LYMPHOCYTES # (AUTO) 0.7 /CMM (0.8-4.8); LYMPHOCYTES % (AUTO) 6.7 % (20.0-44.0); MEAN CORPUSCULAR HGB CONC 33 g/dl (31.0-36.0); MEAN CORPUSCULAR VOLUME 98 fL (80-96); MONOCYTES # (AUTO) 0.5 /CMM (0.1-1.30); MONOCYTES % (AUTO) 4.5 % (2.0-12.0); NEUTROPHILS # (AUTO) 9.2 /CMM (1.8-8.9); NEUTROPHILS % (AUTO) 88.8 % (43.0-81.0); PLATELET COUNT (AUTO) 254 /CMM (150-450); WHITE BLOOD COUNT (AUTO) 10.3 K/uL (4.3-11.0)
[2019-08-29 04:53] LABS: CALCIUM, SERUM 8.2 mg/dL (8.5-10.1); CREATININE 0.6 mg/dL (0.6-1.3); POTASSIUM 3.6 mmol/L (3.5-5.1)
[2019-08-29] MEDS: LORAZEPAM 1 MG TABLET PO SCH ×3 (05:38→20:36)
[2019-08-29] MEDS: PROPOFOL 100 ML IV PRN (07:09)
--- NOTE | 2019-08-29 07:13 | NUR ---
ARRANGING FUNERAL DIRECTOR CLOSING NOTES, PATIENT IN BED SEDATED, TRACH IN PLACE. AIRWAY PATENT. NO RESPIRATORY DISTRESS NOTED. SR ON BEDSIDE MONITOR IN HIGH 50S/LOW 60S. HOB ELEVATED. BRITTANY PICC IN PLACE PATENT AND FLUSHING WELL, RUNNING DIPRIVAN @15MCG/KG/MIN. TOLERATING GTF WELL RUNNING JEVITY@35 ML/HR. MORAN IN PLACE DRAINING CLOUDY/ORANGE COLOR URINE. PATIENT KEPT CLEAN AND DRY DURING LOG HAUL OPERATOR. BED IN LOW LOCKED POSITION, ENDORSED THE PATIENT TO AM RN FOR MEG.
[2019-08-29] MEDS: LEVOTHYROXINE SODIUM 112 MCG TABLET PO SCH (07:56)
[2019-08-29] MEDS: DABIGATRAN ETEXILATE MESYLATE 150 MG CAPSULE PO SCH ×2 (07:56→17:02)
[2019-08-29] MEDS: HYDROCORTISONE SOD SUCCINATE 100 MG/2 ML VIAL IV SCH ×3 (07:56→17:04)
[2019-08-29] MEDS: CLOTRIMAZOLE 1% 15 GM TUBE TP SCH ×2 (07:57→17:05)
[2019-08-29] MEDS: PROSOURCE / PROSTAT (PYXIS) 30 ML UDC GT SCH ×4 (07:57→20:36)
--- NOTE | 2019-08-29 08:00 | NUR ---
per BREANA Gamboa patient's Bebe not allowed to visit "because we can't make exceptions for her" , and hospital policy is no visitors at this time
--- NOTE | 2019-08-29 13:20 | NUR ---
heart rhythm converted to afib HR 160-170s (RVR),appears SVT like, RR 28 (vent settings AC 28, FiO2 60%), SPO2 99%, doesn't appear physically distressed (patient calm, not moving, eyes open) , propofol off @0830 this am, Dr. Martinez contacted, received orders for amio bolus+drip. EKG done -> SVT
[2019-08-29] MEDS ORDERED: AMIODARONE 150 MG in IV D5W 100 ML IV ONE (13:30)
--- NOTE | 2019-08-29 13:34 | NUR ---
received call from patient's Bebe requesting to visit. Per nursing sup Vanesa no visitors allowed
[2019-08-29] MEDS: AMIODARONE 450 MG in IV D5W 250 ML IV PRN ×2 (13:45→21:42)
--- NOTE | 2019-08-29 17:24 | NUR ---
CLERK GENERAL Shift Summary At the beginning of shift, patient was on 15mcg/kg/min of propofol. Lethargic+difficult to arouse. Received an order from Dr. Noe to turn off propofol @0830 and monitor patient. Since then, he has been more interactive. He opens eyes, makes eye contact and squeezes my fingers upon request (able to do so with both hands). He was calm, RR 28 (mech vent AC 28), BP slightly elevated. Then, @1315 his rhythm changed. See previous note for details. CVP monitoring intact - ranges between 7 - 10. PEG intact, Jevity@ 35mL/hr, no residual, placement verified via auscultation+aspiration. Copeland draining katrina colored urine to gravity. x1 BM today. Skin remains intact, wound care completed as ordered, turned per protocol. BUE 4+ edema. BRITTANY PICC infusing amiodarone @33.33mL/hr + NS @TKO. tempmax noted to be 99.3F. Psych consult pending. Per Chely from psych yesterday, the facesheet fax was received. Today, per Melanie from psych, they don't have the facesheet "which means the doctor will probably see the patient today" because he "usually makes rounds in the evening". Bebe requested to speak to Psychiatrist to discuss the patient's psych med history.
--- NOTE | 2019-08-29 19:00 | NUR ---
RECEIVED PATIENT on the ventilator with tracheostomy on AC MODE<NOT IN ANY DISTRESS<BREATHING REGULAR AND NON LABORED.AWAKE,drowsy on and off,good eye contact but does not follow commands.slightly able to move upper extremities,but very weak due to extreme edema,unable to move lower extremities + edema as well. PICC line via BRITTANY ,on AMIODARONE DRIP 1mg/min 'till 1944 then 0.5 mg/min x 18 hrs.more.
[2019-08-29] MEDS: JEVITY 1.2 CAL 1,000 ML BOTTLE GT PRN (20:13)
--- NOTE | 2019-08-29 21:00 | NUR ---
Psyche called ,to see patient in am
[2019-08-30] VITALS (29 sets, daily range): BP systolic 100–165; BP diastolic 58–106
--- NOTE | 2019-08-30 | NUR ---
Status unchanged ,stable,not in any distress,awakens but calm.Still on Amiodarone drip.
--- NOTE | 2019-08-30 04:00 | NUR ---
Remains stable,calm,not in any distress.Breathing regular and non labored
[2019-08-30] MEDS: METOCLOPRAMIDE HCL 10 MG/2 ML VIAL IV SCH ×4 (04:11→21:05)
[2019-08-30] MEDS: LORAZEPAM 1 MG TABLET PO SCH ×3 (04:11→20:29)
[2019-08-30 04:12] LABS: BASOPHILS % (AUTO) 0.2 % (0.0-2.0); EOSINOPHILS % (AUTO) 0.2 % (0.0-6.0); HEMATOCRIT 29 % (39-51); HEMOGLOBIN 9.5 g/dL (13.5-17.5); LYMPHOCYTES # (AUTO) 0.7 /CMM (0.8-4.8); LYMPHOCYTES % (AUTO) 4.4 % (20.0-44.0); MEAN CORPUSCULAR HGB CONC 32 g/dl (31.0-36.0); MEAN CORPUSCULAR VOLUME 98 fL (80-96); MONOCYTES # (AUTO) 0.7 /CMM (0.1-1.30); MONOCYTES % (AUTO) 4.7 % (2.0-12.0); NEUTROPHILS # (AUTO) 13.6 /CMM (1.8-8.9); NEUTROPHILS % (AUTO) 90.5 % (43.0-81.0); PLATELET COUNT (AUTO) 254 /CMM (150-450); RED BLOOD CELL COUNT(AUTO) 2.97 MIL/uL (4.5-6.0)
[2019-08-30 04:19] LABS: CALCIUM, SERUM 8.2 mg/dL (8.5-10.1); CREATININE 0.8 mg/dL (0.6-1.3); POTASSIUM 3.4 mmol/L (3.5-5.1)
--- NOTE | 2019-08-30 06:00 | NUR ---
Remains stable,calm,not in any distress.For psyche consult
[2019-08-30] MEDS ORDERED: POTASSIUM CHLORIDE 20 MEQ POWDER PACKET GT ONE (08:00)
[2019-08-30] MEDS: LEVOTHYROXINE SODIUM 112 MCG TABLET PO SCH (08:13)
[2019-08-30] MEDS: HYDROCORTISONE SOD SUCCINATE 100 MG/2 ML VIAL IV SCH ×3 (08:15→16:18)
[2019-08-30] MEDS: DABIGATRAN ETEXILATE MESYLATE 150 MG CAPSULE PO SCH ×2 (08:15→16:17)
[2019-08-30] MEDS: CLOTRIMAZOLE 1% 15 GM TUBE TP SCH ×2 (08:18→16:19)
[2019-08-30] MEDS: PROSOURCE / PROSTAT (PYXIS) 30 ML UDC GT SCH ×4 (08:19→20:29)
[2019-08-30] MEDS ORDERED: POTASSIUM CHLORIDE 20 MEQ POWDER PACKET NG SCH (08:30)
--- NOTE | 2019-08-30 08:43 | NUR ---
received pt from table games shift manager, lethargic, does not follow commands, SR, T/V, sat well, GT to feeding tolerates well, v/s stable, no pain, pt turned and repositioned.
[2019-08-30 08:50] LABS: MAGNESIUM 2.2 mg/dL (1.8-2.4); PHOSPHORUS 3.1 mg/dL (2.5-4.9)
--- NOTE | 2019-08-30 16:08 | NUR ---
pt is resting in the bed, lethargic, SR, sat well, GT to feeding tolerates well, f/c OK output, v/s stable, no pain, pt cleaned, changed and repositioned q2hrs.
--- NOTE | 2019-08-30 19:05 | NUR ---
MUSIC PRODUCER NOTE RECEIVED PATIENT IN BED RESTING WITH HOB ELEVATED. BREATHING EVEN AND NON LABORED. VENT DEPENDANT. AWAKE, ALERT, ABLE TO OPEN EYES. NON VERBAL. ON GT FEEDING JEVITY @ 35 ML/HR. ON MORAN CATH, URINE IS YELLOW IN COLOR WITH SOME SEDIMENTS NOTED. IV SITE ON BRITTANY PICC, PATENT. IN NO APPARENT DISTRESS NOTED AT THIS TIME. WILL CONTINUE TO MONITOR.
[2019-08-30] MEDS: MIRTAZAPINE 15 MG TABLET PO SCH (21:05)
[2019-08-30] MEDS: JEVITY 1.2 CAL 1,000 ML BOTTLE GT PRN (21:56)
[2019-08-30] MEDS: ACETAMINOPHEN 650 MG/20.3 ML UDC NG PRN (23:30)
[2019-08-31] VITALS (45 sets, daily range): BP systolic 89–166; BP diastolic 45–114
--- NOTE | 2019-08-31 03:30 | NUR ---
PRE FABRICATOR NOTE PATIENT TOLERATED BED BATH WELL AT THIS TIME. NOTED 1 EPISODE OF BM. ALL SKIN CARE RENDERED. WILL CONTINUE TO MONITOR.
[2019-08-31 04:22] LABS: BASOPHILS % (AUTO) 0.1 % (0.0-2.0); EOSINOPHILS % (AUTO) 0.1 % (0.0-6.0); HEMATOCRIT 29 % (39-51); HEMOGLOBIN 9.2 g/dL (13.5-17.5); LYMPHOCYTES # (AUTO) 0.7 /CMM (0.8-4.8); LYMPHOCYTES % (AUTO) 4.7 % (20.0-44.0); MEAN CORPUSCULAR HGB CONC 32 g/dl (31.0-36.0); MEAN CORPUSCULAR VOLUME 99 fL (80-96); MONOCYTES # (AUTO) 0.6 /CMM (0.1-1.30); MONOCYTES % (AUTO) 3.6 % (2.0-12.0); NEUTROPHILS # (AUTO) 14.4 /CMM (1.8-8.9); NEUTROPHILS % (AUTO) 91.5 % (43.0-81.0); PLATELET COUNT (AUTO) 231 /CMM (150-450); RED BLOOD CELL COUNT(AUTO) 2.89 MIL/uL (4.5-6.0); WHITE BLOOD COUNT (AUTO) 15.7 K/uL (4.3-11.0)
[2019-08-31] MEDS: LORAZEPAM 1 MG TABLET PO SCH (04:23)
[2019-08-31] MEDS: METOCLOPRAMIDE HCL 10 MG/2 ML VIAL IV SCH ×4 (04:23→21:07)
[2019-08-31 04:35] LABS: CALCIUM, SERUM 8.2 mg/dL (8.5-10.1); CREATININE 0.8 mg/dL (0.6-1.3); POTASSIUM 3.9 mmol/L (3.5-5.1)
--- NOTE | 2019-08-31 05:13 | NUR ---
RT NOTES PT RECEIVED TRACHED ON [facility] VENT ON CHARTED AC MODE SETTINGS. NO SIGNS OF RESP DISTRESS/SOB NOTED THROUGHOUT SHIFT. AIRWAY PATENT AND SECURED. AVIATION MEDICINE SPECIALIST DONE. PT SUCTIONED. ALARMS SET AND AUDIBLE. AMBUBAG AT [facility]. VENT CONNECTED TO RED OUTLET. WILL CONT TO MONITOR CLOSELY. Addendum: 08/31/19 at 0529 by DAISY TEAGUE RT Amended: Links added.
--- NOTE | 2019-08-31 06:35 | NUR ---
JAVA ANDROID DEVELOPER NOTE PATIENT REMAINED STABLE THROUGHOUT THE NIGHT. NO SIGNIFICANT CHANGES NOTED. ALL DUE MEDS GIVEN ORDERED AND TOLERATED WELL. ALL WOUND CARE RENDERED. REPOSITIONED Q2H. IN NO APPARENT DISTRESS NOTED AT THIS TIME. WILL ENDORSE TO AM SHIFT RN FOR CONTINUATION OF CARE.
[2019-08-31] MEDS: DABIGATRAN ETEXILATE MESYLATE 150 MG CAPSULE PO SCH ×2 (10:16→18:02)
[2019-08-31] MEDS: LEVOTHYROXINE SODIUM 112 MCG TABLET PO SCH (10:19)
[2019-08-31] MEDS: HYDROCORTISONE SOD SUCCINATE 100 MG/2 ML VIAL IV SCH ×3 (10:20→18:01)
[2019-08-31] MEDS: CLOTRIMAZOLE 1% 15 GM TUBE TP SCH ×2 (10:20→18:00)
[2019-08-31] MEDS: PROSOURCE / PROSTAT (PYXIS) 30 ML UDC GT SCH ×4 (10:20→20:28)
[2019-08-31] MEDS: FUROSEMIDE 100 MG/10 ML VIAL IV SCH ×3 (10:20→19:05)
[2019-08-31] MEDS: LORAZEPAM 0.5 MG TABLET PO SCH ×2 (13:14→20:33)
--- NOTE | 2019-08-31 14:13 | NUR ---
PT WENT INTO RAPID AFIB 160'S-180'S AT 1340, NO RESPIRATORY DISTRESS. PT APPEARS CALM, FOLLOWING SOME COMMANDS. DR. LYNN NOTIFIED OF EVENT AND THAT PT HAS RECEIVED 2 DOSES OUT OF 3 DOSE OF LASIX 80MG WITH 3000ML OF URINE OUT SO FAR. ORDERS GIVEN.
[2019-08-31] MEDS ORDERED: AMIODARONE 150 MG in IV D5W 100 ML IV ONE (14:30)
[2019-08-31] MEDS: AMIODARONE 450 MG in IV D5W 250 ML IV PRN ×2 (15:05→23:22)
--- NOTE | 2019-08-31 15:51 | NUR ---
RT NOTE RECEIVED PT MECHANICALLY VENTILATED VIA CUFFED TRACHEOSTOMY TUBE. CUFF INFLATED. TRACH TUBE MIDLINE AND SECURE. ALARMS SET PER PROTOCOL AND AUDIBLE. VENTILATOR SETTINGS PRESCRIBED. VENT PLUGGED IN TO RED OUTLET. AMBU BAG AT BED SIDE. NO DISTRESS NOTED AT MOMENT. Addendum: 08/31/19 at 1553 by MONISHA NJ RT Amended: Links added.
--- NOTE | 2019-08-31 17:39 | NUR ---
NOTIFIED DR. LYNN OF POTASSIUM RESULT OF 2.9, MAG OF 1.8, CURRENT BP 108/56, STILL AFIB 130'S-140'S. LASIX 80MG IV DUE AT 1700. ORDERS GIVEN FOR 40MEQ POTASSIUM Q1H X2 THEN GIVE LASIX.
[2019-08-31] MEDS: POTASSIUM CHLORIDE 20 MEQ POWDER PACKET GT SCH ×2 (18:00→19:05)
--- NOTE | 2019-08-31 18:54 | NUR ---
END OF SHIFT NOTE: PT CONVERTED TO RAPID A-FIB AT 1340 PREVIOUSLY NOTED, PT CONVERTED BACK TO SINUS RHYTHM AT 1745. MEDS GIVEN PER MD ORDERS. NO BM THIS SHIFT. TOTAL OF 4750 ML URINE OUTPUT THIS SHIFT. AMIODARONE GTT INFUSING PER MD ORDERS AT 1MG/MIN, TO BE CHANGED TO 0.5 MG/MIN AT 2100 TONIGHT, WILL ENDORSE TO ONCOMING SHIFT. PT CHECKED ON HOURLY AND PRN BY NURSING STAFF.
[2019-08-31] MEDS: MIRTAZAPINE 15 MG TABLET PO SCH (21:07)
[2019-08-31] MEDS: JEVITY 1.2 CAL 1,000 ML BOTTLE GT PRN (23:47)
[2019-09-01] VITALS (46 sets, daily range): BP systolic 94–172; BP diastolic 60–119
[2019-09-01] MEDS: METOCLOPRAMIDE HCL 10 MG/2 ML VIAL IV SCH ×4 (03:47→21:21)
[2019-09-01 05:29] LABS: BASOPHILS % (AUTO) 0.3 % (0.0-2.0); EOSINOPHILS % (AUTO) 0.2 % (0.0-6.0); HEMATOCRIT 29 % (39-51); HEMOGLOBIN 9.4 g/dL (13.5-17.5); LYMPHOCYTES # (AUTO) 0.6 /CMM (0.8-4.8); LYMPHOCYTES % (AUTO) 5.4 % (20.0-44.0); MEAN CORPUSCULAR HGB CONC 33 g/dl (31.0-36.0); MEAN CORPUSCULAR VOLUME 98 fL (80-96); MONOCYTES # (AUTO) 0.5 /CMM (0.1-1.30); MONOCYTES % (AUTO) 4.2 % (2.0-12.0); NEUTROPHILS # (AUTO) 10.1 /CMM (1.8-8.9); NEUTROPHILS % (AUTO) 89.9 % (43.0-81.0); PLATELET COUNT (AUTO) 227 /CMM (150-450); RED BLOOD CELL COUNT(AUTO) 2.94 MIL/uL (4.5-6.0); WHITE BLOOD COUNT (AUTO) 11.3 K/uL (4.3-11.0)
[2019-09-01 05:51] LABS: ALBUMIN 2.1 g/dL (3.4-5.0); BILIRUBIN,TOTAL 0.5 mg/dL (0.2-1.0); CALCIUM, SERUM 8.2 mg/dL (8.5-10.1); CREATININE 0.8 mg/dL (0.6-1.3); PHOSPHORUS 3.2 mg/dL (2.5-4.9); POTASSIUM 3.2 mmol/L (3.5-5.1); TOTAL PROTEIN, SERUM 5.8 g/dL (6.4-8.2)
--- NOTE | 2019-09-01 06:07 | NUR ---
RN NOTE NOTED WITH POTASSIUM 3.2. PAGED DR. ROJAS.
--- NOTE | 2019-09-01 06:28 | NUR ---
RN NOTE DR. ROJAS CALLED BACK WITH NEW ORDER TO ADMINISTER POTASSIUM CHLORIDE 40MEQ IV. ORDER NOTED AND CARRIED OUT.
[2019-09-01] MEDS: POTASSIUM CL. PREMIX PERIPHER. 50 ML IV SCH ×4 (06:47→11:54)
[2019-09-01] MEDS: LEVOTHYROXINE SODIUM 112 MCG TABLET PO SCH (08:46)
[2019-09-01] MEDS: DABIGATRAN ETEXILATE MESYLATE 150 MG CAPSULE PO SCH ×2 (08:46→17:43)
[2019-09-01] MEDS: HYDROCORTISONE SOD SUCCINATE 100 MG/2 ML VIAL IV SCH ×3 (08:46→17:40)
[2019-09-01] MEDS: CLOTRIMAZOLE 1% 15 GM TUBE TP SCH ×2 (08:47→17:42)
[2019-09-01] MEDS: LORAZEPAM 0.5 MG TABLET PO SCH ×2 (08:47→20:24)
[2019-09-01] MEDS: FUROSEMIDE 100 MG/10 ML VIAL IV SCH ×3 (08:47→17:41)
[2019-09-01] MEDS: PROSOURCE / PROSTAT (PYXIS) 30 ML UDC GT SCH ×4 (08:48→20:25)
--- NOTE | 2019-09-01 18:44 | NUR ---
END OF SHIFT NOTE: PT HAD AN UNEVENTFUL SHIFT. AMIODARONE ENDED AT 1500. NO RAPID A FIB THIS SHIFT. PT MUCH MORE ALERT AND RESPONSIVE THAN PREVIOUS SHIFT. PT ANSWERS YES AND NO SIMPLE QUESTIONS. LASIX 80MG X3 GIVEN THIS SHIFT. >3000 ML UOP THIS SHIFT. 40MEQ IV POTASSIUM GIVEN THIS SHIFT PER MD ORDERS. PT HAD 1 SMALL BM THIS SHIFT. PT CHECKED ON HOURLY AND PRN BY NURSING STAFF.
--- NOTE | 2019-09-01 19:20 | NUR ---
HEAD AND NECK SURGEON OPENING NOTE RECEIVED PATIENT IN BED RESTING WITH HOB ELEVATED. AWAKE, ALERT, ABLE TO OPEN EYES. NON VERBAL. BREATHING EVEN AND NON LABORED. ON TRACH/VENT SETTING ORDERED SPO2 98%.ON TELE MONITOR READING SINUS RHYTHM BBB 80'S. AWAKE, ALERT, ABLE TO OPEN EYES. NON VERBAL. ON GT FEEDING JEVITY @ 35 ML/HR. ON MORAN CATH, URINE IS YELLOW IN COLOR WITH SOME SEDIMENTS NOTED. IV SITE ON BRITTANY PICC, PATENT. IN NO APPARENT DISTRESS NOTED AT THIS TIME.SAFETY MEASURE MAINTAINED BED ON LOWEST POSITION AND LOCKED SIDE RAILS UPX2. WILL CONTINUE TO MONITOR.
--- NOTE | 2019-09-01 19:45 | NUR ---
ICU/ADMINISTRATIVE TECHNICIAN REPORT RECEIVED FROM THE DAY NURSE. SEE FLOWSHEET FOR ASSESSMENT, SKIN ISSUES ARE ADDRESSED ON FLOWSHEET ALONG WITH INTERVENTION TO EACH. PT AWAKE AND ALERT DESPITE HAVING TRACH. PT HAS TRACH AND TOLERATING CURRENT SETTINGS WELL WITH SATURATION AT 99-100%. WILL MONITOR THIS PT AND HER SATURATION. PT WAS TURNED AND REPOSITIONED FOR COMFORT AND CARE. NO ACUTE DISTRESS SEEN AT THIS TIME. Addendum: 09/01/19 at 2131 by BUCK GUZMÁN LVN WRONG PT
--- NOTE | 2019-09-01 20:00 | NUR ---
PRACTICE REPRESENTATIVE NOTES NOTED THAT PT BP FOR A DAY IS ELEVATED CURRENTLY ITS 172/[address] ROJAS MADE AWARE WITH ORDER MADE AND CARRIED OUT WILL CONT TO MONITOR THE PT
[2019-09-01] MEDS: hydrALAZINE HCL IV 20 MG VIAL IV PRN (20:24)
[2019-09-01] MEDS: MIRTAZAPINE 15 MG TABLET PO SCH (21:21)
[2019-09-02] VITALS (44 sets, daily range): BP systolic 93–167; BP diastolic 55–108
--- NOTE | 2019-09-02 00:24 | NUR ---
RT NOTE Pt rec'd trached on [facility] vent on AC mode. Pt shows no signs of resp distress or sob. Trach is patent and secured. Pt sx'd for mod amt of pale yellow secretions. Alarms are set and audible. Ambu bag bedside. Vent plugged into red outlet. Will continue to monitor Addendum: 09/02/19 at 0025 by HILARIO GUTIERREZ RT Amended: Links added.
[2019-09-02] MEDS: JEVITY 1.2 CAL 1,000 ML BOTTLE GT PRN ×2 (03:01→16:47)
[2019-09-02] MEDS: Z GUARD REMEDY 2 OZ OINT TP PRN (03:02)
[2019-09-02] MEDS: METOCLOPRAMIDE HCL 10 MG/2 ML VIAL IV SCH ×3 (03:43→17:07)
[2019-09-02 04:51] LABS: BASOPHILS % (AUTO) 0.1 % (0.0-2.0); EOSINOPHILS % (AUTO) 0.1 % (0.0-6.0); HEMATOCRIT 30 % (39-51); LYMPHOCYTES # (AUTO) 0.6 /CMM (0.8-4.8); LYMPHOCYTES % (AUTO) 5.3 % (20.0-44.0); MEAN CORPUSCULAR HGB CONC 33 g/dl (31.0-36.0); MEAN CORPUSCULAR VOLUME 98 fL (80-96); MONOCYTES # (AUTO) 0.5 /CMM (0.1-1.30); NEUTROPHILS # (AUTO) 9.5 /CMM (1.8-8.9); NEUTROPHILS % (AUTO) 89.5 % (43.0-81.0); PLATELET COUNT (AUTO) 251 /CMM (150-450); RED BLOOD CELL COUNT(AUTO) 3.12 MIL/uL (4.5-6.0); WHITE BLOOD COUNT (AUTO) 10.7 K/uL (4.3-11.0)
[2019-09-02 05:07] LABS: ALBUMIN 2.2 g/dL (3.4-5.0); BILIRUBIN,TOTAL 0.6 mg/dL (0.2-1.0); CALCIUM, SERUM 7.6 mg/dL (8.5-10.1); CREATININE 0.8 mg/dL (0.6-1.3); MAGNESIUM 1.9 mg/dL (1.8-2.4); PHOSPHORUS 3.5 mg/dL (2.5-4.9)
[2019-09-02 05:19] LABS: POTASSIUM 2.5 mmol/L (3.5-5.1)
--- NOTE | 2019-09-02 05:50 | NUR ---
STONE PRODUCT FABRICATOR NOTES CRITICAL VALUE OF POTASSIUM 2.[address] ROJAS WITH ORDER MADE AND CARRIED OUT
[2019-09-02] MEDS: POTASSIUM CL. PREMIX PERIPHER. 50 ML IV SCH ×2 (06:07→07:18)
--- NOTE | 2019-09-02 06:49 | NUR ---
RN CLOSING NOTES PT ON BED AWAKE, TRACH/VENT SETTING ORDERED TOLERATED WELL NO SIGN AND SYMPTOMS OF RESPIRATORY DISTRESS SPO2 97% TELE MONITOR READS SINUS RHYTHM 80'S WITH EPISODE OF AFIB NO SIGNIFICANT CHANGES ON CONDITION NOTED, ALL NEEDS ATTENDED SAFETY MEASURE MAINTAINED BED ON LOWEST POSITION AND LOCKED SIDE RAILS UPX2 CALL LIGHT WITHIN REACH WILL ENDORSED TO AM SHIFT NURSE
--- NOTE | 2019-09-02 07:30 | NUR ---
RN OPENING NOTE: Received patient in bed and asleep. Appears comfortable and relaxed. On mech ventilation at current prescribed settings being tolerated well with saturation noted 97%. No SOB and not in respiratory distress. Tele monitor showing sinus rhythm in the 80s IV site clean dry, patent and intact. GTube patent and in place with Jevity 1.2 @ 35cc/hr being tolerated well. Copeland catheter draining yellow urine. Report received for Potassium level of 2.5 with replacement started on previous shift. Call light in reach. Bed locked, low and at semi-wick's position. Side rails up x3. Safety ensured and observed. Will continue to monitor.
[2019-09-02] MEDS: LEVOTHYROXINE SODIUM 112 MCG TABLET PO SCH (08:00)
[2019-09-02] MEDS: POTASSIUM CHLORIDE 20 MEQ POWDER PACKET GT SCH ×2 (08:00→09:13)
[2019-09-02] MEDS: HYDROCORTISONE SOD SUCCINATE 100 MG/2 ML VIAL IV SCH ×3 (08:39→17:06)
[2019-09-02] MEDS: LORAZEPAM 0.5 MG TABLET PO SCH ×2 (08:39→21:15)
[2019-09-02] MEDS: DABIGATRAN ETEXILATE MESYLATE 150 MG CAPSULE PO SCH ×2 (08:41→17:06)
[2019-09-02] MEDS: PROSOURCE / PROSTAT (PYXIS) 30 ML UDC GT SCH ×4 (08:44→22:03)
[2019-09-02] MEDS: CLOTRIMAZOLE 1% 15 GM TUBE TP SCH ×2 (09:00→17:07)
[2019-09-02] MEDS: hydrALAZINE HCL IV 20 MG VIAL IV PRN (10:45)
--- NOTE | 2019-09-02 11:00 | NUR ---
rn note: Patient was seen by Jaime Almendarez DNP. Reported to him about patient being observed with shaking episodes and suggested to probably lower Reglan dose. Jaime ordered change of frequency from q6h to q8h. Noted and carried out.
[2019-09-02] MEDS: FUROSEMIDE 100 MG/10 ML VIAL IV SCH ×3 (12:08→19:41)
--- NOTE | 2019-09-02 15:27 | NUR ---
rn note: No acute changes noted on shift. Potassium replaced as ordered. Due medications given. Safety ensured and observed. Treatment given as ordered. Endorsed to LYNDA Boyd for continuity of care.
--- NOTE | 2019-09-02 16:00 | NUR ---
FIRE CREW WORKER NOTES RECEIVED PATIENT AOX1 RE ORIENTED TO PLACE DATE AND TIME , NOT IN ACUTE DISTRESS , DENIES SOB AND DISCOMFORT, TRACH OF SILVIANO # 8 , AC 28 TV 550 FIO2 45 PEEP OF 5 SPO2 OF 100% , SR WITH BBB 75 ON BEDSIDE MONITOR , GT PATENT AND INTACT WITH JEVITY @35ML/HR INFUSING WELL WITH NO RESIDUALS NOTED , FC DRAINING VIA GRAVITY WITH CLEAR YELLOW URINE , BRITTANY PICC LINE WITH NS @ TKO , ALL NEEDS ATTENDED WILL CONTINUE TO MONITOR
--- NOTE | 2019-09-02 18:17 | NUR ---
THIRD HELPER NOTES PICC LINE DRESSING CHANGED , LABELED , NO SIGNS OF INFECTION NOTED , WILL CONTINUE TO MONITOR
[2019-09-02] MEDS: MIRTAZAPINE 15 MG TABLET PO SCH (21:15)
[2019-09-02 23:10] LABS: MAGNESIUM 2.2 mg/dL (1.8-2.4)
--- NOTE | 2019-09-02 23:22 | NUR ---
RN NOTE NOTED PT TO BE IN NEW ONSET OF RAPID AFIB WITH HEART RATE GOING UP TO 185. PT IS CURRENTLY ASYMPTOMATIC. STAT POTASSIUM ORDERED AND RESULTED WHICH IS 3. 12 LEAD EKG ORDERED AND RESULTED. PAGED DR. ROJAS WITH FINDINGS.
--- NOTE | 2019-09-02 23:28 | NUR ---
RN NOTE DR. ROJAS RETURNED CALL WITH NEW ORDERS TO GIVEN CARDIZEM 10MG IVP Q6H PRN FOR HEART RATE > 110 AND GIVE POTASSIUM 40 MEQ VIA GT X 1. ORDER NOTED AND CARRIED OUT.
[2019-09-03] VITALS (65 sets, daily range): BP systolic 78–178; BP diastolic 13–131
[2019-09-03] MEDS ORDERED: POTASSIUM CHLORIDE 20 MEQ POWDER PACKET GT SCH
[2019-09-03] MEDS ORDERED: POTASSIUM CHLORIDE 20 MEQ TAB.PRT.SR PO SCH
[2019-09-03] MEDS ORDERED: DILTIAZEM HCL 50 MG IV IV PRN
--- NOTE | 2019-09-03 00:10 | NUR ---
RN NOTE POST ADMINISTRATION OF POTASSIUM CHLORIDE 40 MEQ VIA GT, PT CONVERTED BACK TO SINUS RHTHYM HR 88. NO FURTHER NEEDS AT THIS TIME.
[2019-09-03] MEDS: METOCLOPRAMIDE HCL 10 MG/2 ML VIAL IV SCH ×3 (04:21→21:08)
[2019-09-03 04:22] LABS: EOSINOPHILS % (AUTO) 0.1 % (0.0-6.0); HEMATOCRIT 33 % (39-51); HEMOGLOBIN 10.6 g/dL (13.5-17.5); LYMPHOCYTES # (AUTO) 0.7 /CMM (0.8-4.8); LYMPHOCYTES % (AUTO) 7.2 % (20.0-44.0); MEAN CORPUSCULAR HGB CONC 33 g/dl (31.0-36.0); MEAN CORPUSCULAR VOLUME 98 fL (80-96); MONOCYTES # (AUTO) 0.7 /CMM (0.1-1.30); MONOCYTES % (AUTO) 7.3 % (2.0-12.0); NEUTROPHILS # (AUTO) 8.2 /CMM (1.8-8.9); NEUTROPHILS % (AUTO) 85.4 % (43.0-81.0); PLATELET COUNT (AUTO) 247 /CMM (150-450); RED BLOOD CELL COUNT(AUTO) 3.33 MIL/uL (4.5-6.0); WHITE BLOOD COUNT (AUTO) 9.6 K/uL (4.3-11.0)
[2019-09-03 04:33] LABS: ALBUMIN 2.3 g/dL (3.4-5.0); BILIRUBIN,TOTAL 0.6 mg/dL (0.2-1.0); CALCIUM, SERUM 8.4 mg/dL (8.5-10.1); CREATININE 1.1 mg/dL (0.6-1.3); PHOSPHORUS 3.5 mg/dL (2.5-4.9); POTASSIUM 3.6 mmol/L (3.5-5.1)
--- NOTE | 2019-09-03 07:23 | NUR ---
RN NOTE PT IN BED AWAKE AND ALERT IN SEMI BRYAN'S POSITION. RESPONDING TO SIMPLE COMMANDS BUT STILL NON VERBAL. PT ON MECHANICAL VENTILATOR AND TOLERATING SETTINGS WELL. RESPIRATIONS EVEN AND UNLABORED, TRACH MID LINE AND IN PLACE, MORAN CATHETER PATENT AND IN PLACE DRAINING CLEAR YELLOW URINE, TUBE FEEDING RUNNING ORDERED, CALL LIGHT WITHIN REACH, SAFETY MEASURES IN PLACE, ENDORSED TO MORNING RN FOR CONTINUATION OF CARE.
--- NOTE | 2019-09-03 07:30 | NUR ---
RN NOTES RECEIVED PATIENT IN BED, ASLEEP BUT IS EASILY AWAKEN BY VERBAL STIMULI, ABLE TO RESPOND TO SIMPLE QUESTION, ABLE TO FOLLOW COMMANDS. LOOKS CALM IN BED. NOT ON ANY FORM OF DISTRESS, TOLERATING CURRENT VENT SETTINGS. BREATHING IS UNLABORED. SATING FINE AT 100%. SINUS RHYTHM ON THE MONITOR WITH HR ON THE 70s. GT IN PLACE, PATIENT TOLERATING FEEDING WELL, NO RESIDUAL TAKEN. PATIENT ENCOURAGE TO CALL FOR HELP AND ASSISTANCE. CALL LIGHT PLACED WITHIN REACH, WILL CONIINE TO MONITOR PATIENT ACCORDINGLY
[2019-09-03] MEDS: LEVOTHYROXINE SODIUM 112 MCG TABLET PO SCH (08:28)
[2019-09-03] MEDS: FUROSEMIDE 100 MG/10 ML VIAL IV SCH ×3 (08:28→16:00)
[2019-09-03] MEDS: DABIGATRAN ETEXILATE MESYLATE 150 MG CAPSULE PO SCH ×2 (08:30→17:47)
[2019-09-03] MEDS: POTASSIUM CHLORIDE 20 MEQ POWDER PACKET NG SCH ×2 (08:31→10:00)
[2019-09-03] MEDS: PROSOURCE / PROSTAT (PYXIS) 30 ML UDC GT SCH ×4 (08:32→21:08)
[2019-09-03] MEDS: CLOTRIMAZOLE 1% 15 GM TUBE TP SCH ×2 (08:33→17:42)
[2019-09-03] MEDS: HYDROCORTISONE SOD SUCCINATE 100 MG/2 ML VIAL IV SCH ×3 (08:33→17:41)
[2019-09-03] MEDS: LORAZEPAM 0.5 MG TABLET PO SCH ×2 (08:33→21:08)
--- NOTE | 2019-09-03 09:06 | NUR ---
WOUND CARE CONSULT: PT SEEN FOR RT ELBOW BLANCHABLE REDNESS. PILLOWS IN USE FOR OFFLOADING. GENERALIZED EDEMA NOTED. DISCUSSED CONTINUED SKIN PROTECTION WITH NURSING STAFF. WILL SEE PRN.
--- NOTE | 2019-09-03 16:00 | NUR ---
RN NOTES MISSED SCHEDULE TIME FOR THE 3RD DOSE OF LASIX 80MG IV. CALLED PHARMACY TO RENEWAL OF THE ORDER
[2019-09-03] MEDS ORDERED: FUROSEMIDE 100 MG/10 ML VIAL IV ONE (18:00)
--- NOTE | 2019-09-03 19:12 | NUR ---
RN NOTES ENDORSED FOR CONTINUITY OF CARE. NOT ON ANY FORM OF DISTRESS. NO INDICATION OF BLEEDING NOTED. ALL NURSING NEEDS ATTENDED AND MET. ALL SAFETY MEASURES IN PLACE. CALL LIGHT WITHIN REACH
--- NOTE | 2019-09-03 20:08 | NUR ---
ICU/RN OPENING RECEIVED PATIENT ON VENT A/O X1, PATIENT IS ABLE TO FOLLOW SIMPLE COMMANDS. NO SIGN OF ANY DISTRESS. TOLERATING VENT ORDERED SATURATING AT 98% WITH NO SIGN OF ANY SOB. PATIENT ON THE MONITOR SHOWING NSR WITH HR AT 79. PICC LINE SLOW TO FLUSH BUT DESPITE IT IS FLUSHING. FC IN PLACE DRAINING VIA GRAVITY WITH YELLOW OUTPUT NOTED. GTUBE INTACT WITH NO RESIDUAL AND FEEDING OF JEVITY RUNNING AT 35ML/HR. ALL SAFETY PRECAUTIONS APPLIED. WILL CONTINUE TO MONITOR.
[2019-09-03] MEDS: MIRTAZAPINE 15 MG TABLET PO SCH (21:08)
[2019-09-03] MEDS: JEVITY 1.2 CAL 1,000 ML BOTTLE GT PRN (23:47)
[2019-09-04] VITALS (52 sets, daily range): BP systolic 65–193; BP diastolic 30–126
[2019-09-04 04:10] LABS: BASOPHILS % (AUTO) 0.3 % (0.0-2.0); EOSINOPHILS % (AUTO) 0.2 % (0.0-6.0); HEMATOCRIT 33 % (39-51); HEMOGLOBIN 10.8 g/dL (13.5-17.5); LYMPHOCYTES # (AUTO) 0.6 /CMM (0.8-4.8); LYMPHOCYTES % (AUTO) 6.5 % (20.0-44.0); MEAN CORPUSCULAR HGB CONC 32 g/dl (31.0-36.0); MEAN CORPUSCULAR VOLUME 99 fL (80-96); MONOCYTES # (AUTO) 0.6 /CMM (0.1-1.30); MONOCYTES % (AUTO) 6.2 % (2.0-12.0); NEUTROPHILS # (AUTO) 8.2 /CMM (1.8-8.9); NEUTROPHILS % (AUTO) 86.8 % (43.0-81.0); PLATELET COUNT (AUTO) 243 /CMM (150-450); RED BLOOD CELL COUNT(AUTO) 3.38 MIL/uL (4.5-6.0); WHITE BLOOD COUNT (AUTO) 9.4 K/uL (4.3-11.0)
[2019-09-04 04:21] LABS: CALCIUM, SERUM 8.6 mg/dL (8.5-10.1); CREATININE 1.1 mg/dL (0.6-1.3)
[2019-09-04 04:52] LABS: POTASSIUM 2.6 mmol/L (3.5-5.1)
[2019-09-04] MEDS: METOCLOPRAMIDE HCL 10 MG/2 ML VIAL IV SCH ×3 (05:13→20:48)
--- NOTE | 2019-09-04 06:44 | NUR ---
0600PAGED CRYSTAL REGARDING CRITICAL LAB. 0630NO NO RESPONSE FROM CRYSTAL. CALLED [facility] AGAIN TO PAGE CRYSTAL [phone] ROJAS REGARDING CRITICAL LAB OF POTASSIUM. ORDERS RECEIVED OF 50MEQ OF KCL IV BOLUS AND 40MEQ KLOR CON PACKET.
[2019-09-04] MEDS: POTASSIUM CL. PREMIX PERIPHER. 50 ML IV SCH ×2 (07:01→08:04)
--- NOTE | 2019-09-04 07:30 | NUR ---
rn notes received patient back from previous shift for continuity of care. awake and calmly watches the television, patient not on any form of distress. breathing unlabored. sating fine at 100%. no indication of pain noted. gtf in place, feeding running at desired rate. rosario catheter in place and draininf to bloody urine- will continue to monitor presence of blood inn the urine. iv potassium infusing on the ayesha picc. hob elevated. safety measures mmeasures in place. call light withinn reach. will continue to monitor patient accordingly
[2019-09-04] MEDS: LEVOTHYROXINE SODIUM 112 MCG TABLET PO SCH (08:03)
--- NOTE | 2019-09-04 09:00 | NUR ---
RN NOTES PATIENT SEEN AND EXAMINED BY DR. MAYNARD. INFORMED MD ABOUT THE NOTED BLOOD IN THE URINE AND IF ITS OKAY TO GIVE ROUTINE PRADAXA, PER THE MD, OKAY TO GIVE
[2019-09-04] MEDS: POTASSIUM CHLORIDE 20 MEQ POWDER PACKET NG SCH ×2 (09:05→10:39)
[2019-09-04] MEDS: PROSOURCE / PROSTAT (PYXIS) 30 ML UDC GT SCH ×4 (09:05→20:47)
[2019-09-04] MEDS: LORAZEPAM 0.5 MG TABLET PO SCH ×2 (09:06→20:48)
[2019-09-04] MEDS: CLOTRIMAZOLE 1% 15 GM TUBE TP SCH ×2 (09:07→17:55)
[2019-09-04] MEDS: HYDROCORTISONE SOD SUCCINATE 100 MG/2 ML VIAL IV SCH ×3 (09:07→17:40)
[2019-09-04] MEDS: DABIGATRAN ETEXILATE MESYLATE 150 MG CAPSULE PO SCH ×2 (09:08→17:40)
[2019-09-04] MEDS: FUROSEMIDE 100 MG/10 ML VIAL IV SCH ×3 (09:26→17:40)
[2019-09-04] MEDS: POTASSIUM CHLORIDE 20 MEQ POWDER PACKET GT SCH (09:26)
--- NOTE | 2019-09-04 10:00 | NUR ---
RN NOTES OBTAIN ORDER FOR MANUALLY BLADDER IRRIGATION FROM DR. MAYNARD. ORDER NOTED AND CARRIED OUT
--- NOTE | 2019-09-04 12:00 | NUR ---
RN NOTES PATIENT REWEIGH PER CHARRGE NURSE INSTRUCTION. PATIENT OUT OF BED THROUGH THE USE OF THE DEAN LIFT. BED WAS CALIBRATED AND ZEROED OUT. WEIGHT WAS VERIFIED WITH LYNDA DUPONT
--- NOTE | 2019-09-04 18:50 | NUR ---
RN NOTES NO AUTE CHANGES WITHIN THE SHIFT. ALL NURSING NEEDS ATTENDED AND MET. NOT ON ANY FORM OF DISTRESS. BREATHING UNLABORED. SAFETY MEASURES IN PLACE AT ALL TIME. SRX2 UP. BED IN LOW AND LOCKED POSITIONED. BED ALARM ON. CALL LIGHT WITHIN REACH
--- NOTE | 2019-09-04 19:48 | NUR ---
RN/OPENING RECEIVED PATIENT FROM MORNING SHIFT NURSE. PATIENT DOES NOT SEEM TO BE SHOWING AND SIGNS OF DISTRESS AT THE MOMENT. NO SIGNS OF ANY SOB SATURATING AT 97% TOLERATING VENT SETTINGS ORDERED. PATIENT ON THE MONITOR SHOWING NSR AND SLIGHT TACHY AT TIMES. HR FLUCTUATES FROM FROM 80 TO 120. PATIENT DOES SEEM SLIGHTLY AGITATED WILL MONITOR. FC DRAINING VIA GRAVITY WITH NAHID COLOR OUTPUT. GTUBE FEEDING IS ON WITH JEVITY RUNNING AT 50CC/HR WITH NO RESIDUAL NOTED. ALL SAFETY PRECAUTIONS APPLIED. CLOSE MONITORING OF PATIENT.
[2019-09-04] MEDS: MIRTAZAPINE 15 MG TABLET PO SCH (21:00)
[2019-09-05] VITALS (40 sets, daily range): BP systolic 38–159; BP diastolic 27–104
[2019-09-05 04:49] LABS: BASOPHILS % (AUTO) 0.3 % (0.0-2.0); EOSINOPHILS % (AUTO) 0.4 % (0.0-6.0); HEMATOCRIT 33 % (39-51); HEMOGLOBIN 10.6 g/dL (13.5-17.5); LYMPHOCYTES # (AUTO) 0.7 /CMM (0.8-4.8); LYMPHOCYTES % (AUTO) 6.1 % (20.0-44.0); MEAN CORPUSCULAR HGB CONC 32 g/dl (31.0-36.0); MEAN CORPUSCULAR VOLUME 98 fL (80-96); MONOCYTES # (AUTO) 0.7 /CMM (0.1-1.30); MONOCYTES % (AUTO) 5.8 % (2.0-12.0); NEUTROPHILS % (AUTO) 87.4 % (43.0-81.0); PLATELET COUNT (AUTO) 228 /CMM (150-450); RED BLOOD CELL COUNT(AUTO) 3.34 MIL/uL (4.5-6.0); WHITE BLOOD COUNT (AUTO) 11.4 K/uL (4.3-11.0)
[2019-09-05 05:03] LABS: ALBUMIN 2.8 g/dL (3.4-5.0); BILIRUBIN,TOTAL 1.1 mg/dL (0.2-1.0); CALCIUM, SERUM 8.7 mg/dL (8.5-10.1); CREATININE 1.2 mg/dL (0.6-1.3); MAGNESIUM 2.4 mg/dL (1.8-2.4); PHOSPHORUS 3.7 mg/dL (2.5-4.9); TOTAL PROTEIN, SERUM 6.5 g/dL (6.4-8.2)
[2019-09-05 05:31] LABS: POTASSIUM 2.8 mmol/L (3.5-5.1)
[2019-09-05] MEDS: METOCLOPRAMIDE HCL 10 MG/2 ML VIAL IV SCH ×3 (05:41→21:50)
--- NOTE | 2019-09-05 06:14 | NUR ---
RECEIVED CRITICAL LAB FOR POTASSIUM OF 2.8. AND RADIOLOGY FOR TODAY'S CHEST XRAY TO BE REPORTED TO LABORATORY DEVELOPMENT TECHNICIAN VIJAY PLAZA MARKETING CONTENT SPECIALIST REVIEWED CHEST XRAY REPORT AND DECIDED TO HAVE DR. LYNN LOOK AT THE IMAGING AND WAIT FOR HIS ORDERS. RECEIVED NEW ORDERS FROM BRENDAN JALLOH REGARDING POTASSIUM OF 2.8. AND ORDERED 40MEQ OF KLOR CON PACKETS AND 30 MEQ OF KCL IV.
[2019-09-05] MEDS: JEVITY 1.2 CAL 1,000 ML BOTTLE GT PRN (06:25)
[2019-09-05] MEDS: POTASSIUM CL. PREMIX PERIPHER. 50 ML IV SCH ×3 (06:40→09:28)
--- NOTE | 2019-09-05 07:27 | NUR ---
ICU/RN PATIENT IN BED WITH NO SIGN OF ANY DISTRESS. CONTINUES TO TOLERATE VENT SETTINGS ORDERED. VITALS STABLE THROUGHOUT NIGHT. GTUBE FEEDING CONTINUES AT 50CC/HR WITH NO RESIDUAL. FC DRAINING WITH NAHID OUTPUT.BRITTANY PICC LINE INTACT. WILL ENDORSE TO MORNING SHIFT NURSE FOR MEG.
--- NOTE | 2019-09-05 07:41 | NUR ---
RN OPENING NOTES RECEIVED PATIENT RESTING IN BED, A/O X1, ABLE TO FOLLOW COMMANDS. PATIENT IS ON MECHANICAL VENTILATOR WITH SETTINGS ORDERED, TOLERATING WELL, NO SIGNS OF RESPIRATORY DISTRESS NOTED. O2 SATURATION AT 98%. ON TELE MONITOR WITH SR AT THE MOMENT, PER REPORT JUNCTIONAL RHYTHM WITH AFIB NOTED, MD IS AWARE. PATIENT HAS A G TUBE, INTACT, PATENT, AND FLUSHES WELL, NO SIGNS OF LEAKAGE NOTED. MOARN CATHETER IS IN PLACE, INTACT, PATENT AND DRAINING URINE. JEVITY FEEDING IS RUNNING ORDERED, TOLERATING WELL WITH NO RESIDUAL NOTED. BRITTANY PICC LINE INTACT, PATENT AND FLUSHED WELL. NO SIGNS OF INFECTION OR INFILTRATION NOTED. MD IS AWARE OF CRITICAL POTASSIUM LEVELS, PER NIGH SHIFT RN, MD ORDERED 3 BAGS OF POTASSIUM TO BE HANGED AND 40MEQ POTASSIUM PACK ON TOP OF ALL THE PREVIOUS ORDERS. PATIENT SAFETY IS BEING MAINTAINED, CALL LIGHT WITHIN REACH, WILL MONITOR CLOSELY.
[2019-09-05] MEDS: PROSOURCE / PROSTAT (PYXIS) 30 ML UDC GT SCH ×4 (08:11→21:54)
[2019-09-05] MEDS: POTASSIUM CHLORIDE 20 MEQ POWDER PACKET GT SCH (08:12)
[2019-09-05] MEDS: HYDROCORTISONE SOD SUCCINATE 100 MG/2 ML VIAL IV SCH ×3 (08:12→16:56)
[2019-09-05] MEDS: DABIGATRAN ETEXILATE MESYLATE 150 MG CAPSULE PO SCH ×2 (08:13→16:58)
[2019-09-05] MEDS: LEVOTHYROXINE SODIUM 112 MCG TABLET PO SCH (08:13)
[2019-09-05] MEDS: LORAZEPAM 0.5 MG TABLET PO SCH ×2 (08:14→21:58)
[2019-09-05] MEDS: CLOTRIMAZOLE 1% 15 GM TUBE TP SCH ×2 (08:14→16:58)
[2019-09-05] MEDS ORDERED: POTASSIUM CHLORIDE 20 MEQ POWDER PACKET GT SCH (09:00)
--- NOTE | 2019-09-05 18:16 | NUR ---
RN CLOSING NOTES REPORT CALLED AND GIVEN TO TEDDY HOWELL. NO ACUTE CHANGES TO PATIENT CONDITION DURING MY SHIFT. ALL PATIENT NEEDS WERE MET. VITAL SIGNS REMAINED STABLE THROUGHOUT MY SHIFT. PER MD ORDER OK TO TRANSFER PATIENT TO TELE. WILL TRANSFER PATIENT WITH ACLS PROTOCOL BY BED.
--- NOTE | 2019-09-05 19:30 | NUR ---
INDUSTRIAL MACHINE SYSTEM TECHNICIAN: RECEIVED PATIENT Patient transferred from ICU by bed, made comfortable, leads applied, Sinus Reinaldo HR 57 in the Tele monitor. Coccyx, both heels blanchable redness. Trach intact. Rosario cath to gravity with blood in the urine, patient pulling out rosario cath by himself that causes to bleed per LYNDA Trevino report. Patient A/O x1 to self, able to verbally respond slowly. Fall; Skin; Aspiration precaution maintained.
--- NOTE | 2019-09-05 19:32 | NUR ---
RN CLOSING NOTES ENDORSED PATIENT TO PM NURSE FOR MEG.
--- NOTE | 2019-09-05 19:34 | NUR ---
RT NOTE PT RECEIVED TRACHED ON MECHANICAL VENTILATION. PT TRANSFERRED TO [facility] FROM ICU WITH NO COMPLICATIONS. CUFF CHECKED VIA FOCUS PULLER. AMBU BAG @ HOB. VENT PLUGGED TO RED OUTLET. ALARMS ON AND AUDIBLE. SX DONE, TRACH SECURED AND PATENT. NO DISTRESS NOTED AT THIS TIME. WILL MONITOR CLOSELY. Addendum: 09/05/19 at 1935 by ALTHEA REYNA RT Amended: Links added.
[2019-09-05] MEDS: MIRTAZAPINE 15 MG TABLET PO SCH (21:55)
[2019-09-06] VITALS: BP 143/88
[2019-09-06 00:20] VITALS: BP 143/88
[2019-09-06 04:00] VITALS: BP 159/99
[2019-09-06 04:30] VITALS: BP 150/99
[2019-09-06] MEDS: JEVITY 1.2 CAL 1,000 ML BOTTLE GT PRN (04:53)
[2019-09-06] MEDS: METOCLOPRAMIDE HCL 10 MG/2 ML VIAL IV SCH ×2 (04:55→12:54)
[2019-09-06 06:23] LABS: BASOPHILS % (AUTO) 0.3 % (0.0-2.0); EOSINOPHILS % (AUTO) 0.4 % (0.0-6.0); HEMATOCRIT 36 % (39-51); HEMOGLOBIN 11.4 g/dL (13.5-17.5); LYMPHOCYTES # (AUTO) 0.8 /CMM (0.8-4.8); LYMPHOCYTES % (AUTO) 5.4 % (20.0-44.0); MEAN CORPUSCULAR HGB CONC 32 g/dl (31.0-36.0); MEAN CORPUSCULAR VOLUME 100 fL (80-96); MONOCYTES # (AUTO) 0.7 /CMM (0.1-1.30); NEUTROPHILS # (AUTO) 12.7 /CMM (1.8-8.9); NEUTROPHILS % (AUTO) 88.9 % (43.0-81.0); PLATELET COUNT (AUTO) 256 /CMM (150-450); RED BLOOD CELL COUNT(AUTO) 3.64 MIL/uL (4.5-6.0); WHITE BLOOD COUNT (AUTO) 14.2 K/uL (4.3-11.0)
--- NOTE | 2019-09-06 06:42 | NUR ---
COUNTER CUTTER: END OF SHIFT REPORT Patient in bed, restless at times, sliding himself to the side of the bed. A/O x 1 to self only. Trach intact, Sinus rhythm, BBB, PAC with HR 77. Mechanical vent setting remains the same. Copeland cath to gravity, with blood in the urine, irrigation done with pink tinged flow of urine in the bag. Tolerating current tube feeding, maintained upright posture. Plan for dc to [facility], awaiting bed available. Will endorse to oncoming RN.
[2019-09-06 07:26] LABS: ALBUMIN 2.9 g/dL (3.4-5.0); BILIRUBIN,TOTAL 0.9 mg/dL (0.2-1.0); CALCIUM, SERUM 9.2 mg/dL (8.5-10.1); CREATININE 1.1 mg/dL (0.6-1.3); MAGNESIUM 2.7 mg/dL (1.8-2.4); PHOSPHORUS 3.3 mg/dL (2.5-4.9); POTASSIUM 3.3 mmol/L (3.5-5.1)
--- NOTE | 2019-09-06 07:30 | NUR ---
ENGINEERING MANAGER ELECTRONICS Opening Notes Patient is awake, moving his arms and trying to speak. Copeland catheter is intact, on ventilator, G-Tube is intact and patent and L UA PICC line is intact and patent. Bed is low settings, side rails up and call light within reach. Continue to monitor.
[2019-09-06 08:00] VITALS: BP 133/89
[2019-09-06] MEDS: LEVOTHYROXINE SODIUM 112 MCG TABLET PO SCH (09:17)
[2019-09-06] MEDS: POTASSIUM CHLORIDE 20 MEQ POWDER PACKET GT SCH (09:18)
[2019-09-06] MEDS: DABIGATRAN ETEXILATE MESYLATE 150 MG CAPSULE PO SCH ×2 (09:21→16:49)
[2019-09-06] MEDS: LORAZEPAM 0.5 MG TABLET PO SCH (09:24)
[2019-09-06] MEDS: HYDROCORTISONE SOD SUCCINATE 100 MG/2 ML VIAL IV SCH ×3 (09:25→16:50)
[2019-09-06] MEDS: PROSOURCE / PROSTAT (PYXIS) 30 ML UDC GT SCH ×3 (09:26→16:50)
[2019-09-06] MEDS: FUROSEMIDE 100 MG/10 ML VIAL IV SCH ×3 (10:06→16:48)
[2019-09-06] MEDS: POTASSIUM CHLORIDE 20 MEQ TAB.PRT.SR PO SCH ×3 (10:06→13:00)
[2019-09-06] MEDS: CLOTRIMAZOLE 1% 15 GM TUBE TP SCH ×2 (11:31→17:22)
[2019-09-06] MEDS ORDERED: POTASSIUM CHLORIDE 20 MEQ POWDER PACKET NG SCH (12:00)
[2019-09-06] MEDS: NYSTATIN (PYXIS) 500,000 UNIT/5 ML ORAL.SUSP PO SCH ×2 (12:54→16:50)
[2019-09-06 16:00] VITALS: BP 157/94
--- NOTE | 2019-09-06 18:28 | NUR ---
CAR PORTER NOTES PT IN BED, AWAKE, ALERT TO SELF, NO SIGN OF PAIN, NOT IN DISTRESS, SEEN BY DR. MAYNARD AND DR. PALACIOS TODAY, AFEBRILE DURING THE SHIFT, PM CARE PROVIDED, TURNED AND REPOSITIONED FOR COMFORT, DUE MEDS GIVEN SCHEDULED, PT FOR DISCHARGE TO [facility], MANI INFORMED, REPORT AND MEICATION INSTRUCTIONS GIVEN TO YEIMI HOWELL, SALT OPERATOR TIME OF 1930.
--- NOTE | 2019-09-06 19:50 | NUR ---
PHYSICAL THERAPY ASSISTANT INSTRUCTOR: DISCHARGE Patient has been cleared for dc by . Transport arrived, patient has no personal belongings. Copeland cath in place, no hematuria. Gtube intact, flushed with water and clamped tube. PICC line remains in place, dressing clean and dry. Leads removed from chest area. Trach intact, per RT and ambulance staff under care upon transport. Report given to LYNDA Cooper/[facility] by LYNDA George/radha Primary nurse. Patient left hosp in stable condition.
== END 2019-09-06 20:00 | disposition short-term general hospital (02) | DRG 4 ==
LOC: ER 02:53 → ICU 08:11 → TELE 09-05 19:15
PROVIDERS: ADMIT Nurse Practitioner Acute Care; ATTEND Student in an Organized Health Care Education/Training Program
PROC: 5A1955Z Respiratory Ventilation, Greater than 96 Consecutive Hours (ICD-10-PCS; principal; 2019-06-28)
PROC: 0BH17EZ Insertion of Endotracheal Airway into Trachea, Via Natural or Artificial Opening (ICD-10-PCS; 2019-06-28)
PROC: 02HV33Z Insertion of Infusion Device into Superior Vena Cava, Percutaneous Approach (ICD-10-PCS; 2019-06-28)
PROC: B548ZZA Ultrasonography of Superior Vena Cava, Guidance (ICD-10-PCS; 2019-06-28)
PROC: 5A1945Z Respiratory Ventilation, 24-96 Consecutive Hours (ICD-10-PCS; 2019-07-07)
PROC: 0BH17EZ Insertion of Endotracheal Airway into Trachea, Via Natural or Artificial Opening (ICD-10-PCS; 2019-07-07)
PROC: 02HV33Z Insertion of Infusion Device into Superior Vena Cava, Percutaneous Approach (ICD-10-PCS; 2019-07-18)
PROC: 0B110F4 Bypass Trachea to Cutaneous with Tracheostomy Device, Open Approach (ICD-10-PCS; 2019-07-30)
PROC: 0DH63UZ Insertion of Feeding Device into Stomach, Percutaneous Approach (ICD-10-PCS; 2019-08-03)
PROC: 02HV33Z Insertion of Infusion Device into Superior Vena Cava, Percutaneous Approach (ICD-10-PCS; 2019-08-11)
PROC: B548ZZA Ultrasonography of Superior Vena Cava, Guidance (ICD-10-PCS; 2019-08-11)
DX: A41.89 Other specified sepsis (principal); U07.1 COVID-19; N17.0 Acute kidney failure with tubular necrosis; I21.A1 Myocardial infarction type 2; J12.89 Other viral pneumonia; J96.01 Acute respiratory failure with hypoxia; R65.21 Severe sepsis with septic shock; G92 Toxic encephalopathy; B37.49 Other urogenital candidiasis; D61.818 Other pancytopenia; E44.0 Moderate protein-calorie malnutrition; E87.2 Acidosis; I45.2 Bifascicular block; J98.11 Atelectasis; J90 Pleural effusion, not elsewhere classified; E87.0 Hyperosmolality and hypernatremia; I47.1 Supraventricular tachycardia; E27.40 Unspecified adrenocortical insufficiency; Z68.41 Body mass index [BMI] 40.0-44.9, adult; D68.59 Other primary thrombophilia; B37.0 Candidal stomatitis; E03.9 Hypothyroidism, unspecified; Z88.2 Allergy status to sulfonamides; Z79.01 Long term (current) use of anticoagulants; Z79.899 Other long term (current) drug therapy; I45.81 Long QT syndrome; E78.5 Hyperlipidemia, unspecified; F32.9 Major depressive disorder, single episode, unspecified; R13.10 Dysphagia, unspecified; K59.00 Constipation, unspecified; Z86.711 Personal history of pulmonary embolism; E66.01 Morbid (severe) obesity due to excess calories; Y95 Nosocomial condition; G47.33 Obstructive sleep apnea (adult) (pediatric); E87.6 Hypokalemia; E78.00 Pure hypercholesterolemia, unspecified; E78.1 Pure hyperglyceridemia; I25.2 Old myocardial infarction; D63.8 Anemia in other chronic diseases classified elsewhere; Z68.39 Body mass index [BMI] 39.0-39.9, adult; A41.81 Sepsis due to Enterococcus; R31.9 Hematuria, unspecified; T38.0X5A Adverse effect of glucocorticoids and synthetic analogues, initial encounter; Z74.09 Other reduced mobility; E86.9 Volume depletion, unspecified; F41.9 Anxiety disorder, unspecified; I99.8 Other disorder of circulatory system; S31.000A Unspecified open wound of lower back and pelvis without penetration into retroperitoneum, initial encounter; X58.XXXA Exposure to other specified factors, initial encounter; Y92.89 Other specified places as the place of occurrence of the external cause; I48.0 Paroxysmal atrial fibrillation
CPT/HCPCS: 31720; 36415; 36569; 36600; 71045-TC; 76700-TC; 80048-TC; 80053-TC; 80061-TC; 80076-TC; 80202-TC; 81000-TC; 82272-TC; 82533; 82728-TC; 82803-TC; 82962-TC; 83605-TC; 83615-TC; 83735-TC; 83880; 84100-TC; 84132-TC; 84436-TC; 84439-TC; 84443-TC; 84478-TC; 84484-TC; 85025-TC; 85027-TC; 85378-TC; 85396; 85730-TC; 86140-TC; 86480; 86706; 86850-TC; 87040-TC; 87070-TC; 87081-TC; 87086-TC; 87186-TC; 87340; 93307-TC; 94002-TC; 94003-TC; 94640-TC; 94760-TC; 94762-TC; 94799-TC; 99082-TC; A4216; A4217; A4349; A4623; A7526; C1751; G0378; J0282; J0330; J0360; J0456; J0690; J1200; J1650; J1720; J1940; J2001; J2060; J2185; J2270; J2370; J2405; J2543; J2704; J2765; J2920; J2997; J3262; J3370; J3480; J3490; J7030; J7040; J7050; J7060; Q0163; U0003-CS